=== PATIENT | male | born 1950 | race Caucasian/White ===

== ENCOUNTER → 2020-02-13 10:56 | Outpatient (BNVA) | payer MEDICARE, OTHER, SELFPAY | PROVIDERS: Referring Provider Nurse Practitioner Family; Visit Provider Internal Medicine Cardiovascular Disease | DX: I25.118 Atherosclerotic heart disease of native coronary artery with other forms of angina pectoris (principal); I25.5 Ischemic cardiomyopathy; I10 Essential (primary) hypertension; E78.5 Hyperlipidemia, unspecified; I97.89 Other postprocedural complications and disorders of the circulatory system, not elsewhere classified; I48.91 Unspecified atrial fibrillation; Z79.82 Long term (current) use of aspirin; Z95.1 Presence of aortocoronary bypass graft | CPT/HCPCS: 99214 ==

== ENCOUNTER → 2020-06-15 11:07 | Outpatient (BNVA) | payer MEDICARE, OTHER, SELFPAY | PROVIDERS: PCP Internal Medicine; Visit Provider Internal Medicine Cardiovascular Disease | DX: I20.8 Other forms of angina pectoris (principal); I25.5 Ischemic cardiomyopathy; Z95.1 Presence of aortocoronary bypass graft; R06.00 Dyspnea, unspecified | CPT/HCPCS: 93005; 99212 ==

== ENCOUNTER 2020-06-16 11:11 | Outpatient (REF) | payer MEDICARE, SELFPAY ==
[2020-06-16 13:58] LABS: Hematocrit 44.4 % (42-52); Hemoglobin 14.5 g/dl (14.0-18.0); Mean Corpuscular HGB Conc 32.7 g/dl (31.0-36.0); Mean Corpuscular Hemoglobin 32.7 pg (27.0-33.0); Mean Platelet Volume 10.3 fL (9.4-12.4); Platelet Count 285 X10*3/uL (160-400); Red Blood Count 4.44 X10*6/uL (4.60-5.80); Red Cell Distribution Width 12.1 % (11.0-16.0); White Blood Count 11.3 X10*3/uL (4.8-10.8)
[2020-06-16 14:08] LABS: Prothrombin Time 12.3 SEC (10.8-13.0)
[2020-06-16 14:33] LABS: Anion Gap 14 (12-20); Blood Urea Nitrogen 12 mg/dL (9-16); Calcium 9.4 mg/dL (8.4-10.2); Carbon Dioxide 27 mmol/L (22-29); Chloride 99 mmol/L (96-108); Estimated Glomerular Filt Rate > 60; Glucose Random 86 mg/dL (60-115); Potassium 4.4 mmol/L (3.3-5.1); Sodium 136 mmol/L (135-145)
== END 2020-06-16 11:12 | disposition home or self-care (01) ==
LOC: HO.HMGCLDS 11:11
PROVIDERS: PCP Nurse Practitioner Family; Visit Provider Internal Medicine Cardiovascular Disease
DX: I25.5 Ischemic cardiomyopathy (principal)
CPT/HCPCS: 36415; 80048; 85027; 85610

== ENCOUNTER → 2020-07-09 12:45 | Outpatient (BNVA) | payer MEDICARE, SELFPAY | PROVIDERS: PCP Nurse Practitioner Family; Visit Provider Internal Medicine Cardiovascular Disease | DX: I25.118 Atherosclerotic heart disease of native coronary artery with other forms of angina pectoris (principal); I10 Essential (primary) hypertension | CPT/HCPCS: 99212 ==

== ENCOUNTER → 2020-08-20 10:29 | Outpatient (BNVA) | payer MEDICARE, SELFPAY | PROVIDERS: PCP Nurse Practitioner Family; Visit Provider Internal Medicine Cardiovascular Disease | DX: R06.00 Dyspnea, unspecified (principal); I20.8 Other forms of angina pectoris; I25.5 Ischemic cardiomyopathy; I10 Essential (primary) hypertension; Z79.899 Other long term (current) drug therapy | CPT/HCPCS: 99212 ==

== ENCOUNTER → 2021-01-04 14:26 | Outpatient (BNVA) | payer MEDICARE, SELFPAY | PROVIDERS: PCP Nurse Practitioner Family; Referring Provider Nurse Practitioner Family; Visit Provider Internal Medicine Cardiovascular Disease | DX: R06.00 Dyspnea, unspecified (principal); I20.8 Other forms of angina pectoris; I25.5 Ischemic cardiomyopathy; I10 Essential (primary) hypertension | CPT/HCPCS: 93005; 99212 ==

== ENCOUNTER → 2021-07-05 14:49 | Outpatient (BNVA) | payer MEDICARE, SELFPAY | PROVIDERS: PCP Internal Medicine; Visit Provider Internal Medicine Cardiovascular Disease | DX: I20.8 Other forms of angina pectoris (principal); I10 Essential (primary) hypertension; I25.5 Ischemic cardiomyopathy; Z79.899 Other long term (current) drug therapy | CPT/HCPCS: 99212 ==

== ENCOUNTER → 2021-11-29 13:18 | Outpatient (BNVA) | payer MEDICARE, SELFPAY | PROVIDERS: PCP Nurse Practitioner Family; Referring Provider Nurse Practitioner Family; Visit Provider Internal Medicine Cardiovascular Disease | DX: I20.8 Other forms of angina pectoris (principal); I10 Essential (primary) hypertension | CPT/HCPCS: 93005; 99212 ==

== ENCOUNTER 2022-05-18 09:04 | Inpatient (IN) | payer MEDICARE, SELFPAY ==
[2022-05-18] VITALS (7 sets, daily range): BP systolic 120–154; BP diastolic 65–90; PULSE 91–123; RESP 16–28; TEMP 36.4–37.4; O2SAT 93–97; BMI 27.8
--- NOTE | ~2022-05-18 | XR_ITS ---
EXAMINATION: XR CHEST CLINICAL INFORMATION: Shortness of breath COMPARISON: 07/28/2019 TECHNIQUE: Frontal view of the chest was obtained. FINDINGS: Heart size normal. No evidence of CHF. Status post median sternotomy. Some mild coarse interstitial markings are again seen. At the time of the prior study, CHF with Jasmina B lines was thought to be present which has cleared in the interim. No consolidations, pleural effusions or lung masses are seen. Calcification is present in the right supraspinatus tendon. XR/XR chest 1V IMPRESSION: No acute intrathoracic disease.
--- NOTE | 2022-05-18 09:08 | ECG_ITS ---
Test Reason : DYSPNEA Blood Pressure : / mmHG Vent. Rate : 102 BPM Atrial Rate : 000 BPM P-R Int : 000 ms QRS Dur : 120 ms QT Int : 396 ms P-R-T Axes : 000 027 -25 degrees QTc Int : 516 ms Atrial fibrillation with rapid ventricular response Minimal voltage criteria for LVH, may be normal variant ( [place] product ) Possible Inferior infarct (cited on or before 29-JUL-2019) Abnormal ECG When compared with ECG of 29-JUL-2019 13:34, Atrial fibrillation has replaced Sinus rhythm Referred By: Ashlyn Buck Electronically Signed By:Orion Joshi
--- NOTE | 2022-05-18 09:18 | ED_ITS ---
HPI - SOB/Dyspnea General Chief Complaint: Dyspnea Stated Complaint: DIFF BREATHING PER EMS Time Seen by Provider: 05/18/22 09:08 Source: patient Mode of arrival: EMS History of Present Illness HPI Narrative: 72-year-old male with significant past medical history of atrial fibrillation, angina and noted to have ischemic cardiomyopathy and COPD is brought in by EMS for worsening shortness of breath since 06/06, patient also endorses that he his noticed his heart rate has ?been going up over the past couple of days into the 120s?. Patient denies any current smoking, fevers, chills, nausea, vomiting but does state he did have some associated chest discomfort with his symptoms of shortness of breath. Related Data Home Medications Medication Instructions Recorded Confirmed albuterol sulfate 90 mcg/actuation inhalation 02/13/20 11/29/21 aerosol inhaler atorvastatin 20 mg tablet 20 mg PO DAILY 02/13/20 11/29/21 escitalopram oxalate 10 mg tablet 10 mg PO DAILY 02/13/20 11/29/21 lorazepam 1 mg tablet mg PO DAILY PRN 01/04/21 11/29/21 gabapentin 300 mg capsule 300 mg PO BID 07/05/21 11/29/21 Previous Rx's Medication Instructions Recorded amlodipine 10 mg tablet 10 mg PO DAILY 90 days #90 tabs 05/17/22 aspirin 81 mg tablet,delayed 81 mg PO DAILY #90 tabs 05/17/22 release clopidogrel 75 mg tablet (Plavix) 75 mg PO DAILY #90 tabs 05/17/22 furosemide 40 mg tablet 40 mg PO DAILY #90 caps 05/17/22 isosorbide mononitrate 60 mg 60 mg PO DAILY #90 tabs 05/17/22 tablet,extended release 24 hr lisinopril 20 mg tablet 20 mg PO DAILY #90 tabs 05/17/22 metoprolol tartrate 50 mg tablet 50 mg PO BID 90 days #180 tabs 05/17/22 Allergies Allergy/AdvReac Type Severity Reaction Status Date / Time latex [LATEX] Allergy Mild RASH Verified 11/29/21 13:29 nickel Allergy Unknown Rash Verified 11/29/21 13:29 ticagrelor [From Brilinta] Allergy Shortness Verified 01/20/22 10:00 of Breath Review of Systems Review of Systems: Pertinent positives and negatives as stated in HPI. PMF Past Medical History Source: nursing notes reviewed Medical History CAD (coronary artery disease) COPD (chronic obstructive pulmonary disease) History of prior cigarette smoking HTN (hypertension) Hyperlipidemia Ischemic cardiomyopathy Postoperative atrial fibrillation Stable angina Surgical History H/O knee surgery Hx of CABG S/P CABG x 3 Status post glaucoma surgery Family History Family History Father CVD (cardiovascular disease) Mother CVD (cardiovascular disease) Social History Social History Alcohol intake: current Alcohol intake frequency: holidays/special occasions only Alcohol type: beer Patient Tobacco Use Status: Former Tobacco user Quit Date: 2018 Smoked: 20 +/- Advance Directives: No Physical Exam Vital Signs: Vital Signs: Last Vital Signs Temp 97.6 F 05/18/22 09:14 Pulse 112 H 05/18/22 11:15 Resp 21 H 05/18/22 11:15 BP 131/80 05/18/22 10:42 Pulse Ox 93 05/18/22 10:42 O2 Del Method 05/18/22 10:42 O2 Flow Rate 2 05/18/22 10:42 Oxygen Flow Rate 2 05/18/22 09:14 BMI result Body Mass Index 27.8 VITAL SIGNS: Reviewed. GENERAL: Well developed, well nourished, in no acute distress. HEAD: Normocephalic/atraumatic EYES: PERRLA, EOMI EARS: Ext canals without abnormality OROPHARYNX: no oral lesions noted, posterior pharynx clear NECK: Supple, no adenopathy LUNGS: Decreased breath sounds, coarse rales, expiratory wheeze, tachypnea with increased work of breathing SpO2<92> 2 L nasal cannula in place CARDIOVASCULAR: Regular rate and rhythm without noted murmurs, no JVD or lower extremity edema. ABDOMEN: Soft, non-tender, non-distended with bowel sounds. MUSCULOSKELETAL: No tenderness, deformities, or effusions noted on gross inspection. EXTREMITIES: No cyanosis, clubbing or edema. SKIN: Inspection of the skin reveals no rashes NEUROLOGIC: Alert and oriented x 4. Strength and sensation to light touch were grossly intact x 4. Medications Administered Discontinued Medications Generic Name Dose Route Start Last Admin Trade Name Freq PRN Reason Stop Dose Admin Albuterol Sulfate 5 mg/ 0 mg 05/18/22 10:45 05/18/22 11:10 Ipratropium [place] 0.5 mg INHALE 05/18/22 10:46 2.5 each ONCE ONE Administration Furosemide 80 mg 05/18/22 09:18 05/18/22 09:31 Furosemide 100 Mg/10 Ml Vial IVPUSH 05/18/22 09:19 80 mg ONCE ONE Administration Protocol Metoprolol Tartrate 2.5 mg 05/18/22 09:18 05/18/22 09:31 Metoprolol Tartrate 5 Mg/5 Ml Vial IVPUSH 05/18/22 09:19 2.5 mg ONCE ONE Administration Metoprolol Tartrate 50 mg 05/18/22 10:58 05/18/22 11:16 Metoprolol Tartrate 50 Mg Tablet PO 05/18/22 10:59 50 mg ONCE ONE Administration Protocol Medical Decision Making Medical Decision Making MDM Narrative: 72-year-old male with suspected CHF exacerbation secondary to atrial fibrillation with RVR. 1146: I reviewed all the workup and my interpretation is that patient has been in atrial fibrillation with RVR for several days and has developed acute CHF exacerbation despite the unimpressive BNP and chest x-ray findings. Patient received 80 mg of Lasix with good response and tachypnea has significantly improved but he is still relying 2 L via nasal cannula. Patient was noted to be in atrial fibrillation with RVR on arrival and received 2.5 mg of Lopressor as well as scheduled p.o. dose of 50 mg. On re-evaluation the heart rate has continue to improve. Patient otherwise appears well and no clinical suspicion for COPD exacerbation or underlying infectious etiology. Viral testing is negative. Be observed leukocytosis is not associated with concomitant elevated temperature or new cough. Patient did receive DuoNeb treatment. I did perform a quick bedside ultrasound to evaluate for evidence of pericardial effusion which is not evident. Differential Diagnosis Please see the discussion above Consult Healthcare Provider Management of the patient was discussed with: Hospitalist 1134: A contacted hospitalist for admission for continued optimization of patient's CHF exacerbation. Lab Data Please see the discussion above 05/18/22 09:29 05/18/22 09:29 Labs: Lab Results 05/18/22 05/18/22 05/18/22 Range/Units 09:29 09:29 09:29 WBC 12.0 H (4.8-10.8) X10*3/uL RBC 4.07 L (4.60-5.80) X10*6/uL Hgb 13.2 L (14.0-18.0) g/dl Hct 38.2 L (42.0-52.0) % MCV 93.9 (80.0-98.0) fL MCH 32.4 (27.0-33.0) pg MCHC 34.6 (31.0-36.0) g/dl RDW 12.4 (11.0-16.0) % Plt Count 207 (160-400) X10*3/uL MPV 9.6 (9.4-12.4) fL Immature Gran % (Auto) 0.5 H (0.0-0.4) % Neut % (Auto) 85.5 H (45-73) % Lymph % (Auto) 7.1 L (20-40) % Burt % (Auto) 6.6 (2-11) % Eos % (Auto) 0.1 (0-4) % Baso % (Auto) 0.2 (0-2) % Lymph # (Auto) 0.9 L (1.2-4.9) X10*3/uL Burt # (Auto) 0.8 (0.1-1.2) X10*3/uL Eos # (Auto) 0.0 (0.0-0.4) X10*3/uL Baso # (Auto) 0.0 (0.0-0.2) X10*3/uL Abs Immat Gran (auto) 0.06 H (0.00-0.03) X10*3/uL Absolute Neuts (auto) 10.3 H (2.0-8.3) x10*3/uL Absolute Nucleated RBC 0.000 (0.0-0.012) X10*3/uL Nucleated RBC % (auto) 0.0 (0.0-0.2) /100WBC PT (10.0-13.1) SEC INR (0.9-1.1) VBG pH (7.32-7.43) VBG pCO2 mmHg VBG pO2 mmHg VBG HCO3 (22-26) mmol/L VBG O2 Saturation % VBG Base Excess mmol/L Sodium 132 L (135-145) mmol/L Potassium 4.1 (3.3-5.1) mmol/L Chloride 98 (96-108) mmol/L Carbon Dioxide 23 (22-29) mmol/L Anion Gap 15 (12-20) BUN 11 (9-16) mg/dL Creatinine 0.69 (0.5-1.4) mg/dL Estim Creat Clear Calc 101.6 Estimated GFR > 60 Random Glucose 136 H (60-115) mg/dL Calcium 9.4 (8.4-10.2) mg/dL Total Bilirubin 0.8 (0.0-1.0) mg/dL AST 31 (5-37) U/L ALT 38 (0-40) U/L Alkaline Phosphatase 85 (39-117) U/L Troponin I High Sens (<3.5-35.0) ng/L B-Natriuretic Peptide 361 H (<100) pg/mL Total Protein 7.1 (6.5-8.0) g/dL Albumin 4.4 (3.5-5.0) g/dL COVID-19 (DUANE) (Negative) COVID-19 Clin Com Influenza Type A (SUSAN) (Negative) Influenza Type B (SUSAN) (Negative) Influenza A & B Note 05/18/22 05/18/22 05/18/22 Range/Units 09:29 09:29 09:29 WBC (4.8-10.8) X10*3/uL RBC (4.60-5.80) X10*6/uL Hgb (14.0-18.0) g/dl Hct (42.0-52.0) % MCV (80.0-98.0) fL MCH (27.0-33.0) pg MCHC (31.0-36.0) g/dl RDW (11.0-16.0) % Plt Count (160-400) X10*3/uL MPV (9.4-12.4) fL Immature Gran % (Auto) (0.0-0.4) % Neut % (Auto) (45-73) % Lymph % (Auto) (20-40) % Burt % (Auto) (2-11) % Eos % (Auto) (0-4) % Baso % (Auto) (0-2) % Lymph # (Auto) (1.2-4.9) X10*3/uL Burt # (Auto) (0.1-1.2) X10*3/uL Eos # (Auto) (0.0-0.4) X10*3/uL Baso # (Auto) (0.0-0.2) X10*3/uL Abs Immat Gran (auto) (0.00-0.03) X10*3/uL Absolute Neuts (auto) (2.0-8.3) x10*3/uL Absolute Nucleated RBC (0.0-0.012) X10*3/uL Nucleated RBC % (auto) (0.0-0.2) /100WBC PT 12.9 (10.0-13.1) SEC INR 1.1 (0.9-1.1) VBG pH (7.32-7.43) VBG pCO2 mmHg VBG pO2 mmHg VBG HCO3 (22-26) mmol/L VBG O2 Saturation % VBG Base Excess mmol/L Sodium (135-145) mmol/L Potassium (3.3-5.1) mmol/L Chloride (96-108) mmol/L Carbon Dioxide (22-29) mmol/L Anion Gap (12-20) BUN (9-16) mg/dL Creatinine (0.5-1.4) mg/dL Estim Creat Clear Calc Estimated GFR Random Glucose (60-115) mg/dL Calcium (8.4-10.2) mg/dL Total Bilirubin (0.0-1.0) mg/dL AST (5-37) U/L ALT (0-40) U/L Alkaline Phosphatase (39-117) U/L Troponin I High Sens (<3.5-35.0) ng/L B-Natriuretic Peptide (<100) pg/mL Total Protein (6.5-8.0) g/dL Albumin (3.5-5.0) g/dL COVID-19 (DUANE) Negative (Negative) COVID-19 Clin Com See Note Influenza Type A (SUSAN) Negative (Negative) Influenza Type B (SUSAN) Negative (Negative) Influenza A & B Note See Note 05/18/22 05/18/22 Range/Units 09:29 09:42 WBC (4.8-10.8) X10*3/uL RBC (4.60-5.80) X10*6/uL Hgb (14.0-18.0) g/dl Hct (42.0-52.0) % MCV (80.0-98.0) fL MCH (27.0-33.0) pg MCHC (31.0-36.0) g/dl RDW (11.0-16.0) % Plt Count (160-400) X10*3/uL MPV (9.4-12.4) fL Immature Gran % (Auto) (0.0-0.4) % Neut % (Auto) (45-73) % Lymph % (Auto) (20-40) % Burt % (Auto) (2-11) % Eos % (Auto) (0-4) % Baso % (Auto) (0-2) % Lymph # (Auto) (1.2-4.9) X10*3/uL Burt # (Auto) (0.1-1.2) X10*3/uL Eos # (Auto) (0.0-0.4) X10*3/uL Baso # (Auto) (0.0-0.2) X10*3/uL Abs Immat Gran (auto) (0.00-0.03) X10*3/uL Absolute Neuts (auto) (2.0-8.3) x10*3/uL Absolute Nucleated RBC (0.0-0.012) X10*3/uL Nucleated RBC % (auto) (0.0-0.2) /100WBC PT (10.0-13.1) SEC INR (0.9-1.1) VBG pH 7.34 (7.32-7.43) VBG pCO2 49 mmHg VBG pO2 56 mmHg VBG HCO3 26 (22-26) mmol/L VBG O2 Saturation 85.0 % VBG Base Excess 0.5 mmol/L Sodium (135-145) mmol/L Potassium (3.3-5.1) mmol/L Chloride (96-108) mmol/L Carbon Dioxide (22-29) mmol/L Anion Gap (12-20) BUN (9-16) mg/dL Creatinine (0.5-1.4) mg/dL Estim Creat Clear Calc Estimated GFR Random Glucose (60-115) mg/dL Calcium (8.4-10.2) mg/dL Total Bilirubin (0.0-1.0) mg/dL AST (5-37) U/L ALT (0-40) U/L Alkaline Phosphatase (39-117) U/L Troponin I High Sens 10.3 (<3.5-35.0) ng/L B-Natriuretic Peptide (<100) pg/mL Total Protein (6.5-8.0) g/dL Albumin (3.5-5.0) g/dL COVID-19 (DUANE) (Negative) COVID-19 Clin Com Influenza Type A (SUSAN) (Negative) Influenza Type B (SUSAN) (Negative) Influenza A & B Note Independent Interpretation I performed an independent interpretation of an: EKG Interpretation: Atrial fibrillation with RVR, HR-102, no STEMI, and both QRS and QTC are prolonged. Radiology Impression Radiologist Impression: My interpretation is in agreement with radiology's impression of the imaging study. External Record Review External record reviewed: Office record, Outpatient record and Prior outpatient labs Chronic Conditions Patient?s care impacted by: Hypertension and Other CAD, COPD Critical Care Time Critical Care Time Critical Care Time: Yes Total Critical Care Time: 45 Attestation: I personally attest to this time spent taking care of the patient. Discharge Plan Discharge Clinical Impression: Hypoxia, Atrial fibrillation with RVR, CHF exacerbation Patient Disposition: Admitted As Inpatient Prescriptions: No Action amlodipine 10 mg tablet 10 mg PO DAILY 90 Days Qty: 90 3RF aspirin 81 mg tablet,delayed release (DR/EC) 81 mg PO DAILY Qty: 90 3RF clopidogrel [Plavix] 75 mg tablet 75 mg PO DAILY Qty: 90 3RF furosemide 40 mg tablet 40 mg PO DAILY Qty: 90 3RF isosorbide mononitrate 60 mg tablet extended release 24 hr 60 mg PO DAILY Qty: 90 3RF lisinopril 20 mg tablet 20 mg PO DAILY Qty: 90 3RF metoprolol tartrate 50 mg tablet 50 mg PO BID 90 Days Qty: 180 3RF escitalopram oxalate 10 mg tablet 10 mg PO DAILY atorvastatin 20 mg tablet 20 mg PO DAILY albuterol sulfate 90 mcg/actuation HFA aerosol inhaler inhalation lorazepam 1 mg tablet PO DAILY PRN gabapentin 300 mg capsule 300 mg PO BID
[2022-05-18] MEDS: Metoprolol Tartrate 5 MG/5 ML VIAL 2.5 MG IVPUSH (09:31)
[2022-05-18] MEDS: Furosemide 100 MG/10 ML VIAL 80 MG IVPUSH (09:31)
[2022-05-18 09:40] LABS: MANUAL DIFF FLAG NO
--- NOTE | 2022-05-18 09:40 | PC.NURSE ---
at bedside patient tolerated IVP Metoprolol and Lasix. LS clear on auscultation no crackles or wheezing appreciated patient is tachypnic. Afib on clinical research monitor will CTM
[2022-05-18 09:47] LABS: INTERNATIONAL NORM RATIO 1.1 (0.9-1.1); Prothrombin Time 12.9 SEC (10.0-13.1)
[2022-05-18 09:49] LABS: Basophils Percent Auto 0.2 % (0-2); Eosinophils Percent Auto 0.1 % (0-4); Hematocrit 38.2 % (42.0-52.0); Hemoglobin 13.2 g/dl (14.0-18.0); Imm Gran Abs Auto 0.06 X10*3/uL (0.00-0.03); Imm Gran Pct Auto 0.5 % (0.0-0.4); Lymphocytes Absolute Auto 0.9 X10*3/uL (1.2-4.9); Lymphocytes Percent Auto 7.1 % (20-40); Mean Corpuscular HGB Conc 34.6 g/dl (31.0-36.0); Mean Corpuscular Hemoglobin 32.4 pg (27.0-33.0); Mean Corpuscular Volume 93.9 fL (80.0-98.0); Mean Platelet Volume 9.6 fL (9.4-12.4); Monocytes Absolute Auto 0.8 X10*3/uL (0.1-1.2); Monocytes Percent Auto 6.6 % (2-11); Neutrophils Absolute Auto 10.3 x10*3/uL (2.0-8.3); Neutrophils Percent Auto 85.5 % (45-73); Platelet Count 207 X10*3/uL (160-400); Red Blood Count 4.07 X10*6/uL (4.60-5.80); Red Cell Distribution Width 12.4 % (11.0-16.0)
[2022-05-18 09:49] LABS: VBG Base Excess 0.5 mmol/L; VBG HCO3 26 mmol/L (22-26); VBG pCO2 49 mmHg; VBG pH 7.34 (7.32-7.43); VBG pO2 56 mmHg
[2022-05-18 10:01] LABS: COVID-19 Test Negative (Negative); IDNOW Serial# 16C4AD1C; IDNOW Serial# BCCEAD1C; Influenza A Negative (Negative); Influenza B2 Negative (Negative)
--- NOTE | 2022-05-18 10:06 | PC.NURSE ---
ED radiology at bedside
[2022-05-18 10:10] LABS: Alanine Aminotransferase 38 U/L (0-40); Albumin Level 4.4 g/dL (3.5-5.0); Alkaline Phosphatase 85 U/L (39-117); Anion Gap 15 (12-20); Aspartate Amino Transferase 31 U/L (5-37); Bilirubin Total 0.8 mg/dL (0.0-1.0); Blood Urea Nitrogen 11 mg/dL (9-16); Calcium 9.4 mg/dL (8.4-10.2); Carbon Dioxide 23 mmol/L (22-29); Chloride 98 mmol/L (96-108); Creatinine Clr Calc Pharmacy 101.6; Estimated Glomerular Filt Rate > 60; Glucose Random 136 mg/dL (60-115); Potassium 4.1 mmol/L (3.3-5.1); Sodium 132 mmol/L (135-145); Total Protein 7.1 g/dL (6.5-8.0)
[2022-05-18 10:14] LABS: B Type Natriuretic Peptide 361 pg/mL (<100)
[2022-05-18 10:15] LABS: Venous Blood Gas Refer to POC result
[2022-05-18 10:18] LABS: Troponin-I High Sensitivity 10.3 ng/L (<3.5-35.0)
[2022-05-18] MEDS: Metoprolol Tartrate 50 MG TABLET PO (11:16)
--- NOTE | 2022-05-18 12:04 | PC.NURSE ---
Report to Chance BUTTERFIELD
--- NOTE | 2022-05-18 12:08 | PHA.MEDREC ---
Pharmacy Consult ? Medication Reconciliation Pharmacy has completed the medication reconciliation. Patient confirmed meds and brought in list.
--- NOTE | 2022-05-18 12:43 | PM.IMHP ---
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 Patient states his symptoms began approximately 2 weeks ago when he noticed SOB with exertion and at rest. The patient also noticed that his heart rate has been elevated at times, up to 120s. Has had a cough productive of clear sputum. Patient endorses orthopnea, sleeping with 5 pillows now. Has had moments of non-radiating chest pain centered over his heart, usually lasts a few minutes. He has not taken any meds for this. Denies swelling in legs. No F/C, N/V. Denies headache, vision changes. No abdominal pain. In the ED labs were significant for leukocytosis of 12.0, troponin negative, BNP of 361, VBG WNL. Patient tested negative for influenza A and B, COVID. CXR showed no acute intrathoracic disease. EKG showed AFib with RVR. Pt was treated with 2.5 mg IV and 50mg po of Lopressor, DuoNeb, and 80 mg of IV Lasix. Patient currently satting at 96 on 2 L nasal cannula, not on O2 at home. Pt will be admitted to the hospital for treatment of acute CHF exacerbation and AFib with RVR. Review of Systems Review of Systems: Shortness of breath with exertion and at rest Racing heart Nonradiating chest pain, lasting a few minutes Denies edema No abdominal pain [facility] Medical History CAD (coronary artery disease) COPD (chronic obstructive pulmonary disease) History of prior cigarette smoking HTN (hypertension) Hyperlipidemia Ischemic cardiomyopathy Postoperative atrial fibrillation Stable angina Family History Father CVD (cardiovascular disease) Mother CVD (cardiovascular disease) Surgical History H/O knee surgery Hx of CABG S/P CABG x 3 Status post glaucoma surgery Social History Alcohol intake: current Alcohol intake frequency: holidays/special occasions only Alcohol type: beer Patient Tobacco Use Status: Former Tobacco user Quit Date: 2018 Years Smoked: 20 +/- Advance Directives: No Meds Allergies Allergy/AdvReac Type Severity Reaction Status Date / Time latex [LATEX] Allergy Mild RASH Verified 11/29/21 13:29 nickel Allergy Unknown Rash Verified 11/29/21 13:29 ticagrelor [From Brilinta] Allergy Shortness Verified 01/20/22 10:00 of Breath Home Medications Medication Instructions Recorded Confirmed Last Taken Type atorvastatin 20 mg tablet 20 mg PO DAILY 02/13/20 05/18/22 05/17/22 History lorazepam 1 mg tablet 1 mg PO DAILY PRN Anxiety 01/04/21 05/18/22 05/17/22 History gabapentin 300 mg capsule 300 mg PO BID 07/05/21 05/18/22 05/17/22 History escitalopram oxalate 20 mg tablet 1 tab PO DAILY 05/18/22 05/18/22 05/17/22 History fluocinonide 0.05 % topical cream 1 appl topical BID PRN Rash 05/18/22 05/18/22 05/17/22 History hydroxyzine HCl 10 mg tablet 1 tab PO BEDTIME PRN Insomnia 05/18/22 05/18/22 05/17/22 History Physical Exam Vital Signs and Narrative: Vital Signs: Last Vital Signs Temp 97.6 F 05/18/22 09:14 Pulse 112 H 05/18/22 11:15 Resp 21 H 05/18/22 11:15 BP 131/80 05/18/22 10:42 Pulse Ox 93 05/18/22 10:42 O2 Del Method 05/18/22 10:42 O2 Flow Rate 2 05/18/22 10:42 Oxygen Flow Rate 2 05/18/22 09:14 BMI result Body Mass Index 27.8 Constitutional: Alert, in no acute distress. Mental Status: Oriented to person, place and time. Eyes: Pupils are equal, round, and reactive to light. Ear, Nose, and Throat: Oropharynx clear, mucous membranes moist. Ears and nose without deformities. Trachea midline. Respiratory: Expiratory wheezing throughout bilaterally. Cardiovascular: Irregularly regular rhythm. Gastrointestinal: Abdomen soft, non-tender, non-distended. Normal bowel sounds. Neurologic: Cranial nerves II-XI are grossly intact. No focal neurological deficits. Moves all extremities spontaneously. Skin: No rashes or lesions noted. Musculoskeletal: No cyanosis or clubbing. Extremities: No edema. Psychiatric: Normal mood and affect. Results Labs 05/18/22 09:29 05/18/22 09:29 Labs: Laboratory Results - last 24 hr 05/18/22 05/18/22 05/18/22 09:29 09:29 09:29 MCV 93.9 MCH 32.4 MCHC 34.6 RDW 12.4 Plt Count 207 MPV 9.6 Immature Gran % (Auto) 0.5 H Neut % (Auto) 85.5 H Lymph % (Auto) 7.1 L [place] % (Auto) 6.6 Eos % (Auto) 0.1 Baso % (Auto) 0.2 Lymph # (Auto) 0.9 L [place] # (Auto) 0.8 Eos # (Auto) 0.0 Baso # (Auto) 0.0 Abs Immat Gran (auto) 0.06 H Absolute Neuts (auto) 10.3 H Absolute Nucleated RBC 0.000 Nucleated RBC % (auto) 0.0 PT INR VBG pH VBG pCO2 VBG pO2 VBG HCO3 VBG O2 Saturation VBG Base Excess Anion Gap 15 Estim Creat Clear Calc 101.6 Estimated GFR > 60 Random Glucose 136 H Calcium 9.4 Total Bilirubin 0.8 AST 31 ALT 38 Alkaline Phosphatase 85 Troponin I High Sens B-Natriuretic Peptide 361 H Total Protein 7.1 Albumin 4.4 COVID-19 (DUANE) COVID-19 Clin Com Influenza Type A (SUSAN) Influenza Type B (SUSAN) Influenza A & B Note 05/18/22 05/18/22 05/18/22 09:29 09:29 09:29 MCV MCH MCHC RDW Plt Count MPV Immature Gran % (Auto) Neut % (Auto) Lymph % (Auto) [place]son % (Auto) Eos % (Auto) Baso % (Auto) Lymph # (Auto) [place]son # (Auto) Eos # (Auto) Baso # (Auto) Abs Immat Gran (auto) Absolute Neuts (auto) Absolute Nucleated RBC Nucleated RBC % (auto) PT 12.9 INR 1.1 VBG pH VBG pCO2 VBG pO2 VBG HCO3 VBG O2 Saturation VBG Base Excess Anion Gap Estim Creat Clear Calc Estimated GFR Random Glucose Calcium Total Bilirubin AST ALT Alkaline Phosphatase Troponin I High Sens B-Natriuretic Peptide Total Protein Albumin COVID-19 (DUANE) Negative COVID-19 Clin Com See Note Influenza Type A (SUSAN) Negative Influenza Type B (SUSAN) Negative Influenza A & B Note See Note 05/18/22 05/18/22 09:29 09:42 MCV MCH MCHC RDW Plt Count MPV Immature Gran % (Auto) Neut % (Auto) Lymph % (Auto) [place] % (Auto) Eos % (Auto) Baso % (Auto) Lymph # (Auto) [place] # (Auto) Eos # (Auto) Baso # (Auto) Abs Immat Gran (auto) Absolute Neuts (auto) Absolute Nucleated RBC Nucleated RBC % (auto) PT INR VBG pH 7.34 VBG pCO2 49 VBG pO2 56 VBG HCO3 26 VBG O2 Saturation 85.0 VBG Base Excess 0.5 Anion Gap Estim Creat Clear Calc Estimated GFR Random Glucose Calcium Total Bilirubin AST ALT Alkaline Phosphatase Troponin I High Sens 10.3 B-Natriuretic Peptide Total Protein Albumin COVID-19 (DUANE) COVID-19 Clin Com Influenza Type A (SUSAN) Influenza Type B (SUSAN) Influenza A & B Note Imaging Radiologist's Impressions: Impressions Chest X-Ray 05/18/22 10:05 IMPRESSION: No acute intrathoracic disease. 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 Acute CHF exacerbation Furosemide 40 IV bid Hold home furosemide Echocardiogram Follow lytes, mg, I/O Cardiology consult AFib with RVR HR up in 120s in ED Patient received 2.5mg of Lopressor in the ED, currently in 90s Metoprolol 25 mg q6 Start Eliquis 5 mg b.i.d., [id number] score 6 Hold home metoprolol Wheezing Pt denies a history of COPD, though notes Asthma when younger that he outgrew Possibly secondary to CHF exacerbation Josee yung CAD Continue home meds HTN Continue home meds HLD Continue home meds Full Code Attending:?Dr. Davalos DVT Prophylaxis: Aleksandra Pt will require a hospitalization of at least two nights for treatment of CHF exacerbation and new onset AFib . Time Spent With Patient Time: Total time managing care of this patient today ____ minutes. Quality Stroke Does the patient have a stroke diagnosis?: No VTE Prior VTE?: No VTE Risk Level:: Medical - moderate - high VTE Device Contraindication: Treatment Not Indicated VTE Drug Contraindication: N/A - Med Ordered
--- NOTE | 2022-05-18 14:00 | CA_ITS ---
Transthoracic Echocardiogram Patient (Last, First, Middle): Ferdinand Reed, Gender: Male Date of : 1950 Age: 72 Procedure Date: 05/18/2022 Procedure Type: Transthoracic Echocardiogram Location: ER Height: 172.72 cm Weight: 83.01 kg BSA: 1.97 m2 Heart Rate: bpm BP: 131 / 80 mmHg Acid Purifier: SB Referring MD: Zeynep MOSQUERA Symptoms: CHF Study Quality: Adequate w contrast ECG Rhythm: Atrial Fibrillation Conclusions: - Normal left ventricular cavity size. The left ventricular systolic function is borderline reduced. The visually estimated ejection fraction is between 45-50%. - The inferior wall is hypokinetic. - In limited views, RV appears to be normal in size with at least mild systolic dysfunction. - There is mild to moderate aortic valve stenosis. The peak aortic velocity is 2.71 m/s. The mean gradient is 10 mmHg. The aortic valve area is 1.39 cm2. - There is severe mitral annular calcification. - Mild pulmonary hypertension is present. Findings Procedure Information Contrast agent, definity, is being given per protocol without apparent complications. Left Ventricle Normal left ventricular cavity size. The left ventricular systolic function is borderline reduced. The visually estimated ejection fraction is between 45-50%. There is evidence of regional wall motion abnormalities. Diastolic function is indeterminate on the basis of available data. There is severe septal asymmetric hypertrophy. Wall Motion Rest Echo Findings The inferior wall is hypokinetic. Right Ventricle In limited views, RV appears to be normal in size with at least mild systolic dysfunction. Atria The left atrium is mildly dilated. RA appears dilated. Aortic Valve There is a normal trileaflet aortic valve. There is moderate calcification of the aortic valve. There is mild to moderate aortic valve stenosis. The peak aortic velocity is 2.71 m/s. The mean gradient is 10 mmHg. The aortic valve area is 1.39 cm2. There is no aortic valve regurgitation. Mitral Valve There is severe mitral annular calcification. There is trace mitral valve regurgitation. There is no mitral valve stenosis. Pulmonic Valve The pulmonic valve is likely normal. Tricuspid Valve Normal tricuspid valve structure. There is trace tricuspid valve regurgitation. The right ventricular systolic pressure is 36 mmHg. Moderately elevated right atrial pressure. Mild pulmonary hypertension is present. Great Vessels The pulmonary artery was not well visualized. There is mild dilatation of the sinuses of Valsalva measuring 3.80 cm. Venous The inferior vena cava is dilated and collapses less than 50% with inspiration. Pericardium/Pleural There is no evidence of pericardial effusion. Prior Study Comparison Changes noted compared to prior study dated: 07/29/2019. Borderline LVEF 45 50%, inferior wall is hypokinetic. mild to moderate . Measurements 2D Linear Measurements IVSd: 1.66 0.6-0.9/0.6-1.0 cm LVIDd: 5.19 3.9-5.3/4.2-5.9 cm LVIDd Index: 2.63 2.4-3.2/2.2-3.1 cm/m2 LVIDs: 4.85 2.0-3.6 cm LVPWd: 0.47 0.7-1.1 cm Ao Root: 1.00 2.1-3.5 cm LA Diam: 5.10 2.7-3.8/3.0-4.0 cm LAIDs Index: 2.59 1.5-2.3 cm/m2 LV Mass: 262.86 67-162/88-224 g LV Mass Index: 133.43 43-95/49-115 g/m2 LVOT Diam: 2.20 3.0+(-)1.3 cm 2D Systolic Function EF 4C: 51.50 >55% EF 2C: 45.50 >55% EF BiP: 47.30 >55% Mitral Valve MV VTI: 0.26 MV Pk Nathaniel: 1.41 MV Mn Nathaniel: 0.93 MV Pk Grad: 8.00 MV Mn Grad: 4.00 MV Pk E: 1.46 MVA Continuity: 2.29 Aortic Valve AoV Pk Nathaniel: 2.71 AoV Mn Nathaniel: 1.48 AoV VTI: 0.38 AoV Pk Grad: 29.00 Aov Mn Grad: 18.00 JEFF Cont.VTI: 1.39 LVOT LVOT Pk Nathaniel: 0.91 LVOT Mn Nathaniel: 0.62 LVOT VTI: 0.16 LVOT Pk Grad: 3.00 LVOT Mn Grad: 2.00 LVOT Diam: 2.20 LVOT Area: 3.80 Diastolic Function MV Pk E: 1.46 Right Ventricle TVS' Nathaniel: 6.22 Tricuspid Valve TR Pk Nathaniel: 2.31 TR Pk Grad: 21.00 RA Press: 15.00 RVSP: 36.00 Great Vessels Aorta Ao Root-2D: 1.00 2.0-3.7 cm Sinus of Valsalva: 3.80 2.0-3.5 cm Ao Asc: 3.40 2.1-3.4 cm Pulmonary Valve PV Pk Nathaniel: 0.91 Peak PV Grad: 3.00 Updated in Other Vendor System with Status of Final Orion Joshi MD electronically signed on 05/18/2022 4:54:11 PM with status of Final
[2022-05-18] MEDS: Apixaban 5 MG TABLET PO ×2 (14:57→20:32)
[2022-05-18 15:09] LABS: Troponin-I High Sensitivity 12.8 ng/L (<3.5-35.0)
[2022-05-18] MEDS: Furosemide 40 MG/4 ML VIAL IVPUSH (17:33)
[2022-05-18] MEDS: Metoprolol Tartrate 25 MG TABLET PO ×2 (17:34→20:32)
[2022-05-18] MEDS: 0.9 % Sodium Chloride Flush 3 ML SYRINGE IVFLUSH (20:32)
[2022-05-18] MEDS: Gabapentin 300 MG CAPSULE PO (20:32)
[2022-05-18] MEDS: LORazepam 1 MG TABLET PO (20:43)
[2022-05-19 03:24] VITALS: BP 132/73; PULSE 109; RESP 18; TEMP 36.9; O2SAT 98
[2022-05-19 05:58] LABS: Hematocrit 39.7 % (42.0-52.0); Hemoglobin 13.5 g/dl (14.0-18.0); Mean Corpuscular Hemoglobin 32.5 pg (27.0-33.0); Mean Corpuscular Volume 95.7 fL (80.0-98.0); Mean Platelet Volume 9.8 fL (9.4-12.4); Platelet Count 222 X10*3/uL (160-400); Red Blood Count 4.15 X10*6/uL (4.60-5.80); Red Cell Distribution Width 12.5 % (11.0-16.0); White Blood Count 12.5 X10*3/uL (4.8-10.8)
[2022-05-19 06:44] LABS: Anion Gap 13 (12-20); Blood Urea Nitrogen 12 mg/dL (9-16); Carbon Dioxide 29 mmol/L (22-29); Chloride 94 mmol/L (96-108); Creatinine Clr Calc Pharmacy 89.8; Estimated Glomerular Filt Rate > 60; Glucose Random 109 mg/dL (60-115); Potassium 3.4 mmol/L (3.3-5.1); Sodium 133 mmol/L (135-145)
[2022-05-19 07:10] VITALS: BP 140/84; PULSE 113; RESP 18; TEMP 37; O2SAT 96
--- NOTE | 2022-05-19 08:37 | MHC.CM.PN ---
CM met with Patient and his at bedside and addressed IMM with them, original was given to them and a copy has been placed on the chart. 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 Home/self care is the goal and CM has initiated and will follow for dc planning. Patient has received Moderna/Covid vax x5 and his PCP/PA is Reena Dickson.
[2022-05-19] MEDS: Isosorbide Mononitrate 60 MG TAB.ER.24H PO (09:09)
[2022-05-19] MEDS: 0.9 % Sodium Chloride Flush 3 ML SYRINGE IVFLUSH ×3 (09:09→21:18)
[2022-05-19] MEDS: Escitalopram Oxalate 20 MG TABLET PO (09:09)
[2022-05-19] MEDS: Gabapentin 300 MG CAPSULE PO ×2 (09:09→21:17)
[2022-05-19] MEDS: Apixaban 5 MG TABLET PO ×2 (09:09→21:17)
[2022-05-19] MEDS: amLODIPine Besylate 10 MG TABLET PO (09:09)
[2022-05-19] MEDS: Clopidogrel Bisulfate 75 MG TABLET PO (09:10)
[2022-05-19] MEDS: Atorvastatin Calcium 20 MG TABLET PO (09:10)
[2022-05-19] MEDS: lisinopriL 20 MG TABLET PO (09:10)
[2022-05-19] MEDS: Furosemide 40 MG/4 ML VIAL IVPUSH ×2 (09:10→17:22)
[2022-05-19] MEDS: Metoprolol Tartrate 25 MG TABLET PO ×4 (09:10→21:17)
[2022-05-19] MEDS: Aspirin Enteric Coated 81 MG TABLET.DR PO (09:10)
[2022-05-19 11:07] VITALS: BP 118/75; PULSE 101; RESP 18; TEMP 36; O2SAT 93
--- NOTE | 2022-05-19 13:44 | HO.PM.IMPN ---
Subjective Subjective Date of Service: 05/19/22 Interval History: seen and examined this morning Follow-up for CHF, atrial fibrillation Reports improvement in breathing, denies shortness breath at this time. No chest pain, no palpitations Review of Systems Review of Systems: Yes all other systems are reviewed and are negative Constitutional Constitutional: Denies chills and Denies fever(s) Cardiovascular Cardiovascular: Denies chest pain, Denies palpitations, Denies dyspnea and Denies dyspnea on exertion Respiratory Respiratory: Denies dyspnea and Denies dyspnea on exertion Gastrointestinal Gastrointestinal: Denies abdominal pain Endocrine Endocrine: Denies palpitations Physical Exam Vital Signs: Vital Signs: Last Vital Signs Temp 96.8 F 05/19/22 11:07 Pulse 101 H 05/19/22 11:07 Resp 18 05/19/22 11:07 BP 118/75 05/19/22 11:07 Pulse Ox 93 05/19/22 11:07 O2 Del Method 05/19/22 11:07 O2 Flow Rate 2 05/19/22 07:10 Oxygen Flow Rate 2 05/18/22 09:14 BMI result Body Mass Index 27.8 Const: General: comfortable, no acute distress, alert and awake Nutritional Appearance: average body habitus Orientation/consciousness: patient oriented x3 Resp: Other: end expiratory wheezing, diminished Effort & Inspection: normal respiratory effort and able to speak in complete sentences Cardio: Other: irregularly irregular GI: Inspection: No distended Palpation (GI): not soft and nontender Neuro: General: patient oriented x3 and CN's II-XI intact bilaterally Extrem: General: Yes no pedal edema Objective Data Active Medications Acetaminophen (Acetaminophen 325 Mg Tablet) 650 mg PO Q6H PRN PRN Reason: Pain, Mild (Pain Scale 1-3) Amlodipine Besylate (Amlodipine Besylate 10 Mg Tablet) 10 mg PO DAILY [facility]; Protocol Last Admin: 05/19/22 09:09 Dose: 10 mg Documented By: DEBI Apixaban (Apixaban 5 Mg Tablet) 5 mg PO BID [facility] Last Admin: 05/19/22 09:09 Dose: 5 mg Documented By: DEBI Aspirin (Aspirin Enteric Coated 81 Mg Tablet.) 81 mg PO DAILY [facility] Last Admin: 05/19/22 09:10 Dose: 81 mg Documented By: DEBI Atorvastatin Calcium (Atorvastatin Calcium 20 Mg Tablet) 20 mg PO DAILY [facility] Last Admin: 05/19/22 09:10 Dose: 20 mg Documented By: DEBI Clopidogrel Bisulfate (Clopidogrel Bisulfate 75 Mg Tablet) 75 mg PO DAILY [facility] Last Admin: 05/19/22 09:10 Dose: 75 mg Documented By: DEBI Albuterol Sulfate 2.5 mg/ (Ipratropium [place] 0.5 mg) 0 mg INHALE RQ6H WHILE AWAKE PRN PRN Reason: Shortness of Breath Docusate Sodium (Docusate Sodium 100 Mg Capsule) 100 mg PO DAILY PRN PRN Reason: Constipation Escitalopram Oxalate (Escitalopram Oxalate 20 Mg Tablet) 20 mg PO DAILY [facility] Last Admin: 05/19/22 09:09 Dose: 20 mg Documented By: DEBI Furosemide (Furosemide 40 Mg/4 Ml Vial) 40 mg IVPUSH BID@0900,1800 [facility]; Protocol Last Admin: 05/19/22 09:10 Dose: 40 mg Documented By: DEBI Gabapentin (Gabapentin 300 Mg Capsule) 300 mg PO BID [facility] Last Admin: 05/19/22 09:09 Dose: 300 mg Documented By: DEBI Hydroxyzine HCl (Hydroxyzine Hcl 10 Mg Tablet) 10 mg PO BEDTIME PRN PRN Reason: Insomnia Isosorbide Mononitrate (Isosorbide Mononitrate 60 Mg Tab.Er.24h) 60 mg PO DAILY [facility]; Protocol Last Admin: 05/19/22 09:09 Dose: 60 mg Documented By: DEBI Lisinopril (Lisinopril 20 Mg Tablet) 20 mg PO DAILY [facility]; Protocol Last Admin: 05/19/22 09:10 Dose: 20 mg Documented By: DEBI Lorazepam (Lorazepam 1 Mg Tablet) 1 mg PO DAILY PRN PRN Reason: Anxiety Last Admin: 05/18/22 20:43 Dose: 1 mg Documented By: HELGA Metoprolol Tartrate (Metoprolol Tartrate 25 Mg Tablet) 25 mg PO QID [facility]; Protocol Last Admin: 05/19/22 09:10 Dose: 25 mg Documented By: DEBI Sodium Chloride (0.9 % Sodium Chloride Flush 3 Ml Syringe) 3 ml IVFLUSH QSHIFT [facility] Last Admin: 05/19/22 09:09 Dose: 3 ml Documented By: DEBI Labs 05/19/22 05:36 05/19/22 05:36 Labs: Laboratory Results - last 24 hr 05/18/22 05/19/22 05/19/22 14:30 05:36 05:36 MCV 95.7 MCH 32.5 MCHC 34.0 RDW 12.5 Plt Count 222 MPV 9.8 Absolute Nucleated RBC 0.000 Nucleated RBC % (auto) 0.0 Anion Gap 13 Estim Creat Clear Calc 89.8 Estimated GFR > 60 Random Glucose 109 Calcium 10.0 D Magnesium 2.0 Troponin I High Sens 12.8 Assessment and Plan (1) Atrial fibrillation with RVR: Status: Acute (2) CHF exacerbation: Status: Acute Plan Pt is a 72-year-old male with a PMH significant for?CAD s/p triple bypass in 09/2018, 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 Acute on Chronic HFrEF Echo with EF 45-50% with inferior wall hypokinesis and mild to moderate continu IV lasix Follow lytes, I/O Cardiology consult pending AFib with RVR HR improving continue Metoprolol 25 mg q6 [id number] score 6, started on Eliquis this admission. Wheezing Pt denies a history of COPD, though notes Asthma when younger that he outgrew Possibly secondary to CHF exacerbation DuAshley p.r.n. CAD continue Plavix, statin, imdur, beta-alissa as he was started on Eliquis for afib, will d/c asa HTN Continue norvasc, metoprolol, lisinopril HLD Continue statin Full Code Attending:?Dr. Davalos DVT Prophylaxis: Eliquis requires ongoing inpatient hospitalization for management of CHF exacerbation and new onset AFib . Time Spent With Patient Time: Total time managing care of this patient today ____ minutes. Quality Stroke Does the patient have a stroke diagnosis?: No VTE Prior VTE?: No VTE Risk Level:: Medical - moderate - high VTE Device Contraindication: Treatment Not Indicated VTE Drug Contraindication: N/A - Med Ordered
[2022-05-19 14:48] VITALS: BP 106/64; PULSE 97; RESP 18; TEMP 36.8; O2SAT 94
--- NOTE | 2022-05-19 15:17 | PM.CNCAR ---
History of Present Illness History of Present Illness Date of Service: 05/19/22 Requesting physician: Hilary Theodore Chief complaint: CHF,Afib Narrative: 72-year-old gentleman with known history of coronary artery disease previous bypass surgery, ischemic cardiomyopathy, hypertension, COPD and stable angina presenting for dyspnea and AFib with RVR. He notices heart rate to be elevated over the last few days. He said he did not feel any palpitations particularly. He was getting more and more short of breath. He denied any chest discomfort. These symptoms he presented to the hospital and was diagnosed with atrial fibrillation with rapid ventricular response. His chads Vasc score is high and he is being started on Eliquis. He is saying he is feeling little better. Still looks volume overloaded. On IV diuretics 40 mg IV b.i.d.. [facility] Past Medical History Medical History CAD (coronary artery disease) COPD (chronic obstructive pulmonary disease) History of prior cigarette smoking HTN (hypertension) Hyperlipidemia Ischemic cardiomyopathy Postoperative atrial fibrillation Stable angina Family History Family History Father CVD (cardiovascular disease) Mother CVD (cardiovascular disease) Surgical History Surgical History H/O knee surgery Hx of CABG S/P CABG x 3 Status post glaucoma surgery Social History Social History Household Members: Spouse Housing: House Do you presently have visiting nurse or other home services: No Alcohol intake: current Alcohol intake frequency: holidays/special occasions only Alcohol type: beer Patient Tobacco Use Status: Former Tobacco user Quit Date: 2018 Years Smoked: 20 +/- service: No Current occupational status: retired Meds Allergies Allergy/AdvReac Type Severity Reaction Status Date / Time latex [LATEX] Allergy Mild RASH Verified 11/29/21 13:29 nickel Allergy Unknown Rash Verified 11/29/21 13:29 ticagrelor [From Brilinta] Allergy Shortness Verified 01/20/22 10:00 of Breath Active Medications: Current Medications Acetaminophen (Acetaminophen 325 Mg Tablet) 650 mg PO Q6H PRN PRN Reason: Pain, Mild (Pain Scale 1-3) Amlodipine Besylate (Amlodipine Besylate 10 Mg Tablet) 10 mg PO DAILY [facility]; Protocol Last Admin: 05/19/22 09:09 Dose: 10 mg Apixaban (Apixaban 5 Mg Tablet) 5 mg PO BID [facility] Last Admin: 05/19/22 09:09 Dose: 5 mg Atorvastatin Calcium (Atorvastatin Calcium 20 Mg Tablet) 20 mg PO DAILY [facility] Last Admin: 05/19/22 09:10 Dose: 20 mg Clopidogrel Bisulfate (Clopidogrel Bisulfate 75 Mg Tablet) 75 mg PO DAILY [facility] Last Admin: 05/19/22 09:10 Dose: 75 mg Albuterol Sulfate 2.5 mg/ (Ipratropium [place] 0.5 mg) 0 mg INHALE RQ6H WHILE AWAKE PRN PRN Reason: Shortness of Breath Docusate Sodium (Docusate Sodium 100 Mg Capsule) 100 mg PO DAILY PRN PRN Reason: Constipation Escitalopram Oxalate (Escitalopram Oxalate 20 Mg Tablet) 20 mg PO DAILY [facility] Last Admin: 05/19/22 09:09 Dose: 20 mg Furosemide (Furosemide 40 Mg/4 Ml Vial) 40 mg IVPUSH BID@0900,1800 [facility]; Protocol Last Admin: 05/19/22 09:10 Dose: 40 mg Gabapentin (Gabapentin 300 Mg Capsule) 300 mg PO BID [facility] Last Admin: 05/19/22 09:09 Dose: 300 mg Hydroxyzine HCl (Hydroxyzine Hcl 10 Mg Tablet) 10 mg PO BEDTIME PRN PRN Reason: Insomnia Isosorbide Mononitrate (Isosorbide Mononitrate 60 Mg Tab.Er.24h) 60 mg PO DAILY [facility]; Protocol Last Admin: 05/19/22 09:09 Dose: 60 mg Lisinopril (Lisinopril 20 Mg Tablet) 20 mg PO DAILY [facility]; Protocol Last Admin: 05/19/22 09:10 Dose: 20 mg Lorazepam (Lorazepam 1 Mg Tablet) 1 mg PO DAILY PRN PRN Reason: Anxiety Last Admin: 05/18/22 20:43 Dose: 1 mg Metoprolol Tartrate (Metoprolol Tartrate 25 Mg Tablet) 25 mg PO QID [facility]; Protocol Last Admin: 05/19/22 14:35 Dose: 25 mg Sodium Chloride (0.9 % Sodium Chloride Flush 3 Ml Syringe) [facility] Last Admin: 05/19/22 14:36 Dose: 3 ml Home Medications Medication Instructions Recorded Confirmed Last Taken Type atorvastatin 20 mg tablet 20 mg PO DAILY 02/13/20 05/18/22 05/17/22 History lorazepam 1 mg tablet 1 mg PO DAILY PRN Anxiety 01/04/21 05/18/22 05/17/22 History gabapentin 300 mg capsule 300 mg PO BID 07/05/21 05/18/22 05/17/22 History escitalopram oxalate 20 mg tablet 1 tab PO DAILY 05/18/22 05/18/22 05/17/22 History fluocinonide 0.05 % topical cream 1 appl topical BID PRN Rash 05/18/22 05/18/22 05/17/22 History hydroxyzine HCl 10 mg tablet 1 tab PO BEDTIME PRN Insomnia 05/18/22 05/18/22 05/17/22 History Physical Exam Vital Signs: Vital Signs: Last Vital Signs Temp 98.3 F 05/19/22 14:48 Pulse 97 05/19/22 14:48 Resp 18 05/19/22 14:48 BP 106/64 05/19/22 14:48 Pulse Ox 94 05/19/22 14:48 O2 Del Method 05/19/22 14:48 O2 Flow Rate 2 05/19/22 07:10 Oxygen Flow Rate 2 05/18/22 09:14 BMI result Body Mass Index 27.8 GENERAL APPEARANCE: in no acute distress, pleasant. NECK: no carotid bruit, no jugular venous distention. SKIN: no suspicious lesions, warm and dry. HEART: no murmurs, irregular rate and rhythm. LUNGS: Crackles both bases. ABDOMEN: soft, nontender. EXTREMITIES: no edema. PERIPHERAL PULSES: equal. NEUROLOGIC: No gross deficits, AAO X 3 Objective Labs and Meds 05/19/22 05:36 05/19/22 05:36 Lab results: Laboratory Results - last 24 hr 05/19/22 05/19/22 05:36 05:36 WBC 12.5 H RBC 4.15 L Hgb 13.5 L Hct 39.7 L MCV 95.7 MCH 32.5 MCHC 34.0 RDW 12.5 Plt Count 222 MPV 9.8 Absolute Nucleated RBC 0.000 Nucleated RBC % (auto) 0.0 Sodium 133 L Potassium 3.4 Chloride 94 L Carbon Dioxide 29 Anion Gap 13 BUN 12 Creatinine 0.78 Estim Creat Clear Calc 89.8 Estimated GFR > 60 Random Glucose 109 Calcium 10.0 D Magnesium 2.0 Assessment and Plan (1) Atrial fibrillation with RVR: Status: Acute (2) CHF exacerbation: Status: Acute Plan 72-year-old gentleman presenting for AFib with RVR and congestive heart failure. He is volume overloaded currently. Continue IV diuretics. Denying any anginal symptoms currently. He is on metoprolol 25 mg 4 times a day. I think he can be changed to Toprol-XL 100 mg daily. Continue isosorbide and lisinopril as before. If his dyspnea does not improve after diuresis and rate control then he will require JAYDE cardioversion. We will follow along with you. Thank you for allowing me to participate in the care of your patient. Please feel free to contact me if you have any questions. Time Spent With Patient Time: Total time managing care of this patient today ____ minutes. Procedures Date of Service Date of Service: 05/19/22
[2022-05-19 19:11] VITALS: BP 113/69; PULSE 97; RESP 18; TEMP 36.6; O2SAT 93
[2022-05-19] MEDS: LORazepam 1 MG TABLET PO (21:17)
[2022-05-19 23:37] VITALS: BP 123/66; PULSE 83; RESP 20; TEMP 37; O2SAT 94
[2022-05-20 04:00] VITALS: BP 117/64; PULSE 74; RESP 18; TEMP 36.9; O2SAT 97
[2022-05-20 07:01] LABS: Anion Gap 13 (12-20); Blood Urea Nitrogen 14 mg/dL (9-16); Calcium 9.3 mg/dL (8.4-10.2); Carbon Dioxide 27 mmol/L (22-29); Chloride 97 mmol/L (96-108); Creatinine Clr Calc Pharmacy 94.7; Estimated Glomerular Filt Rate > 60; Glucose Random 93 mg/dL (60-115); Potassium 3.3 mmol/L (3.3-5.1); Sodium 134 mmol/L (135-145)
[2022-05-20 08:00] VITALS: BP 130/75; PULSE 83; RESP 16; TEMP 36.5; O2SAT 93
[2022-05-20] MEDS: Furosemide 40 MG/4 ML VIAL IVPUSH ×2 (08:41→18:02)
[2022-05-20] MEDS: 0.9 % Sodium Chloride Flush 3 ML SYRINGE IVFLUSH ×3 (08:41→20:27)
[2022-05-20] MEDS: Isosorbide Mononitrate 60 MG TAB.ER.24H PO (08:42)
[2022-05-20] MEDS: Atorvastatin Calcium 20 MG TABLET PO (08:42)
[2022-05-20] MEDS: Gabapentin 300 MG CAPSULE PO ×2 (08:42→20:26)
[2022-05-20] MEDS: Metoprolol Succinate ER 100 MG TAB.ER.24H PO (08:42)
[2022-05-20] MEDS: Clopidogrel Bisulfate 75 MG TABLET PO (08:42)
[2022-05-20] MEDS: Apixaban 5 MG TABLET PO ×2 (08:42→20:26)
[2022-05-20] MEDS: Escitalopram Oxalate 20 MG TABLET PO (08:42)
[2022-05-20] MEDS: amLODIPine Besylate 10 MG TABLET PO (08:42)
[2022-05-20] MEDS: lisinopriL 20 MG TABLET PO (08:42)
[2022-05-20 11:32] VITALS: BP 108/59; PULSE 89; RESP 16; TEMP 36.6; O2SAT 93
--- NOTE | 2022-05-20 13:01 | HO.PM.IMPN ---
Subjective Subjective Date of Service: 05/20/22 Interval History: seen and examined this morning follow up for afib, chf no orthopnea, pnd overnight able to walk to bathroom without significant sob overall feeling better, no chest pain or palpitations Review of Systems Review of Systems: Yes all other systems are reviewed and are negative Constitutional Constitutional: Denies chills and Denies fever(s) Cardiovascular Cardiovascular: Denies chest pain, Denies palpitations and Denies dyspnea Respiratory Respiratory: Denies cough and Denies dyspnea Gastrointestinal Gastrointestinal: Denies abdominal pain Endocrine Endocrine: Denies palpitations Physical Exam Vital Signs: Vital Signs: Last Vital Signs Temp 978 F H 05/20/22 11:32 Pulse 89 05/20/22 11:32 Resp 16 05/20/22 11:32 BP 108/59 L 05/20/22 11:32 Pulse Ox 93 05/20/22 11:32 O2 Del Method 05/20/22 11:32 O2 Flow Rate 2 05/20/22 11:32 Oxygen Flow Rate 2 05/18/22 09:14 BMI result Body Mass Index 27.8 Const: General: comfortable, no acute distress, alert and awake Nutritional Appearance: average body habitus Orientation/consciousness: patient oriented x3 Resp: Other: diminished breath sounds Effort & Inspection: normal respiratory effort and able to speak in complete sentences Cardio: Other: irregularly irregular Heart sounds: S1 normal heart sound present and S2 normal heart sound present GI: Inspection: No distended Palpation (GI): not soft and nontender Neuro: General: patient oriented x3 and CN's II-XI intact bilaterally Extrem: General: Yes no pedal edema Objective Data Active Medications Acetaminophen (Acetaminophen 325 Mg Tablet) 650 mg PO Q6H PRN PRN Reason: Pain, Mild (Pain Scale 1-3) Amlodipine Besylate (Amlodipine Besylate 10 Mg Tablet) 10 mg PO DAILY [facility]; Protocol Last Admin: 05/20/22 08:42 Dose: 10 mg Documented By: DEBI Apixaban (Apixaban 5 Mg Tablet) 5 mg PO BID [facility] Last Admin: 05/20/22 08:42 Dose: 5 mg Documented By: DEBI Atorvastatin Calcium (Atorvastatin Calcium 20 Mg Tablet) 20 mg PO DAILY [facility] Last Admin: 05/20/22 08:42 Dose: 20 mg Documented By: DEBI Clopidogrel Bisulfate (Clopidogrel Bisulfate 75 Mg Tablet) 75 mg PO DAILY [facility] Last Admin: 05/20/22 08:42 Dose: 75 mg Documented By: DEBI Albuterol Sulfate 2.5 mg/ (Ipratropium [place] 0.5 mg) 0 mg INHALE RQ6H WHILE AWAKE PRN PRN Reason: Shortness of Breath Docusate Sodium (Docusate Sodium 100 Mg Capsule) 100 mg PO DAILY PRN PRN Reason: Constipation Escitalopram Oxalate (Escitalopram Oxalate 20 Mg Tablet) 20 mg PO DAILY [facility] Last Admin: 05/20/22 08:42 Dose: 20 mg Documented By: DEBI Furosemide (Furosemide 40 Mg/4 Ml Vial) 40 mg IVPUSH BID@0900,1800 [facility]; Protocol Last Admin: 05/20/22 08:41 Dose: 40 mg Documented By: DEBI Gabapentin (Gabapentin 300 Mg Capsule) 300 mg PO BID [facility] Last Admin: 05/20/22 08:42 Dose: 300 mg Documented By: DEBI Hydroxyzine HCl (Hydroxyzine Hcl 10 Mg Tablet) 10 mg PO BEDTIME PRN PRN Reason: Insomnia Isosorbide Mononitrate (Isosorbide Mononitrate 60 Mg Tab.Er.24h) 60 mg PO DAILY [facility]; Protocol Last Admin: 05/20/22 08:42 Dose: 60 mg Documented By: DEBI Lisinopril (Lisinopril 20 Mg Tablet) 20 mg PO DAILY [facility]; Protocol Last Admin: 05/20/22 08:42 Dose: 20 mg Documented By: DEBI Lorazepam (Lorazepam 1 Mg Tablet) 1 mg PO DAILY PRN PRN Reason: Anxiety Last Admin: 05/19/22 21:17 Dose: 1 mg Documented By: TAHIRA Metoprolol Succinate (Metoprolol Succinate Er 100 Mg Tab.Er.24h) 100 mg PO DAILY [facility]; Protocol Last Admin: 05/20/22 08:42 Dose: 100 mg Documented By: DEBI Sodium Chloride (0.9 % Sodium Chloride Flush 3 Ml Syringe) 3 ml IVFLUSH QSHIFT [facility] Last Admin: 05/20/22 08:41 Dose: 3 ml Documented By: DEBI Labs 05/19/22 05:36 05/20/22 06:09 Labs: Laboratory Results - last 24 hr 05/20/22 06:09 Anion Gap 13 Estim Creat Clear Calc 94.7 Estimated GFR > 60 Random Glucose 93 Calcium 9.3 D Assessment and Plan (1) Atrial fibrillation with RVR: Status: Acute (2) CHF exacerbation: Status: Acute Plan Pt is a 72-year-old male with a PMH significant for?CAD s/p triple bypass in 09/2018, 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 Acute on Chronic HFrEF Echo with EF 45-50% with inferior wall hypokinesis and mild to moderate continue IV lasix Follow lytes I/O not accurate Cardiology following AFib with RVR HR improving will transition BB to long acting Toprol XL 100 mg [id number] score 6, started on Eliquis this admission. CAD continue Plavix, statin, imdur, beta-alissa as he was started on Eliquis for afib, will d/c asa HTN Continue norvasc, metoprolol, lisinopril HLD Continue statin Mood contiue lexapro Full Code Attending:?Dr. Davalos DVT Prophylaxis: Eliquis requires ongoing inpatient hospitalization for management of CHF exacerbation and new onset AFib . Time Spent With Patient Time: Total time managing care of this patient today ____ minutes. Quality Stroke Does the patient have a stroke diagnosis?: No VTE Prior VTE?: No VTE Risk Level:: Medical - moderate - high VTE Device Contraindication: Treatment Not Indicated VTE Drug Contraindication: N/A - Med Ordered
[2022-05-20 16:00] VITALS: BP 110/62; PULSE 88; RESP 18; TEMP 36.7; O2SAT 93
--- NOTE | 2022-05-20 16:19 | PM.PNCARD ---
Subjective Subjective Date of Service: 05/20/22 Interval history: Seen and examined at bedside. Still volume overloaded. Physical Exam Vital Signs: Last Vital Signs Temp 97.8 F 05/20/22 11:32 Pulse 89 05/20/22 11:32 Resp 16 05/20/22 11:32 BP 108/59 L 05/20/22 11:32 Pulse Ox 93 05/20/22 11:32 O2 Del Method 05/20/22 11:32 O2 Flow Rate 2 05/20/22 11:32 Oxygen Flow Rate 2 05/18/22 09:14 BMI result Body Mass Index 27.8 GENERAL APPEARANCE: in no acute distress, pleasant. NECK: no carotid bruit, mild jugular venous distention. SKIN: no suspicious lesions, warm and dry. HEART: no murmurs, irregular rate and rhythm. LUNGS: Mild expiratory wheezes. ABDOMEN: soft, nontender. EXTREMITIES: no edema. PERIPHERAL PULSES: equal. NEUROLOGIC: No gross deficits, AAO X 3 Objective Labs and Meds 05/19/22 05:36 05/20/22 06:09 Lab results: Laboratory Results - last 24 hr 05/20/22 06:09 Sodium 134 L Potassium 3.3 Chloride 97 Carbon Dioxide 27 Anion Gap 13 BUN 14 Creatinine 0.74 Estim Creat Clear Calc 94.7 Estimated GFR > 60 Random Glucose 93 Calcium 9.3 D Progress Note: A&P Assessment and plan (1) Atrial fibrillation with RVR: Status: Acute (2) CHF exacerbation: Status: Acute Plan Pleasant 72-year-old gentleman background history of coronary disease status post bypass surgery presenting with atrial fibrillation and congestive heart failure. Clinically he is still volume overloaded. Continue Lasix 40 mg IV b.i.d. and give 2.5 mg metolazone time 1 today. Blood pressure control is reasonable. Heart rate is better on Toprol-XL 100 mg daily. Would not use diltiazem. If required would do digoxin load but not required right now. Thank you for allowing me to participate in the care of your patient. Please feel free to contact me if you have any questions. Time Spent With Patient Time: Total time managing care of this patient today ____ minutes. Progress Note: Quality Stroke Does the patient have a stroke diagnosis?: No Procedures Date of Service Date of Service: 05/20/22
[2022-05-20] MEDS: metOLazone 2.5 MG TABLET PO (18:01)
[2022-05-20 20:00] VITALS: BP 102/65; PULSE 84; RESP 18; TEMP 36.4; O2SAT 92
[2022-05-20] MEDS: LORazepam 1 MG TABLET PO (20:26)
[2022-05-21 04:00] VITALS: BP 105/66; PULSE 82; RESP 20; TEMP 36.7; O2SAT 92
[2022-05-21 07:21] LABS: Anion Gap 12 (12-20); Blood Urea Nitrogen 14 mg/dL (9-16); Calcium 9.8 mg/dL (8.4-10.2); Carbon Dioxide 35 mmol/L (22-29); Chloride 88 mmol/L (96-108); Creatinine Clr Calc Pharmacy 79.6; Estimated Glomerular Filt Rate > 60; Glucose Random 96 mg/dL (60-115); Potassium 3.3 mmol/L (3.3-5.1); Sodium 132 mmol/L (135-145)
[2022-05-21 07:34] VITALS: BP 127/71; PULSE 76; RESP 20; TEMP 37.1; O2SAT 92
[2022-05-21] MEDS: Furosemide 40 MG/4 ML VIAL IVPUSH ×2 (09:45→17:55)
[2022-05-21] MEDS: 0.9 % Sodium Chloride Flush 3 ML SYRINGE IVFLUSH ×3 (09:45→21:45)
[2022-05-21] MEDS: Isosorbide Mononitrate 60 MG TAB.ER.24H PO (09:46)
[2022-05-21] MEDS: lisinopriL 20 MG TABLET PO (09:46)
[2022-05-21] MEDS: Atorvastatin Calcium 20 MG TABLET PO (09:46)
[2022-05-21] MEDS: Gabapentin 300 MG CAPSULE PO ×2 (09:46→21:22)
[2022-05-21] MEDS: Metoprolol Succinate ER 100 MG TAB.ER.24H PO (09:46)
[2022-05-21] MEDS: amLODIPine Besylate 10 MG TABLET PO (09:46)
[2022-05-21] MEDS: Clopidogrel Bisulfate 75 MG TABLET PO (09:46)
[2022-05-21] MEDS: Escitalopram Oxalate 20 MG TABLET PO (09:46)
[2022-05-21] MEDS: Apixaban 5 MG TABLET PO ×2 (09:46→21:22)
[2022-05-21 11:14] VITALS: BP 117/62; PULSE 92; RESP 20; TEMP 36.3; O2SAT 94
--- NOTE | 2022-05-21 14:28 | PM.PNCARD ---
Subjective Subjective Date of Service: 05/21/22 Interval history: Seen examined at bedside. Volume status improving but still short of breath. Physical Exam Vital Signs: Last Vital Signs Temp 97.4 F 05/21/22 11:14 Pulse 92 05/21/22 11:14 Resp 20 05/21/22 11:14 BP 117/62 05/21/22 11:14 Pulse Ox 94 05/21/22 11:14 O2 Del Method 05/21/22 11:14 O2 Flow Rate 2 05/20/22 16:00 Oxygen Flow Rate 2 05/18/22 09:14 BMI result Body Mass Index 27.8 GENERAL APPEARANCE: in no acute distress, pleasant. NECK: no carotid bruit, mild jugular venous distention. SKIN: no suspicious lesions, warm and dry. HEART: no murmurs, irregular rate and rhythm. LUNGS: CTABL. ABDOMEN: soft, nontender. EXTREMITIES: no edema. PERIPHERAL PULSES: equal. NEUROLOGIC: No gross deficits, AAO X 3 Objective Labs and Meds 05/19/22 05:36 05/21/22 06:13 Lab results: Laboratory Results - last 24 hr 05/21/22 06:13 Sodium 132 L Potassium 3.3 Chloride 88 L Carbon Dioxide 35 H Anion Gap 12 BUN 14 Creatinine 0.88 Estim Creat Clear Calc 79.6 Estimated GFR > 60 Random Glucose 96 Calcium 9.8 Progress Note: A&P Assessment and plan (1) Atrial fibrillation with RVR: Status: Acute (2) CHF exacerbation: Status: Acute Plan 72 male with Afib and CHF. Diuresing. HR is better but still SOB. Leave on IV diuretics today. Will consider changing to PO tomorrow. I think he will need JAYDE cardioversion next week. If better tomorrow then will DC and do as outpatient. Otherwise will keep him and try to do JAYDE/cardioversion. Time Spent With Patient Time: Total time managing care of this patient today ____ minutes. Progress Note: Quality Stroke Does the patient have a stroke diagnosis?: No Procedures Date of Service Date of Service: 05/21/22
--- NOTE | 2022-05-21 15:15 | HO.PM.IMPN ---
Subjective Subjective Date of Service: 05/21/22 Interval History: seen and examined this morning follow up for afib, chf off supplemental oxygen breathing improving, no cough no chest pain Review of Systems Review of Systems: No all other systems are reviewed and are negative Constitutional Constitutional: Denies chills and Denies fever(s) Cardiovascular Cardiovascular: Denies chest pain, Denies palpitations and Denies dyspnea Respiratory Respiratory: Denies cough and Denies dyspnea Endocrine Endocrine: Denies palpitations Physical Exam Vital Signs: Vital Signs: Last Vital Signs Temp 97.4 F 05/21/22 11:14 Pulse 92 05/21/22 11:14 Resp 20 05/21/22 11:14 BP 117/62 05/21/22 11:14 Pulse Ox 94 05/21/22 11:14 O2 Del Method 05/21/22 11:14 O2 Flow Rate 2 05/20/22 16:00 Oxygen Flow Rate 2 05/18/22 09:14 BMI result Body Mass Index 27.8 Const: General: comfortable, no acute distress, alert and awake Nutritional Appearance: average body habitus Orientation/consciousness: patient oriented x3 Resp: Effort & Inspection: normal respiratory effort and able to speak in complete sentences Auscultation: clear to auscultation bilaterally Cardio: Other: irregularly irregular Heart sounds: S1 normal heart sound present and S2 normal heart sound present GI: Inspection: No distended Palpation (GI): not soft and nontender Neuro: General: patient oriented x3 and CN's II-XI intact bilaterally Extrem: General: Yes no pedal edema Objective Data Active Medications Acetaminophen (Acetaminophen 325 Mg Tablet) 650 mg PO Q6H PRN PRN Reason: Pain, Mild (Pain Scale 1-3) Amlodipine Besylate (Amlodipine Besylate 10 Mg Tablet) 10 mg PO DAILY [facility]; Protocol Last Admin: 05/21/22 09:46 Dose: 10 mg Documented By: IRA Apixaban (Apixaban 5 Mg Tablet) 5 mg PO BID [facility] Last Admin: 05/21/22 09:46 Dose: 5 mg Documented By: IRA Atorvastatin Calcium (Atorvastatin Calcium 20 Mg Tablet) 20 mg PO DAILY [facility] Last Admin: 05/21/22 09:46 Dose: 20 mg Documented By: IRA Clopidogrel Bisulfate (Clopidogrel Bisulfate 75 Mg Tablet) 75 mg PO DAILY [facility] Last Admin: 05/21/22 09:46 Dose: 75 mg Documented By: IRA Albuterol Sulfate 2.5 mg/ (Ipratropium Ferney 0.5 mg) 0 mg INHALE RQ6H WHILE AWAKE PRN PRN Reason: Shortness of Breath Docusate Sodium (Docusate Sodium 100 Mg Capsule) 100 mg PO DAILY PRN PRN Reason: Constipation Escitalopram Oxalate (Escitalopram Oxalate 20 Mg Tablet) 20 mg PO DAILY [facility] Last Admin: 05/21/22 09:46 Dose: 20 mg Documented By: IRA Furosemide (Furosemide 40 Mg/4 Ml Vial) 40 mg IVPUSH BID@0900,1800 [facility]; Protocol Last Admin: 05/21/22 09:45 Dose: 40 mg Documented By: IRA Gabapentin (Gabapentin 300 Mg Capsule) 300 mg PO BID [facility] Last Admin: 05/21/22 09:46 Dose: 300 mg Documented By: IRA Hydroxyzine HCl (Hydroxyzine Hcl 10 Mg Tablet) 10 mg PO BEDTIME PRN PRN Reason: Insomnia Isosorbide Mononitrate (Isosorbide Mononitrate 60 Mg Tab.Er.24h) 60 mg PO DAILY [facility]; Protocol Last Admin: 05/21/22 09:46 Dose: 60 mg Documented By: IRA Lisinopril (Lisinopril 20 Mg Tablet) 20 mg PO DAILY [facility]; Protocol Last Admin: 05/21/22 09:46 Dose: 20 mg Documented By: IRA Lorazepam (Lorazepam 1 Mg Tablet) 1 mg PO DAILY PRN PRN Reason: Anxiety Last Admin: 05/20/22 20:26 Dose: 1 mg Documented By: HELGA Metoprolol Succinate (Metoprolol Succinate Er 100 Mg Tab.Er.24h) 100 mg PO DAILY [facility]; Protocol Last Admin: 05/21/22 09:46 Dose: 100 mg Documented By: IRA Sodium Chloride (0.9 % Sodium Chloride Flush 3 Ml Syringe) 3 ml IVFLUSH QSHIFT [facility] Last Admin: 05/21/22 09:45 Dose: 3 ml Documented By: IRA Labs 05/19/22 05:36 05/21/22 06:13 Labs: Laboratory Results - last 24 hr 05/21/22 06:13 Anion Gap 12 Estim Creat Clear Calc 79.6 Estimated GFR > 60 Random Glucose 96 Calcium 9.8 Assessment and Plan (1) Atrial fibrillation with RVR: Status: Acute (2) CHF exacerbation: Status: Acute Plan Pt is a 72-year-old male with a PMH significant for?CAD s/p triple bypass in 09/2018, 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 Acute on Chronic HFrEF Echo with EF 45-50% with inferior wall hypokinesis and mild to moderate continue IV lasix Follow lytes I/O not accurate Cardiology following improving but still some SOB possible CV Monday depending on clinical course AFib with RVR HR controlled BB transitioned to long acting Toprol XL 100 mg [id number] score 6, started on Eliquis this admission. CAD continue Plavix, statin, imdur, beta-alissa as he was started on Eliquis for afib, will d/c asa HTN Continue norvasc, metoprolol, lisinopril HLD Continue statin Mood contiue lexapro Full Code Attending:?Dr. Lauren DVT Prophylaxis: Eliquis requires ongoing inpatient hospitalization for management of CHF exacerbation and new onset AFib . Time Spent With Patient Time: Total time managing care of this patient today ____ minutes. Quality Stroke Does the patient have a stroke diagnosis?: No VTE Prior VTE?: No VTE Risk Level:: Medical - moderate - high VTE Device Contraindication: Treatment Not Indicated VTE Drug Contraindication: N/A - Med Ordered
[2022-05-21 16:00] VITALS: BP 103/70; PULSE 83; RESP 18; TEMP 36.4; O2SAT 91
[2022-05-21 20:00] VITALS: BP 103/64; PULSE 81; RESP 20; TEMP 36.6; O2SAT 93
[2022-05-21] MEDS: LORazepam 1 MG TABLET PO (21:24)
[2022-05-21 23:45] VITALS: PULSE 76; RESP 20
[2022-05-22 07:26] LABS: Anion Gap 15 (12-20); Blood Urea Nitrogen 20 mg/dL (9-16); Calcium 9.4 mg/dL (8.4-10.2); Carbon Dioxide 31 mmol/L (22-29); Chloride 85 mmol/L (96-108); Creatinine Clr Calc Pharmacy 52.7; Estimated Glomerular Filt Rate 53; Glucose Random 97 mg/dL (60-115); Potassium 2.9 mmol/L (3.3-5.1); Sodium 128 mmol/L (135-145)
[2022-05-22 07:34] VITALS: BP 95/57; PULSE 93; RESP 20; TEMP 36.7; O2SAT 92
[2022-05-22] MEDS: Gabapentin 300 MG CAPSULE PO ×2 (09:40→21:15)
[2022-05-22] MEDS: Metoprolol Succinate ER 100 MG TAB.ER.24H PO (09:41)
[2022-05-22] MEDS: Potassium Chloride ER 20 MEQ TAB.ER.PRT 40 MEQ PO (09:41)
[2022-05-22] MEDS: Apixaban 5 MG TABLET PO ×2 (09:41→21:15)
[2022-05-22] MEDS: Atorvastatin Calcium 20 MG TABLET PO (09:41)
[2022-05-22] MEDS: Clopidogrel Bisulfate 75 MG TABLET PO (09:41)
[2022-05-22] MEDS: 0.9 % Sodium Chloride Flush 3 ML SYRINGE IVFLUSH ×3 (09:41→23:38)
[2022-05-22] MEDS: Escitalopram Oxalate 20 MG TABLET PO (09:41)
[2022-05-22] MEDS: Potassium Chloride/H20 10 MEQ/100 ML PIGGYBACK 100 MEQ IV (09:42)
--- NOTE | 2022-05-22 11:00 | P.PNIM_ITS ---
Subjective Subjective Date of Service: 05/22/22 Interval History: seen and examined this morning follow up for afib, chf no overnight events feeling well, no sob, no cough Review of Systems Review of Systems: Yes all other systems are reviewed and are negative Constitutional Constitutional: Denies chills and Denies fever(s) ENT Ears, Nose, Mouth, and Throat: Denies dizziness Cardiovascular Cardiovascular: Denies chest pain, Denies palpitations, Denies dyspnea and Denies dyspnea on exertion Respiratory Respiratory: Denies cough, Denies dyspnea and Denies dyspnea on exertion Neurologic Neurologic: Denies dizziness Endocrine Endocrine: Denies palpitations Physical Exam Vital Signs: Vital Signs: Last Vital Signs Temp 98.1 F 05/22/22 07:34 Pulse 93 05/22/22 07:34 Resp 20 05/22/22 07:34 BP 95/57 L 05/22/22 07:34 Pulse Ox 92 05/22/22 07:34 O2 Del Method 05/22/22 07:34 O2 Flow Rate 2 05/20/22 16:00 Oxygen Flow Rate 2 05/18/22 09:14 BMI result Body Mass Index 27.8 Const: General: cooperative, comfortable, alert and awake Nutritional Appearance: average body habitus Orientation/consciousness: patient oriented x3 Resp: Other: diminished breath sounds bilaterally; no crackles Effort & Inspection: normal respiratory effort and able to speak in complete sentences Cardio: Other: irregualr Heart sounds: S1 normal heart sound present and S2 normal heart sound present GI: Inspection: No distended Palpation (GI): Soft to palpation and n ontender Neuro: General: patient oriented x3 and CN's II-XI intact bilaterally Extrem: General: Yes no pedal edema Objective Data Active Medications Acetaminophen (Acetaminophen 325 Mg Tablet) 650 mg PO Q6H PRN PRN Reason: Pain, Mild (Pain Scale 1-3) Amlodipine Besylate (Amlodipine Besylate 10 Mg Tablet) 10 mg PO DAILY [facility]; Protocol Last Admin: 05/22/22 09:43 Dose: Not Given Documented By: IRA Non-Admin Reason: Physician Held Med Apixaban (Apixaban 5 Mg Tablet) 5 mg PO BID [facility] Last Admin: 05/22/22 09:41 Dose: 5 mg Documented By: IRA Atorvastatin Calcium (Atorvastatin Calcium 20 Mg Tablet) 20 mg PO DAILY [facility] Last Admin: 05/22/22 09:41 Dose: 20 mg Documented By: IRA Clopidogrel Bisulfate (Clopidogrel Bisulfate 75 Mg Tablet) 75 mg PO DAILY [facility] Last Admin: 05/22/22 09:41 Dose: 75 mg Documented By: IRA Albuterol Sulfate 2.5 mg/ (Ipratropium Floris 0.5 mg) 0 mg INHALE RQ6H WHILE AWAKE PRN PRN Reason: Shortness of Breath Docusate Sodium (Docusate Sodium 100 Mg Capsule) 100 mg PO DAILY PRN PRN Reason: Constipation Escitalopram Oxalate (Escitalopram Oxalate 20 Mg Tablet) 20 mg PO DAILY [facility] Last Admin: 05/22/22 09:41 Dose: 20 mg Documented By: IRA Gabapentin (Gabapentin 300 Mg Capsule) 300 mg PO BID [facility] Last Admin: 05/22/22 09:40 Dose: 300 mg Documented By: IRA Hydroxyzine HCl (Hydroxyzine Hcl 10 Mg Tablet) 10 mg PO BEDTIME PRN PRN Reason: Insomnia Isosorbide Mononitrate (Isosorbide Mononitrate 60 Mg Tab.Er.24h) 60 mg PO DAILY [facility]; Protocol Last Admin: 05/22/22 09:43 Dose: Not Given Documented By: IRA Non-Admin Reason: Physician Held Med Lisinopril (Lisinopril 20 Mg Tablet) 20 mg PO DAILY [facility]; Protocol Last Admin: 05/22/22 09:43 Dose: Not Given Documented By: IRA Non-Admin Reason: Physician Held Med Lorazepam (Lorazepam 1 Mg Tablet) 1 mg PO DAILY PRN PRN Reason: Anxiety Last Admin: 05/21/22 21:24 Dose: 1 mg Documented By: HELGA Metoprolol Succinate (Metoprolol Succinate Er 100 Mg Tab.Er.24h) 100 mg PO DAILY [facility]; Protocol Last Admin: 05/22/22 09:41 Dose: 100 mg Documented By: IRA Sodium Chloride (0.9 % Sodium Chloride Flush 3 Ml Syringe) 3 ml IVFLUSH QSHICHI [facility] Last Admin: 05/22/22 09:41 Dose: 3 ml Documented By: IRA Labs 05/19/22 05:36 05/22/22 06:16 Labs: Laboratory Results - last 24 hr 05/22/22 06:16 Anion Gap 15 Estim Creat Clear Calc 52.7 Estimated GFR 53 Random Glucose 97 Calcium 9.4 Assessment and Plan (1) Atrial fibrillation with RVR: Status: Acute (2) CHF exacerbation: Status: Acute Plan Pt is a 72-year-old male with a PMH significant for?CAD s/p triple bypass in 09/2018, 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 Acute on Chronic HFrEF Echo with EF 45-50% with inferior wall hypokinesis and mild to moderate creatinine trending up, will d/c diuretics Follow lytes I/O not accurate Cardiology following AFib with RVR HR controlled BB transitioned to long acting Toprol XL 100 mg [id number] score 6, started on Eliquis this admission plan for CV Tuesday 05/23 per cardiology, NPO at midnight Hyponatremia r/t diuretics hold lasix follow BMP Hypokalemia r/t diuretics replace and follow h/o COPD does not appear to be in acute exacerbation continue home inhalers CAD continue Plavix, statin, imdur, beta-alissa as he was started on Eliquis for afib, will d/c asa HTN On norvasc, metoprolol, lisinopril - bp soft norvasc and lisinopril held this am HLD Continue statin Mood contiue lexapro Full Code Attending:?Dr. Cummins DVT Prophylaxis: Eliquis requires ongoing inpatient hospitalization for management of CHF exacerbation and new onset AFib; plan for cardioversion in am Time Spent With Patient Time: Total time managing care of this patient today ____ minutes. Quality Stroke Does the patient have a stroke diagnosis?: No VTE Prior VTE?: No VTE Risk Level:: Medical - moderate - high VTE Device Contraindication: Treatment Not Indicated VTE Drug Contraindication: N/A - Med Ordered
[2022-05-22 11:18] VITALS: BP 118/77; PULSE 82; RESP 20; TEMP 36.7; O2SAT 94
--- NOTE | 2022-05-22 11:24 | PM.PNCARD ---
Subjective Subjective Date of Service: 05/22/22 Interval history: Seen examined at bedside. Feeling better. He has mild expiratory wheezes. He has hypokalemia and hyponatremia today. IV diuretics have been held. Physical Exam Vital Signs: Last Vital Signs Temp 98.1 F 05/22/22 11:18 Pulse 82 05/22/22 11:18 Resp 20 05/22/22 11:18 BP 118/77 05/22/22 11:18 Pulse Ox 94 05/22/22 11:18 O2 Del Method 05/22/22 11:18 O2 Flow Rate 2 05/20/22 16:00 Oxygen Flow Rate 2 05/18/22 09:14 BMI result Body Mass Index 27.8 GENERAL APPEARANCE: in no acute distress, pleasant. NECK: no carotid bruit, no jugular venous distention. SKIN: no suspicious lesions, warm and dry. HEART: no murmurs, irregular rate and rhythm. LUNGS: CTABL. ABDOMEN: soft, nontender. EXTREMITIES: no edema. PERIPHERAL PULSES: equal. NEUROLOGIC: No gross deficits, AAO X 3 Objective Labs and Meds 05/19/22 05:36 05/22/22 06:16 Lab results: Laboratory Results - last 24 hr 05/22/22 06:16 Sodium 128 L Potassium 2.9 L Chloride 85 L Carbon Dioxide 31 H Anion Gap 15 BUN 20 H Creatinine 1.33 Estim Creat Clear Calc 52.7 Estimated GFR 53 Random Glucose 97 Calcium 9.4 Progress Note: A&P Assessment and plan (1) Atrial fibrillation with RVR: Status: Acute (2) CHF exacerbation: Status: Acute Plan Pleasant 72 year gentleman presenting for congestive heart failure in setting of atrial fibrillation rapid ventricular response. With diuresis his breathing is improved his heart rates are reasonably controlled. He has mild expiratory wheezes which are due to underlying reactive airway disease/COPD. This should be treated accordingly. Potassium is low and should be repleted. Hold IV diuretics. Repeat potassium level in the afternoon. Tomorrow if lab the stable he can be started on p.o. diuretics 40 mg twice a day. I had a discussion with patient and his that he presented with congestive heart failure in setting of atrial fibrillation. He has been started on Eliquis and his aspirin has been stopped. He is on Plavix currently along with Eliquis. I think given his presentation with congestive heart failure which should cardiovert him before he leaves. We will arrange a JAYDE cardioversion for him. Tentatively keep NPO after midnight for tomorrow. Thank you for allowing me to participate in the care of your patient. Please feel free to contact me if you have any questions. Time Spent With Patient Time: Total time managing care of this patient today ____ minutes. Progress Note: Quality Stroke Does the patient have a stroke diagnosis?: No Procedures Date of Service Date of Service: 05/22/22
[2022-05-22 15:24] VITALS: BP 123/75; PULSE 94; RESP 16; TEMP 36.5; O2SAT 92
[2022-05-22 15:39] LABS: Potassium 3.6 mmol/L (3.3-5.1)
[2022-05-22 19:58] VITALS: BP 116/63; PULSE 85; RESP 18; TEMP 36.5; O2SAT 93
[2022-05-22] MEDS: LORazepam 1 MG TABLET PO (21:16)
[2022-05-22 23:41] VITALS: BP 126/64; PULSE 80; RESP 20; TEMP 36.4; O2SAT 93
[2022-05-23 03:08] VITALS: BP 117/74; PULSE 59; RESP 20; TEMP 37; O2SAT 93
[2022-05-23 07:09] LABS: Anion Gap 12 (12-20); Blood Urea Nitrogen 14 mg/dL (9-16); Calcium 9.4 mg/dL (8.4-10.2); Carbon Dioxide 29 mmol/L (22-29); Chloride 87 mmol/L (96-108); Creatinine Clr Calc Pharmacy 89.8; Estimated Glomerular Filt Rate > 60; Glucose Random 93 mg/dL (60-115); Potassium 3.2 mmol/L (3.3-5.1); Sodium 125 mmol/L (135-145)
[2022-05-23 08:00] VITALS: BP 120/62; PULSE 74; RESP 16; TEMP 36.7; O2SAT 94
[2022-05-23] MEDS: 0.9 % Sodium Chloride Flush 3 ML SYRINGE IVFLUSH ×3 (09:07→21:06)
[2022-05-23] MEDS: Potassium Chloride Packet 20 MEQ PACKET 40 MEQ PO (09:07)
[2022-05-23] MEDS: Atorvastatin Calcium 20 MG TABLET PO (09:08)
[2022-05-23] MEDS: Escitalopram Oxalate 20 MG TABLET PO (09:08)
[2022-05-23] MEDS: Metoprolol Succinate ER 100 MG TAB.ER.24H PO (09:08)
[2022-05-23] MEDS: Isosorbide Mononitrate 60 MG TAB.ER.24H PO (09:08)
[2022-05-23] MEDS: lisinopriL 20 MG TABLET PO (09:08)
[2022-05-23] MEDS: Clopidogrel Bisulfate 75 MG TABLET PO (09:08)
[2022-05-23] MEDS: Gabapentin 300 MG CAPSULE PO ×2 (09:08→21:02)
[2022-05-23] MEDS: Apixaban 5 MG TABLET PO ×2 (09:08→21:03)
[2022-05-23] MEDS: amLODIPine Besylate 10 MG TABLET PO (09:08)
--- NOTE | 2022-05-23 10:15 | PM.PNCARD ---
Subjective Subjective Date of Service: 05/23/22 Principal diagnosis: Atrial fibrillation heart failure Interval history: patient currently not having symptoms. Walking without significant shortness of breath. Remains in atrial fibrillation. Denies any chest pain Review of Systems Constitutional: Reports no additional constitutional complaints Cardiovascular: Denies chest pain, Denies palpitations and Denies orthopnea Respiratory: Reports no additional respiratory complaints Gastrointestinal: Reports no additional gastrointestinal complaints Genitourinary: Reports no additional male genitourinary complaints Musculoskeletal: Reports no additional musculoskeletal complaints Skin/Breast: Reports system reviewed and no additional complaints, except as docu Reports system reviewed and no additional complaints, except as documented Psychiatric: Reports no additional psychiatric complaints Endocrine: Reports no additional endocrine complaints and Denies palpitations Physical Exam Vital Signs: Last Vital Signs Temp 98.0 F 05/23/22 08:00 Pulse 74 05/23/22 08:00 Resp 16 05/23/22 08:00 BP 120/62 05/23/22 08:00 Pulse Ox 94 05/23/22 08:00 O2 Del Method 05/23/22 03:08 O2 Flow Rate 2 05/20/22 16:00 Oxygen Flow Rate 2 05/18/22 09:14 BMI result Body Mass Index 27.8 GENERAL APPEARANCE: in no acute distress, pleasant. NECK: no carotid bruit, no jugular venous distention. SKIN: no suspicious lesions, warm and dry. HEART: no murmurs, irregular rate and rhythm. LUNGS: CTABL. ABDOMEN: soft, nontender. EXTREMITIES: no edema. PERIPHERAL PULSES: equal. NEUROLOGIC: No gross deficits, AAO X 3 Objective Labs and Meds 05/19/22 05:36 05/23/22 06:15 Lab results: Laboratory Results - last 24 hr 05/22/22 05/22/22 05/23/22 06:16 15:06 06:15 Sodium 125 L Potassium 3.6 D 3.2 L Chloride 87 L Carbon Dioxide 29 Anion Gap 12 BUN 14 Creatinine 0.78 Estim Creat Clear Calc 89.8 Estimated GFR > 60 Random Glucose 93 Calcium 9.4 Magnesium 2.0 Progress Note: A&P Assessment and plan (1) Atrial fibrillation with RVR: Status: Acute Assessment and Plan: persistent atrial fibrillation with adequate rate control. Agree with assessment to probably pursue rhythm control approach given his underlying cardiovascular issues with coronary disease mild ischemic cardiomyopathy to improve cardiac efficiency. This was discussed with him. Will require JAYDE guided cardioversion. Most likely require antiarrhythmic drug post cardioversion given his left atrial anatomy. Continue Eliquis. We discussed the risks, benefits, alternatives 2nd open to JAYDE and cardioversion. He understands and agrees. (2) CHF exacerbation: Status: Acute Assessment and Plan: CHF exacerbation, much improved. Most likely related to atrial fibrillation rapid ventricular response in setting of underlying cardiovascular dysfunction with mild ischemic cardiomyopathy. Pursue rhythm control approach as above. Clinically today appears much more euvolemic. Agree with pedgardo Hood. Consider addition of Jardiance 10 mg to his regimen for heart failure management. Will continue to follow with him. Please keep him NPO after midnight Time Spent With Patient Time: Total time managing care of this patient today ____ minutes. Progress Note: Quality Stroke Does the patient have a stroke diagnosis?: No Procedures Date of Service Date of Service: 05/23/22
[2022-05-23 11:00] VITALS: BP 109/59; PULSE 94; RESP 18; TEMP 36.6; O2SAT 93
--- NOTE | 2022-05-23 11:33 | P.PNIM_ITS ---
Subjective Subjective Date of Service: 05/23/22 Interval History: seen and examined this morning follow up for afib, chf no overnight events feeling well, no sob, no cough Review of Systems Review of Systems: Yes all other systems are reviewed and are negative Constitutional Constitutional: Denies chills and Denies fever(s) ENT Ears, Nose, Mouth, and Throat: Denies dizziness Cardiovascular Cardiovascular: Denies chest pain, Denies palpitations, Denies dyspnea and Denies dyspnea on exertion Respiratory Respiratory: Denies cough, Denies dyspnea and Denies dyspnea on exertion Neurologic Neurologic: Denies dizziness Endocrine Endocrine: Denies palpitations Physical Exam Vital Signs: Vital Signs: Last Vital Signs Temp 97.8 F 05/23/22 11:00 Pulse 94 05/23/22 11:00 Resp 18 05/23/22 11:00 BP 109/59 L 05/23/22 11:00 Pulse Ox 93 05/23/22 11:00 O2 Del Method 05/23/22 11:00 O2 Flow Rate 2 05/20/22 16:00 Oxygen Flow Rate 2 05/18/22 09:14 BMI result Body Mass Index 27.8 Appearing in no acute distress lung sounds are clear to auscultation heart regular rate rhythm, clear S1, S2 positive bowel sounds, abdomen is soft, nontender neuro patient is alert x3, no focal deficits Objective Data Active Medications Acetaminophen (Acetaminophen 325 Mg Tablet) 650 mg PO Q6H PRN PRN Reason: Pain, Mild (Pain Scale 1-3) Amlodipine Besylate (Amlodipine Besylate 10 Mg Tablet) 10 mg PO DAILY [facility]; Protocol Last Admin: 05/23/22 09:08 Dose: 10 mg Documented By: IRA Apixaban (Apixaban 5 Mg Tablet) 5 mg PO BID [facility] Last Admin: 05/23/22 09:08 Dose: 5 mg Documented By: IRA Atorvastatin Calcium (Atorvastatin Calcium 20 Mg Tablet) 20 mg PO DAILY [facility] Last Admin: 05/23/22 09:08 Dose: 20 mg Documented By: IRA Clopidogrel Bisulfate (Clopidogrel Bisulfate 75 Mg Tablet) 75 mg PO DAILY [facility] Last Admin: 05/23/22 09:08 Dose: 75 mg Documented By: IRA Albuterol Sulfate 2.5 mg/ (Ipratropium [place] 0.5 mg) 0 mg INHALE RQ6H WHILE AWAKE PRN PRN Reason: Shortness of Breath Docusate Sodium (Docusate Sodium 100 Mg Capsule) 100 mg PO DAILY PRN PRN Reason: Constipation Escitalopram Oxalate (Escitalopram Oxalate 20 Mg Tablet) 20 mg PO DAILY [facility] Last Admin: 05/23/22 09:08 Dose: 20 mg Documented By: IRA Gabapentin (Gabapentin 300 Mg Capsule) 300 mg PO BID [facility] Last Admin: 05/23/22 09:08 Dose: 300 mg Documented By: CTMIRIAN Hydroxyzine HCl (Hydroxyzine Hcl 10 Mg Tablet) 10 mg PO BEDTIME PRN PRN Reason: Insomnia Isosorbide Mononitrate (Isosorbide Mononitrate 60 Mg Tab.Er.24h) 60 mg PO DAILY [facility]; Protocol Last Admin: 05/23/22 09:08 Dose: 60 mg Documented By: IRA Lisinopril (Lisinopril 20 Mg Tablet) 20 mg PO DAILY [facility]; Protocol Last Admin: 05/23/22 09:08 Dose: 20 mg Documented By: IRA Lorazepam (Lorazepam 1 Mg Tablet) 1 mg PO DAILY PRN PRN Reason: Anxiety Last Admin: 05/22/22 21:16 Dose: 1 mg Documented By: SHANTELL-DONITA Metoprolol Succinate (Metoprolol Succinate Er 100 Mg Tab.Er.24h) 100 mg PO DAILY [facility]; Protocol Last Admin: 05/23/22 09:08 Dose: 100 mg Documented By: IRA Sodium Chloride (0.9 % Sodium Chloride Flush 3 Ml Syringe) 3 ml IVFLUSH QSHIFT [facility] Last Admin: 05/23/22 09:07 Dose: 3 ml Documented By: IRA Labs 05/19/22 05:36 05/23/22 06:15 Labs: Laboratory Results - last 24 hr 05/22/22 05/23/22 06:16 06:15 Anion Gap 12 Estim Creat Clear Calc 89.8 Estimated GFR > 60 Random Glucose 93 Calcium 9.4 Magnesium 2.0 Assessment and Plan (1) Atrial fibrillation with RVR: Status: Acute (2) CHF exacerbation: Status: Acute Plan Pt is a 72-year-old male with a PMH significant for?CAD s/p triple bypass in 09/2018, 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 Acute on Chronic HFrEF Echo with EF 45-50% with inferior wall hypokinesis and mild to moderate creatinine trending up, will d/c diuretics Follow lytes I/O not accurate Cardiology following AFib with RVR HR controlled BB transitioned to long acting Toprol XL 100 mg [id number] score 6, started on Eliquis this admission plan for cardioversion tomorrow, NPO after midnight Hyponatremia. Still low at 125 r/t diuretics hold lasix follow BMP Hypokalemia Trending up, 3.2 Repleted r/t diuretics h/o COPD does not appear to be in acute exacerbation continue home inhalers CAD continue Plavix, statin, imdur, beta-alissa as he was started on Eliquis for afib, will d/c asa HTN On norvasc, metoprolol, lisinopril - bp soft norvasc and lisinopril held this am HLD Continue statin Mood contiue lexapro Full Code Attending:?Dr. Davalos DVT Prophylaxis: Eliquis requires ongoing inpatient hospitalization for management of CHF exacerbation and new onset AFib; plan for cardioversion in am Time Spent With Patient Time: Total time managing care of this patient today ____ minutes. Quality Stroke Does the patient have a stroke diagnosis?: No VTE Prior VTE?: No VTE Risk Level:: Medical - moderate - high VTE Device Contraindication: Treatment Not Indicated VTE Drug Contraindication: N/A - Med Ordered
--- NOTE | 2022-05-23 13:26 | MHC.CM.PN ---
per rounds pt likely to be dcd tues plan remains home no services
[2022-05-23 13:28] LABS: Anion Gap 14 (12-20); Blood Urea Nitrogen 14 mg/dL (9-16); Calcium 9.3 mg/dL (8.4-10.2); Carbon Dioxide 28 mmol/L (22-29); Chloride 88 mmol/L (96-108); Creatinine Clr Calc Pharmacy 80.5; Estimated Glomerular Filt Rate > 60; Glucose Random 157 mg/dL (60-115); Potassium 3.7 mmol/L (3.3-5.1); Sodium 126 mmol/L (135-145)
[2022-05-23 15:23] VITALS: BP 117/76; PULSE 88; RESP 18; TEMP 36.9; O2SAT 93
[2022-05-23 19:25] VITALS: BP 95/63; PULSE 88; RESP 16; TEMP 36.9; O2SAT 93
[2022-05-23] MEDS: hydrOXYzine HCL 10 MG TABLET PO (21:05)
[2022-05-24] VITALS (12 sets, daily range): BP systolic 94–138; BP diastolic 47–76; PULSE 62–82; RESP 12–23; TEMP 36.2–37.1; O2SAT 91–97
[2022-05-24] MEDS: Clopidogrel Bisulfate 75 MG TABLET PO (08:40)
[2022-05-24] MEDS: Apixaban 5 MG TABLET PO ×2 (08:40→21:00)
[2022-05-24] MEDS: Escitalopram Oxalate 20 MG TABLET PO (08:40)
[2022-05-24] MEDS: Gabapentin 300 MG CAPSULE PO ×2 (08:40→21:00)
[2022-05-24] MEDS: Atorvastatin Calcium 20 MG TABLET PO (08:40)
[2022-05-24] MEDS: Metoprolol Succinate ER 100 MG TAB.ER.24H PO (08:40)
[2022-05-24] MEDS: 0.9 % Sodium Chloride Flush 3 ML SYRINGE IVFLUSH ×3 (08:44→21:02)
[2022-05-24 09:34] LABS: Anion Gap 13 (12-20); Blood Urea Nitrogen 11 mg/dL (9-16); Calcium 9.7 mg/dL (8.4-10.2); Carbon Dioxide 31 mmol/L (22-29); Chloride 87 mmol/L (96-108); Creatinine Clr Calc Pharmacy 82.4; Estimated Glomerular Filt Rate > 60; Glucose Random 99 mg/dL (60-115); Potassium 3.8 mmol/L (3.3-5.1); Sodium 127 mmol/L (135-145)
[2022-05-24] MEDS: Lactated Ringers 1,000 ML 80 ML IVCONT (10:18)
[2022-05-24] MEDS: Albuterol Sulfate (0.083%) 2.5 MG/3 ML VIAL.NEB INHALE (10:21)
[2022-05-24 10:23] LABS: Potassium Urine Random 65.9 mmol/L
[2022-05-24 10:24] LABS: Chloride Urine Random < 20.0 mmol/L
--- NOTE | 2022-05-24 10:30 | CA_ITS ---
Transesophageal Echocardiogram Patient (Last, First, Middle): Ferdinand Reed, Gender: Male Date of : 1950 Age: 72 Procedure Date: 05/24/2022 Procedure Type: Transesophageal Echocardiogram Location: [facility] [place] Height: 172.72 cm Weight: kg Sales Account Leader: PARAM Referring MD: Preston Martin MD Rack Puncher: Preston Martin MD Symptoms: pre cardioversion Conclusion: ??? 1. LV systolic function is moderately to severely decreased on this study with LVEF of 30-35% 2. Biatrial enlargement 3. Presence of small PFO 4. No intracardiac thrombi or masses or vegetations 5. Severe mitral and calcification with [id number] mitral regurgitation 6. Calcified aortic valve, could not obtain adequate gradients with trivial aortic regurgitation but definitely presence of aortic stenosis 7. No gross pericardial effusion 8. Severe atherosclerotic changes noted in descending thoracic as well as arch of the aorta with protruding plaques Findings Procedure Information Consent was obtained prior to the procedure. Pre JAYDE oral cavity was checked and revealed no overcrowding. The adult 3D probe was passed with no difficulty. Left Ventricle Left ventricular systolic function appears significantly depressed at about 30-35%. There are regional wall motion abnormality although difficult to define due to extensive mitral and calcification. There is definitely akinesis of the basal inferior wall. There are no clots or masses seen with the left ventricle. Diastolic function was not assessed Right Ventricle Normal right ventricular cavity size. There is mildly decreased right ventricular systolic function. Atria The left atrium is mildly dilated. Patent foramen ovale detected using by color Doppler. There is evidence of a patent foramen ovale with left to right shunting. There is no evidence of thrombus or mass in the left atrium. mild smoke formation seen within the left atrial cavity. The left atrial appendage was identified in multiple views and there is no evidence of any thrombus or smoke formation. The left atrial appendage ejection velocity is reduced. The left upper, right upper and right lower pulmonary vein draining normally into the left atrium. The right atrium is mildly dilated. There is no evidence of thrombus or mass in the right atrium. Right atrium is free of any significant smoke formation. The IVC and SVC drain normally into the right atrium. A prominent is station valve is seen at the junction of IVC and right atrium. Aortic Valve There is moderate calcification of the aortic valve. There is trace (trivial) aortic valve regurgitation. Mitral Valve There is moderate anterior and severe posterior mitral leaflet thickening. There is severe mitral annular calcification. There is mild to moderate mitral valve regurgitation. There is no mitral valve stenosis. Pulmonic Valve The pulmonic valve is likely normal. There is trace to mild pulmonic valve regurgitation. Tricuspid Valve Normal tricuspid valve structure. There is mild tricuspid valve regurgitation. The right ventricular systolic pressure may be underestimated. Great Vessels There is no dilatation of the ascending aorta and no dilatation of the descending aorta. Large plaque is seen in the arch and descending thoracic aorta. The visualized portions of the pulmonary artery and branches are normal. Venous The inferior vena cava is normal in size and collapses greater than 50% with inspiration. Pericardium/Pleural There is no evidence of pericardial effusion. Prior Study Comparison LV systolic function appears further depressed Updated by Preston Martin on 04:10 PM with Status of Final Preston Martin MD electronically signed on 05/24/2022 4:10:21 PM with status of Final
--- NOTE | 2022-05-24 10:31 | P.CONAN_ITS ---
HPI - Anesthesia Eval Consult details Narrative: chf/AFib for JAYDE and Cardioversion [facility] Active Problems Active Problems: All Active Problems (Updated 05/18/22 @ 11:51 by Ashlyn Buck MD) Hypoxia (Acute) Atrial fibrillation with RVR (Acute) CHF exacerbation (Acute) AHN (dyspnea on exertion) (Acute) Stable angina (Acute) Postoperative atrial fibrillation (Acute) Hyperlipidemia (Acute) HTN (hypertension) (Acute) COPD (chronic obstructive pulmonary disease) (Acute) Ischemic cardiomyopathy (Acute) Hx of CABG (Acute) CAD (coronary artery disease) (Acute) Past Medical History Medical History CAD (coronary artery disease) COPD (chronic obstructive pulmonary disease) History of prior cigarette smoking HTN (hypertension) Hyperlipidemia Ischemic cardiomyopathy Postoperative atrial fibrillation Stable angina Family History Family History Father CVD (cardiovascular disease) Mother CVD (cardiovascular disease) Family history of problems with anesthesia: No Surgical History Surgical History H/O knee surgery Hx of CABG S/P CABG x 3 Status post glaucoma surgery History of Problems with Anesthesia: No Social History Social History Household Members: Spouse Housing: House Do you presently have visiting nurse or other home services: No Alcohol intake: current Alcohol intake frequency: holidays/special occasions only Alcohol type: beer Patient Tobacco Use Status: Former Tobacco user Quit Date: 2019 Years Smoked: 20 +/- service: No Current occupational status: retired Meds Allergies Allergy/AdvReac Type Severity Reaction Status Date / Time latex [LATEX] Allergy Mild RASH Verified 11/29/21 13:29 nickel Allergy Unknown Rash Verified 11/29/21 13:29 ticagrelor [From Brilinta] Allergy Shortness Verified 01/20/22 10:00 of Breath Active Medications: Current Medications Acetaminophen (Acetaminophen 325 Mg Tablet) 650 mg PO Q6H PRN PRN Reason: Pain, Mild (Pain Scale 1-3) Amlodipine Besylate (Amlodipine Besylate 10 Mg Tablet) 10 mg PO DAILY [facility]; Protocol Last Admin: 05/24/22 08:43 Dose: Not Given Apixaban (Apixaban 5 Mg Tablet) 5 mg PO BID [facility] Last Admin: 05/24/22 08:40 Dose: 5 mg Atorvastatin Calcium (Atorvastatin Calcium 20 Mg Tablet) 20 mg PO DAILY [facility] Last Admin: 05/24/22 08:40 Dose: 20 mg Clopidogrel Bisulfate (Clopidogrel Bisulfate 75 Mg Tablet) 75 mg PO DAILY [facility] Last Admin: 05/24/22 08:40 Dose: 75 mg Albuterol Sulfate 2.5 mg/ (Ipratropium [place] 0.5 mg) 0 mg INHALE RQ6H WHILE AWAKE PRN PRN Reason: Shortness of Breath Docusate Sodium (Docusate Sodium 100 Mg Capsule) 100 mg PO DAILY PRN PRN Reason: Constipation Escitalopram Oxalate (Escitalopram Oxalate 20 Mg Tablet) 20 mg PO DAILY [facility] Last Admin: 05/24/22 08:40 Dose: 20 mg Gabapentin (Gabapentin 300 Mg Capsule) 300 mg PO BID [facility] Last Admin: 05/24/22 08:40 Dose: 300 mg Hydroxyzine HCl (Hydroxyzine Hcl 10 Mg Tablet) 10 mg PO BEDTIME PRN PRN Reason: Insomnia Last Admin: 05/23/22 21:05 Dose: 10 mg Lactated Ringer's (Lr) 1,000 mls @ 80 mls/hr IVCONT .[id number] [facility] Isosorbide Mononitrate (Isosorbide Mononitrate 60 Mg Tab.Er.24h) 60 mg PO DAILY [facility]; Protocol Last Admin: 05/24/22 08:44 Dose: Not Given Lisinopril (Lisinopril 20 Mg Tablet) 20 mg PO DAILY [facility]; Protocol Last Admin: 05/24/22 08:44 Dose: Not Given Metoprolol Succinate (Metoprolol Succinate Er 100 Mg Tab.Er.24h) 100 mg PO TONY LY [facility]; Protocol Last Admin: 05/24/22 08:40 Dose: 100 mg Sodium Chloride (0.9 % Sodium Chloride Flush 3 Ml Syringe) [facility] Last Admin: 05/24/22 08:44 Dose: 3 ml Home Medications Medication Instructions Recorded Confirmed Last Taken Type atorvastatin 20 mg tablet 20 mg PO DAILY 02/13/20 05/18/22 05/17/22 History lorazepam 1 mg tablet 1 mg PO DAILY PRN Anxiety 01/04/21 05/18/22 05/17/22 History gabapentin 300 mg capsule 300 mg PO BID 07/05/21 05/18/22 05/17/22 History escitalopram oxalate 20 mg tablet 1 tab PO DAILY 05/18/22 05/18/22 05/17/22 History fluocinonide 0.05 % topical cream 1 appl topical BID PRN Rash 05/18/22 05/18/22 05/17/22 History hydroxyzine HCl 10 mg tablet 1 tab PO BEDTIME PRN Insomnia 05/18/22 05/18/22 05/17/22 History Exam Exam Date and Time: May 24, 2022 1031 Height,Weight and Vital Signs: Height 5 ft 8 in Weight 83.007 kg Last Vital Signs Temp 97.4 F 05/24/22 09:55 Pulse 78 05/24/22 10:28 Resp 18 05/24/22 10:28 BP 103/69 05/24/22 09:55 Pulse Ox 96 05/24/22 09:55 O2 Del Method 05/24/22 09:55 O2 Flow Rate 2 05/20/22 16:00 Oxygen Flow Rate 2 05/18/22 09:14 Pertinent Lab Results Pertinent Lab Results: Laboratory Tests 05/18/22 05/18/22 05/18/22 09:29 09:29 09:29 WBC 12.0 H RBC 4.07 L Hgb 13.2 L Hct 38.2 L MCV 93.9 MCH 32.4 MCHC 34.6 RDW 12.4 Plt Count 207 MPV 9.6 Immature Gran % (Auto) 0.5 H Neut % (Auto) 85.5 H Lymph % (Auto) 7.1 L [place] % (Auto) 6.6 Eos % (Auto) 0.1 Baso % (Auto) 0.2 Lymph # (Auto) 0.9 L [place] # (Auto) 0.8 Eos # (Auto) 0.0 Baso # (Auto) 0.0 Abs Immat Gran (auto) 0.06 H Absolute Neuts (auto) 10.3 H Absolute Nucleated RBC 0.000 Nucleated RBC % (auto) 0.0 PT INR VBG pH VBG pCO2 VBG pO2 VBG HCO3 VBG O2 Saturation VBG Base Excess Sodium 132 L Potassium 4.1 Chloride 98 Carbon Dioxide 23 Anion Gap 15 BUN 11 Creatinine 0.69 Estim Creat Clear Calc 101.6 Estimated GFR > 60 Random Glucose 136 H Calcium 9.4 Magnesium Total Bilirubin 0.8 AST 31 ALT 38 Alkaline Phosphatase 85 Troponin I High Sens B-Natriuretic Peptide 361 H Total Protein 7.1 Albumin 4.4 Ur Random Sodium Ur Random Potassium Ur Random Chloride COVID-19 ([facility]) COVID-19 Clin Com Influenza Type A (SUSAN) Influenza Type B (SUSAN) Influenza A & B Note 05/18/22 05/18/22 05/18/22 09:29 09:29 09:29 WBC RBC Hgb Hct MCV MCH MCHC RDW Plt Count MPV Immature Gran % (Auto) Neut % (Auto) Lymph % (Auto) [place] % (Auto) Eos % (Auto) Baso % (Auto) Lymph # (Auto) [place] # (Auto) Eos # (Auto) Baso # (Auto) Abs Immat Gran (auto) Absolute Neuts (auto) Absolute Nucleated RBC Nucleated RBC % (auto) PT 12.9 INR 1.1 VBG pH VBG pCO2 VBG pO2 VBG HCO3 VBG O2 Saturation VBG Base Excess Sodium Potassium Chloride Carbon Dioxide Anion Gap BUN Creatinine Estim Creat Clear Calc Estimated GFR Random Glucose Calcium Magnesium Total Bilirubin AST ALT Alkaline Phosphatase Troponin I High Sens B-Natriuretic Peptide Total Protein Albumin Ur Random Sodium Ur Random Potassium Ur Random Chloride COVID-19 ([facility]) Negative COVID-19 Clin Com See Note Influenza Type A (SUSAN) Negative Influenza Type B (SUSAN) Negative Influenza A & B Note See Note 05/18/22 05/18/22 05/18/22 09:29 09:42 14:30 WBC RBC Hgb Hct MCV MCH MCHC RDW Plt Count MPV Immature Gran % (Auto) Neut % (Auto) Lymph % (Auto) [place] % (Auto) Eos % (Auto) Baso % (Auto) Lymph # (Auto) [place] # (Auto) Eos # (Auto) Baso # (Auto) Abs Immat Gran (auto) Absolute Neuts (auto) Absolute Nucleated RBC Nucleated RBC % (auto) PT INR VBG pH 7.34 VBG pCO2 49 VBG pO2 56 VBG HCO3 26 VBG O2 Saturation 85.0 VBG Base Excess 0.5 Sodium Potassium Chloride Carbon Dioxide Anion Gap BUN Creatinine Estim Creat Clear Calc Estimated GFR Random Glucose Calcium Magnesium Total Bilirubin AST ALT Alkaline Phosphatase Troponin I High Sens 10.3 12.8 B-Natriuretic Peptide Total Protein Albumin Ur Random Sodium Ur Random Potassium Ur Random Chloride COVID-19 ([facility]) COVID-19 Clin Com Influenza Type A (SUSAN) Influenza Type B (SUSAN) Influenza A & B Note 05/19/22 05/19/22 05/20/22 05:36 05:36 06:09 WBC 12.5 H RBC 4.15 L Hgb 13.5 L Hct 39.7 L MCV 95.7 MCH 32.5 MCHC 34.0 RDW 12.5 Plt Count 222 MPV 9.8 Immature Gran % (Auto) Neut % (Auto) Lymph % (Auto) [place] % (Auto) Eos % (Auto) Baso % (Auto) Lymph # (Auto) [place] # (Auto) Eos # (Auto) Baso # (Auto) Abs Immat Gran (auto) Absolute Neuts (auto) Absolute Nucleated RBC 0.000 Nucleated RBC % (auto) 0.0 PT INR VBG pH VBG pCO2 VBG pO2 VBG HCO3 VBG O2 Saturation VBG Base Excess Sodium 133 L 134 L Potassium 3.4 3.3 Chloride 94 L 97 Carbon Dioxide 29 27 Anion Gap 13 13 BUN 12 14 Creatinine 0.78 0.74 Estim Creat Clear Calc 89.8 94.7 Estimated GFR > 60 > 60 Random Glucose 109 93 Calcium 10.0 D 9.3 D Magnesium 2.0 Total Bilirubin AST ALT Alkaline Phosphatase Troponin I High Sens B-Natriuretic Peptide Total Protein Albumin Ur Random Sodium Ur Random Potassium Ur Random Chloride COVID-19 ([facility]) COVID-19 Clin Com Influenza Type A (SUSAN) Influenza Type B (SUSAN) Influenza A & B Note 05/21/22 05/22/22 05/22/22 06:13 06:16 15:06 WBC RBC Hgb Hct MCV MCH MCHC RDW Plt Count MPV Immature Gran % (Auto) Neut % (Auto) Lymph % (Auto) [place] % (Auto) Eos % (Auto) Baso % (Auto) Lymph # (Auto) [place] # (Auto) Eos # (Auto) Baso # (Auto) Abs Immat Gran (auto) Absolute Neuts (auto) Absolute Nucleated RBC Nucleated RBC % (auto) PT INR VBG pH VBG pCO2 VBG pO2 VBG HCO3 VBG O2 Saturation VBG Base Excess Sodium 132 L 128 L Potassium 3.3 2.9 L 3.6 D Chloride 88 L 85 L Carbon Dioxide 35 H 31 H Anion Gap 12 15 BUN 14 20 H Creatinine 0.88 1.33 Estim Creat Clear Calc 79.6 52.7 Estimated GFR > 60 53 Random Glucose 96 97 Calcium 9.8 9.4 Magnesium 2.0 Total Bilirubin AST ALT Alkaline Phosphatase Troponin I High Sens B-Natriuretic Peptide Total Protein Albumin Ur Random Sodium Ur Random Potassium Ur Random Chloride COVID-19 ([facility]) COVID-19 Clin Com Influenza Type A (SUSAN) Influenza Type B (SUSAN) Influenza A & B Note 05/23/22 05/23/22 05/24/22 06:15 13:04 09:10 WBC RBC Hgb Hct MCV MCH MCHC RDW Plt Count MPV Immature Gran % (Auto) Neut % (Auto) Lymph % (Auto) [place] % (Auto) Eos % (Auto) Baso % (Auto) Lymph # (Auto) [place] # (Auto) Eos # (Auto) Baso # (Auto) Abs Immat Gran (auto) Absolute Neuts (auto) Absolute Nucleated RBC Nucleated RBC % (auto) PT INR VBG pH VBG pCO2 VBG pO2 VBG HCO3 VBG O2 Saturation VBG Base Excess Sodium 125 L 126 L 127 L Potassium 3.2 L 3.7 3.8 Chloride 87 L 88 L 87 L Carbon Dioxide 29 28 31 H Anion Gap 12 14 13 BUN 14 14 11 Creatinine 0.78 0.87 0.85 Estim Creat Clear Calc 89.8 80.5 82.4 Estimated GFR > 60 > 60 > 60 Random Glucose 93 157 H 99 Calcium 9.4 9.3 9.7 Magnesium Total Bilirubin AST ALT Alkaline Phosphatase Troponin I High Sens B-Natriuretic Peptide Total Protein Albumin Ur Random Sodium Ur Random Potassium Ur Random Chloride COVID-19 ([facility]) COVID-19 Clin Com Influenza Type A (SUSAN) Influenza Type B (SUSAN) Influenza A & B Note 05/24/22 09:20 WBC RBC Hgb Hct MCV MCH MCHC RDW Plt Count MPV Immature Gran % (Auto) Neut % (Auto) Lymph % (Auto) [place] % (Auto) Eos % (Auto) Baso % (Auto) Lymph # (Auto) [place] # (Auto) Eos # (Auto) Baso # (Auto) Abs Immat Gran (auto) Absolute Neuts (auto) Absolute Nucleated RBC Nucleated RBC % (auto) PT INR VBG pH VBG pCO2 VBG pO2 VBG HCO3 VBG O2 Saturation VBG Base Excess Sodium Potassium Chloride Carbon Dioxide Anion Gap BUN Creatinine Estim Creat Clear Calc Estimated GFR Random Glucose Calcium Magnesium Total Bilirubin AST ALT Alkaline Phosphatase Troponin I High Sens B-Natriuretic Peptide Total Protein Albumin Ur Random Sodium 31.0 Ur Random Potassium 65.9 Ur Random Chloride < 20.0 COVID-19 ([facility]) COVID-19 Clin Com Influenza Type A (SUSAN) Influenza Type B (SUSAN) Influenza A & B Note Airway Mallampati Class: II TM Dist: >3cm Neck ROM: Full Adult Head Mouth w/Numbe Teeth: 1. No 7 2. 3. 4. Loose/Missing/Broken Teeth: Yes Heart: rrr Lungs: cta Assessment and Plan Assessment Anesthesia Assessment: Anesthesia Plan Discussed and Chart Reviewed Final Anesthetic Review Family History of Problems with Anesthesia: No History of Problems with Anesthesia: No NPO: No ASA Class: III Final Preanesthetic Review: No Changes in Pt Med Stat, Meds/Allgs Chart Reviewed, Consent Obtained/Reviewed and Anes Risks/Benef Reviewed Patient Risk: Intermediate Procedure Risk: Intermediate Anesthetic Plan Anesthetic Plan: MAC: Disposition: Standard PACU
[2022-05-24 11:09] LABS: Osmolality Urine 418 mosm/kg (373-1093)
--- NOTE | 2022-05-24 11:16 | MHC.SHP ---
Pre-Procedural Eval Section A Date of Service: 05/24/22 The patient is an INPATIENT: Yes Changes since office visit: Yes New Medical Problems and Yes Patient answered all questions; No Cold of Flu in the past 2 weeks and No Changes in Medication The History & Physical has been completed within 30 days and I have reviewed it.: Yes Section B Chief Complaint: CHF,Afib Allergies: Allergies Allergy/AdvReac Type Severity Reaction Status Date / Time latex [LATEX] Allergy Mild RASH Verified 11/29/21 13:29 nickel Allergy Unknown Rash Verified 11/29/21 13:29 ticagrelor [From Brilinta] Allergy Shortness Verified 01/20/22 10:00 of Breath Plan I have reviewed the history and physical and performed a pertinent physical examination on my patient. No changes have occurred unless specified. Time Spent With Patient Time: Total time managing care of this patient today ____ minutes.
--- NOTE | 2022-05-24 11:18 | ECG_ITS ---
Test Reason : s/p cardioversion lynda Blood Pressure : / mmHG Vent. Rate : 070 BPM Atrial Rate : 070 BPM P-R Int : 188 ms QRS Dur : 128 ms QT Int : 488 ms P-R-T Axes : 090 014 -20 degrees QTc Int : 527 ms Sinus rhythm with Premature atrial complexes with Aberrant conduction Non-specific intra-ventricular conduction block Minimal voltage criteria for LVH, may be normal variant ( Lilly product ) Possible Inferior infarct (cited on or before 29-JUL-2019) Abnormal ECG When compared with ECG of 18-MAY-2022 09:31, Sinus rhythm has replaced Atrial fibrillation Referred By: Misha Martin Electronically Signed By:MISHA MARTIN MD
--- NOTE | 2022-05-24 12:18 | HO.CARDIVERS ---
Cardioversion Procedure Note Cardioversion Date of Procedure: Today Ordering Provider: Myself Performing Provider: Myself Indication for Procedure: Persistent atrial fibrillation with CHF and cardiomyopathy Pre-Op Diagnosis: Same Post-Op Diagnosis: Normal sinus rhythm Performed with Transesophageal Echo: Yes JAYDE findings (if JAYDE Performed): Full report dictated separately. No intracardiac thrombi or masses seen History: Review the chart Consent: Verbal and Written consent was obtained from the patient before starting and after confirming oral anticoagulation use. The patient was made aware of the risk of synchronized cardioversion including benefits and risks Procedure: After consent obtained, cardioversion pads were attached in anteroposterior configuration and the patient was sedated by the anesthesia team. Once adequate sedation achieved, patient was delivered 200 joules of biphasic synchronized energy x2. Initially briefly converted to sinus rhythm but then converted back to atrial fibrillation and 2nd cardioversion attempt was made. Complications: See anesthesia note Impression: Patient converted successfully to sinus rhythm with PACs Recommendations: 1. 12 lead EKG 2. Start amiodarone loading 400 mg b.i.d. for 2 weeks followed by 200 mg daily 3. Continue full oral anticoagulation
--- NOTE | 2022-05-24 12:20 | PM.PNCARD ---
Subjective Subjective Date of Service: 05/24/22 Principal diagnosis: Atrial fibrillation heart failure Interval history: Patient with no heart failure symptoms. Remaining atrial fibrillation underwent JAYDE guided cardioversion. Tolerated the procedure well. Review of Systems Constitutional: Reports no additional constitutional complaints Cardiovascular: Reports no additional cardiovascular complaints Respiratory: Reports no additional respiratory complaints Musculoskeletal: Reports no additional musculoskeletal complaints Reports system reviewed and no additional complaints, except as documented Psychiatric: Reports no additional psychiatric complaints Physical Exam Vital Signs: Last Vital Signs Temp 98 F 05/24/22 11:56 Pulse 62 05/24/22 11:56 Resp 20 05/24/22 11:56 BP 101/47 L 05/24/22 11:56 Pulse Ox 93 05/24/22 11:56 O2 Del Method 05/24/22 11:56 O2 Flow Rate 2 05/24/22 11:56 Oxygen Flow Rate 2 05/18/22 09:14 BMI result Body Mass Index 27.8 Const General: cooperative, comfortable, no acute distress, alert and awake Nutritional Appearance: average body habitus Orientation/consciousness: patient oriented x3 Neck Neck: Yes trachea midline, Yes supple and Yes no JVD Resp Effort & Inspection: normal respiratory effort Auscultation: clear to auscultation bilaterally Cardio Jugular venous distension: no JVD Rate: regular rate Rhythm: abnormal rhythm with ectopic beats Heart sounds: S1 normal heart sound present, S2 normal heart sound present, no click, no gallops and no murmurs GI Auscultation: normal bowel sounds Neuro General: patient oriented x3 and no focal motor deficits Extrem General: Yes no clubbing, cyanosis or edema Objective Labs and Meds 05/19/22 05:36 05/24/22 09:10 Lab results: Laboratory Results - last 24 hr 05/23/22 05/24/22 05/24/22 13:04 09:10 09:20 Sodium 126 L 127 L Potassium 3.7 3.8 Chloride 88 L 87 L Carbon Dioxide 28 31 H Anion Gap 14 13 BUN 14 11 Creatinine 0.87 0.85 Estim Creat Clear Calc 80.5 82.4 Estimated GFR > 60 > 60 Random Glucose 157 H 99 Calcium 9.3 9.7 Urine Osmolality Ur Random Sodium 31.0 Ur Random Potassium 65.9 Ur Random Chloride < 20.0 05/24/22 09:20 Sodium Potassium Chloride Carbon Dioxide Anion Gap BUN Creatinine Estim Creat Clear Calc Estimated GFR Random Glucose Calcium Urine Osmolality 418 Ur Random Sodium Ur Random Potassium Ur Random Chloride Progress Note: A&P Assessment and plan (1) Atrial fibrillation with RVR: Status: Acute Assessment and Plan: Persistent atrial fibrillation development of heart failure status post synchronized cardioversion maintaining rhythm. However given that he required to cardioversion times and underlying atrial pathology will require amiodarone for rhythm management. Start amiodarone loading 400 mg b.i.d. for 2 weeks followed by 200 mg daily. Will follow up in the clinic after Holter monitor. Continue full oral anticoagulation Eliquis. Twelve lead EKG after the 1st dose. If patient remains stable can be discharged home later today. (2) CHF exacerbation: Status: Acute Assessment and Plan: CHF exacerbation most likely related to atrial fibrillation with cardiomyopathy. LV ejection fraction of. Further depressed most likely further worsening due to tachycardia mediated cardiomyopathy. Follow-up limited echocardiogram 2 weeks. Currently appears to be euvolemic and may be on the dehydrated side. Hold off on Lasix till tomorrow and start on 20 mg daily. Outpatient workup for sodium and potassium in 1 week. Continue metoprolol and lisinopril for neurohormonal modulation. Will follow up in the clinic in 2-3 weeks time. Thank you for allowing me to partake in his care Time Spent With Patient Time: Total time managing care of this patient today ____ minutes. Progress Note: Quality Stroke Does the patient have a stroke diagnosis?: No Procedures Date of Service Date of Service: 05/24/22
[2022-05-24 15:16] LABS: Sodium 125 mmol/L (135-145)
--- NOTE | 2022-05-24 15:41 | P.PNIM_ITS ---
Subjective Subjective Date of Service: 05/24/22 Interval History: seen and examined this morning follow up for afib, chf no overnight events feeling well, no sob, no cough Review of Systems Review of Systems: Yes all other systems are reviewed and are negative Constitutional Constitutional: Denies chills and Denies fever(s) ENT Ears, Nose, Mouth, and Throat: Denies dizziness Cardiovascular Cardiovascular: Denies chest pain, Denies palpitations, Denies dyspnea and Denies dyspnea on exertion Respiratory Respiratory: Denies cough, Denies dyspnea and Denies dyspnea on exertion Neurologic Neurologic: Denies dizziness Endocrine Endocrine: Denies palpitations Physical Exam Vital Signs: Vital Signs: Last Vital Signs Temp 97.4 F 05/24/22 12:39 Pulse 66 05/24/22 12:39 Resp 14 05/24/22 12:39 BP 118/66 05/24/22 12:39 Pulse Ox 94 05/24/22 12:39 O2 Del Method 05/24/22 12:39 O2 Flow Rate 2 05/24/22 12:39 Oxygen Flow Rate 2 05/18/22 09:14 BMI result Body Mass Index 27.8 Appearing in no acute distress lung sounds are clear to auscultation heart regular rate rhythm, clear S1, S2 positive bowel sounds, abdomen is soft, nontender neuro patient is alert x3, no focal deficits Objective Data Active Medications Acetaminophen (Acetaminophen 325 Mg Tablet) 650 mg PO Q6H PRN PRN Reason: Pain, Mild (Pain Scale 1-3) Amiodarone HCl (Amiodarone Hcl 200 Mg Tablet) 400 mg PO BID [facility] Stop: 06/07/22 20:59 Amlodipine Besylate (Amlodipine Besylate 10 Mg Tablet) 10 mg PO DAILY [facility]; Protocol Last Admin: 05/24/22 08:43 Dose: Not Given Documented By: IRA Non-Admin Reason: Bp soft Apixaban (Apixaban 5 Mg Tablet) 5 mg PO BID [facility] Last Admin: 05/24/22 08:40 Dose: 5 mg Documented By: IRA Atorvastatin Calcium (Atorvastatin Calcium 20 Mg Tablet) 20 mg PO DAILY [facility] Last Admin: 05/24/22 08:40 Dose: 20 mg Documented By: IRA Clopidogrel Bisulfate (Clopidogrel Bisulfate 75 Mg Tablet) 75 mg PO DAILY [facility] Last Admin: 05/24/22 08:40 Dose: 75 mg Documented By: IRA Albuterol Sulfate 2.5 mg/ (Ipratropium [place]iley 0.5 mg) 0 mg INHALE RQ6H WHILE AWAKE PRN PRN Reason: Shortness of Breath Docusate Sodium (Docusate Sodium 100 Mg Capsule) 100 mg PO DAILY PRN PRN Reason: Constipation Escitalopram Oxalate (Escitalopram Oxalate 20 Mg Tablet) 20 mg PO DAILY [facility] Last Admin: 05/24/22 08:40 Dose: 20 mg Documented By: IRA Gabapentin (Gabapentin 300 Mg Capsule) 300 mg PO BID [facility] Last Admin: 05/24/22 08:40 Dose: 300 mg Documented By: IRA Hydroxyzine HCl (Hydroxyzine Hcl 10 Mg Tablet) 10 mg PO BEDTIME PRN PRN Reason: Insomnia Last Admin: 05/23/22 21:05 Dose: 10 mg Documented By: FOGARTDoyle Lactated Ringer's (Lr) 1,000 mls @ 80 mls/hr IVCONT .[id number] [facility] Last Admin: 05/24/22 10:18 Dose: 80 mls/hr Documented By: LUCIUS Isosorbide Mononitrate (Isosorbide Mononitrate 60 Mg Tab.Er.24h) 60 mg PO DAILY [facility]; Protocol Last Admin: 05/24/22 08:44 Dose: Not Given Documented By: IRA Non-Admin Reason: BP soft Lisinopril (Lisinopril 20 Mg Tablet) 20 mg PO DAILY [facility]; Protocol Last Admin: 05/24/22 08:44 Dose: Not Given Documented By: IRA Non-Admin Reason: BP soft Metoprolol Succinate (Metoprolol Succinate Er 100 Mg Tab.Er.24h) 100 mg PO DAILY [facility]; Protocol Last Admin: 05/24/22 08:40 Dose: 100 mg Documented By: IRA Sodium Chloride (0.9 % Sodium Chloride Flush 3 Ml Syringe) 3 ml IVFLUSH QSHIFT [facility] Last Admin: 05/24/22 08:44 Dose: 3 ml Documented By: IRA Labs 05/19/22 05:36 05/24/22 14:40 Labs: Laboratory Results - last 24 hr 05/24/22 05/24/22 05/24/22 09:10 09:20 09:20 Anion Gap 13 Estim Creat Clear Calc 82.4 Estimated GFR > 60 Random Glucose 99 Calcium 9.7 Urine Osmolality 418 Ur Random Sodium 31.0 Ur Random Potassium 65.9 Ur Random Chloride < 20.0 Assessment and Plan (1) Atrial fibrillation with RVR: Status: Acute (2) CHF exacerbation: Status: Acute Plan Pt is a 72-year-old male with a PMH significant for?CAD s/p triple bypass in 09/2018, 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 Hyponatremia. Still low at 125 r/t diuretics hold lasix started 1.5L fl rest nephro consult follow BMP if resolved may go home Acute on Chronic HFrEF Echo with EF 45-50% with inferior wall hypokinesis and mild to moderate creatinine trending up, will d/c diuretics Follow lytes I/O not accurate Cardiology following AFib with RVR HR controlled BB transitioned to long acting Toprol XL 100 mg [id number] score 6, started on Eliquis this admission s/p successful cardioversion 05/24/22 start amiodarone 400 mg b.i.d. times 14 days then 200 mg daily Hypokalemia. resolved Repleted r/t diuretics h/o COPD does not appear to be in acute exacerbation continue home inhalers CAD continue Plavix, statin, imdur, beta-alissa as he was started on Eliquis for afib, will d/c asa HTN On norvasc, metoprolol, lisinopril - bp soft norvasc and lisinopril held this am HLD Continue statin Mood contiue lexapro Full Code Attending:?Dr. Davalos DVT Prophylaxis: Eliquis requires ongoing inpatient hospitalization for management of CHF exacerbation and new onset AFib; plan for cardioversion in am Time Spent With Patient Time: Total time managing care of this patient today ____ minutes. Quality Stroke Does the patient have a stroke diagnosis?: No VTE Prior VTE?: No VTE Risk Level:: Medical - moderate - high VTE Device Contraindication: Treatment Not Indicated VTE Drug Contraindication: N/A - Med Ordered
[2022-05-24] MEDS: Amiodarone HCL 200 MG TABLET 400 MG PO (21:00)
[2022-05-24] MEDS: hydrOXYzine HCL 10 MG TABLET PO (21:01)
[2022-05-25 04:00] VITALS: BP 120/62; PULSE 71; RESP 12; TEMP 36.2; O2SAT 90
[2022-05-25 07:38] VITALS: BP 106/64; PULSE 64; RESP 20; TEMP 36.6; O2SAT 92
[2022-05-25 09:03] LABS: Anion Gap 12 (12-20); Blood Urea Nitrogen 9 mg/dL (9-16); Calcium 9.6 mg/dL (8.4-10.2); Carbon Dioxide 31 mmol/L (22-29); Chloride 90 mmol/L (96-108); Creatinine Clr Calc Pharmacy 81.5; Estimated Glomerular Filt Rate > 60; Glucose Random 134 mg/dL (60-115); Potassium 3.8 mmol/L (3.3-5.1); Sodium 129 mmol/L (135-145)
[2022-05-25] MEDS: Escitalopram Oxalate 20 MG TABLET PO (09:15)
[2022-05-25] MEDS: Gabapentin 300 MG CAPSULE PO (09:15)
[2022-05-25] MEDS: Apixaban 5 MG TABLET PO (09:15)
[2022-05-25] MEDS: Isosorbide Mononitrate 60 MG TAB.ER.24H PO (09:15)
[2022-05-25] MEDS: Amiodarone HCL 200 MG TABLET 400 MG PO (09:15)
[2022-05-25] MEDS: Clopidogrel Bisulfate 75 MG TABLET PO (09:16)
[2022-05-25] MEDS: Atorvastatin Calcium 20 MG TABLET PO (09:16)
[2022-05-25] MEDS: 0.9 % Sodium Chloride Flush 3 ML SYRINGE IVFLUSH (09:17)
[2022-05-25 09:47] VITALS: BP 132/72
[2022-05-25] MEDS: Metoprolol Succinate ER 100 MG TAB.ER.24H PO (09:49)
[2022-05-25] MEDS: lisinopriL 20 MG TABLET PO (09:49)
--- NOTE | 2022-05-25 10:34 | HO.POSTANES ---
Post Anesthesia Evaluation Post Anesthesia Evaluation Vital Signs: Vital Signs Temp Pulse Resp BP Pulse Ox O2 Del Method 05/25/22 09:47 132/72 05/25/22 07:38 97.9 F 64 20 106/64 92 Room Air 05/25/22 04:00 97.2 F 71 12 120/62 90 L Room Air 05/24/22 23:49 98.2 F 63 16 117/61 91 L Room Air Anesthesia: Monitored Mental Status: Awake Pain Control: Satisfactory Nausea/Vomiting: None Hydration: Adequate Anesthesia-Related Issues: No Anes. Related Issues
--- NOTE | 2022-05-25 10:54 | P.CONNP_ITS ---
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 Patient states his symptoms began approximately 2 weeks ago when he noticed SOB with exertion and at rest. The patient also noticed that his heart rate has been elevated at times, up to 120s.? Has had a cough productive of clear sputum.? Patient endorses orthopnea, sleeping with 5 pillows now.? Has had moments of non-radiating chest pain centered over his heart, usually lasts a few minutes.? He has not taken any meds for this. Denies swelling in legs. No F/C, N/V. Denies headache, vision changes.? No abdominal pain. Consulted for hyponatremia He is not on any thiazides But he is on Gabapentin 300mg BID/ Escitolopram 20 amd Lisinopril 20 mg QD Review of Systems Constitutional: Denies anorexia, Denies fatigue and Denies fever(s) Eyes: Denies loss of vision Denies dysphagia and Denies dry mouth Cardiovascular: Denies chest pain at rest, Denies Epigastric Pain, Reports rapid heart rate and Denies leg edema Respiratory: Denies chest congestion, Denies cough, Denies hemoptysis and Denies wheezing Gastrointestinal: Denies change in stool character, Denies constipation, Denies dysphagia and Denies diarrhea Musculoskeletal: Denies abnormal gait, Denies back pain, Denies joint swelling and Denies tingling Denies abnormal gait, Denies focal weakness, Denies loss of vision, Denies Sensory deficit (Neuro) and Denies tingling Endocrine: Denies fatigue, Denies flushing and Denies heat intolerance Allergic/Immunologic: Denies wheezing PMFSH Past Medical History Medical History CAD (coronary artery disease) COPD (chronic obstructive pulmonary disease) History of prior cigarette smoking HTN (hypertension) Hyperlipidemia Ischemic cardiomyopathy Postoperative atrial fibrillation Stable angina Family History Family History Father CVD (cardiovascular disease) Mother CVD (cardiovascular disease) Surgical History Surgical History H/O knee surgery Hx of CABG S/P CABG x 3 Status post glaucoma surgery Social History Social History Household Members: Spouse Housing: House Do you presently have visiting nurse or other home services: No Alcohol intake: current Alcohol intake frequency: holidays/special occasions only Alcohol type: beer Patient Tobacco Use Status: Former Tobacco user Quit Date: 2018 Years Smoked: 20 +/- service: No Current occupational status: retired Meds Allergies Allergy/AdvReac Type Severity Reaction Status Date / Time latex [LATEX] Allergy Mild RASH Verified 11/29/21 13:29 nickel Allergy Unknown Rash Verified 11/29/21 13:29 ticagrelor [From Brilinta] Allergy Shortness Verified 01/20/22 10:00 of Breath Active Medications: Current Medications Acetaminophen (Acetaminophen 325 Mg Tablet) 650 mg PO Q6H PRN PRN Reason: Pain, Mild (Pain Scale 1-3) Amiodarone HCl (Amiodarone Hcl 200 Mg Tablet) 400 mg PO BID [facility] Stop: 06/07/22 20:59 Last Admin: 05/25/22 09:15 Dose: 400 mg Amlodipine Besylate (Amlodipine Besylate 5 Mg Tablet) 5 mg PO DAILY [facility]; Protocol Last Admin: 05/25/22 09:24 Dose: Not Given Apixaban (Apixaban 5 Mg Tablet) 5 mg PO BID [facility] Last Admin: 05/25/22 09:15 Dose: 5 mg Atorvastatin Calcium (Atorvastatin Calcium 20 Mg Tablet) 20 mg PO DAILY [facility] Last Admin: 05/25/22 09:16 Dose: 20 mg Clopidogrel Bisulfate (Clopidogrel Bisulfate 75 Mg Tablet) 75 mg PO DAILY [facility] Last Admin: 05/25/22 09:16 Dose: 75 mg Albuterol Sulfate 2.5 mg/ (Ipratropium [place] 0.5 mg) 0 mg INHALE RQ6H WHILE AWAKE PRN PRN Reason: Shortness of Breath Docusate Sodium (Docusate Sodium 100 Mg Capsule) 100 mg PO DAILY PRN PRN Reason: Constipation Escitalopram Oxalate (Escitalopram Oxalate 20 Mg Tablet) 20 mg PO DAILY [facility] Last Admin: 05/25/22 09:15 Dose: 20 mg Gabapentin (Gabapentin 300 Mg Capsule) 300 mg PO BID [facility] Last Admin: 05/25/22 09:15 Dose: 300 mg Hydroxyzine HCl (Hydroxyzine Hcl 10 Mg Tablet) 10 mg PO BEDTIME PRN PRN Reason: Insomnia Last Admin: 05/24/22 21:01 Dose: 10 mg Isosorbide Mononitrate (Isosorbide Mononitrate 60 Mg Tab.Er.24h) 60 mg PO DAILY [facility]; Protocol Last Admin: 05/25/22 09:15 Dose: 60 mg Lisinopril (Lisinopril 20 Mg Tablet) 20 mg PO DAILY [facility]; Protocol Last Admin: 05/25/22 09:49 Dose: 20 mg Metoprolol Succinate (Metoprolol Succinate Er 100 Mg Tab.Er.24h) 100 mg PO DAILY [facility]; Protocol Last Admin: 05/25/22 09:49 Dose: 100 mg Sodium Chloride (0.9 % Sodium Chloride Flush 3 Ml Syringe) 3 ml IVFSH [facility] Last Admin: 05/25/22 09:17 Dose: 3 ml Home Medications Medication Instructions Recorded Confirmed Last Taken Type atorvastatin 20 mg tablet 20 mg PO DAILY 02/13/20 05/18/22 05/17/22 History lorazepam 1 mg tablet 1 mg PO DAILY PRN Anxiety 01/04/21 05/18/22 05/17/22 History gabapentin 300 mg capsule 300 mg PO BID 07/05/21 05/18/22 05/17/22 History escitalopram oxalate 20 mg tablet 1 tab PO DAILY 05/18/22 05/18/22 05/17/22 History fluocinonide 0.05 % topical cream 1 appl topical BID PRN Rash 05/18/22 05/18/22 05/17/22 History hydroxyzine HCl 10 mg tablet 1 tab PO BEDTIME PRN Insomnia 05/18/22 05/18/22 05/17/22 History Physical Exam Vital Signs: Last Vital Signs Temp 97.9 F 05/25/22 07:38 Pulse 64 05/25/22 07:38 Resp 20 05/25/22 07:38 BP 132/72 05/25/22 09:47 Pulse Ox 92 05/25/22 07:38 O2 Del Method 05/25/22 07:38 O2 Flow Rate 2 05/24/22 12:39 Oxygen Flow Rate 2 05/18/22 09:14 BMI result Body Mass Index 27.8 Const General: well developed and Physically active Nutritional Appearance: well nourished Resp Effort & Inspection: normal respiratory effort Auscultation: clear to auscultation bilaterally Percussion: percussion normal and no dullness to percussion Cardio Jugular venous distension: no JVD Palpation: no palpable S3 Heart sounds: no murmurs and no rubs GI Inspection: Yes normal to inspection Palpation (GI): Soft to palpation Auscultation: normal bowel sounds Skin General skin exam: no rashes or lesions noted Neuro Sensory Exam: No Sensory deficit (Neuro) Extrem General: Yes no pedal edema Results Lab Results 05/19/22 05:36 05/25/22 08:43 Lab results: Chemistry 05/22/22 05/23/22 05/23/22 15:06 06:15 13:04 Sodium 125 L 126 L Potassium 3.6 D 3.2 L 3.7 Carbon Dioxide 29 28 BUN 14 14 Creatinine 0.78 0.87 Calcium 9.4 9.3 05/24/22 05/24/22 05/25/22 09:10 14:40 08:43 Sodium 127 L 125 L 129 L Potassium 3.8 3.8 Carbon Dioxide 31 H 31 H BUN 11 9 Creatinine 0.85 0.86 Calcium 9.7 9.6 Urine Studies 05/24/22 09:20 Urine Osmolality 418 Assessment and Plan (1) Hyponatremia: Status: Acute Plan Most likely due to medication induced decreased free water clearance SSRI/Gabapentin and Lisinopril are playin a role Suggest Change Lisinopril to To Diovan 80 mg QD I Defer changeing Trevor or SSRI Check TSH/Cortisol - ordered Restrict PO water intake to 1.2L per 24 hrs Goal pNA > 130 DC planning Will arrange out pt follow up Time Spent With Patient Time: Total time managing care of this patient today ____ minutes. Procedures Date of Service Date of Service: 05/25/22
--- NOTE | 2022-05-25 11:02 | P.DS_ITS ---
DS: Providers Provider Date of Service: 05/25/22 Date of admission: 05/18/22 13:54 Primary care physician: Reena Dickson PA-C Consults: 05/18/22 13:54 Consult to Cardiology Routine Consulting Provider: Orion Joshi Reason for consultation: CHF, New-onset Afib Has provider been notified: No 05/24/22 18:09 Consult to Nephrology Routine Consulting Provider: Roland Stahl Reason for consultation: hyponatremia Has provider been notified: No DS: Diagnosis Discharge Diagnosis (1) Hyponatremia: Status: Acute DS: Summary Hospital Course Hospital Course: History of presenting illness. 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 Patient states his symptoms began approximately 2 weeks ago when he noticed SOB with exertion and at rest. The patient also noticed that his heart rate has been elevated at times, up to 120s.? Has had a cough productive of clear sputum.? Patient endorses orthopnea, sleeping with 5 pillows now.? Has had moments of non-radiating chest pain centered over his heart, usually lasts a few minutes.? He has not taken any meds for this. Denies swelling in legs. No F/C, N/V. Denies headache, vision changes.? No abdominal pain. In the ED labs were significant for leukocytosis of 12.0, troponin negative, BNP of 361, VBG WNL. Patient tested negative for influenza A and B, COVID. CXR showed no acute intrathoracic disease.? EKG showed AFib with RVR. Pt was treated with 2.5 mg IV and 50mg po of Lopressor, DuoNeb, and 80 mg of IV Lasix.? Patient currently satting at 96 on 2 L nasal cannula, not on O2 at home. Pt will be admitted to the hospital for treatment of acute CHF exacerbation and AFib with RVR. Hospital course. 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 Acute on Chronic HFrEF patient admitted to medical floor treated with diuretics, an echo showed EF 30- 35 , biatrial enlargement, akinesis of basal inferior wall, worsening EF and chf likely secondary to AFib with RVR, patient clinically appears euvolemic, dose of Lasix reduced to 20 mg, recommend to continue Diovan and beta-blockers, outpatient follow-up with Cardiology for repeat echo in 2 weeks, follow BMP as outpatient AFib with RVR Underwent successful cardioversion on 05/24/2022, placed on Toprol-XL 100 mg daily,[id number] score 6, on Eliquis , started on amiodarone 400 mg b.i.d. through June 07 for total 14 days and then 200 mg daily Hyponatremia. Sodium dropped to 125, patient placed on fluid restriction, sodium improved to 129, patient seen by Nephrology they feel hyponatremia likely due to medication induced SSRI and gabapentin and also lisinopril playing a role, therefore lisinopril discontinued patient placed on Diovan 80 mg daily, TSH and cortisol of pending, patient admits to drinking 2 gal a day recommended fluid restriction 1.5 L in 24 hours, goal of sodium 130 recommend outpatient follow-up with Nephrology , and also recommend to discuss continued use of SSRI and gabapentin Hypokalemia. resolved was likely due to diuretics h/o COPD no acute exacerbation noted continue home inhalers CAD continue Plavix, statin, imdur, beta-alissa, aspirin discontinued HTN Noted to have soft blood pressures therefore Norvasc discontinued recommend to continue metoprolol and Diovan HLD Continue Lipitor. Time Spent with Patient Time attestation: Total time managing care of this patient today ____ minutes. Discharge coordination time: Greater than 30 minutes Quality: Safe Use of Opioids Does Pt have an Active Cancer Diagnosis on the Problem List?: No Quality: Stroke Does the patient have a stroke diagnosis?: No Physical Exam Vital Signs: Vital Signs: Last Vital Signs Temp 97.9 F 05/25/22 07:38 Pulse 64 05/25/22 07:38 Resp 20 05/25/22 07:38 BP 132/72 05/25/22 09:47 Pulse Ox 92 05/25/22 07:38 O2 Del Method 05/25/22 07:38 O2 Flow Rate 2 05/24/22 12:39 Oxygen Flow Rate 2 05/18/22 09:14 BMI result Body Mass Index 27.8 Const: Other: General resting comfortably in no acute distress. Neck no JVD. CVS regular rate rhythm, Respiratory lungs clear to auscultation, no respiratory distress, no wheeze, no rhonchi. Gastrointestinal abdomen soft, nontender, bowel sounds audible, no guarding , no rigidity. Extremities no edema. Neuro nonfocal Skin no rash Psych appropriate affect DS: Data Data Completed and Pending Labs on day of discharge: Laboratory Results - last 24 hr 05/24/22 05/24/22 05/25/22 09:20 14:40 08:43 Sodium 125 L 129 L Potassium 3.8 Chloride 90 L Carbon Dioxide 31 H Anion Gap 12 BUN 9 Creatinine 0.86 Estim Creat Clear Calc 81.5 Estimated GFR > 60 Random Glucose 134 H Calcium 9.6 Urine Osmolality 418 Discharge Plan Discharge Anticipated Discharge Date/Time: 05/25/22 10:48 Patient Disposition: Home, Self-Care Discharge Diagnosis: Acute on chronic heart failure with reduced EF Atrial fibrillation with RVR Hypokalemia Hyponatremia Referrals: Reena Dickson PA-C [Primary Care Provider] - 1 Week Discharge Medications: New amiodarone 200 mg Tablet 400 mg PO BID Qty: 60 0RF Rx Instructions: Take amiodarone 200 mg 2 tablets (400mg) twice daily thru June 07, then take amiodarone 200 mg 1 tablet daily from june 08. furosemide [Lasix] 20 mg tablet 20 mg PO DAILY Qty: 30 0RF valsartan [Diovan] 80 mg tablet 80 mg PO DAILY Qty: 30 0RF metoprolol succinate 100 mg Tablet Extended Release 24 Hr 100 mg PO DAILY Qty: 30 0RF Protocol: Hold for SBP/HR < HOLD for SBP < : 90 HOLD for HR < : 60 Continued clopidogrel [Plavix] 75 mg tablet 75 mg PO DAILY Qty: 90 3RF isosorbide mononitrate 60 mg tablet extended release 24 hr 60 mg PO DAILY Qty: 90 3RF fluocinonide 0.05 % cream 1 appl topical BID PRN (Reason: Rash) Rx Instructions: apply to either back of legs, ankles, or scalp depending on affected area hydroxyzine HCl 10 mg tablet 1 tab PO BEDTIME PRN (Reason: Insomnia) escitalopram oxalate 20 mg tablet 1 tab PO DAILY atorvastatin 20 mg tablet 20 mg PO DAILY lorazepam 1 mg tablet 1 mg PO DAILY PRN (Reason: Anxiety) gabapentin 300 mg capsule 300 mg PO BID Discontinued amlodipine 10 mg tablet 10 mg PO DAILY 90 Days Qty: 90 3RF aspirin 81 mg tablet,delayed release (DR/EC) 81 mg PO DAILY Qty: 90 3RF furosemide 40 mg tablet 40 mg PO DAILY Qty: 90 3RF lisinopril 20 mg tablet 20 mg PO DAILY Qty: 90 3RF metoprolol tartrate 50 mg tablet 50 mg PO BID 90 Days Qty: 180 3RF Discharge Orders: Discharge Order (Routine); Ordered 05/25/22 Ordered By: Ford France Diet: 1500 fluid restriction Activity on Discharge: As tolerated Stand Alone Forms: Patient Portal Discharge page Other Ambulatory Orders: Basic Metabolic Panel (Routine) Timeframe: 1 Week Facility: [facility] - Location: Laboratory Ordered By: Ford France Care Plan Goals: Heart failure resolved take Lasix 20 mg daily Atrial fibrillation with rapid ventricular response improved, status post cardioversion take amiodarone 400 mg twice daily through June 07 then take amiodarone 200 mg 1 tablet daily follow-up with Cardiology for limited echocardiogram in 2 weeks Low-sodium follow 1500 mL fluid restriction and follow up with ship cleaner Dr. Stahl stop lisinopril you have been started on Diovan 80 mg daily stop Aspirin and Norvasc Health Concerns: Continue all other medications as before Plan of Treatment: Follow-up with primary care physician and contact finger assembler Assessment: as above
[2022-05-25 11:20] VITALS: BP 121/64; PULSE 80; RESP 20; TEMP 36.6; O2SAT 95
--- NOTE | 2022-05-25 11:20 | MHC.CM.PN ---
Patient has been medically cleared for dc to home today, self care. CM met with Patient and his at bedside and addressed IMM with him (original has been given to him and a copy has been placed on the chart). Patient is pleased to be going home today.
[2022-05-25 11:35] LABS: Osmolality, Serum 265 mosm/kg (281-305)
[2022-05-25 11:51] LABS: Thyroid Stimulating Hormone 1.63 uIU/mL (0.32-4.0)
[2022-05-25 12:20] LABS: Cortisol Random 13.1 ug/dL
--- NOTE | 2022-05-25 12:45 | PM.PNCARD ---
Subjective Subjective Date of Service: 05/25/22 Principal diagnosis: Atrial fibrillation heart failure Interval history: patient status post JAYDE guided cardioversion yesterday. Maintaining sinus rhythm. Currently on amiodarone therapy. No trouble breathing. Denies any palpitations, lightheadedness. Blood pressure on the lower side and his Norvasc as been withheld. Review of Systems Review of Systems Yes all other systems are reviewed and are negative Physical Exam Vital Signs: Last Vital Signs Temp 97.9 F 05/25/22 11:20 Pulse 80 05/25/22 11:20 Resp 20 05/25/22 11:20 BP 121/64 05/25/22 11:20 Pulse Ox 95 05/25/22 11:20 O2 Del Method 05/25/22 11:20 O2 Flow Rate 2 05/24/22 12:39 Oxygen Flow Rate 2 05/18/22 09:14 BMI result Body Mass Index 27.8 Const General: cooperative, comfortable, no acute distress, alert and awake Nutritional Appearance: average body habitus Orientation/consciousness: patient oriented x3 Neck Neck: Yes trachea midline, Yes supple and Yes no JVD Resp Effort & Inspection: normal respiratory effort Auscultation: clear to auscultation bilaterally Cardio Jugular venous distension: no JVD Rate: regular rate Rhythm: regular rhythm Heart sounds: S1 normal heart sound present, S2 normal heart sound present, no click, no gallops and no murmurs GI Auscultation: normal bowel sounds Neuro General: patient oriented x3 and no focal motor deficits Extrem General: Yes no clubbing, cyanosis or edema Objective Labs and Meds 05/19/22 05:36 05/25/22 08:43 Lab results: Laboratory Results - last 24 hr 05/24/22 05/25/22 05/25/22 14:40 08:43 11:00 Sodium 125 L 129 L Potassium 3.8 Chloride 90 L Carbon Dioxide 31 H Anion Gap 12 BUN 9 Creatinine 0.86 Estim Creat Clear Calc 81.5 Estimated GFR > 60 Random Glucose 134 H Osmolality Calcium 9.6 TSH Random Cortisol 13.1 05/25/22 05/25/22 11:01 11:01 Sodium Potassium Chloride Carbon Dioxide Anion Gap BUN Creatinine Estim Creat Clear Calc Estimated GFR Random Glucose Osmolality 265 L Calcium TSH 1.63 Random Cortisol Progress Note: A&P Assessment and plan (1) Paroxysmal atrial fibrillation: Status: Acute Assessment and Plan: paroxysmal atrial fibrillation which is now status post cardioversion after JAYDE. No neurologic issues. Continue amiodarone loading 400 mg b.i.d. for 2 weeks we will follow with Holter monitor next week. Follow up in the clinic in 2 weeks time. After loading start him on 200 mg daily. Continue full oral anticoagulation, currently on Eliquis 5 mg b.i.d.. Has done better with rhythm control approach and expect his LV ejection fraction to improve. Follow-up limited echocardiogram in 2 weeks time. (2) CHF exacerbation: Status: Acute Assessment and Plan: Admitted with CHF exacerbation setting of atrial fibrillation. Status post cardioversion above. Continue pursue rhythm control approach. LV ejection fraction. Further depressed on JAYDE yesterday. Follow with limited echocardiogram 2 weeks time. Continue I relation with lisinopril and metoprolol. Will follow as outpatient in 2 weeks time. Patient discharged from our perspective Time Spent With Patient Time: Total time managing care of this patient today ____ minutes. Progress Note: Quality Stroke Does the patient have a stroke diagnosis?: No Procedures Date of Service Date of Service: 05/25/22
== END 2022-05-25 13:00 | disposition home or self-care (01) | DRG 308 ==
LOC: HO.ED 12:10 → HO.EDOVER 14:09 → HO.IMC 15:56
PROVIDERS: Internal Medicine Cardiovascular Disease; Internal Medicine Hypertension Specialist; Nurse Practitioner Acute Care; Physician Assistant Medical; Admitting Provider Student in an Organized Health Care Education/Training Program; Emergency Provider Student in an Organized Health Care Education/Training Program; PCP Internal Medicine Cardiovascular Disease; Visit Provider Hospitalist
PROC: 5A2204Z Restoration of Cardiac Rhythm, Single (ICD-10-PCS; CPT 93312; principal; 2022-05-24 10:30)
DX: I48.0 Paroxysmal atrial fibrillation (principal); I50.23 Acute on chronic systolic (congestive) heart failure; E87.1 Hypo-osmolality and hyponatremia; I11.0 Hypertensive heart disease with heart failure; I25.5 Ischemic cardiomyopathy; E87.6 Hypokalemia; T43.225A Adverse effect of selective serotonin reuptake inhibitors, initial encounter; E78.5 Hyperlipidemia, unspecified; I25.118 Atherosclerotic heart disease of native coronary artery with other forms of angina pectoris; F39 Unspecified mood [affective] disorder; Z20.822 Contact with and (suspected) exposure to COVID-19; Z95.1 Presence of aortocoronary bypass graft; T50.2X5A Adverse effect of carbonic-anhydrase inhibitors, benzothiadiazides and other diuretics, initial encounter; Z87.891 Personal history of nicotine dependence; Z91.040 Latex allergy status; Z88.8 Allergy status to other drugs, medicaments and biological substances; Z79.01 Long term (current) use of anticoagulants; Z79.02 Long term (current) use of antithrombotics/antiplatelets; Z79.899 Other long term (current) drug therapy
CPT/HCPCS: 36415; 71045; 80048; 80053; 82436; 82533; 82803; 83735; 83880; 83930; 83935; 84132; 84133; 84295; 84300; 84443; 84484; 85025; 85027; 85610; 87502; 87635; 93005; 93306; 94640; 99285; J1940; J2250; J2370; Q9957

== ENCOUNTER → 2022-06-06 10:59 | Outpatient (REF) | payer MEDICARE, SELFPAY ==
--- NOTE | 2022-06-06 11:02 | HM_ITS ---
* Total monitoring time about 3 days. * Underlying rhythm is sinus. Average ventricular rate 59/Min. Range 48 to 85/Min. * Rare PACs. * Rare PVCs. * No significant pauses or AV blocks. * No patient markers or diary events. A MTDD
--- NOTE | 2022-06-06 11:02 | CA_ITS ---
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 The visually estimated ejection fraction is between 50-55%. - The basal inferior segment is akinetic. - Normal right ventricular cavity size. There is borderline right ventricular systolic function. Findings Left Ventricle Normal left ventricular cavity size. There is severely increased left ventricular wall thickness. The left ventricular systolic function is low normal. The visually estimated ejection fraction is between 50-55%. There is evidence of regional wall motion abnormalities. Diastolic function is indeterminate on the basis of available data. Wall Motion Rest Echo Findings The basal inferior segment is akinetic. Right Ventricle Normal right ventricular cavity size. There is borderline right ventricular systolic function. Mitral Valve There is severe mitral annular calcification. Tricuspid Valve Normal right atrial pressure. Venous The inferior vena cava is normal in size and collapses greater than 50% with inspiration. Pericardium/Pleural There is no evidence of pericardial effusion. Prior Study Comparison Changes noted compared to prior study. Borderline improvement in the LV function. RV function is borderline. Measurements 2D Linear Measurements IVSd: 1.62 0.6-0.9/0.6-1.0 cm LVIDd: 3.78 3.9-5.3/4.2-5.9 cm LVIDd Index: 1.94 2.4-3.2/2.2-3.1 cm/m2 LVIDs: 2.88 2.0-3.6 cm LVPWd: 1.57 0.7-1.1 cm LV Mass: 295.98 67-162/88-224 g LV Mass Index: 151.79 43-95/49-115 g/m2 LVOT Diam: 2.50 3.0+(-)1.3 cm 2D Systolic Function EF 4C: 50.30 >55% EF 2C: 48.50 >55% EF BiP: 49.90 >55% LVOT LVOT Pk Nathaniel: 1.00 LVOT Mn Nathaniel: 0.63 LVOT VTI: 0.22 LVOT Pk Grad: 4.00 LVOT Mn Grad: 2.00 LVOT Diam: 2.50 LVOT Area: 4.91 Right Ventricle TAPSE (mm): 22.00 TVS' Nathaniel: 9.00 Updated in Other Vendor System with Status of Final Orion Joshi MD electronically signed on 06/06/2022 12:40:09 PM with status of Final
== END ==
LOC: HO.CARD 10:59
PROVIDERS: PCP Internal Medicine Cardiovascular Disease; Visit Provider Internal Medicine Cardiovascular Disease
DX: I48.0 Paroxysmal atrial fibrillation (principal); I42.9 Cardiomyopathy, unspecified; I50.9 Heart failure, unspecified
CPT/HCPCS: 93242; 93308

== ENCOUNTER → 2022-07-13 13:13 | Outpatient (BNVA) | payer MEDICARE, SELFPAY | PROVIDERS: PCP Internal Medicine Cardiovascular Disease; Referring Provider Internal Medicine Cardiovascular Disease; Visit Provider Internal Medicine Cardiovascular Disease | DX: I48.0 Paroxysmal atrial fibrillation (principal); Z79.01 Long term (current) use of anticoagulants; Z79.899 Other long term (current) drug therapy | CPT/HCPCS: 93005; 99212 ==

== ENCOUNTER 2022-07-19 13:04 | Inpatient (IN) | payer MEDICARE, SELFPAY ==
--- NOTE | ~2022-07-19 | XR_ITS ---
EXAMINATION: XR CHEST CLINICAL INFORMATION: Chest pain. COMPARISON: 05/18/2022 chest radiograph. TECHNIQUE: Frontal view of the chest was obtained. FINDINGS: Kyphotic positioning and low lung volumes and evaluation. Mild linear markings are seen at the right lung base. The heart and mediastinal structures are unremarkable. XR/XR chest 1V IMPRESSION: Mild linear atelectasis versus scarring at the right lung base. No acute cardiopulmonary process.
[2022-07-19 13:11] VITALS: BP 162/100; PULSE 75; O2SAT 90
[2022-07-19 13:22] VITALS: BP 160/107; PULSE 80; RESP 24; TEMP 37.1; O2SAT 89; BMI 26.7
--- NOTE | 2022-07-19 13:45 | ED.GENADULT ---
HPI - General Adult General Chief complaint: General Medical Stated complaint: SOB X 2 DAYS Time Seen by Provider: 07/19/22 13:12 History of Present Illness HPI narrative: Patient is a 72-year-old male with a history of coronary artery disease history of congestive heart failure history of atrial fibrillation currently on Eliquis positive previous history of smoking on and off. History of COPD. Presented today with having shortness of breath that is worse with lying down improved with sitting up patient from home. No chest pain or diaphoresis. Patient is from home. No leg swelling. Patient had cardioversion approximately 1 month ago history of coronary artery disease status post bypass. History of angina no new chest pain. Related Data Home Medications Medication Instructions Recorded Confirmed atorvastatin 20 mg tablet 20 mg PO DAILY 02/13/20 07/13/22 lorazepam 1 mg tablet 1 mg PO DAILY PRN Anxiety 01/04/21 07/13/22 gabapentin 300 mg capsule 300 mg PO BID 07/05/21 07/13/22 fluocinonide 0.05 % topical cream 1 appl topical BID PRN Rash 05/18/22 07/13/22 escitalopram oxalate 20 mg tablet 20 mg PO DAILY 07/13/22 07/13/22 hydroxyzine HCl 10 mg tablet 10 mg PO BEDTIME PRN Insomnia 07/13/22 07/13/22 Previous Rx's Medication Instructions Recorded clopidogrel 75 mg tablet (Plavix) 75 mg PO DAILY #90 tabs 05/17/22 isosorbide mononitrate 60 mg 60 mg PO DAILY #90 tabs 05/17/22 tablet,extended release 24 hr amiodarone 200 mg tablet 200 mg PO DAILY #90 tabs 06/20/22 apixaban 5 mg tablet (Eliquis) 5 mg PO BID 90 days #180 tabs 06/20/22 furosemide 20 mg tablet (Lasix) 20 mg PO DAILY #90 tabs 06/20/22 metoprolol succinate 100 mg 100 mg PO DAILY 90 days #90 tabs 06/20/22 tablet,extended release 24 hr valsartan 80 mg tablet (Diovan) 80 mg PO DAILY 90 days #90 tabs 06/20/22 Allergies Allergy/AdvReac Type Severity Reaction Status Date / Time latex [LATEX] Allergy Mild RASH Verified 07/13/22 13:15 nickel Allergy Unknown Rash Verified 07/13/22 13:15 ticagrelor [From Brilinta] Allergy Shortness Verified 07/13/22 13:15 of Breath Review of Systems Review of Systems: Positive shortness of breath positive generalized malaise. No fever Yes all other systems are reviewed and are negative [facility] Past Medical History Attestation statement: The following information was validated with the patient. Medical History CAD (coronary artery disease) COPD (chronic obstructive pulmonary disease) History of cardioversion History of prior cigarette smoking HTN (hypertension) Hyperlipidemia Ischemic cardiomyopathy Postoperative atrial fibrillation Stable angina Surgical History H/O knee surgery Hx of CABG S/P CABG x 3 Status post glaucoma surgery Family History Family History Father CVD (cardiovascular disease) Mother CVD (cardiovascular disease) Social History Social History Household Members: Spouse Housing: House Do you presently have visiting nurse or other home services: No Alcohol intake: current Alcohol intake frequency: holidays/special occasions only Alcohol type: beer Patient Tobacco Use Status: Former Tobacco user Quit Date: 2018 Years Smoked: 20 +/- Advance Directives: No service: No Current occupational status: retired Physical Exam ED Vital Signs: Vital Signs - 24 hr 07/19/22 13:22 07/19/22 14:23 07/19/22 15:02 Temperature 98.7 F Pulse Rate 80 84 82 Respiratory Rate 24 H 25 H 24 H Blood Pressure 160/107 H 166/103 H Pulse Oximetry 89 L 97 Oxygen Delivery Method Room Air Nasal Cannula Nasal Cannula Oxygen Flow Rate 3 BMI result Body Mass Index 26.7 Appearance: Alert. Oriented X3. No acute distress. Eyes: Pupils equal, round and reactive to light. ENT: Pharynx normal. Neck: Normal inspection. Neck supple. No lymph nodes noted. No crepitus CVS: Normal heart rate and rhythm. Pulses normal. Normal S1 and S2 Respiratory: Diminished breath sounds bilaterally slightly increased work of breathing Abdomen: Soft and nontender. No rigidity. No distention. good BS x4 Skin: Skin warm and dry. Normal skin color. Normal skin turgor. Extremities: No lower extremity edema. Neurovascular intact to all extremities. No Lacerations. No Rash Neuro: Oriented X 3. No motor deficit. No sensory deficit. Moving all extermities. No slurred speech Medications Administered Discontinued Medications Generic Name Dose Route Start Last Admin Trade Name Thania PRN Reason Stop Dose Admin Albuterol Sulfate 2.5 mg 07/19/22 14:44 07/19/22 15:00 Albuterol Sulfate (0.083%) 2.5 Mg/3 Ml Vial.Neb INHALE 07/19/22 14:45 2.5 mg ONCE ONE Administration Furosemide 40 mg 07/19/22 14:00 07/19/22 14:50 Furosemide 40 Mg/4 Ml Vial IVPUSH 07/19/22 14:01 40 mg ONCE ONE Administration Protocol Methylprednisolone Sodium Succinate 125 mg 07/19/22 14:44 07/19/22 14:51 Methylprednisolone Sod Succ 125 Mg/2 Ml Vial IVPUSH 07/19/22 14:45 125 mg ONCE ONE Administration Nitroglycerin 0.5 inch 07/19/22 14:00 07/19/22 14:50 Nitroglycerin 2 % Oint 1 Gm Packet TRANSDERMA 07/19/22 14:01 0.5 inch ONCE ONE Administration Medical Decision Making Medical Decision Making [facility] Narrative: Patient is 72 years old presents today with a history of increasing leg swelling increasing shortness of breath coughing congestion history of COPD history of congestive heart failure history of paroxysmal AFib on Eliquis. Less likely to have a blood clot because patient is on blood thinners. Patient's chest x-ray showed some questionable cephalization consistent with CHF with a BNP elevated over 700. Steroid was also given neb treatment was given. Moderate relief of symptoms. Patient's EKG by my interpretation showed an atrial fibrillation pattern heart rate was 80 QRS is normal QT is prolonged at 544. Patient given Lasix and nitroglycerin for the CHF. Moderate relief of symptoms. Will admit patient for further evaluation. Patient's flu RSV COVID were all negative. His urine showed no signs of infection Differential Diagnosis COPD, CHF, pneumonia, atrial fibrillation Consult Healthcare Provider Management of the patient was discussed with: Hospitalist Lab Data [facility] Lab Attestation statement: I reviewed the patient's lab results. 07/19/22 14:36 07/19/22 14:36 Labs: Lab Results 07/19/22 07/19/22 07/19/22 Range/Units 14:35 14:36 14:36 WBC 8.7 (4.8-10.8) X10*3/uL RBC 4.21 L (4.60-5.80) X10*6/uL Hgb 13.2 L (14.0-18.0) g/dl Hct 38.7 L (42.0-52.0) % MCV 91.9 (80.0-98.0) fL MCH 31.4 (27.0-33.0) pg MCHC 34.1 (31.0-36.0) g/dl RDW 12.6 (11.0-16.0) % Plt Count 279 D (160-400) X10*3/uL MPV 9.7 (9.4-12.4) fL Immature Gran % (Auto) 0.5 H (0.0-0.4) % Neut % (Auto) 77.3 H (45-73) % Lymph % (Auto) 11.1 L (20-40) % [place] % (Auto) 9.1 (2-11) % Eos % (Auto) 1.7 (0-4) % Baso % (Auto) 0.3 (0-2) % Lymph # (Auto) 1.0 L (1.2-4.9) X10*3/uL [place] # (Auto) 0.8 (0.1-1.2) X10*3/uL Eos # (Auto) 0.2 (0.0-0.4) X10*3/uL Baso # (Auto) 0.0 (0.0-0.2) X10*3/uL Abs Immat Gran (auto) 0.04 H (0.00-0.03) X10*3/uL Absolute Neuts (auto) 6.7 (2.0-8.3) x10*3/uL Absolute Nucleated RBC 0.000 (0.0-0.012) X10*3/uL Nucleated RBC % (auto) 0.0 (0.0-0.2) /100WBC Sodium 135 (135-145) mmol/L Potassium 3.6 (3.3-5.1) mmol/L Chloride 99 (96-108) mmol/L Carbon Dioxide 30 H (22-29) mmol/L Anion Gap 10 L (12-20) BUN 13 (9-16) mg/dL Creatinine 0.71 (0.5-1.4) mg/dL Estim Creat Clear Calc 100.1 Estimated GFR > 60 Random Glucose 102 (60-115) mg/dL Lactic Acid (0.5-2.0) mmol/L Calcium 8.6 D (8.4-10.2) mg/dL Total Bilirubin 1.1 H (0.0-1.0) mg/dL Direct Bilirubin 0.3 (0.0-0.5) mg/dL AST 11 (5-37) U/L ALT 18 (0-40) U/L Alkaline Phosphatase 67 (39-117) U/L Troponin I High Sens (<3.5-35.0) ng/L B-Natriuretic Peptide (<100) pg/mL Total Protein 6.2 L (6.5-8.0) g/dL Albumin 3.9 (3.5-5.0) g/dL Urine Color Urine Appearance Urine pH (5.0-9.0) Ur Specific [place] (1.005-1.025) Urine Protein (Neg-Trace) mg/dL Urine Glucose (UA) (Negative) mg/dL Urine Ketones (Negative) mg/dL Urine Blood (Negative) Urine Nitrite (Negative) Ur Leukocyte Esterase (Negative) Urine RBC (0-2) /HPF Urine WBC (0-5) /HPF Ur Squamous Epith Cells (0-2) /HPF Urine Bacteria (None Seen) Hyaline Casts (0-2) /LPF Influenza Type A (PCR) NEGATIVE (Negative) Influenza Type B (PCR) NEGATIVE (Negative) RSV RNA Qual (PCR) NEGATIVE (Negative) SARS-CoV-2 RNA (RT-PCR) NEGATIVE (Negative) 07/19/22 07/19/22 07/19/22 Range/Units 14:36 14:36 14:36 WBC (4.8-10.8) X10*3/uL RBC (4.60-5.80) X10*6/uL Hgb (14.0-18.0) g/dl Hct (42.0-52.0) % MCV (80.0-98.0) fL MCH (27.0-33.0) pg MCHC (31.0-36.0) g/dl RDW (11.0-16.0) % Plt Count (160-400) X10*3/uL MPV (9.4-12.4) fL Immature Gran % (Auto) (0.0-0.4) % Neut % (Auto) (45-73) % Lymph % (Auto) (20-40) % [place] % (Auto) (2-11) % Eos % (Auto) (0-4) % Baso % (Auto) (0-2) % Lymph # (Auto) (1.2-4.9) X10*3/uL [place] # (Auto) (0.1-1.2) X10*3/uL Eos # (Auto) (0.0-0.4) X10*3/uL Baso # (Auto) (0.0-0.2) X10*3/uL Abs Immat Gran (auto) (0.00-0.03) X10*3/uL Absolute Neuts (auto) (2.0-8.3) x10*3/uL Absolute Nucleated RBC (0.0-0.012) X10*3/uL Nucleated RBC % (auto) (0.0-0.2) /100WBC Sodium (135-145) mmol/L Potassium (3.3-5.1) mmol/L Chloride (96-108) mmol/L Carbon Dioxide (22-29) mmol/L Anion Gap (12-20) BUN (9-16) mg/dL Creatinine (0.5-1.4) mg/dL Estim Creat Clear Calc Estimated GFR Random Glucose (60-115) mg/dL Lactic Acid 0.9 (0.5-2.0) mmol/L Calcium (8.4-10.2) mg/dL Total Bilirubin (0.0-1.0) mg/dL Direct Bilirubin (0.0-0.5) mg/dL AST (5-37) U/L ALT (0-40) U/L Alkaline Phosphatase (39-117) U/L Troponin I High Sens 14.5 (<3.5-35.0) ng/L B-Natriuretic Peptide 794 H (<100) pg/mL Total Protein (6.5-8.0) g/dL Albumin (3.5-5.0) g/dL Urine Color Urine Appearance Urine pH (5.0-9.0) Ur Specific [place] (1.005-1.025) Urine Protein (Neg-Trace) mg/dL Urine Glucose (UA) (Negative) mg/dL Urine Ketones (Negative) mg/dL Urine Blood (Negative) Urine Nitrite (Negative) Ur Leukocyte Esterase (Negative) Urine RBC (0-2) /HPF Urine WBC (0-5) /HPF Ur Squamous Epith Cells (0-2) /HPF Urine Bacteria (None Seen) Hyaline Casts (0-2) /LPF Influenza Type A (PCR) (Negative) Influenza Type B (PCR) (Negative) RSV RNA Qual (PCR) (Negative) SARS-CoV-2 RNA (RT-PCR) (Negative) 07/19/22 Range/Units 15:40 WBC (4.8-10.8) X10*3/uL RBC (4.60-5.80) X10*6/uL Hgb (14.0-18.0) g/dl Hct (42.0-52.0) % MCV (80.0-98.0) fL MCH (27.0-33.0) pg MCHC (31.0-36.0) g/dl RDW (11.0-16.0) % Plt Count (160-400) X10*3/uL MPV (9.4-12.4) fL Immature Gran % (Auto) (0.0-0.4) % Neut % (Auto) (45-73) % Lymph % (Auto) (20-40) % [place] % (Auto) (2-11) % Eos % (Auto) (0-4) % Baso % (Auto) (0-2) % Lymph # (Auto) (1.2-4.9) X10*3/uL [place] # (Auto) (0.1-1.2) X10*3/uL Eos # (Auto) (0.0-0.4) X10*3/uL Baso # (Auto) (0.0-0.2) X10*3/uL Abs Immat Gran (auto) (0.00-0.03) X10*3/uL Absolute Neuts (auto) (2.0-8.3) x10*3/uL Absolute Nucleated RBC (0.0-0.012) X10*3/uL Nucleated RBC % (auto) (0.0-0.2) /100WBC Sodium (135-145) mmol/L Potassium (3.3-5.1) mmol/L Chloride (96-108) mmol/L Carbon Dioxide (22-29) mmol/L Anion Gap (12-20) BUN (9-16) mg/dL Creatinine (0.5-1.4) mg/dL Estim Creat Clear Calc Estimated GFR Random Glucose (60-115) mg/dL Lactic Acid (0.5-2.0) mmol/L Calcium (8.4-10.2) mg/dL Total Bilirubin (0.0-1.0) mg/dL Direct Bilirubin (0.0-0.5) mg/dL AST (5-37) U/L ALT (0-40) U/L Alkaline Phosphatase (39-117) U/L Troponin I High Sens (<3.5-35.0) ng/L B-Natriuretic Peptide (<100) pg/mL Total Protein (6.5-8.0) g/dL Albumin (3.5-5.0) g/dL Urine Color Yellow Urine Appearance Clear Urine pH 8.0 (5.0-9.0) Ur Specific [place] <= 1.005 (1.005-1.025) Urine Protein Negative (Neg-Trace) mg/dL Urine Glucose (UA) Negative (Negative) mg/dL Urine Ketones Negative (Negative) mg/dL Urine Blood Negative (Negative) Urine Nitrite Negative (Negative) Ur Leukocyte Esterase Negative (Negative) Urine RBC 0-2 (0-2) /HPF Urine WBC 0-5 (0-5) /HPF Ur Squamous Epith Cells 0-2 (0-2) /HPF Urine Bacteria None Seen (None Seen) Hyaline Casts 0-2 (0-2) /LPF Influenza Type A (PCR) (Negative) Influenza Type B (PCR) (Negative) RSV RNA Qual (PCR) (Negative) SARS-CoV-2 RNA (RT-PCR) (Negative) Independent Interpretation I performed an independent interpretation of an: EKG Interpretation: Atrial fibrillation heart rate is 80 Radiology Impression Discussion of test interpretation with radiology: I have reviewed the radiologist's reading. External Record Review External record reviewed: Inpatient record Chronic Conditions Patient?s care impacted by: Hypertension Critical Care Time Critical Care Time Critical Care Time: Yes Total Critical Care Time: 40 Attestation: I have personally provided 40 minutes of critical care time exclusive of time spent on separately billable procedures. Time includes review of lab data, radiology results, discussion with consultants, and monitoring for potential decompensation. Interventions were performed as documented above Discharge Plan Discharge Clinical Impression: COPD (chronic obstructive pulmonary disease), CHF (congestive heart failure) Patient Disposition: Admitted As Inpatient Prescriptions: No Action clopidogrel [Plavix] 75 mg tablet 75 mg PO DAILY Qty: 90 3RF isosorbide mononitrate 60 mg tablet extended release 24 hr 60 mg PO DAILY Qty: 90 3RF amiodarone 200 mg tablet 200 mg PO DAILY Qty: 90 2RF Eliquis 5 mg tablet 5 mg PO BID 90 Days Qty: 180 2RF furosemide [Lasix] 20 mg tablet 20 mg PO DAILY Qty: 90 2RF metoprolol succinate 100 mg tablet extended release 24 hr 100 mg PO DAILY 90 Days Qty: 90 2RF Protocol: Hold for SBP/HR < HOLD for SBP < : 90 HOLD for HR < : 60 valsartan [Diovan] 80 mg tablet 80 mg PO DAILY 90 Days Qty: 90 2RF fluocinonide 0.05 % cream 1 appl topical BID PRN (Reason: Rash) Rx Instructions: apply to either back of legs, ankles, or scalp depending on affected area escitalopram oxalate 20 mg tablet 20 mg PO DAILY hydroxyzine HCl 10 mg tablet 10 mg PO BEDTIME PRN (Reason: Insomnia) atorvastatin 20 mg tablet 20 mg PO DAILY lorazepam 1 mg tablet 1 mg PO DAILY PRN (Reason: Anxiety) gabapentin 300 mg capsule 300 mg PO BID
--- NOTE | 2022-07-19 13:49 | ECG_ITS ---
Test Reason : DIZZINESS Blood Pressure : / mmHG Vent. Rate : 082 BPM Atrial Rate : 000 BPM P-R Int : 000 ms QRS Dur : 124 ms QT Int : 416 ms P-R-T Axes : 000 051 002 degrees QTc Int : 486 ms Atrial fibrillation with premature ventricular or aberrantly conducted complexes Minimal voltage criteria for LVH, may be normal variant ( [place] product ) Cannot rule out Inferior infarct (cited on or before 29-JUL-2019) Abnormal ECG When compared with ECG of 24-MAY-2022 11:32, Atrial fibrillation has replaced Sinus rhythm Referred By: Heaven Rivers Electronically Signed By:
[2022-07-19 14:23] VITALS: BP 166/103; PULSE 84; RESP 25; O2SAT 97
[2022-07-19 14:43] LABS: MANUAL DIFF FLAG NO
[2022-07-19 14:46] LABS: Basophils Percent Auto 0.3 % (0-2); Eosinophils Absolute Auto 0.2 X10*3/uL (0.0-0.4); Eosinophils Percent Auto 1.7 % (0-4); Hematocrit 38.7 % (42.0-52.0); Hemoglobin 13.2 g/dl (14.0-18.0); Imm Gran Abs Auto 0.04 X10*3/uL (0.00-0.03); Imm Gran Pct Auto 0.5 % (0.0-0.4); Lymphocytes Percent Auto 11.1 % (20-40); Mean Corpuscular HGB Conc 34.1 g/dl (31.0-36.0); Mean Corpuscular Hemoglobin 31.4 pg (27.0-33.0); Mean Corpuscular Volume 91.9 fL (80.0-98.0); Mean Platelet Volume 9.7 fL (9.4-12.4); Monocytes Absolute Auto 0.8 X10*3/uL (0.1-1.2); Monocytes Percent Auto 9.1 % (2-11); Neutrophils Absolute Auto 6.7 x10*3/uL (2.0-8.3); Neutrophils Percent Auto 77.3 % (45-73); Platelet Count 279 X10*3/uL (160-400); Red Blood Count 4.21 X10*6/uL (4.60-5.80); Red Cell Distribution Width 12.6 % (11.0-16.0); White Blood Count 8.7 X10*3/uL (4.8-10.8)
[2022-07-19] MEDS: Furosemide 40 MG/4 ML VIAL IVPUSH (14:50)
[2022-07-19] MEDS: Nitroglycerin 2 % Oint 1 GM Packet 0.5 INCH TRANSDERMA (14:50)
[2022-07-19] MEDS: methylPREDNISolone Sod Succ 125 MG/2 ML VIAL IVPUSH (14:51)
[2022-07-19] MEDS: Albuterol Sulfate (0.083%) 2.5 MG/3 ML VIAL.NEB INHALE (15:00)
[2022-07-19 15:02] VITALS: PULSE 82; RESP 24; O2SAT 97
[2022-07-19 15:02] LABS: Lactic Acid 0.9 mmol/L (0.5-2.0)
[2022-07-19 15:05] LABS: Troponin-I High Sensitivity 14.5 ng/L (<3.5-35.0)
[2022-07-19 15:07] LABS: Alanine Aminotransferase 18 U/L (0-40); Albumin Level 3.9 g/dL (3.5-5.0); Alkaline Phosphatase 67 U/L (39-117); Anion Gap 10 (12-20); Aspartate Amino Transferase 11 U/L (5-37); Bilirubin Direct 0.3 mg/dL (0.0-0.5); Bilirubin Total 1.1 mg/dL (0.0-1.0); Blood Urea Nitrogen 13 mg/dL (9-16); Calcium 8.6 mg/dL (8.4-10.2); Carbon Dioxide 30 mmol/L (22-29); Chloride 99 mmol/L (96-108); Creatinine Clr Calc Pharmacy 100.1; Estimated Glomerular Filt Rate > 60; Glucose Random 102 mg/dL (60-115); Potassium 3.6 mmol/L (3.3-5.1); Sodium 135 mmol/L (135-145); Total Protein 6.2 g/dL (6.5-8.0)
[2022-07-19 15:23] LABS: B Type Natriuretic Peptide 794 pg/mL (<100)
[2022-07-19 15:30] LABS: Influenza A PCR NEGATIVE (Negative); Influenza B PCR NEGATIVE (Negative); Resp Syncy Virus RNA Qual PCR NEGATIVE (Negative); SARS COV2 PCR INHOUSE NEGATIVE (Negative)
[2022-07-19 15:49] LABS: Appearance Urine Clear; Color Urine Yellow; Glucose Urine UA Negative (Negative); Leukocyte Esterase Urine Negative (Negative); Nitrite Urine Negative (Negative); Specific Gravity - Urine <= 1.005 (1.005-1.025); Urine Blood Negative (Negative); Urine Ketones Negative (Negative); Urine Protein Negative (Neg-Trace)
[2022-07-19 15:51] LABS: Bacteria Urine None Seen (None Seen); Hyaline Casts Urine 0-2 /LPF (0-2); RBC Urine 0-2 /HPF (0-2); Squamous Epithelial Cell Urine 0-2 /HPF (0-2); WBC Urine 0-5 /HPF (0-5)
--- NOTE | 2022-07-19 16:46 | PM.IMHP ---
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 He is noted to be back in AFIB but no RVR. Shortness of breah is more prominent with lying down and better sitting up. Has no swelling in the leg, no chest pain. No palpitations. BNP is 794 which is significantly higher than last one. CXR show no overt CHF. Treated with IV solumedrol and Albuterol. P Review of Systems Review of Systems: Gen: no fever Resp: + sob, no cough CV: no chest, + AHN, no leg edema GI: No n/v, no abd pain Neuro: No confusion Yes all other systems are reviewed and are negative [facility] Medical History CAD (coronary artery disease) COPD (chronic obstructive pulmonary disease) History of cardioversion History of prior cigarette smoking HTN (hypertension) Hyperlipidemia Ischemic cardiomyopathy Postoperative atrial fibrillation Stable angina Family History Father CVD (cardiovascular disease) Mother CVD (cardiovascular disease) Surgical History H/O knee surgery Hx of CABG S/P CABG x 3 Status post glaucoma surgery Social History Household Members: Spouse Housing: House Do you presently have visiting nurse or other home services: No Alcohol intake: never Patient Tobacco Use Status: Former Tobacco user Quit Date: 2018 Years Smoked: 20 +/- Smoked in Last 30 Days: No Use of substances other than those prescribed or required for medical reasons: No Advance Directives: No Nutrition Risks: No Nutritional Risk service: No Current occupational status: retired Meds Allergies Allergy/AdvReac Type Severity Reaction Status Date / Time latex [LATEX] Allergy Mild RASH Verified 07/13/22 13:15 nickel Allergy Unknown Rash Verified 07/13/22 13:15 ticagrelor [From Brilinta] Allergy Shortness Verified 07/13/22 13:15 of Breath Active Medications: Current Medications Pharmacy Consult (Consult Rx Perform Med Rec) 1 each MISCELLANE ONCE PRN PRN Reason: Consult order Home Medications Medication Instructions Recorded Confirmed Last Taken Type atorvastatin 20 mg tablet 20 mg PO DAILY 02/13/20 07/19/22 07/19/22 History lorazepam 1 mg tablet 1 mg PO DAILY PRN Anxiety 01/04/21 07/19/22 05/17/22 History gabapentin 300 mg capsule 300 mg PO BID 07/05/21 07/19/22 07/19/22 History fluocinonide 0.05 % topical cream 1 appl topical BID PRN Rash 05/18/22 07/19/22 05/17/22 History escitalopram oxalate 20 mg tablet 20 mg PO DAILY 07/13/22 07/19/22 07/19/22 History hydroxyzine HCl 10 mg tablet 10 mg PO BEDTIME PRN Insomnia 07/13/22 07/19/22 07/18/22 History Physical Exam Vital Signs and Narrative: Vital Signs: Last Vital Signs Temp 98.7 F 07/19/22 13:22 Pulse 82 07/19/22 15:02 Resp 24 H 07/19/22 15:02 BP 166/103 H 07/19/22 14:23 Pulse Ox 97 07/19/22 14:23 O2 Del Method 07/19/22 14:23 O2 Flow Rate 3 07/19/22 14:23 Oxygen Flow Rate 3 07/19/22 13:22 BMI result Body Mass Index 26.7 Const: Other: Constitutional: Alert, in no distress, Mental Status: Oriented to person, place and time. Eyes: Pupils are equal, round and reactive to light. Ear, Nose and Throat: Oropharynx clear, mucous membranes moist. Ears and nose without deformities. Respiratory: Clear to auscultation. No wheezing, rales or rhonchi. Cardiovascular: S1 S2 regular. No murmurs, rubs or gallops. Gastrointestinal: Abdomen soft, non-tender, non-distended. Normal bowel sounds.? Neurologic: Cranial nerves II-XII grossly intact. No focal neurological deficits. Moves all extremities spontaneously.? Skin: No rashes or lesions.? Musculoskeletal: No cyanosis or clubbing. Psychiatric: Normal mood and affect? Results Labs 07/19/22 14:36 07/19/22 14:36 Labs: Laboratory Results - last 24 hr 07/19/22 07/19/22 07/19/22 14:35 14:36 14:36 MCV 91.9 MCH 31.4 MCHC 34.1 RDW 12.6 Plt Count 279 D MPV 9.7 Immature Gran % (Auto) 0.5 H Neut % (Auto) 77.3 H Lymph % (Auto) 11.1 L [place] % (Auto) 9.1 Eos % (Auto) 1.7 Baso % (Auto) 0.3 Lymph # (Auto) 1.0 L [place] # (Auto) 0.8 Eos # (Auto) 0.2 Baso # (Auto) 0.0 Abs Immat Gran (auto) 0.04 H Absolute Neuts (auto) 6.7 Absolute Nucleated RBC 0.000 Nucleated RBC % (auto) 0.0 Anion Gap 10 L Estim Creat Clear Calc 100.1 Estimated GFR > 60 Random Glucose 102 Lactic Acid Calcium 8.6 D Total Bilirubin 1.1 H Direct Bilirubin 0.3 AST 11 ALT 18 Alkaline Phosphatase 67 Troponin I High Sens B-Natriuretic Peptide Total Protein 6.2 L Albumin 3.9 Urine Color Urine Appearance Urine pH Ur Specific [place] Urine Protein Urine Glucose (UA) Urine Ketones Urine Blood Urine Nitrite Ur Leukocyte Esterase Urine RBC Urine WBC Ur Squamous Epith Cells Urine Bacteria Hyaline Casts Influenza Type A (PCR) NEGATIVE Influenza Type B (PCR) NEGATIVE RSV RNA Qual (PCR) NEGATIVE SARS-CoV-2 RNA (RT-PCR) NEGATIVE 07/19/22 07/19/22 07/19/22 14:36 14:36 14:36 MCV MCH MCHC RDW Plt Count MPV Immature Gran % (Auto) Neut % (Auto) Lymph % (Auto) [place] % (Auto) Eos % (Auto) Baso % (Auto) Lymph # (Auto) [place] # (Auto) Eos # (Auto) Baso # (Auto) Abs Immat Gran (auto) Absolute Neuts (auto) Absolute Nucleated RBC Nucleated RBC % (auto) Anion Gap Estim Creat Clear Calc Estimated GFR Random Glucose Lactic Acid 0.9 Calcium Total Bilirubin Direct Bilirubin AST ALT Alkaline Phosphatase Troponin I High Sens 14.5 B-Natriuretic Peptide 794 H Total Protein Albumin Urine Color Urine Appearance Urine pH Ur Specific [place] Urine Protein Urine Glucose (UA) Urine Ketones Urine Blood Urine Nitrite Ur Leukocyte Esterase Urine RBC Urine WBC Ur Squamous Epith Cells Urine Bacteria Hyaline Casts Influenza Type A (PCR) Influenza Type B (PCR) RSV RNA Qual (PCR) SARS-CoV-2 RNA (RT-PCR) 07/19/22 15:40 MCV MCH MCHC RDW Plt Count MPV Immature Gran % (Auto) Neut % (Auto) Lymph % (Auto) [place] % (Auto) Eos % (Auto) Baso % (Auto) Lymph # (Auto) [place] # (Auto) Eos # (Auto) Baso # (Auto) Abs Immat Gran (auto) Absolute Neuts (auto) Absolute Nucleated RBC Nucleated RBC % (auto) Anion Gap Estim Creat Clear Calc Estimated GFR Random Glucose Lactic Acid Calcium Total Bilirubin Direct Bilirubin AST ALT Alkaline Phosphatase Troponin I High Sens B-Natriuretic Peptide Total Protein Albumin Urine Color Yellow Urine Appearance Clear Urine pH 8.0 Ur Specific [place] <= 1.005 Urine Protein Negative Urine Glucose (UA) Negative Urine Ketones Negative Urine Blood Negative Urine Nitrite Negative Ur Leukocyte Esterase Negative Urine RBC 0-2 Urine WBC 0-5 Ur Squamous Epith Cells 0-2 Urine Bacteria None Seen Hyaline Casts 0-2 Influenza Type A (PCR) Influenza Type B (PCR) RSV RNA Qual (PCR) SARS-CoV-2 RNA (RT-PCR) Imaging Radiologist's Impressions: Impressions Chest X-Ray 07/19/22 14:02 IMPRESSION: Mild linear atelectasis versus scarring at the right lung base. No acute cardiopulmonary process. 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 SOB, unclear what the etiology is ? CHF vs AFIB, he has been treated with for COPD and seems to feel better, continue Albuterol and Steroid and have cardiology weigh in to see if possible CHF Paroxysmal afib--continue karlaograce NPO for possible cardioversion tomorrow CAD Continue home meds HTN Continue home meds HLD Continue home meds Full Code Attending:?Dr. Davalos DVT Prophylaxis: Grace Time Spent With Patient Time: Total time managing care of this patient today ____ minutes. Quality Stroke Does the patient have a stroke diagnosis?: No VTE Prior VTE?: No VTE Risk Level:: Medical - low VTE Device Contraindication: Treatment Not Indicated VTE Drug Contraindication: N/A - Med Ordered
--- NOTE | 2022-07-19 17:22 | PHA.MEDREC ---
Pharmacy Consult ? Medication Reconciliation Pharmacy has completed the medication reconciliation.
[2022-07-19] MEDS: Apixaban 5 MG TABLET PO (20:39)
[2022-07-19] MEDS: Gabapentin 300 MG CAPSULE PO (20:39)
[2022-07-19] MEDS: LORazepam 1 MG TABLET PO (20:51)
[2022-07-19 20:57] VITALS: BP 151/82; PULSE 80; RESP 22; O2SAT 95
--- NOTE | 2022-07-19 21:39 | PC.NURSE ---
Pt A&Ox4, denies any pain, denies any SOB. o2 sat 95% on 3L via NC. Respirations equal, non labored. Lung sounds slightly diminished. New IV line placed. Meds given as documented. RN to RN report given to Doris BUTTERFIELD. Pt will be transported to room 485. Pt aware of plan.
[2022-07-19 22:27] VITALS: BP 153/89; PULSE 81; RESP 18; TEMP 36.4; O2SAT 97
[2022-07-20] VITALS (9 sets, daily range): BP systolic 146–165; BP diastolic 77–96; PULSE 71–117; RESP 15–20; TEMP 36.1–37.1; O2SAT 89–97; BMI 26.7
[2022-07-20] MEDS: methylPREDNISolone Sod Succ 40 MG/ML VIAL IVPUSH ×2 (08:56→20:42)
[2022-07-20] MEDS: Furosemide 20 MG TABLET PO (08:57)
[2022-07-20] MEDS: 0.9 % Sodium Chloride Flush 3 ML SYRINGE IVFLUSH ×3 (08:57→23:47)
[2022-07-20] MEDS: Metoprolol Succinate ER 100 MG TAB.ER.24H PO (08:57)
[2022-07-20] MEDS: Apixaban 5 MG TABLET PO ×2 (08:57→20:42)
[2022-07-20] MEDS: Clopidogrel Bisulfate 75 MG TABLET PO (08:57)
[2022-07-20] MEDS: Isosorbide Mononitrate 60 MG TAB.ER.24H PO (08:57)
[2022-07-20] MEDS: Gabapentin 300 MG CAPSULE PO ×2 (08:57→20:42)
[2022-07-20] MEDS: Atorvastatin Calcium 20 MG TABLET PO (08:57)
[2022-07-20] MEDS: Valsartan 80 MG TABLET PO (09:01)
[2022-07-20] MEDS: Amiodarone HCL 200 MG TABLET PO (09:01)
--- NOTE | 2022-07-20 09:52 | MHC.CM.PN ---
JAMILAH 07/20/22, DELIVERED TO PT AT BEDSIDE AND PLACED IN CHART, CM MET W/PT WHO REPORTS HE LIVES W/, IS INDEP W/AMBULATION AND ALL CARE, PT DENIES USE OF DME/HOME SERVICES, PT DECLINES NEED FOR HOME SERVICES AT THIS TIME. PT VERIFIES PCP IS KYLAH WETZEL, ALFREDA X3 AND PT REPORTS HIS GREGORIA DAWN [phone] IS HIS HCP AND HAS COPY AT HOME WHICH HAS BEEN REQUESTED. MANISH D/C PLAN: HOME NO SERVICES W/FAMILY FOR TRANSPORT
--- NOTE | 2022-07-20 10:14 | MHC.CM.PN ---
PER HOSPITALIST PLAN FOR CARDIOVERSION TOMORROW 07/21, CM WILL CONT TO FOLLOW D/C NEEDS.
--- NOTE | 2022-07-20 11:02 | P.CONCA_ITS ---
History of Present Illness History of Present Illness Date of Service: 07/20/22 Requesting physician: Fabricio López Chief complaint: Shortness of breath, PAF Narrative: Pleasant 72-year-old gentleman who is presenting with shortness of breath. He recently was discharged from hospital after presenting with congestive heart failure AFib with RVR for which she underwent cardioversion. In the office he was noticed to be back in atrial fibrillation and we planned a cardioversion which was supposed to happen tomorrow. In the meantime he became more short of breath and came to the emergency department. He has clinical symptoms consistent with dyspnea on exertion and has underlying lung disease also. He had blood workup including elevated BNP levels of 794. He was started on IV diuretics. Today he is feeling better. Denying any issues. He has been taking Eliquis regularly. [facility] Past Medical History Medical History CAD (coronary artery disease) COPD (chronic obstructive pulmonary disease) History of cardioversion History of prior cigarette smoking HTN (hypertension) Hyperlipidemia Ischemic cardiomyopathy Postoperative atrial fibrillation Stable angina Family History Family History Father CVD (cardiovascular disease) Mother CVD (cardiovascular disease) Surgical History Surgical History H/O knee surgery Hx of CABG S/P CABG x 3 Status post glaucoma surgery Social History Social History Household Members: Spouse Housing: House Do you presently have visiting nurse or other home services: No Alcohol intake: never Patient Tobacco Use Status: Former Tobacco user Quit Date: 2018 Smoked: 20 +/- Smoked in Last 30 Days: No Use of substances other than those prescribed or required for medical reasons: No Advance Directives: No Nutrition Risks: No Nutritional Risk service: No Current occupational status: retired Meds Allergies Allergy/AdvReac Type Severity Reaction Status Date / Time latex [LATEX] Allergy Mild RASH Verified 07/13/22 13:15 nickel Allergy Unknown Rash Verified 07/13/22 13:15 ticagrelor [From Brilinta] Allergy Shortness Verified 07/13/22 13:15 of Breath Active Medications: Current Medications Acetaminophen (Acetaminophen 325 Mg Tablet) 650 mg PO Q6H PRN PRN Reason: Pain, Mild (Pain Scale 1-3) Amiodarone HCl (Amiodarone Hcl 200 Mg Tablet) 200 mg PO DAILY [facility] Last Admin: 07/20/22 09:01 Dose: 200 mg Apixaban (Apixaban 5 Mg Tablet) 5 mg PO BID [facility] Last Admin: 07/20/22 08:57 Dose: 5 mg Atorvastatin Calcium (Atorvastatin Calcium 20 Mg Tablet) 20 mg PO DAILY [facility] Last Admin: 07/20/22 08:57 Dose: 20 mg Clopidogrel Bisulfate (Clopidogrel Bisulfate 75 Mg Tablet) 75 mg PO DAILY [facility] Last Admin: 07/20/22 08:57 Dose: 75 mg Furosemide (Furosemide 20 Mg Tablet) 20 mg PO DAILY [facility]; Protocol Last Admin: 07/20/22 08:57 Dose: 20 mg Gabapentin (Gabapentin 300 Mg Capsule) 300 mg PO BID [facility] Last Admin: 07/20/22 08:57 Dose: 300 mg Isosorbide Mononitrate (Isosorbide Mononitrate 60 Mg Tab.Er.24h) 60 mg PO DAILY [facility]; Protocol Last Admin: 07/20/22 08:57 Dose: 60 mg Levalbuterol HCl (Levalbuterol Hcl 1.25 Mg/0.5 Ml Vial.Neb) 1.25 mg INHALE RQ4H WHILE AWAKE [facility] Last Admin: 07/20/22 08:23 Dose: 1.25 mg Lorazepam (Lorazepam 1 Mg Tablet) 1 mg PO DAILY PRN PRN Reason: Anxiety Last Admin: 07/19/22 20:51 Dose: 1 mg Melatonin (Melatonin 3 Mg Tablet) 6 mg PO BEDTIME PRN PRN Reason: Insomnia Methylprednisolone Sodium Succinate (Methylprednisolone Sod Succ 40 Mg/Ml Vial) 40 mg IVPUSH Q12H [facility] Last Admin: 07/20/22 08:56 Dose: 40 mg Metoprolol Succinate (Metoprolol Succinate Er 100 Mg Tab.Er.24h) 100 mg PO DAILY [facility]; Protocol Last Admin: 07/20/22 08:57 Dose: 100 mg Pharmacy Consult (Consult Rx Perform Med Rec) 1 each MISCELLANE ONCE PRN PRN Reason: Consult order Sodium Chloride (0.9 % Sodium Chloride Flush 3 Ml Syringe) 3 ml IVFLUSH QSHIFT [facility] Last Admin: 07/20/22 08:57 Dose: 3 ml Triamcinolone Acetonide (Triamcinolone Acet 0.5 % Cream 15 Gm Tube) 1 appl TOPICAL BID [facility] Last Admin: 07/20/22 08:58 Dose: Not Given Valsartan (Valsartan 80 Mg Tablet) 80 mg PO DAILY [facility]; Protocol Last Admin: 07/20/22 09:01 Dose: 80 mg Home Medications Medication Instructions Recorded Confirmed Last Taken Type atorvastatin 20 mg tablet 20 mg PO DAILY 02/13/20 07/19/22 07/19/22 History lorazepam 1 mg tablet 1 mg PO DAILY PRN Anxiety 01/04/21 07/19/22 05/17/22 History gabapentin 300 mg capsule 300 mg PO BID 07/05/21 07/19/22 07/19/22 History fluocinonide 0.05 % topical cream 1 appl topical BID PRN Rash 05/18/22 07/19/22 05/17/22 History escitalopram oxalate 20 mg tablet 20 mg PO DAILY 07/13/22 07/19/22 07/19/22 History hydroxyzine HCl 10 mg tablet 10 mg PO BEDTIME PRN Insomnia 07/13/22 07/19/22 07/18/22 History Physical Exam Vital Signs: Vital Signs: Last Vital Signs Temp 97.2 F 07/20/22 08:00 Pulse 85 07/20/22 08:26 Resp 20 07/20/22 08:26 BP 151/93 H 07/20/22 08:00 Pulse Ox 93 07/20/22 08:00 O2 Del Method 07/20/22 08:00 O2 Flow Rate 2 07/20/22 08:00 Oxygen Flow Rate 3 07/19/22 13:22 BMI result Body Mass Index 26.7 GENERAL APPEARANCE: in no acute distress, pleasant. NECK: no carotid bruit, + jugular venous distention. SKIN: no suspicious lesions, warm and dry. HEART: no murmurs, irregular rate and rhythm. LUNGS: clear to auscultation bilaterally. ABDOMEN: soft, nontender. EXTREMITIES: no edema. PERIPHERAL PULSES: equal. NEUROLOGIC: No gross deficits, AAO X 3 Objective Labs and Meds 07/19/22 14:36 07/19/22 14:36 Lab results: Laboratory Results - last 24 hr 07/19/22 07/19/22 07/19/22 14:35 14:36 14:36 WBC 8.7 RBC 4.21 L Hgb 13.2 L Hct 38.7 L MCV 91.9 MCH 31.4 MCHC 34.1 RDW 12.6 Plt Count 279 D MPV 9.7 Immature Gran % (Auto) 0.5 H Neut % (Auto) 77.3 H Lymph % (Auto) 11.1 L [place] % (Auto) 9.1 Eos % (Auto) 1.7 Baso % (Auto) 0.3 Lymph # (Auto) 1.0 L [place] # (Auto) 0.8 Eos # (Auto) 0.2 Baso # (Auto) 0.0 Abs Immat Gran (auto) 0.04 H Absolute Neuts (auto) 6.7 Absolute Nucleated RBC 0.000 Nucleated RBC % (auto) 0.0 Sodium 135 Potassium 3.6 Chloride 99 Carbon Dioxide 30 H Anion Gap 10 L BUN 13 Creatinine 0.71 Estim Creat Clear Calc 100.1 Estimated GFR > 60 Random Glucose 102 Lactic Acid Calcium 8.6 D Total Bilirubin 1.1 H Direct Bilirubin 0.3 AST 11 ALT 18 Alkaline Phosphatase 67 Troponin I High Sens B-Natriuretic Peptide Total Protein 6.2 L Albumin 3.9 Urine Color Urine Appearance Urine pH Ur Specific [place] Urine Protein Urine Glucose (UA) Urine Ketones Urine Blood Urine Nitrite Ur Leukocyte Esterase Urine RBC Urine WBC Ur Squamous Epith Cells Urine Bacteria Hyaline Casts Influenza Type A (PCR) NEGATIVE Influenza Type B (PCR) NEGATIVE RSV RNA Qual (PCR) NEGATIVE SARS-CoV-2 RNA (RT-PCR) NEGATIVE 07/19/22 07/19/22 07/19/22 14:36 14:36 14:36 WBC RBC Hgb Hct MCV MCH MCHC RDW Plt Count MPV Immature Gran % (Auto) Neut % (Auto) Lymph % (Auto) [place] % (Auto) Eos % (Auto) Baso % (Auto) Lymph # (Auto) [place] # (Auto) Eos # (Auto) Baso # (Auto) Abs Immat Gran (auto) Absolute Neuts (auto) Absolute Nucleated RBC Nucleated RBC % (auto) Sodium Potassium Chloride Carbon Dioxide Anion Gap BUN Creatinine Estim Creat Clear Calc Estimated GFR Random Glucose Lactic Acid 0.9 Calcium Total Bilirubin Direct Bilirubin AST ALT Alkaline Phosphatase Troponin I High Sens 14.5 B-Natriuretic Peptide 794 H Total Protein Albumin Urine Color Urine Appearance Urine pH Ur Specific [place] Urine Protein Urine Glucose (UA) Urine Ketones Urine Blood Urine Nitrite Ur Leukocyte Esterase Urine RBC Urine WBC Ur Squamous Epith Cells Urine Bacteria Hyaline Casts Influenza Type A (PCR) Influenza Type B (PCR) RSV RNA Qual (PCR) SARS-CoV-2 RNA (RT-PCR) 07/19/22 15:40 WBC RBC Hgb Hct MCV MCH MCHC RDW Plt Count MPV Immature Gran % (Auto) Neut % (Auto) Lymph % (Auto) [place] % (Auto) Eos % (Auto) Baso % (Auto) Lymph # (Auto) [place] # (Auto) Eos # (Auto) Baso # (Auto) Abs Immat Gran (auto) Absolute Neuts (auto) Absolute Nucleated RBC Nucleated RBC % (auto) Sodium Potassium Chloride Carbon Dioxide Anion Gap BUN Creatinine Estim Creat Clear Calc Estimated GFR Random Glucose Lactic Acid Calcium Total Bilirubin Direct Bilirubin AST ALT Alkaline Phosphatase Troponin I High Sens B-Natriuretic Peptide Total Protein Albumin Urine Color Yellow Urine Appearance Clear Urine pH 8.0 Ur Specific [place] <= 1.005 Urine Protein Negative Urine Glucose (UA) Negative Urine Ketones Negative Urine Blood Negative Urine Nitrite Negative Ur Leukocyte Esterase Negative Urine RBC 0-2 Urine WBC 0-5 Ur Squamous Epith Cells 0-2 Urine Bacteria None Seen Hyaline Casts 0-2 Influenza Type A (PCR) Influenza Type B (PCR) RSV RNA Qual (PCR) SARS-CoV-2 RNA (RT-PCR) Imaging Radiologist's impression: Impressions Chest X-Ray 07/19/22 14:02 IMPRESSION: Mild linear atelectasis versus scarring at the right lung base. No acute cardiopulmonary process. Assessment and Plan (1) CHF (congestive heart failure): Status: Acute (2) Paroxysmal atrial fibrillation: Status: Acute Plan Pleasant 72-year-old gentleman with background history of coronary artery bypass surgery who presented recently with AFib with RVR and congestive heart failure. He was diuresed and underwent cardioversion. In the office unfortunately was back in atrial fibrillation. We plan to bring him back for cardioversion which was supposed to happen tomorrow but unfortunately developed more shortness of breath and came to the emergency department. Clinically appear to be in heart failure. He was given 40 mg IV Lasix x1. I think he should get another dose of IV Lasix this afternoon. Tomorrow he can be changed to oral 40 mg Lasix. Continue amiodarone and apixaban as before. He has not missed any doses of apixaban in the last 6 weeks. Keep NPO after midnight for cardioversion tomorrow. Thank you for allowing me to participate in the care of your patient. Please feel free to contact me if you have any questions. Time Spent With Patient Time: Total time managing care of this patient today ____ minutes. Procedures Date of Service Date of Service: 07/20/22
--- NOTE | 2022-07-20 12:57 | ECG_ITS ---
Test Reason : cp Blood Pressure : / mmHG Vent. Rate : 093 BPM Atrial Rate : 000 BPM P-R Int : 000 ms QRS Dur : 122 ms QT Int : 448 ms P-R-T Axes : 000 013 002 degrees QTc Int : 557 ms Atrial fibrillation Minimal voltage criteria for LVH, may be normal variant ( [place] product ) Cannot rule out Inferior infarct , age undetermined Abnormal ECG When compared with ECG of 19-JUL-2022 14:17, Nonspecific T wave abnormality now evident in Anterolateral leads Referred By: Fabricio López Electronically Signed By:Orion Joshi
--- NOTE | 2022-07-20 14:46 | HO.PM.IMPN ---
Subjective Subjective Date of Service: 07/20/22 Interval History: f/u on sob, symptomatic afib Physical Exam Vital Signs: Vital Signs: Last Vital Signs Temp 97.8 F 07/20/22 11:29 Pulse 92 07/20/22 11:29 Resp 20 07/20/22 11:29 BP 146/77 H 07/20/22 11:29 Pulse Ox 94 07/20/22 11:29 O2 Del Method 07/20/22 11:29 O2 Flow Rate 2 07/20/22 11:29 Oxygen Flow Rate 3 07/19/22 13:22 BMI result Body Mass Index 26.7 Objective Data Active Medications Acetaminophen (Acetaminophen 325 Mg Tablet) 650 mg PO Q6H PRN PRN Reason: Pain, Mild (Pain Scale 1-3) Amiodarone HCl (Amiodarone Hcl 200 Mg Tablet) 200 mg PO DAILY [facility] Last Admin: 07/20/22 09:01 Dose: 200 mg Documented By: ANAND Apixaban (Apixaban 5 Mg Tablet) 5 mg PO BID [facility] Last Admin: 07/20/22 08:57 Dose: 5 mg Documented By: ANAND Atorvastatin Calcium (Atorvastatin Calcium 20 Mg Tablet) 20 mg PO DAILY [facility] Last Admin: 07/20/22 08:57 Dose: 20 mg Documented By: ANAND Clopidogrel Bisulfate (Clopidogrel Bisulfate 75 Mg Tablet) 75 mg PO DAILY [facility] Last Admin: 07/20/22 08:57 Dose: 75 mg Documented By: ANAND Furosemide (Furosemide 40 Mg Tablet) 40 mg PO DAILY [facility]; Protocol Gabapentin (Gabapentin 300 Mg Capsule) 300 mg PO BID [facility] Last Admin: 07/20/22 08:57 Dose: 300 mg Documented By: ANAND Isosorbide Mononitrate (Isosorbide Mononitrate 60 Mg Tab.Er.24h) 60 mg PO DAILY [facility]; Protocol Last Admin: 07/20/22 08:57 Dose: 60 mg Documented By: ANAND Levalbuterol HCl (Levalbuterol Hcl 1.25 Mg/0.5 Ml Vial.Neb) 1.25 mg INHALE RQ4H WHILE AWAKE [facility] Last Admin: 07/20/22 11:41 Dose: Not Given Documented By: DIMITRIS Non-Admin Reason: Patient Asleep Lorazepam (Lorazepam 1 Mg Tablet) 1 mg PO DAILY PRN PRN Reason: Anxiety Last Admin: 07/19/22 20:51 Dose: 1 mg Documented By: VIKTORIA Melatonin (Melatonin 3 Mg Tablet) 6 mg PO BEDTIME PRN PRN Reason: Insomnia Methylprednisolone Sodium Succinate (Methylprednisolone Sod Succ 40 Mg/Ml Vial) 40 mg IVPUSH Q12H [facility] Last Admin: 07/20/22 08:56 Dose: 40 mg Documented By: ANAND Metoprolol Succinate (Metoprolol Succinate Er 100 Mg Tab.Er.24h) 100 mg PO DAILY [facility]; Protocol Last Admin: 07/20/22 08:57 Dose: 100 mg Documented By: ANAND Pharmacy Consult (Consult Rx Perform Med Rec) 1 each MISCELLANE ONCE PRN PRN Reason: Consult order Sodium Chloride (0.9 % Sodium Chloride Flush 3 Ml Syringe) 3 ml IVFLUSH QSHIFT [facility] Last Admin: 07/20/22 08:57 Dose: 3 ml Documented By: ANAND Triamcinolone Acetonide (Triamcinolone Acet 0.5 % Cream 15 Gm Tube) 1 appl TOPICAL BID [facility] Last Admin: 07/20/22 08:58 Dose: Not Given Documented By: ANAND Non-Admin Reason: Med Not Available Valsartan (Valsartan 80 Mg Tablet) 80 mg PO DAILY [facility]; Protocol Last Admin: 07/20/22 09:01 Dose: 80 mg Documented By: ANAND Labs 07/19/22 14:36 07/19/22 14:36 Labs: Laboratory Results - last 24 hr 07/19/22 07/19/22 07/19/22 14:35 14:36 14:36 MCV 91.9 MCH 31.4 MCHC 34.1 RDW 12.6 Plt Count 279 D MPV 9.7 Immature Gran % (Auto) 0.5 H Neut % (Auto) 77.3 H Lymph % (Auto) 11.1 L [place] % (Auto) 9.1 Eos % (Auto) 1.7 Baso % (Auto) 0.3 Lymph # (Auto) 1.0 L [place] # (Auto) 0.8 Eos # (Auto) 0.2 Baso # (Auto) 0.0 Abs Immat Gran (auto) 0.04 H Absolute Neuts (auto) 6.7 Absolute Nucleated RBC 0.000 Nucleated RBC % (auto) 0.0 Anion Gap 10 L Estim Creat Clear Calc 100.1 Estimated GFR > 60 Random Glucose 102 Lactic Acid Calcium 8.6 D Total Bilirubin 1.1 H Direct Bilirubin 0.3 AST 11 ALT 18 Alkaline Phosphatase 67 Troponin I High Sens B-Natriuretic Peptide Total Protein 6.2 L Albumin 3.9 Urine Color Urine Appearance Urine pH Ur Specific [place] Urine Protein Urine Glucose (UA) Urine Ketones Urine Blood Urine Nitrite Ur Leukocyte Esterase Urine RBC Urine WBC Ur Squamous Epith Cells Urine Bacteria Hyaline Casts Influenza Type A (PCR) NEGATIVE Influenza Type B (PCR) NEGATIVE RSV RNA Qual (PCR) NEGATIVE SARS-CoV-2 RNA (RT-PCR) NEGATIVE 07/19/22 07/19/22 07/19/22 14:36 14:36 14:36 MCV MCH MCHC RDW Plt Count MPV Immature Gran % (Auto) Neut % (Auto) Lymph % (Auto) [place] % (Auto) Eos % (Auto) Baso % (Auto) Lymph # (Auto) [place] # (Auto) Eos # (Auto) Baso # (Auto) Abs Immat Gran (auto) Absolute Neuts (auto) Absolute Nucleated RBC Nucleated RBC % (auto) Anion Gap Estim Creat Clear Calc Estimated GFR Random Glucose Lactic Acid 0.9 Calcium Total Bilirubin Direct Bilirubin AST ALT Alkaline Phosphatase Troponin I High Sens 14.5 B-Natriuretic Peptide 794 H Total Protein Albumin Urine Color Urine Appearance Urine pH Ur Specific [place] Urine Protein Urine Glucose (UA) Urine Ketones Urine Blood Urine Nitrite Ur Leukocyte Esterase Urine RBC Urine WBC Ur Squamous Epith Cells Urine Bacteria Hyaline Casts Influenza Type A (PCR) Influenza Type B (PCR) RSV RNA Qual (PCR) SARS-CoV-2 RNA (RT-PCR) 07/19/22 15:40 MCV MCH MCHC RDW Plt Count MPV Immature Gran % (Auto) Neut % (Auto) Lymph % (Auto) [place] % (Auto) Eos % (Auto) Baso % (Auto) Lymph # (Auto) [place] # (Auto) Eos # (Auto) Baso # (Auto) Abs Immat Gran (auto) Absolute Neuts (auto) Absolute Nucleated RBC Nucleated RBC % (auto) Anion Gap Estim Creat Clear Calc Estimated GFR Random Glucose Lactic Acid Calcium Total Bilirubin Direct Bilirubin AST ALT Alkaline Phosphatase Troponin I High Sens B-Natriuretic Peptide Total Protein Albumin Urine Color Yellow Urine Appearance Clear Urine pH 8.0 Ur Specific [place] <= 1.005 Urine Protein Negative Urine Glucose (UA) Negative Urine Ketones Negative Urine Blood Negative Urine Nitrite Negative Ur Leukocyte Esterase Negative Urine RBC 0-2 Urine WBC 0-5 Ur Squamous Epith Cells 0-2 Urine Bacteria None Seen Hyaline Casts 0-2 Influenza Type A (PCR) Influenza Type B (PCR) RSV RNA Qual (PCR) SARS-CoV-2 RNA (RT-PCR) Assessment and Plan (1) CHF (congestive heart failure): Status: Acute (2) Paroxysmal atrial fibrillation: Status: Acute Plan 72-year-old male with a PMH significant for?CAD s/p triple bypass in 09/2018, 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 SOB, unclear what the etiology is ? CHF vs AFIB, he has been treated with for COPD and seems to feel better, continue Albuterol and Steroid, cardiology input noted Paroxysmal afib--continue amiograce, NPO for cardioversion tomorrow CAD Continue home meds HTN Continue home meds HLD Continue home meds Full Code Attending:?Dr. Davalos DVT Prophylaxis: Grace Need for inpatient: symptomatic afib, needs cardioversion Time Spent With Patient Time: Total time managing care of this patient today ____ minutes. Quality Stroke Does the patient have a stroke diagnosis?: No VTE Prior VTE?: No VTE Risk Level:: Medical - low VTE Device Contraindication: Treatment Not Indicated VTE Drug Contraindication: N/A - Med Ordered
[2022-07-20] MEDS: Furosemide 40 MG/4 ML VIAL IVPUSH (14:51)
[2022-07-20] MEDS: LORazepam 0.5 MG TABLET PO (21:25)
[2022-07-21] VITALS (21 sets, daily range): BP systolic 79–117; BP diastolic 47–80; PULSE 61–96; RESP 13–20; TEMP 36.2–37.1; O2SAT 90–98
--- NOTE | 2022-07-21 | ECG_ITS ---
Test Reason : s/p cardioversion Blood Pressure : / mmHG Vent. Rate : 061 BPM Atrial Rate : 061 BPM P-R Int : 172 ms QRS Dur : 120 ms QT Int : 518 ms P-R-T Axes : -05 020 012 degrees QTc Int : 521 ms Sinus rhythm with Premature atrial complexes Left ventricular hypertrophy with QRS widening and repolarization abnormality ( [place] product ) Inferior infarct (cited on or before 20-JUL-2022) Abnormal ECG When compared with ECG of 20-JUL-2022 13:12, Sinus rhythm has replaced Atrial fibrillation Vent. rate has decreased BY 32 BPM Inverted T waves have replaced nonspecific T wave abnormality in Anterior leads Referred By: Orion Joshi Electronically Signed By:Orion Joshi
[2022-07-21] MEDS: 0.9 % Sodium Chloride Flush 3 ML SYRINGE IVFLUSH (09:44)
[2022-07-21] MEDS: Furosemide 40 MG TABLET PO (09:45)
[2022-07-21] MEDS: Isosorbide Mononitrate 60 MG TAB.ER.24H PO (09:45)
[2022-07-21] MEDS: Valsartan 80 MG TABLET PO (09:45)
[2022-07-21] MEDS: methylPREDNISolone Sod Succ 40 MG/ML VIAL IVPUSH ×2 (09:45→21:17)
[2022-07-21] MEDS: Atorvastatin Calcium 20 MG TABLET PO (09:45)
[2022-07-21] MEDS: Clopidogrel Bisulfate 75 MG TABLET PO (09:45)
[2022-07-21] MEDS: Amiodarone HCL 200 MG TABLET PO (09:45)
[2022-07-21] MEDS: Metoprolol Succinate ER 100 MG TAB.ER.24H PO (09:45)
[2022-07-21] MEDS: Gabapentin 300 MG CAPSULE PO ×2 (09:45→21:17)
[2022-07-21] MEDS: Apixaban 5 MG TABLET PO ×2 (09:45→21:17)
[2022-07-21] MEDS: Triamcinolone Acet 0.5 % Cream 15 GM TUBE 1 APPL TOPICAL (09:51)
--- NOTE | 2022-07-21 11:13 | P.PNIM_ITS ---
Subjective Subjective Date of Service: 07/21/22 Interval History: f/u on sob, symptomatic afib still in afib, sob better Physical Exam Vital Signs: Vital Signs: Last Vital Signs Temp 98.1 F 07/21/22 07:53 Pulse 87 07/21/22 07:53 Resp 20 07/21/22 07:53 BP 105/60 07/21/22 07:53 Pulse Ox 97 07/21/22 07:53 O2 Del Method 07/21/22 07:53 O2 Flow Rate 3 07/21/22 07:53 Oxygen Flow Rate 3 07/19/22 13:22 BMI result Body Mass Index 26.7 Const: Other: General: AO X 3, no acute distress Resp: CTA bilateral CVS: S1,S2, iregular, no leg edema GI: +BS, NT, no distention Skin: No rash Neuro: motor grossly intact Psych: appropriate affect Objective Data Active Medications Acetaminophen (Acetaminophen 325 Mg Tablet) 650 mg PO Q6H PRN PRN Reason: Pain, Mild (Pain Scale 1-3) Amiodarone HCl (Amiodarone Hcl 200 Mg Tablet) 200 mg PO DAILY [facility] Last Admin: 07/21/22 09:45 Dose: 200 mg Documented By: DEBI Apixaban (Apixaban 5 Mg Tablet) 5 mg PO BID [facility] Last Admin: 07/21/22 09:45 Dose: 5 mg Documented By: DEBI Atorvastatin Calcium (Atorvastatin Calcium 20 Mg Tablet) 20 mg PO DAILY [facility] Last Admin: 07/21/22 09:45 Dose: 20 mg Documented By: DEBI Clopidogrel Bisulfate (Clopidogrel Bisulfate 75 Mg Tablet) 75 mg PO DAILY [facility] Last Admin: 07/21/22 09:45 Dose: 75 mg Documented By: DEBI Furosemide (Furosemide 40 Mg Tablet) 40 mg PO DAILY [facility]; Protocol Last Admin: 07/21/22 09:45 Dose: 40 mg Documented By: DEBI Gabapentin (Gabapentin 300 Mg Capsule) 300 mg PO BID [facility] Last Admin: 07/21/22 09:45 Dose: 300 mg Documented By: DEBI Isosorbide Mononitrate (Isosorbide Mononitrate 60 Mg Tab.Er.24h) 60 mg PO DAILY [facility]; Protocol Last Admin: 07/21/22 09:45 Dose: 60 mg Documented By: DEBI Levalbuterol HCl (Levalbuterol Hcl 1.25 Mg/0.5 Ml Vial.Neb) 1.25 mg INHALE RQ4H WHILE AWAKE [facility] Last Admin: 07/21/22 07:51 Dose: Not Given Documented By: BHARGAV Non-Admin Reason: Patient Refused Lorazepam (Lorazepam 1 Mg Tablet) 1 mg PO DAILY PRN PRN Reason: Anxiety Last Admin: 07/19/22 20:51 Dose: 1 mg Documented By: VIKTORIA Melatonin (Melatonin 3 Mg Tablet) 6 mg PO BEDTIME PRN PRN Reason: Insomnia Methylprednisolone Sodium Succinate (Methylprednisolone Sod Succ 40 Mg/Ml Vial) 40 mg IVPUSH Q12H [facility] Last Admin: 07/21/22 09:45 Dose: 40 mg Documented By: DEBI Metoprolol Succinate (Metoprolol Succinate Er 100 Mg Tab.Er.24h) 100 mg PO DAILY [facility]; Protocol Last Admin: 07/21/22 09:45 Dose: 100 mg Documented By: DEBI Pharmacy Consult (Consult Rx Perform Med Rec) 1 each MISCELLANE ONCE PRN PRN Reason: Consult order Sodium Chloride (0.9 % Sodium Chloride Flush 3 Ml Syringe) 3 ml IVFLUSH QSHIFT [facility] Last Admin: 07/21/22 09:44 Dose: 3 ml Documented By: DEBI Triamcinolone Acetonide (Triamcinolone Acet 0.5 % Cream 15 Gm Tube) 1 appl TOPICAL BID [facility] Last Admin: 07/21/22 09:51 Dose: 1 appl Documented By: DEBI Valsartan (Valsartan 80 Mg Tablet) 80 mg PO DAILY [facility]; Protocol Last Admin: 07/21/22 09:45 Dose: 80 mg Documented By: DEBI Labs 07/19/22 14:36 07/19/22 14:36 Microbiology Microbiology Results: Microbiology 07/19/22 14:35 Blood Culture - Preliminary Blood - Venous No growth after 24 hours. 07/19/22 14:35 Blood Culture - Preliminary Blood - Venous No growth after 24 hours. 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 SOB, unclear what the etiology is ? CHF vs AFIB, he has been treated with for COPD better continue Albuterol and Steroid, cardiology input noted Paroxysmal afib remains in afib--continue amio, eliquis, NPO for cardioversion today CAD Continue home meds HTN Continue home meds HLD Continue home meds Full Code Attending:?Dr. Davalos DVT Prophylaxis: Aleksandra Need for inpatient: symptomatic afib, needs cardioversion Time Spent With Patient Time: Total time managing care of this patient today ____ minutes. Quality Stroke Does the patient have a stroke diagnosis?: No VTE Prior VTE?: No VTE Risk Level:: Medical - low VTE Device Contraindication: Treatment Not Indicated VTE Drug Contraindication: N/A - Med Ordered
--- NOTE | 2022-07-21 13:41 | P.CONAN_ITS ---
HPI - Anesthesia Eval Consult details Narrative: for cardioversion for AFib [facility] Active Problems Active Problems: All Active Problems (Updated 07/19/22 @ 16:23 by Heaven Rivers MD) CHF (congestive heart failure) (Acute) Paroxysmal atrial fibrillation (Acute) Hyponatremia (Acute) AHN (dyspnea on exertion) (Acute) Stable angina (Acute) Postoperative atrial fibrillation (Acute) Hyperlipidemia (Acute) HTN (hypertension) (Acute) COPD (chronic obstructive pulmonary disease) (Acute) Ischemic cardiomyopathy (Acute) Hx of CABG (Acute) CAD (coronary artery disease) (Acute) Past Medical History Medical History CAD (coronary artery disease) COPD (chronic obstructive pulmonary disease) History of cardioversion History of prior cigarette smoking HTN (hypertension) Hyperlipidemia Ischemic cardiomyopathy Postoperative atrial fibrillation Stable angina Family History Family History Father CVD (cardiovascular disease) Mother CVD (cardiovascular disease) Family history of problems with anesthesia: No Surgical History Surgical History H/O knee surgery Hx of CABG S/P CABG x 3 Status post glaucoma surgery History of Problems with Anesthesia: No Social History Social History Household Members: Spouse Housing: House Do you presently have visiting nurse or other home services: No Alcohol intake: never Patient Tobacco Use Status: Former Tobacco user Quit Date: 2019 Years Smoked: 20 +/- Smoked in Last 30 Days: No Use of substances other than those prescribed or required for medical reasons: No Are you DNR?: No Advance Directives: No Nutrition Risks: No Nutritional Risk service: No Current occupational status: retired Meds Allergies Allergy/AdvReac Type Severity Reaction Status Date / Time latex [LATEX] Allergy Mild RASH Verified 07/21/22 13:08 nickel Allergy Unknown Rash Verified 07/21/22 13:08 ticagrelor [From Brilinta] Allergy Shortness Verified 07/21/22 13:08 of Breath Active Medications: Current Medications Acetaminophen (Acetaminophen 325 Mg Tablet) 650 mg PO Q6H PRN PRN Reason: Pain, Mild (Pain Scale 1-3) Amiodarone HCl (Amiodarone Hcl 200 Mg Tablet) 200 mg PO DAILY [facility] Last Admin: 07/21/22 09:45 Dose: 200 mg Apixaban (Apixaban 5 Mg Tablet) 5 mg PO BID [facility] Last Admin: 07/21/22 09:45 Dose: 5 mg Atorvastatin Calcium (Atorvastatin Calcium 20 Mg Tablet) 20 mg PO DAILY [facility] Last Admin: 07/21/22 09:45 Dose: 20 mg Clopidogrel Bisulfate (Clopidogrel Bisulfate 75 Mg Tablet) 75 mg PO DAILY [facility] Last Admin: 07/21/22 09:45 Dose: 75 mg Furosemide (Furosemide 40 Mg Tablet) 40 mg PO DAILY [facility]; Protocol Last Admin: 07/21/22 09:45 Dose: 40 mg Gabapentin (Gabapentin 300 Mg Capsule) 300 mg PO BID [facility] Last Admin: 07/21/22 09:45 Dose: 300 mg Isosorbide Mononitrate (Isosorbide Mononitrate 60 Mg Tab.Er.24h) 60 mg PO DAILY [facility]; Protocol Last Admin: 07/21/22 09:45 Dose: 60 mg Levalbuterol HCl (Levalbuterol Hcl 1.25 Mg/0.5 Ml Vial.Neb) 1.25 mg INHALE RQ4H WHILE AWAKE [facility] Last Admin: 07/21/22 11:22 Dose: 1.25 mg Lorazepam (Lorazepam 1 Mg Tablet) 1 mg PO DAILY PRN PRN Reason: Anxiety Last Admin: 07/19/22 20:51 Dose: 1 mg Melatonin (Melatonin 3 Mg Tablet) 6 mg PO BEDTIME PRN PRN Reason: Insomnia Methylprednisolone Sodium Succinate (Methylprednisolone Sod Succ 40 Mg/Ml Vial) 40 mg IVPUSH Q12H [facility] Last Admin: 07/21/22 09:45 Dose: 40 mg Metoprolol Succinate (Metoprolol Succinate Er 100 Mg Tab.Er.24h) 100 mg PO DAILY [facility]; Protocol Last Admin: 07/21/22 09:45 Dose: 100 mg Pharmacy Consult (Consult Rx Perform Med Rec) 1 each MISCELLANE ONCE PRN PRN Reason: Consult order Sodium Chloride (0.9 % Sodium Chloride Flush 3 Ml Syringe) 3 ml IVFLUSH QSHIFT [facility] Last Admin: 07/21/22 09:44 Dose: 3 ml Triamcinolone Acetonide (Triamcinolone Acet 0.5 % Cream 15 Gm Tube) 1 appl TOPICAL BID [facility] Last Admin: 07/21/22 09:51 Dose: 1 appl Valsartan (Valsartan 80 Mg Tablet) 80 mg PO DAILY [facility]; Protocol Last Admin: 07/21/22 09:45 Dose: 80 mg Home Medications Medication Instructions Recorded Confirmed Last Taken Type atorvastatin 20 mg tablet 20 mg PO DAILY 02/13/20 07/19/22 07/19/22 History lorazepam 1 mg tablet 1 mg PO DAILY PRN Anxiety 01/04/21 07/19/22 05/17/22 History gabapentin 300 mg capsule 300 mg PO BID 07/05/21 07/19/22 07/19/22 History fluocinonide 0.05 % topical cream 1 appl topical BID PRN Rash 05/18/22 07/19/22 05/17/22 History escitalopram oxalate 20 mg tablet 20 mg PO DAILY 07/13/22 07/19/22 07/19/22 History hydroxyzine HCl 10 mg tablet 10 mg PO BEDTIME PRN Insomnia 07/13/22 07/19/22 07/18/22 History Exam Exam Date and Time: July 21, 2022 134 Height,Weight and Vital Signs: Height 5 ft 11 in Weight 86.9 kg Last Vital Signs Temp 97.9 F 07/21/22 13:25 Pulse 95 07/21/22 13:25 Resp 18 07/21/22 13:25 BP 116/54 L 07/21/22 13:25 Pulse Ox 95 07/21/22 13:25 O2 Del Method 07/21/22 13:25 O2 Flow Rate 3 07/21/22 13:25 Oxygen Flow Rate 3 07/19/22 13:22 Pertinent Lab Results Pertinent Lab Results: Laboratory Tests 07/19/22 07/19/22 07/19/22 14:35 14:36 14:36 WBC 8.7 RBC 4.21 L Hgb 13.2 L Hct 38.7 L MCV 91.9 MCH 31.4 MCHC 34.1 RDW 12.6 Plt Count 279 D MPV 9.7 Immature Gran % (Auto) 0.5 H Neut % (Auto) 77.3 H Lymph % (Auto) 11.1 L [place] % (Auto) 9.1 Eos % (Auto) 1.7 Baso % (Auto) 0.3 Lymph # (Auto) 1.0 L [place] # (Auto) 0.8 Eos # (Auto) 0.2 Baso # (Auto) 0.0 Abs Immat Gran (auto) 0.04 H Absolute Neuts (auto) 6.7 Absolute Nucleated RBC 0.000 Nucleated RBC % (auto) 0.0 Sodium 135 Potassium 3.6 Chloride 99 Carbon Dioxide 30 H Anion Gap 10 L BUN 13 Creatinine 0.71 Estim Creat Clear Calc 100.1 Estimated GFR > 60 Random Glucose 102 Lactic Acid Calcium 8.6 D Total Bilirubin 1.1 H Direct Bilirubin 0.3 AST 11 ALT 18 Alkaline Phosphatase 67 Troponin I High Sens B-Natriuretic Peptide Total Protein 6.2 L Albumin 3.9 Urine Color Urine Appearance Urine pH Ur Specific [place] Urine Protein Urine Glucose (UA) Urine Ketones Urine Blood Urine Nitrite Ur Leukocyte Esterase Urine RBC Urine WBC Ur Squamous Epith Cells Urine Bacteria Hyaline Casts Influenza Type A (PCR) NEGATIVE Influenza Type B (PCR) NEGATIVE RSV RNA Qual (PCR) NEGATIVE SARS-CoV-2 RNA (RT-PCR) NEGATIVE 07/19/22 07/19/22 07/19/22 14:36 14:36 14:36 WBC RBC Hgb Hct MCV MCH MCHC RDW Plt Count MPV Immature Gran % (Auto) Neut % (Auto) Lymph % (Auto) [place] % (Auto) Eos % (Auto) Baso % (Auto) Lymph # (Auto) [place] # (Auto) Eos # (Auto) Baso # (Auto) Abs Immat Gran (auto) Absolute Neuts (auto) Absolute Nucleated RBC Nucleated RBC % (auto) Sodium Potassium Chloride Carbon Dioxide Anion Gap BUN Creatinine Estim Creat Clear Calc Estimated GFR Random Glucose Lactic Acid 0.9 Calcium Total Bilirubin Direct Bilirubin AST ALT Alkaline Phosphatase Troponin I High Sens 14.5 B-Natriuretic Peptide 794 H Total Protein Albumin Urine Color Urine Appearance Urine pH Ur Specific [place] Urine Protein Urine Glucose (UA) Urine Ketones Urine Blood Urine Nitrite Ur Leukocyte Esterase Urine RBC Urine WBC Ur Squamous Epith Cells Urine Bacteria Hyaline Casts Influenza Type A (PCR) Influenza Type B (PCR) RSV RNA Qual (PCR) SARS-CoV-2 RNA (RT-PCR) 07/19/22 15:40 WBC RBC Hgb Hct MCV MCH MCHC RDW Plt Count MPV Immature Gran % (Auto) Neut % (Auto) Lymph % (Auto) [place] % (Auto) Eos % (Auto) Baso % (Auto) Lymph # (Auto) [place] # (Auto) Eos # (Auto) Baso # (Auto) Abs Immat Gran (auto) Absolute Neuts (auto) Absolute Nucleated RBC Nucleated RBC % (auto) Sodium Potassium Chloride Carbon Dioxide Anion Gap BUN Creatinine Estim Creat Clear Calc Estimated GFR Random Glucose Lactic Acid Calcium Total Bilirubin Direct Bilirubin AST ALT Alkaline Phosphatase Troponin I High Sens B-Natriuretic Peptide Total Protein Albumin Urine Color Yellow Urine Appearance Clear Urine pH 8.0 Ur Specific [place] <= 1.005 Urine Protein Negative Urine Glucose (UA) Negative Urine Ketones Negative Urine Blood Negative Urine Nitrite Negative Ur Leukocyte Esterase Negative Urine RBC 0-2 Urine WBC 0-5 Ur Squamous Epith Cells 0-2 Urine Bacteria None Seen Hyaline Casts 0-2 Influenza Type A (PCR) Influenza Type B (PCR) RSV RNA Qual (PCR) SARS-CoV-2 RNA (RT-PCR) Airway Mallampati Class: II TM Dist: >3cm Neck ROM: Full Heart: rr Lungs: cta Assessment and Plan Final Anesthetic Review Family History of Problems with Anesthesia: No History of Problems with Anesthesia: No NPO: Yes ASA Class: III Final Preanesthetic Review: No Changes in Pt Med Stat, Meds/Allgs Chart Reviewed, Consent Obtained/Reviewed and Anes Risks/Benef Reviewed Patient Risk: Intermediate Procedure Risk: Intermediate Anesthetic Plan Anesthetic Plan: MAC: Disposition: Standard PACU
--- NOTE | 2022-07-21 14:08 | PC.NURSE ---
report given to silvestre burn table operator. aware that dr. henriquez has not consented patient yet.
--- NOTE | 2022-07-21 14:43 | MHC.SHP ---
Pre-Procedural Eval Section A Date of Service: 07/21/22 The patient is an INPATIENT: Yes The History & Physical has been completed within 30 days and I have reviewed it.: No Section B Chief Complaint: Shortness of breath, PAF Details of Present Illness: Cardioversion Allergies: Allergies Allergy/AdvReac Type Severity Reaction Status Date / Time latex [LATEX] Allergy Mild RASH Verified 07/21/22 13:08 nickel Allergy Unknown Rash Verified 07/21/22 13:08 ticagrelor [From Brilinta] Allergy Shortness Verified 07/21/22 13:08 of Breath Plan Diagnosis/Plan: Unchanged I have reviewed the history and physical and performed a pertinent physical examination on my patient. No changes have occurred unless specified. Time Spent With Patient Time: Total time managing care of this patient today ____ minutes.
--- NOTE | 2022-07-21 14:43 | PM.PNCARD ---
Subjective Subjective Date of Service: 07/21/22 Interval history: Seen and examined at bedside before cardioversion. Feeling better. Physical Exam Vital Signs: Last Vital Signs Temp 97.9 F 07/21/22 13:25 Pulse 95 07/21/22 13:25 Resp 18 07/21/22 13:25 BP 116/54 L 07/21/22 13:25 Pulse Ox 95 07/21/22 13:25 O2 Del Method 07/21/22 13:25 O2 Flow Rate 3 07/21/22 13:25 Oxygen Flow Rate 3 07/19/22 13:22 BMI result Body Mass Index 26.7 GENERAL APPEARANCE: in no acute distress, pleasant. NECK: no carotid bruit, no jugular venous distention. SKIN: no suspicious lesions, warm and dry. HEART: no murmurs, irregular rate and rhythm. LUNGS: clear to auscultation bilaterally. ABDOMEN: soft, nontender. EXTREMITIES: no edema. PERIPHERAL PULSES: equal. NEUROLOGIC: No gross deficits, AAO X 3 Objective Labs and Meds 07/19/22 14:36 07/19/22 14:36 Progress Note: A&P Assessment and plan (1) CHF (congestive heart failure): Status: Acute (2) Paroxysmal atrial fibrillation: Status: Acute Plan 72 male with PAF and diastolic CHF. Amiodarone 200 mg daily. On apixaban. PO Lasix 40 mg daily. For Cardioversion today. Time Spent With Patient Time: Total time managing care of this patient today ____ minutes. Progress Note: Quality Stroke Does the patient have a stroke diagnosis?: No Procedures Date of Service Date of Service: 07/21/22
--- NOTE | 2022-07-21 14:55 | HO.CARDIVERS ---
Cardioversion Procedure Note Cardioversion Date of Procedure: 07/21/22 Ordering Provider: Orion Joshi Performing Provider: Orion Joshi Indication for Procedure: Afib, CHF Consent: Verbal and Written consent was obtained from the patient before starting. The patient was made aware of the risk of stroke, failure and aspiration. Procedure: After consent obtained, defib pads were attached and the patient was sedated by the anesthesia team. Once adequate sedation achieved, single synchronized shock of 200 J was given to the patient. He reverted to sinus rhythm. Complications: None Recommendations: c/w Amiodarone and Eliquis.
[2022-07-21] MEDS: LORazepam 1 MG TABLET PO (21:21)
[2022-07-21] MEDS: Melatonin 3 MG TABLET 6 MG PO (21:21)
[2022-07-22] VITALS: BP 96/57; PULSE 61; RESP 18; TEMP 36.3; O2SAT 95
[2022-07-22 04:00] VITALS: BP 92/51; PULSE 54; RESP 20; TEMP 36.9; O2SAT 95
[2022-07-22 08:23] VITALS: BP 119/66; PULSE 57; RESP 20; TEMP 36.2; O2SAT 98
[2022-07-22] MEDS: Amiodarone HCL 200 MG TABLET PO (08:27)
[2022-07-22] MEDS: Metoprolol Succinate ER 100 MG TAB.ER.24H PO (08:27)
[2022-07-22] MEDS: Gabapentin 300 MG CAPSULE PO (08:27)
[2022-07-22] MEDS: Furosemide 40 MG TABLET PO (08:27)
[2022-07-22] MEDS: Clopidogrel Bisulfate 75 MG TABLET PO (08:27)
[2022-07-22] MEDS: Apixaban 5 MG TABLET PO (08:27)
[2022-07-22] MEDS: Isosorbide Mononitrate 60 MG TAB.ER.24H PO (08:27)
[2022-07-22] MEDS: Valsartan 80 MG TABLET PO (08:27)
[2022-07-22] MEDS: Atorvastatin Calcium 20 MG TABLET PO (08:27)
[2022-07-22 08:28] VITALS: PULSE 57; RESP 20; O2SAT 98
[2022-07-22] MEDS: 0.9 % Sodium Chloride Flush 3 ML SYRINGE IVFLUSH (08:28)
[2022-07-22] MEDS: Triamcinolone Acet 0.5 % Cream 15 GM TUBE 1 APPL TOPICAL (08:31)
--- NOTE | 2022-07-22 10:31 | MHC.CM.PN ---
PER HOSPITALIST PT MEDICALLY CLEARED FOR D/C HOME NO SERVICES W/FAMILY FOR TRANSPORT.
--- NOTE | 2022-07-22 11:08 | P.DS_ITS ---
DS: Providers Provider Date of Service: 07/22/22 Date of admission: 07/21/22 10:25 Primary care physician: Reena Dickson PA-C Consults: 07/19/22 18:56 Consult to Cardiology Routine Consulting Provider: [facility] Reason for consultation: Symptomatic afib Has provider been notified: Yes DS: Diagnosis Discharge Diagnosis (1) CHF (congestive heart failure): Status: Inactive (2) Paroxysmal atrial fibrillation: Status: Acute DS: Summary Hospital Course Hospital Course: Chief Complaint: Shortness of breath 72-year-old male with a PMH significant for?CAD s/p triple bypass in 09/2018, 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 childhood? asthma as a kid coming in with 2 days of increasing shortness of breath; the circumstance is similar to what happened before last cardioversion. He is noted to be back in AFIB but no RVR.? Shortness of breah is more prominent with lying down and better sitting up. Has no swelling in the leg, no chest pain. No palpitations. BNP is 794 which is significantly higher than last one. CXR show no overt CHF. Treated with IV solumedrol and Albuterol. Hospital course: SOB, unclear what the etiology is ? CHF vs AFIB, he has been treated with for COPD? better but overall we think his symptoms are due to afib and once cardioversion restore sinus rythm he is feeling much beter Paroxysmal afib remains in afib--continue amio, eliquis,He underwent succesful cardioversion on 07/21/22 and will continue amiodarone an eliquid CAD--continue plavix, metoprolol, statin and imdur HTN, continue Valsartan and metoprolol HLD Continue home meds Time Spent with Patient Time attestation: Total time managing care of this patient today ____ minutes. Discharge coordination time: Greater than 30 minutes Quality: Safe Use of Opioids Does Pt have an Active Cancer Diagnosis on the Problem List?: No Quality: Stroke Does the patient have a stroke diagnosis?: No Physical Exam Vital Signs: Vital Signs: Last Vital Signs Temp 97.2 F 07/22/22 08:23 Pulse 57 07/22/22 08:28 Resp 20 07/22/22 08:28 BP 119/66 07/22/22 08:23 Pulse Ox 98 07/22/22 08:23 O2 Del Method 07/22/22 08:23 O2 Flow Rate 3 07/22/22 08:23 Oxygen Flow Rate 3 07/19/22 13:22 BMI result Body Mass Index 26.7 DS: Data Data Completed and Pending Completed studies during hospitalization [Text1]: Procedures [employer] of Cardiac Rhythm, Single (05/18/22) Labs on day of discharge: Preliminary micro results at discharge 07/19/22 14:35 Blood Culture - Preliminary Blood - Venous No growth after 48 hours. 07/19/22 14:35 Blood Culture - Preliminary Blood - Venous No growth after 48 hours. Discharge Plan Discharge Anticipated Discharge Date/Time: 07/22/22 11:03 Patient Disposition: Home, Self-Care Discharge Diagnosis: Symptomatic afib Referrals: Reena Dickson PA-C [Primary Care Provider] - 1 Week Discharge Medications: Continued clopidogrel [Plavix] 75 mg tablet 75 mg PO DAILY Qty: 90 3RF isosorbide mononitrate 60 mg tablet extended release 24 hr 60 mg PO DAILY Qty: 90 3RF amiodarone 200 mg tablet 200 mg PO DAILY Qty: 90 2RF Eliquis 5 mg tablet 5 mg PO BID 90 Days Qty: 180 2RF furosemide [Lasix] 20 mg tablet 20 mg PO DAILY Qty: 90 2RF metoprolol succinate 100 mg tablet extended release 24 hr 100 mg PO DAILY 90 Days Qty: 90 2RF Protocol: Hold for SBP/HR < HOLD for SBP < : 90 HOLD for HR < : 60 valsartan [Diovan] 80 mg tablet 80 mg PO DAILY 90 Days Qty: 90 2RF fluocinonide 0.05 % cream 1 appl topical BID PRN (Reason: Rash) Rx Instructions: apply to either back of legs, ankles, or scalp depending on affected area escitalopram oxalate 20 mg tablet 20 mg PO DAILY hydroxyzine HCl 10 mg tablet 10 mg PO BEDTIME PRN (Reason: Insomnia) atorvastatin 20 mg tablet 20 mg PO DAILY lorazepam 1 mg tablet 1 mg PO DAILY PRN (Reason: Anxiety) gabapentin 300 mg capsule 300 mg PO BID Discharge Orders: Discharge Order (Routine); Ordered 07/22/22 Ordered By: Fabricio López Diet: Advance to usual diet Activity on Discharge: As tolerated Stand Alone Forms: Patient Portal Discharge page Care Plan Goals: recovery Health Concerns: paroxysmal afib Plan of Treatment: continue all medication as before Assessment: as above Discharge Date/Time: 07/22/22 12:43
--- NOTE | 2022-07-22 13:28 | HO.POSTANES ---
Post Anesthesia Evaluation Post Anesthesia Evaluation Vital Signs: Vital Signs Temp Pulse Resp BP Pulse Ox O2 Del Method O2 Flow Rate 07/22/22 08:28 57 20 07/22/22 08:23 97.2 F 57 20 119/66 98 Nasal Cannula 3 07/22/22 04:00 98.4 F 54 20 92/51 L 95 Nasal Cannula 3 Anesthesia: General Mental Status: Awake Pain Control: Satisfactory Nausea/Vomiting: None Hydration: Adequate Anesthesia-Related Issues: No Anes. Related Issues
--- NOTE | 2022-07-22 20:09 | PM.PNCARD ---
Subjective Subjective Date of Service: 07/22/22 Interval history: Seen and examined at bedside in the morning. Stable. In sinus rhythm. Physical Exam Vital Signs: Last Vital Signs Temp 97.2 F 07/22/22 08:23 Pulse 57 07/22/22 08:28 Resp 20 07/22/22 08:28 BP 119/66 07/22/22 08:23 Pulse Ox 98 07/22/22 08:23 O2 Del Method 07/22/22 08:23 O2 Flow Rate 3 07/22/22 08:23 Oxygen Flow Rate 3 07/19/22 13:22 BMI result Body Mass Index 26.7 GENERAL APPEARANCE: in no acute distress, pleasant. NECK: no carotid bruit, no jugular venous distention. SKIN: no suspicious lesions, warm and dry. HEART: no murmurs, regular rate and rhythm. LUNGS: clear to auscultation bilaterally. ABDOMEN: soft, nontender. EXTREMITIES: no edema. PERIPHERAL PULSES: equal. NEUROLOGIC: No gross deficits, AAO X 3 Objective Labs and Meds 07/19/22 14:36 07/19/22 14:36 Progress Note: A&P Assessment and plan (1) CHF (congestive heart failure): Status: Acute (2) Paroxysmal atrial fibrillation: Status: Acute Plan 72 male with PAF and CHF. s/p cardioversion. stable. Can DC with amiodarone and 40 mg PO Lasix. Time Spent With Patient Time: Total time managing care of this patient today ____ minutes. Progress Note: Quality Stroke Does the patient have a stroke diagnosis?: No Procedures Date of Service Date of Service: 07/22/22
== END 2022-07-22 12:43 | disposition home or self-care (01) | DRG 309 ==
LOC: HO.ED 16:23 → HO.EDOVER 18:42 → HO.IMC 19:51
PROVIDERS: Internal Medicine Cardiovascular Disease; Admitting Provider Internal Medicine; Emergency Provider Emergency Medicine Emergency Medical Services; PCP Internal Medicine Cardiovascular Disease; Visit Provider Internal Medicine
PROC: 5A2204Z Restoration of Cardiac Rhythm, Single (ICD-10-PCS; principal; 2022-07-21 14:30)
DX: I48.0 Paroxysmal atrial fibrillation (principal); I50.32 Chronic diastolic (congestive) heart failure; J44.9 Chronic obstructive pulmonary disease, unspecified; I25.10 Atherosclerotic heart disease of native coronary artery without angina pectoris; E78.5 Hyperlipidemia, unspecified; Z20.822 Contact with and (suspected) exposure to COVID-19; Z95.1 Presence of aortocoronary bypass graft; Z87.891 Personal history of nicotine dependence; Z91.040 Latex allergy status; Z79.01 Long term (current) use of anticoagulants; Z79.02 Long term (current) use of antithrombotics/antiplatelets; Z79.899 Other long term (current) drug therapy
CPT/HCPCS: 0241U; 36415; 71045; 80048; 80076; 81001; 83605; 83880; 84484; 85025; 87040; 92960; 93005; 94640; 99222; 99285; J1940; J2250; J2920; J2930

== ENCOUNTER → 2022-10-24 14:14 | Outpatient (BNVA) | payer MEDICARE, SELFPAY | PROVIDERS: PCP Internal Medicine Cardiovascular Disease; Referring Provider Internal Medicine Cardiovascular Disease; Visit Provider Internal Medicine Cardiovascular Disease | DX: I48.0 Paroxysmal atrial fibrillation (principal); I50.9 Heart failure, unspecified; I20.8 Other forms of angina pectoris; Z51.81 Encounter for therapeutic drug level monitoring | CPT/HCPCS: 93005; 99212 ==

== ENCOUNTER 2022-11-09 10:11 | Outpatient (REF) | payer MEDICARE, SELFPAY ==
[2022-11-09 11:28] LABS: Alanine Aminotransferase 42 U/L (0-40); Albumin Level 4.3 g/dL (3.5-5.0); Alkaline Phosphatase 78 U/L (39-117); Aspartate Amino Transferase 31 U/L (5-37); Bilirubin Direct 0.3 mg/dL (0.0-0.5); Bilirubin Total 0.8 mg/dL (0.0-1.0); Total Protein 6.8 g/dL (6.5-8.0)
[2022-11-09 11:46] LABS: TSH reflex Free T4 5.72 uIU/mL (0.32-4.0)
[2022-11-09 12:49] LABS: Free T4 (Free Thyroxine) 0.87 ng/dL (0.71-1.85)
== END 2022-11-09 10:12 | disposition home or self-care (01) ==
LOC: HO.LAB 10:11
PROVIDERS: PCP Internal Medicine Cardiovascular Disease; Visit Provider Internal Medicine Cardiovascular Disease
DX: K64.4 Residual hemorrhoidal skin tags (principal); T45.515A Adverse effect of anticoagulants, initial encounter; Z51.81 Encounter for therapeutic drug level monitoring; Z79.899 Other long term (current) drug therapy
CPT/HCPCS: 36415; 80076; 84439; 84443; 85025

== ENCOUNTER 2022-12-02 02:03 | Inpatient (IN) | payer MEDICARE, SELFPAY ==
[2022-12-02] VITALS (9 sets, daily range): BP systolic 130–180; BP diastolic 62–89; PULSE 54–65; RESP 16–32; TEMP 36.1–36.6; O2SAT 88–97; BMI 27.5
--- NOTE | ~2022-12-02 | XR_ITS ---
EXAMINATION: XR CHEST CLINICAL INFORMATION: Dyspnea COMPARISON: 07/19/2022 TECHNIQUE: Frontal view of the chest was obtained. FINDINGS: Cardiac leads overlie the chest. The lungs are well expanded. Hazy opacity at both lung bases. No pleural effusion or pneumothorax. Interstitial prominence with Jasmina B-lines. The cardiomediastinal silhouette is unchanged, with a calcified aorta. Sternal fixation hardware. XR/XR chest 1V IMPRESSION: Mild interstitial edema.
--- NOTE | 2022-12-02 02:16 | ECG_ITS ---
Test Reason : SOB Blood Pressure : / mmHG Vent. Rate : 061 BPM Atrial Rate : 061 BPM P-R Int : 200 ms QRS Dur : 134 ms QT Int : 422 ms P-R-T Axes : 046 014 018 degrees QTc Int : 424 ms Normal sinus rhythm Non-specific intra-ventricular conduction block Minimal voltage criteria for LVH, may be normal variant ( Miguel product ) Nonspecific T wave abnormality Abnormal ECG When compared with ECG of 21-JUL-2022 14:55, Premature atrial complexes are no longer Present T wave inversion no longer evident in Anterior leads Nonspecific T wave abnormality, worse in Lateral leads QT has shortened Referred By: Generic ED Physician Electronically Signed By:MISHA HAJI MD
[2022-12-02 02:32] LABS: MANUAL DIFF FLAG NO
[2022-12-02 02:33] LABS: Basophils Percent Auto 0.3 % (0-2); Eosinophils Absolute Auto 0.3 X10*3/uL (0.0-0.4); Eosinophils Percent Auto 2.1 % (0-4); Hemoglobin 12.9 g/dl (14.0-18.0); Imm Gran Abs Auto 0.06 X10*3/uL (0.00-0.03); Imm Gran Pct Auto 0.5 % (0.0-0.4); Lymphocytes Absolute Auto 0.9 X10*3/uL (1.2-4.9); Lymphocytes Percent Auto 7.2 % (20-40); Mean Corpuscular HGB Conc 33.9 g/dl (31.0-36.0); Mean Corpuscular Hemoglobin 30.9 pg (27.0-33.0); Mean Corpuscular Volume 90.9 fL (80.0-98.0); Monocytes Absolute Auto 0.9 X10*3/uL (0.1-1.2); Monocytes Percent Auto 7.8 % (2-11); Neutrophils Absolute Auto 9.7 x10*3/uL (2.0-8.3); Neutrophils Percent Auto 82.1 % (45-73); Platelet Count 218 X10*3/uL (160-400); Red Blood Count 4.18 X10*6/uL (4.60-5.80); Red Cell Distribution Width 13.4 % (11.0-16.0); White Blood Count 11.8 X10*3/uL (4.8-10.8)
--- NOTE | 2022-12-02 02:40 | PC.NURSE ---
pt BIBA from home reporting sob, wheezing x a few days, worsening 30 mins prior to arrival. per ems pt sounding very tight, administered solumedrol and duoneb tx en route, audible wheezing now heard. pt was 88% RA, placed on 2L NC on arrival to ED now up to 92%, shallow respirations w/ increased wob. ekg done, iv line in place, labs sent, pt placed on manager database administration and cxray ordered. at bedside. call saenz within reach, waiting to be seen by ED provider. will ctm.
[2022-12-02 02:55] LABS: Alanine Aminotransferase 11 U/L (0-40); Albumin Level 3.9 g/dL (3.5-5.0); Alkaline Phosphatase 78 U/L (39-117); Anion Gap 16 (12-20); Aspartate Amino Transferase 19 U/L (5-37); Bilirubin Direct 0.3 mg/dL (0.0-0.5); Bilirubin Total 0.8 mg/dL (0.0-1.0); Blood Urea Nitrogen 11 mg/dL (9-16); Calcium 8.6 mg/dL (8.4-10.2); Carbon Dioxide 18 mmol/L (22-29); Chloride 100 mmol/L (96-108); Creatinine Clr Calc Pharmacy 96.4; Estimated Glomerular Filt Rate > 60; Glucose Random 135 mg/dL (60-115); Lipase 61 U/L (8-78); Potassium 3.6 mmol/L (3.3-5.1); Sodium 130 mmol/L (135-145); Total Protein 6.7 g/dL (6.5-8.0)
[2022-12-02 03:01] LABS: Troponin-I High Sensitivity 7.3 ng/L (<3.5-35.0)
[2022-12-02 04:00] LABS: B Type Natriuretic Peptide 311 pg/mL (<100)
--- NOTE | 2022-12-02 04:40 | ED.GENADULT ---
HPI - General Adult General Chief complaint: Dyspnea Stated complaint: Shortness of breath Time Seen by Provider: 12/02/22 03:36 Source: patient Mode of arrival: ambulatory Limitations: no limitations History of Present Illness HPI narrative: 72-year-old male came in for evaluation of exertional dyspnea, PND, notice bilateral lower extremity swelling, patient normally take Lasix 20 mg daily with no change in his normal daily urination, no CP, no abdominal pain. No fever, no chills. Related Data Home Medications Medication Instructions Recorded Confirmed atorvastatin 20 mg tablet 20 mg PO DAILY 02/13/20 12/02/22 lorazepam 1 mg tablet 1 mg PO DAILY PRN Anxiety 01/04/21 12/02/22 gabapentin 300 mg capsule 300 mg PO BID 07/05/21 12/02/22 fluocinonide 0.05 % topical cream 1 appl topical BID PRN Rash 05/18/22 12/02/22 escitalopram oxalate 20 mg tablet 20 mg PO DAILY 07/13/22 12/02/22 hydroxyzine HCl 10 mg tablet 10 mg PO BEDTIME PRN Insomnia 07/13/22 12/02/22 sulfamethoxazole 800 1 tab PO BID 12/02/22 12/02/22 mg-trimethoprim 160 mg tablet Previous Rx's Medication Instructions Recorded clopidogrel 75 mg tablet (Plavix) 75 mg PO DAILY #90 tabs 05/17/22 isosorbide mononitrate 60 mg 60 mg PO DAILY #90 tabs 05/17/22 tablet,extended release 24 hr apixaban 5 mg tablet (Eliquis) 5 mg PO BID 90 days #180 tabs 06/20/22 furosemide 20 mg tablet (Lasix) 20 mg PO DAILY #90 tabs 06/20/22 metoprolol succinate 100 mg 100 mg PO DAILY 90 days #90 tabs 06/20/22 tablet,extended release 24 hr amiodarone 200 mg tablet 200 mg PO DAILY #90 tabs 09/28/22 valsartan 160 mg tablet 160 mg PO DAILY #90 tabs 10/24/22 Allergies Allergy/AdvReac Type Severity Reaction Status Date / Time latex [LATEX] Allergy Mild RASH Verified 12/02/22 02:15 nickel Allergy Unknown Rash Verified 12/02/22 02:15 ticagrelor [From Brilinta] Allergy Shortness Verified 12/02/22 02:15 of Breath Review of Systems Review of Systems: All other systems are reviewed and are negative Constitutional: Reports as per HPI and Reports no additional constitutional complaints Eyes: Reports as per HPI and Reports no additional eye complaints Reports system reviewed and no additional complaints, except as documented Cardiovascular: Reports as per HPI and Reports no additional cardiovascular complaints Respiratory: Reports as per HPI and Reports no additional respiratory complaints Gastrointestinal: Reports as per HPI and Reports no additional gastrointestinal complaints Genitourinary: Reports no additional female genitourinary complaints Musculoskeletal: Reports no additional musculoskeletal complaints Skin/Breast: Reports system reviewed and no additional complaints, except as docu Psychiatric: Reports no additional psychiatric complaints Endocrine: Reports no additional endocrine complaints Hematologic/Lymphatic: Reports no additional hematologic/lymphatic complaints Allergic/Immunologic: Reports no additional allergic/immunologic complaints Reports system reviewed and no additional complaints, except as documented and Reports Abnormal speech present [facility] Past Medical History Medical History CAD (coronary artery disease) CHF (congestive heart failure) COPD (chronic obstructive pulmonary disease) History of cardioversion History of prior cigarette smoking HTN (hypertension) Hyperlipidemia Ischemic cardiomyopathy Postoperative atrial fibrillation Stable angina Surgical History H/O knee surgery Hx of CABG S/P CABG x 3 Status post glaucoma surgery Family History Family History Father CVD (cardiovascular disease) Mother CVD (cardiovascular disease) Social History Social History Household Members: Spouse Housing: House Do you presently have visiting nurse or other home services: No Alcohol intake: never Patient Tobacco Use Status: Former Tobacco user Quit Date: 2018 Smoked: 20 +/- Smoked in Last 30 Days: No Advance Directives: No Advance Directives Information Provided: Yes Nutrition Risks: No Nutritional Risk service: No Current occupational status: retired Physical Exam ED Vital Signs: Vital Signs - 24 hr 12/02/22 02:09 12/02/22 03:35 12/02/22 06:00 Temperature 97.8 F Pulse Rate 65 54 57 Respiratory Rate 32 H 24 H 18 Blood Pressure 163/77 H 151/67 H 144/67 H Pulse Oximetry 88 L 92 93 Oxygen Delivery Method Room Air Nasal Cannula Nasal Cannula Oxygen Flow Rate 2 2 BMI result Body Mass Index 27.5 Vital signs have been reviewed as appeared to be correct. Blood pressure normal. Heart rate normal. Respiration rate normal. Temperature normal. Oxygen saturation normal. Appearance: Alert. Oriented X3. No acute distress. Head: Normal external exam. Normocephalic. Atraumatic. No Castaneda signs noted. No raccoon eyes noted Eyes: PERRLA. EOMI. Conjunctiva and sclera normal. Eyelids normal. ENT: TM's Normal. Pharynx normal. Uvula midline. Moist mucous membranes. No trismus noted. No drooling noted. No muffled voice noted. Neck: Normal inspection. Neck supple. FROM. No adenopathy. Thyroid Normal. No meningeal signs. No neck mass noted. CVS: Normal heart rate and rhythm. Heart sound normal. No murmurs noted. Pulses normal throughout. Respiratory: No respiratory distress. Painless inspiration. Breath sounds normal. No wheezes/rales/rhonchi noted. Chest nontender. No accessory muscle usage noted or decreased air movement noted. Abdomen: Soft and nontender. Bowel sounds normal in all 4 quadrants. No distention noted. No organomegaly noted. No visible injury noted. Back: No CVA tenderness. Full range of motion noted. Skin: Skin warm and dry. Normal skin color. Normal skin turgor. No rashes/lesions/lacerations noted. Extremities: +2 bilateral lower extremity edema. Extremities exhibit normal range of motion. Extremities nontender. Neuro: Oriented X 3. Cranial nerve exam: II-XII are grossly intact No motor deficit. No sensory deficit. Reflexes normal. Course Course Course Narrative: CHF will diurese and start on nitro. Medications Administered Discontinued Medications Generic Name Dose Route Start Last Admin Trade Name Freq PRN Reason Stop Dose Admin Furosemide 40 mg 12/02/22 04:38 12/02/22 05:20 Furosemide 40 Mg/4 Ml Vial IVPUSH 12/02/22 04:39 40 mg ONCE ONE Administration Protocol Nitroglycerin 0.5 inch 12/02/22 04:38 12/02/22 05:20 Nitroglycerin 2 % Oint 1 Gm Packet TRANSDERMA 12/02/22 04:39 0.5 inch ONCE ONE Administration Medical Decision Making Differential Diagnosis Differential Diagnoses: The differential diagnosis associated with the presentation includes (CHF, pneumonia,, pneumothorax, pleural effusion, electrolyte abnormality, severe anemia.) Admission/Observation Consideration of admission/observation: Escalation of care including admission/observation considered Consult Healthcare Provider Management of the patient was discussed with: Hospitalist (Dr. Balderrama) Lab Data MDM Lab Attestation statement: I reviewed the patient's lab results. 12/02/22 02:28 12/02/22 02:28 Labs: Lab Results 12/02/22 12/02/22 12/02/22 Range/Units 02:28 02: 02:28 WBC 11.8 H (4.8-10.8) X10*3/uL RBC 4.18 L (4.60-5.80) X10*6/uL Hgb 12.9 L (14.0-18.0) g/dl Hct 38.0 L (42.0-52.0) % MCV 90.9 (80.0-98.0) fL MCH 30.9 (27.0-33.0) pg MCHC 33.9 (31.0-36.0) g/dl RDW 13.4 (11.0-16.0) % Plt Count 218 (160-400) X10*3/uL MPV 10.0 (9.4-12.4) fL Immature Gran % (Auto) 0.5 H (0.0-0.4) % Neut % (Auto) 82.1 H (45-73) % Lymph % (Auto) 7.2 L (20-40) % [place] % (Auto) 7.8 (2-11) % Eos % (Auto) 2.1 (0-4) % Baso % (Auto) 0.3 (0-2) % Lymph # (Auto) 0.9 L (1.2-4.9) X10*3/uL [place] # (Auto) 0.9 (0.1-1.2) X10*3/uL Eos # (Auto) 0.3 (0.0-0.4) X10*3/uL Baso # (Auto) 0.0 (0.0-0.2) X10*3/uL Abs Immat Gran (auto) 0.06 H (0.00-0.03) X10*3/uL Absolute Neuts (auto) 9.7 H (2.0-8.3) x10*3/uL Absolute Nucleated RBC 0.000 (0.0-0.012) X10*3/uL Nucleated RBC % (auto) 0.0 (0.0-0.2) /100WBC Sodium 130 L (135-145) mmol/L Potassium 3.6 (3.3-5.1) mmol/L Chloride 100 (96-108) mmol/L Carbon Dioxide 18 L (22-29) mmol/L Anion Gap 16 (12-20) BUN 11 (9-16) mg/dL Creatinine 0.70 (0.5-1.4) mg/dL Estim Creat Clear Calc 96.4 Estimated GFR > 60 Random Glucose 135 H (60-115) mg/dL Calcium 8.6 (8.4-10.2) mg/dL Total Bilirubin 0.8 (0.0-1.0) mg/dL Direct Bilirubin 0.3 (0.0-0.5) mg/dL AST 19 (5-37) U/L ALT 11 (0-40) U/L Alkaline Phosphatase 78 (39-117) U/L Troponin I High Sens 7.3 (<3.5-35.0) ng/L B-Natriuretic Peptide (<100) pg/mL Total Protein 6.7 (6.5-8.0) g/dL Albumin 3.9 (3.5-5.0) g/dL Lipase 61 (8-78) U/L Urine Color Urine Appearance Urine pH (5.0-9.0) Ur Specific [place] (1.005-1.025) Urine Protein (Neg-Trace) mg/dL Urine Glucose (UA) (Negative) mg/dL Urine Ketones (Negative) mg/dL Urine Blood (Negative) Urine Nitrite (Negative) Ur Leukocyte Esterase (Negative) 12/02/22 12/02/22 Range/Units 02:28 06:03 WBC (4.8-10.8) X10*3/uL RBC (4.60-5.80) X10*6/uL Hgb (14.0-18.0) g/dl Hct (42.0-52.0) % MCV (80.0-98.0) fL MCH (27.0-33.0) pg MCHC (31.0-36.0) g/dl RDW (11.0-16.0) % Plt Count (160-400) X10*3/uL MPV (9.4-12.4) fL Immature Gran % (Auto) (0.0-0.4) % Neut % (Auto) (45-73) % Lymph % (Auto) (20-40) % [place] % (Auto) (2-11) % Eos % (Auto) (0-4) % Baso % (Auto) (0-2) % Lymph # (Auto) (1.2-4.9) X10*3/uL [place] # (Auto) (0.1-1.2) X10*3/uL Eos # (Auto) (0.0-0.4) X10*3/uL Baso # (Auto) (0.0-0.2) X10*3/uL Abs Immat Gran (auto) (0.00-0.03) X10*3/uL Absolute Neuts (auto) (2.0-8.3) x10*3/uL Absolute Nucleated RBC (0.0-0.012) X10*3/uL Nucleated RBC % (auto) (0.0-0.2) /100WBC Sodium (135-145) mmol/L Potassium (3.3-5.1) mmol/L Chloride (96-108) mmol/L Carbon Dioxide (22-29) mmol/L Anion Gap (12-20) BUN (9-16) mg/dL Creatinine (0.5-1.4) mg/dL Estim Creat Clear Calc Estimated GFR Random Glucose (60-115) mg/dL Calcium (8.4-10.2) mg/dL Total Bilirubin (0.0-1.0) mg/dL Direct Bilirubin (0.0-0.5) mg/dL AST (5-37) U/L ALT (0-40) U/L Alkaline Phosphatase (39-117) U/L Troponin I High Sens (<3.5-35.0) ng/L B-Natriuretic Peptide 311 H (<100) pg/mL Total Protein (6.5-8.0) g/dL Albumin (3.5-5.0) g/dL Lipase (8-78) U/L Urine Color Yellow Urine Appearance Clear Urine pH 7.0 (5.0-9.0) Ur Specific [place] <= 1.005 (1.005-1.025) Urine Protein Negative (Neg-Trace) mg/dL Urine Glucose (UA) Negative (Negative) mg/dL Urine Ketones Negative (Negative) mg/dL Urine Blood Negative (Negative) Urine Nitrite Negative (Negative) Ur Leukocyte Esterase Negative (Negative) Independent Interpretation I performed an independent interpretation of an: Plain X-Ray (Mild pulmonary congestion) Radiology Impression Discussion of test interpretation with radiology: I have reviewed the radiologist's reading. Discharge Plan Discharge Clinical Impression: Congestive heart failure Patient Disposition: Admitted As Inpatient
[2022-12-02] MEDS: Furosemide 40 MG/4 ML VIAL IVPUSH ×2 (05:20→09:44)
[2022-12-02] MEDS: Nitroglycerin 2 % Oint 1 GM Packet 0.5 INCH TRANSDERMA (05:20)
--- NOTE | 2022-12-02 05:51 | PM.IMHP ---
History of Present Illness Date of Service: 12/02/22 Chief Complaint: Shortness of breath 72-year-old male with past medical history of CHF with preserved ejection fraction, COPD, history of CAD status post CABG, HTN, HLD, history of stable angina, paroxysmal AFib comes in the hospital with complaints of shortness of breath, orthopnea and PND. Denies any lower extremity edema. Patient reports her symptoms started 2 days ago worsened were tonight he could not lay flat and had to come into the hospital for oxygen. He denies any cough, no sputum production. No fever or chills.States that about a week ago he almost broke his toe on the right foot, had to be seen at the [facility] and was given antibiotics for cellulitis. On arrival to the ED patient hemodynamically stable with heart rate of 65 and respiratory rate of 32 , satting 88% on room air Labs are significant for WBC count of 11.8, hemoglobin of 12.9, hematocrit 38, BNP of 311, sodium of 130, labs otherwise unremarkable Chest x-ray shows interstitial edema patient given Lasix and will be admitted for further management Review of Systems Review of Systems: Yes all other systems are reviewed and are negative [facility] Medical History CAD (coronary artery disease) CHF (congestive heart failure) COPD (chronic obstructive pulmonary disease) History of cardioversion History of prior cigarette smoking HTN (hypertension) Hyperlipidemia Ischemic cardiomyopathy Postoperative atrial fibrillation Stable angina Family History Father CVD (cardiovascular disease) Mother CVD (cardiovascular disease) Surgical History H/O knee surgery Hx of CABG S/P CABG x 3 Status post glaucoma surgery Social History Household Members: Spouse Housing: House Do you presently have visiting nurse or other home services: No Alcohol intake: never Patient Tobacco Use Status: Former Tobacco user Quit Date: 2018 Years Smoked: 20 +/- Smoked in Last 30 Days: No Advance Directives: No Advance Directives Information Provided: Yes service: No Current occupational status: retired Meds Allergies Allergy/AdvReac Type Severity Reaction Status Date / Time latex [LATEX] Allergy Mild RASH Verified 12/02/22 02:15 nickel Allergy Unknown Rash Verified 12/02/22 02:15 ticagrelor [From Brilinta] Allergy Shortness Verified 12/02/22 02:15 of Breath Home Medications Medication Instructions Recorded Confirmed Last Taken Type atorvastatin 20 mg tablet 20 mg PO DAILY 02/13/20 12/02/22 07/19/22 History lorazepam 1 mg tablet 1 mg PO DAILY PRN Anxiety 01/04/21 12/02/22 05/17/22 History gabapentin 300 mg capsule 300 mg PO BID 07/05/21 12/02/22 07/19/22 History fluocinonide 0.05 % topical cream 1 appl topical BID PRN Rash 05/18/22 12/02/22 05/17/22 History escitalopram oxalate 20 mg tablet 20 mg PO DAILY 07/13/22 12/02/22 07/19/22 History hydroxyzine HCl 10 mg tablet 10 mg PO BEDTIME PRN Insomnia 07/13/22 12/02/22 07/18/22 History sulfamethoxazole 800 1 tab PO BID 12/02/22 12/02/22 Unknown History mg-trimethoprim 160 mg tablet Physical Exam Vital Signs and Narrative: Vital Signs: Last Vital Signs Temp 97.8 F 12/02/22 02:09 Pulse 54 12/02/22 03:35 Resp 24 H 12/02/22 03:35 BP 151/67 H 12/02/22 03:35 Pulse Ox 92 12/02/22 03:35 O2 Del Method Nasal Cannula 12/02/22 03:35 O2 Flow Rate 2 12/02/22 03:35 BMI result Body Mass Index 27.5 Const: General: cooperative and no acute distress Orientation/consciousness: patient oriented x3 Eyes: General: appearance normal, both eyes and all related structures Pupils: Equal, round and reactive pupils present Resp: Other: Crackles bilaterally Effort & Inspection: normal respiratory effort Cardio: Rate: regular rate Rhythm: regular rhythm GI: Palpation (GI): Soft to palpation Auscultation: normal bowel sounds Skin: General skin exam: no rashes or lesions noted Neuro: General: patient oriented x3 Cranial nerves: Yes Equal, round and reactive pupils present Cognition (Neuro): normal cognition Extrem: General: Yes normal to inspection and Yes no pedal edema Results Labs 12/02/22 02:28 12/02/22 02:28 Labs: Laboratory Results - last 24 hr 12/02/22 12/02/22 12/02/22 02:28 02:28 02:28 MCV 90.9 MCH 30.9 MCHC 33.9 RDW 13.4 Plt Count 218 MPV 10.0 Immature Gran % (Auto) 0.5 H Neut % (Auto) 82.1 H Lymph % (Auto) 7.2 L [place] % (Auto) 7.8 Eos % (Auto) 2.1 Baso % (Auto) 0.3 Lymph # (Auto) 0.9 L [place] # (Auto) 0.9 Eos # (Auto) 0.3 Baso # (Auto) 0.0 Abs Immat Gran (auto) 0.06 H Absolute Neuts (auto) 9.7 H Absolute Nucleated RBC 0.000 Nucleated RBC % (auto) 0.0 Anion Gap 16 Estim Creat Clear Calc 96.4 Estimated GFR > 60 Random Glucose 135 H Calcium 8.6 Total Bilirubin 0.8 Direct Bilirubin 0.3 AST 19 ALT 11 Alkaline Phosphatase 78 B-Natriuretic Peptide 311 H Total Protein 6.7 Albumin 3.9 Lipase 61 Imaging Radiologist's Impressions: Impressions Chest X-Ray 12/02/22 02:58 IMPRESSION: Mild interstitial edema. Assessment and Plan (1) Acute exacerbation of CHF (congestive heart failure): Status: Acute (2) Chronic hyponatremia: Status: Acute (3) Leukocytosis: Status: Acute Plan This is a 72-year-old male paroxysmal AFib, CHF with preserved ejection fraction, hypertension, hyperlipidemia comes into the hospital with complaints of shortness of breath PND, found to have acute CHF # acute CHF exacerbation - has dyspnea, orthopnea, PND, elevated BNP as well as imaging suggestive of interstitial edema - will treat with Lasix IV, strict I&O, low-sodium diet, daily weight - last echo was from May this year - cardiology consulted # acute on chronic hyponatremia - asymptomatic - likely secondary to hypovolemic hyponatremia in the setting of heart failure - treated with Lasix - follow BMP # leukocytosis - likely reactive due to recent cellulitis - patient on Bactrim for cellulitis of left foot- which appears to be improving - will continue his Bactrim to complete his course # hypertension - stable - any antihypertensives # history of COPD - not in exacerbation - will prescribe him DuoNeb p.r.n. - continue other home inhalers # CAD/CABG - continue Plavix and metoprolol # stable angina - chest pain-free - continue Imdur # paroxysmal AFib - continue metoprolol amiodarone as well as apixaban DVT prophylaxis: Apixaban Given patient's need for further management of acute CHF exacerbation patient require minimum 2 night inpatient hospital stay for further management and monitoring Time Spent With Patient Time: Total time managing care of this patient today ____ minutes. Quality Stroke Does the patient have a stroke diagnosis?: No VTE Prior VTE?: No VTE Risk Level:: Medical - moderate - high VTE Device Contraindication: Treatment Not Indicated VTE Drug Contraindication: N/A - Med Ordered
[2022-12-02 06:22] LABS: Appearance Urine Clear; Color Urine Yellow; Glucose Urine UA Negative (Negative); Leukocyte Esterase Urine Negative (Negative); Nitrite Urine Negative (Negative); Specific Gravity - Urine <= 1.005 (1.005-1.025); Urine Blood Negative (Negative); Urine Ketones Negative (Negative); Urine Protein Negative (Neg-Trace)
--- NOTE | 2022-12-02 07:00 | CA_ITS ---
Transthoracic Echocardiogram Patient (Last, First, Middle): Ferdinand Reed, Gender: Male Date of : 1950 Age: 72 Procedure Date: 12/02/2022 Procedure Type: Transthoracic Echocardiogram Location: [facility] [place] Height: 170.18 cm Weight: 79.38 kg BSA: 1.91 m2 Heart Rate: bpm BP: 145 / 66 mmHg Angular Developer: Referring MD: Preston Martin MD Railcar Foreman: Preston Martin MD Symptoms: Decompensated congestive heart failure Study Quality: Fair w Contrast ECG Rhythm: Sinus with extra beats Conclusions: - 1. Low normal LV ejection fraction of 50-55% with moderate LVH with impaired relaxation filling pattern with underlying regional wall motion abnormality consistent with underlying coronary artery disease 2. Moderate aortic stenosis 3. Severe mitral calcification with mild mitral regurgitation 4. At least moderate left atrial enlargement 5. Upper limits of normal ascending aortic size 6. Normal calculated RV systolic pressure 7. No gross pericardial effusion Findings Procedure Information Contrast agent, definity, is being given per protocol without apparent complications. Left Ventricle Normal left ventricular cavity size. There is moderately increased left ventricular wall thickness. The left ventricular systolic function is low normal. The visually estimated ejection fraction is between 50-55%. Spectral Doppler is indicative of an impaired relaxation filling pattern. Wall Motion Rest Echo Findings The inferoseptal wall and apical inferior segment are hypokinetic. The basal inferior and mid inferior segments are akinetic. All other scored wall segments showed normal motion. Right Ventricle Normal right ventricular cavity size and systolic function. Atria The left atrium is moderately dilated. Interatrial shunt cannot be excluded. The right atrium is likely dilated. Aortic Valve There is moderate calcification of the aortic valve. There is moderate thickening of the aortic valve. There is moderate aortic valve stenosis. The peak aortic gradient is 31 mmHg.The mean gradient is 17 mmHg. There is no aortic valve regurgitation. Mitral Valve There is moderate anterior and posterior mitral leaflet thickening. There is moderate anterior and severe posterior mitral annular calcification. There is mild mitral valve regurgitation. There is no mitral valve stenosis. Pulmonic Valve The pulmonic valve is likely normal. There is trace pulmonic valve regurgitation. Tricuspid Valve Normal tricuspid valve structure. There is mild tricuspid valve regurgitation. The right ventricular systolic pressure is normal. The right ventricular systolic pressure is 31 mmHg. Normal right atrial pressure. There is no evidence of pulmonary hypertension. Great Vessels The pulmonary artery was not well visualized. Venous The inferior vena cava is normal in size and collapses greater than 50% with inspiration. Pericardium/Pleural There is no evidence of pericardial effusion. Prior Study Comparison Changes noted compared to prior study dated: 06/06/2022. Moderate aortic stenosis is present Measurements 2D Linear Measurements IVSd: 1.59 0.6-0.9/0.6-1.0 cm LVIDd: 4.30 3.9-5.3/4.2-5.9 cm LVIDd Index: 2.25 2.4-3.2/2.2-3.1 cm/m2 LVIDs: 2.86 2.0-3.6 cm LVPWd: 1.55 0.7-1.1 cm Ao Root: 3.90 2.1-3.5 cm LA Diam: 4.90 2.7-3.8/3.0-4.0 cm LAIDs Index: 2.57 1.5-2.3 cm/m2 LV Mass: 345.62 67-162/88-224 g LV Mass Index: 180.95 43-95/49-115 g/m2 LVOT Diam: 2.00 3.0+(-)1.3 cm 2D Systolic Function EF 4C: 59.70 >55% EF 2C: 39.40 >55% EF BiP: 50.50 >55% Mitral Valve MV VTI: 0.37 MV Pk Nathaniel: 1.02 MV Mn Nathaniel: 0.60 MV Pk Grad: 4.00 MV Mn Grad: 2.00 MV Pk E: 0.77 MV PK A: 1.00 MV Decel Time: 329.00 E/A: 0.80 E'Lateral: 6.42 E'Medial: 3.48 E/E' Med: 22.20 E/E' Lat: 12.00 PHT: 96.00 MVA PHT: 2.29 MVA Continuity: 1.78 Decel [place]: 2.34 Aortic Valve AoV Pk Nathaniel: 2.78 AoV Mn Nathaniel: 1.95 AoV VTI: 0.66 AoV Pk Grad: 31.00 Aov Mn Grad: 17.00 JEFF Cont.VTI: 1.01 LVOT LVOT Pk Nathaniel: 0.89 LVOT Mn Nathaniel: 0.60 LVOT VTI: 0.21 LVOT Pk Grad: 3.00 LVOT Mn Grad: 2.00 LVOT Diam: 2.00 LVOT Area: 3.14 Diastolic Function MV Pk E: 0.77 MV Pk A: 1.00 E/A: 0.80 E'Medial: 3.48 E/E' Med: 22.20 E' Laterial: 6.42 E/E' Lat: 12.00 Right Ventricle TAPSE (mm): 17.00 TVS' Nathaniel: 9.00 Tricuspid Valve TR Pk Nathaniel: 2.65 TR Pk Grad: 28.00 RA Press: 3.00 RVSP: 31.00 Great Vessels Aorta Ao Root-2D: 3.90 2.0-3.7 cm Ao Asc: 3.60 2.1-3.4 cm Pulmonary Valve PV Pk Nathaniel: 0.94 Peak PV Grad: 4.00 Updated in Other Vendor System with Status of Final Preston Martin MD electronically signed on 12/03/2022 1:10:08 PM with status of Final
--- NOTE | 2022-12-02 07:29 | PHA.MEDREC ---
Pharmacy Consult ? Medication Reconciliation Pharmacy has completed the medication reconciliation. reviewed med rec done by nursing
[2022-12-02 07:59] LABS: Basophils Percent Auto 0.1 % (0-2); Eosinophils Percent Auto 0.1 % (0-4); Hemoglobin 13.7 g/dl (14.0-18.0); Imm Gran Abs Auto 0.07 X10*3/uL (0.00-0.03); Imm Gran Pct Auto 0.7 % (0.0-0.4); Lymphocytes Absolute Auto 0.4 X10*3/uL (1.2-4.9); Lymphocytes Percent Auto 3.8 % (20-40); MANUAL DIFF FLAG SCAN; Mean Corpuscular HGB Conc 34.3 g/dl (31.0-36.0); Mean Corpuscular Hemoglobin 31.1 pg (27.0-33.0); Mean Corpuscular Volume 90.7 fL (80.0-98.0); Mean Platelet Volume 9.8 fL (9.4-12.4); Monocytes Absolute Auto 0.1 X10*3/uL (0.1-1.2); Monocytes Percent Auto 1.2 % (2-11); Neutrophils Absolute Auto 9.3 x10*3/uL (2.0-8.3); Neutrophils Percent Auto 94.1 % (45-73); Platelet Count 221 X10*3/uL (160-400); Red Blood Count 4.41 X10*6/uL (4.60-5.80); Red Cell Distribution Width 13.2 % (11.0-16.0); SCAN SMEAR FLAG 1; White Blood Count 9.9 X10*3/uL (4.8-10.8)
[2022-12-02 08:13] LABS: Alanine Aminotransferase 11 U/L (0-40); Albumin Level 4.4 g/dL (3.5-5.0); Alkaline Phosphatase 87 U/L (39-117); Anion Gap 16 (12-20); Aspartate Amino Transferase 13 U/L (5-37); Bilirubin Total 0.9 mg/dL (0.0-1.0); Blood Urea Nitrogen 12 mg/dL (9-16); Calcium 9.1 mg/dL (8.4-10.2); Carbon Dioxide 23 mmol/L (22-29); Chloride 98 mmol/L (96-108); Estimated Glomerular Filt Rate > 60; Glucose Random 160 mg/dL (60-115); Potassium 3.2 mmol/L (3.3-5.1); Sodium 134 mmol/L (135-145); Total Protein 7.1 g/dL (6.5-8.0)
[2022-12-02 08:27] LABS: SLIDE REVIEW VERIFIED
[2022-12-02] MEDS: Metoprolol Succinate ER 100 MG TAB.ER.24H PO (09:26)
[2022-12-02] MEDS: Apixaban 5 MG TABLET PO ×2 (09:26→19:52)
[2022-12-02] MEDS: Amiodarone HCL 200 MG TABLET PO (09:27)
[2022-12-02] MEDS: Isosorbide Mononitrate 60 MG TAB.ER.24H PO (09:27)
[2022-12-02] MEDS: 0.9 % Sodium Chloride Flush 3 ML SYRINGE IVFLUSH ×3 (09:27→20:04)
[2022-12-02] MEDS: Atorvastatin Calcium 20 MG TABLET PO (09:27)
[2022-12-02] MEDS: Sulfamethox/Trimeth 800/160 TABLET 1 TAB PO ×2 (09:27→19:52)
[2022-12-02] MEDS: Clopidogrel Bisulfate 75 MG TABLET PO (09:27)
[2022-12-02] MEDS: Gabapentin 300 MG CAPSULE PO ×2 (09:27→19:52)
--- NOTE | 2022-12-02 09:36 | PC.NURSE ---
informed MD Snow of pts low potassium at 3.2. - wok to give lasix and plan to order K replacement at this time
[2022-12-02] MEDS: Valsartan 160 MG TABLET PO (09:44)
--- NOTE | 2022-12-02 09:58 | PM.CNCAR ---
History of Present Illness History of Present Illness Date of Service: 12/02/22 Requesting physician: Jason Lauren Consult reason: congestive heart failure Chief complaint: Shortness of breath Narrative: I was consulted to see Ferdinand in cardiology consultation today for decompensated congestive heart failure. He Ferdinand is a 72-year-old male with complicated cardiovascular history with prior history of CAD status post coronary artery bypass grafting including MAR to LAD, saphenous since graft to OM and saphenous is graft to the PDA. In 2020 he had symptoms angina and underwent a cardiac catheterization which time there was ostial PDA lesion that was attempted to be revascularize but was unsuccessful through the left radial approach. Since then he has been managed with medications with metoprolol and isosorbide and seems like he has been doing well as per the notes with angina but he said that he does get chest pressure when he walks a short distance. He was doing okay this year in May in July he was admitted twice with decompensated congestive heart failure both in the setting of atrial fibrillation. May underwent a JAYDE guided cardioversion subsequently in July he had recurrent atrial fibrillation and on office visit no symptoms however was admitted again with heart failure and underwent cardioversion again. He has been on amiodarone since then. He has also been on oral anticoagulation therapy. Also his maintain on Plavix therapy although there is no recent intervention. He has not had any major bleeding issues. No anemia. He has been doing well with presentation hospital sudden-onset shortness of breath. About a week ago he had injured his left toe after he had stopped it and has been told that he has a fracture in his left toe. He is currently not on any new medicines as I can tell. He said he has been very compliant with his other medications. Last LVEF of 50-55%. He said his Lasix dose was reduced but sometime back out from 40 mg to 20 mg and his valsartan was increased due to elevated blood pressure. He denies any prolonged palpitation irregular heartbeat. Denies any lightheadedness, syncope. Since yesterday he has been diuresed about 2500 cc. On admission chest x-ray was suggestive interstitial edema and BNP was in the mid 300 range Review of Systems Constitutional: Constitutional: Reports no additional constitutional complaints Eyes: Eyes: Reports no additional eye complaints Cardiovascular: Cardiovascular: Reports chest pain with activity, Denies leg edema, Denies lightheadedness, Denies palpitations, Reports dyspnea on exertion, Reports orthopnea and Reports paroxysmal nocturnal dyspnea Respiratory: Respiratory: Reports no additional respiratory complaints and Reports dyspnea on exertion Genitourinary: Genitourinary: Reports no additional male genitourinary complaints Musculoskeletal: Musculoskeletal: Reports other (Left foot pain) Neurologic: Reports system reviewed and no additional complaints, except as documented Psychiatric: Psychiatric: Reports no additional psychiatric complaints Endocrine: Endocrine: Denies palpitations [facility] Past Medical History Medical History CAD (coronary artery disease) CHF (congestive heart failure) COPD (chronic obstructive pulmonary disease) History of cardioversion History of prior cigarette smoking HTN (hypertension) Hyperlipidemia Ischemic cardiomyopathy Postoperative atrial fibrillation Stable angina Family History Family History Father CVD (cardiovascular disease) Mother CVD (cardiovascular disease) Surgical History Surgical History H/O knee surgery Hx of CABG S/P CABG x 3 Status post glaucoma surgery Social History Social History Household Members: Spouse Housing: House Do you presently have visiting nurse or other home services: No Alcohol intake: never Patient Tobacco Use Status: Former Tobacco user Quit Date: 2018 Years Smoked: 20 +/- Smoked in Last 30 Days: No Advance Directives: No Advance Directives Information Provided: Yes Nutrition Risks: No Nutritional Risk service: No Current occupational status: retired Meds Allergies Allergy/AdvReac Type Severity Reaction Status Date / Time latex [LATEX] Allergy Mild RASH Verified 12/02/22 02:15 nickel Allergy Unknown Rash Verified 12/02/22 02:15 ticagrelor [From Brilinta] Allergy Shortness Verified 12/02/22 02:15 of Breath Active Medications: Current Medications Acetaminophen (Acetaminophen 325 Mg Tablet) 650 mg PO Q6H PRN PRN Reason: Pain, Mild (Pain Scale 1-3) Albuterol/Ipratropium (Albuterol/Iprat 2.5/0.5mg 3 Ml Ampul.Neb) 3 ml INHALE RQ4H PRN PRN Reason: Shortness of Breath/Wheezing Amiodarone HCl (Amiodarone Hcl 200 Mg Tablet) 200 mg PO DAILY [facility] Last Admin: 12/02/22 09:27 Dose: 200 mg Apixaban (Apixaban 5 Mg Tablet) 5 mg PO BID [facility] Last Admin: 12/02/22 09:26 Dose: 5 mg Atorvastatin Calcium (Atorvastatin Calcium 20 Mg Tablet) 20 mg PO DAILY [facility] Last Admin: 12/02/22 09:27 Dose: 20 mg Clopidogrel Bisulfate (Clopidogrel Bisulfate 75 Mg Tablet) 75 mg PO DAILY [facility] Last Admin: 12/02/22 09:27 Dose: 75 mg Furosemide (Furosemide 40 Mg/4 Ml Vial) 40 mg IVPUSH DAILY [facility]; Protocol Last Admin: 12/02/22 09:44 Dose: 40 mg Gabapentin (Gabapentin 300 Mg Capsule) 300 mg PO BID [facility] Last Admin: 12/02/22 09:27 Dose: 300 mg Isosorbide Mononitrate (Isosorbide Mononitrate 60 Mg Tab.Er.24h) 60 mg PO DAILY [facility]; Protocol Last Admin: 12/02/22 09:27 Dose: 60 mg Lorazepam (Lorazepam 1 Mg Tablet) 1 mg PO DAILY PRN PRN Reason: Anxiety Metoprolol Succinate (Metoprolol Succinate Er 100 Mg Tab.Er.24h) 100 mg PO DAILY [facility]; Protocol Last Admin: 12/02/22 09:26 Dose: 100 mg Ondansetron HCl (Ondansetron Hcl 4 Mg/2 Ml Vial) 4 mg IVPUSH Q8H PRN PRN Reason: Nausea and Vomiting Potassium Chloride (Potassium Chloride Packet 20 Meq Packet) 40 meq PO BID [facility] Sodium Chloride (0.9 % Sodium Chloride Flush 3 Ml Syringe) 3 ml IVFLUSH QSHIFT [facility] Last Admin: 12/02/22 09:27 Dose: 3 ml Triamcinolone Acetonide (Triamcinolone Acet 0.5 % Cream 15 Gm Tube) 1 appl TOPICAL BID PRN PRN Reason: Rash Trimethoprim/Sulfamethoxazole (Sulfamethox/Trimeth 800/160 Tablet) 1 tab PO BID [facility] Last Admin: 12/02/22 09:27 Dose: 1 tab Valsartan (Valsartan 160 Mg Tablet) 160 mg PO DAILY [facility]; Protocol Last Admin: 12/02/22 09:44 Dose: 160 mg Home Medications Medication Instructions Recorded Confirmed Last Taken Type atorvastatin 20 mg tablet 20 mg PO DAILY 10/0812/02/22 07/19/22 History lorazepam 1 mg tablet 1 mg PO DAILY PRN Anxiety 01/04/21 12/02/22 05/17/22 History gabapentin 300 mg capsule 300 mg PO BID 07/05/21 12/02/22 07/19/22 History fluocinonide 0.05 % topical cream 1 appl topical BID PRN Rash 05/18/22 12/02/22 05/17/22 History escitalopram oxalate 20 mg tablet 20 mg PO DAILY 07/13/22 12/02/22 07/19/22 History hydroxyzine HCl 10 mg tablet 10 mg PO BEDTIME PRN Insomnia 07/13/22 12/02/22 07/18/22 History sulfamethoxazole 800 1 tab PO BID 12/02/22 12/02/22 Unknown History mg-trimethoprim 160 mg tablet Physical Exam Vital Signs: Vital Signs: Last Vital Signs Temp 97.8 F 12/02/22 02:09 Pulse 57 12/02/22 09:25 Resp 18 12/02/22 09:25 BP 145/66 H 12/02/22 09:25 Pulse Ox 96 12/02/22 09:25 O2 Del Method Nasal Cannula 12/02/22 09:25 O2 Flow Rate 2 12/02/22 09:25 BMI result Body Mass Index 27.5 Const: General: cooperative, comfortable, alert and awake Nutritional Appearance: average body habitus Orientation/consciousness: patient oriented x3 Limitations: no limitations HEENT: Head: Yes normocephalic and Yes atraumatic Neck: Neck: Yes trachea midline, Yes supple and Yes no JVD Resp: Effort & Inspection: normal respiratory effort Auscultation: crackles bilateral at the base Cardio: Palpation: normal PMI Rate: regular rate Rhythm: regular rhythm Heart sounds: S1 normal heart sound present, S2 normal heart sound present, no click, no gallops and no murmurs GI: Auscultation: normal bowel sounds Skin: General skin exam: no rashes or lesions noted Neuro: General: patient oriented x3 and no focal motor deficits Extrem: General: No clubbing, No cyanosis and No edema Objective Labs and Meds 12/02/22 07:51 12/02/22 07:51 Lab results: Laboratory Results - last 24 hr 12/02/22 12/02/22 12/02/22 02:28 02:28 02:28 WBC 11.8 H RBC 4.18 L Hgb 12.9 L Hct 38.0 L MCV 90.9 MCH 30.9 MCHC 33.9 RDW 13.4 Plt Count 218 MPV 10.0 Immature Gran % (Auto) 0.5 H Neut % (Auto) 82.1 H Lymph % (Auto) 7.2 L Davie % (Auto) 7.8 Eos % (Auto) 2.1 Baso % (Auto) 0.3 Lymph # (Auto) 0.9 L Davie # (Auto) 0.9 Eos # (Auto) 0.3 Baso # (Auto) 0.0 Abs Immat Gran (auto) 0.06 H Absolute Neuts (auto) 9.7 H Absolute Nucleated RBC 0.000 Nucleated RBC % (auto) 0.0 Smear Tech's Comments Sodium 130 L Potassium 3.6 Chloride 100 Carbon Dioxide 18 L Anion Gap 16 BUN 11 Creatinine 0.70 Estim Creat Clear Calc 96.4 Estimated GFR > 60 Random Glucose 135 H Calcium 8.6 Total Bilirubin 0.8 Direct Bilirubin 0.3 AST 19 ALT 11 Alkaline Phosphatase 78 Troponin I High Sens 7.3 B-Natriuretic Peptide Total Protein 6.7 Albumin 3.9 Lipase 61 Urine Color Urine Appearance Urine pH Ur Specific [place] Urine Protein Urine Glucose (UA) Urine Ketones Urine Blood Urine Nitrite Ur Leukocyte Esterase 12/02/22 12/02/22 12/02/22 02:28 06:03 07:51 WBC 9.9 RBC 4.41 L Hgb 13.7 L Hct 40.0 L MCV 90.7 MCH 31.1 MCHC 34.3 RDW 13.2 Plt Count 221 MPV 9.8 Immature Gran % (Auto) 0.7 H Neut % (Auto) 94.1 H Lymph % (Auto) 3.8 L Davie % (Auto) 1.2 L Eos % (Auto) 0.1 Baso % (Auto) 0.1 Lymph # (Auto) 0.4 L Davie # (Auto) 0.1 Eos # (Auto) 0.0 Baso # (Auto) 0.0 Abs Immat Gran (auto) 0.07 H Absolute Neuts (auto) 9.3 H Absolute Nucleated RBC 0.000 Nucleated RBC % (auto) 0.0 Smear Tech's Comments VERIFIED Sodium Potassium Chloride Carbon Dioxide Anion Gap BUN Creatinine Estim Creat Clear Calc Estimated GFR Random Glucose Calcium Total Bilirubin Direct Bilirubin AST ALT Alkaline Phosphatase Troponin I High Sens B-Natriuretic Peptide 311 H Total Protein Albumin Lipase Urine Color Yellow Urine Appearance Clear Urine pH 7.0 Ur Specific [place] <= 1.005 Urine Protein Negative Urine Glucose (UA) Negative Urine Ketones Negative Urine Blood Negative Urine Nitrite Negative Ur Leukocyte Esterase Negative 12/02/22 07:51 WBC RBC Hgb Hct MCV MCH MCHC RDW Plt Count MPV Immature Gran % (Auto) Neut % (Auto) Lymph % (Auto) Davie % (Auto) Eos % (Auto) Baso % (Auto) Lymph # (Auto) Davie # (Auto) Eos # (Auto) Baso # (Auto) Abs Immat Gran (auto) Absolute Neuts (auto) Absolute Nucleated RBC Nucleated RBC % (auto) Smear Tech's Comments Sodium 134 L Potassium 3.2 L Chloride 98 Carbon Dioxide 23 Anion Gap 16 BUN 12 Creatinine 0.75 Estim Creat Clear Calc 90.0 Estimated GFR > 60 Random Glucose 160 H Calcium 9.1 Total Bilirubin 0.9 Direct Bilirubin AST 13 ALT 11 Alkaline Phosphatase 87 Troponin I High Sens B-Natriuretic Peptide Total Protein 7.1 Albumin 4.4 Lipase Urine Color Urine Appearance Urine pH Ur Specific [place] Urine Protein Urine Glucose (UA) Urine Ketones Urine Blood Urine Nitrite Ur Leukocyte Esterase EKG shows normal sinus rhythm with nonspecific intraventricular conduction delay Imaging Radiologist's impression: Impressions Chest X-Ray 12/02/22 02:58 IMPRESSION: Mild interstitial edema. Assessment and Plan (1) Acute exacerbation of CHF (congestive heart failure): Status: Acute Patient admitted with acute congestive heart failure of of unclear etiology. He did not have any significant anginal symptoms prior going to heart failure. However ischemia still likely. I will continue his current medical therapy. Continue diuresis for 1 more day. Add Aldactone 12.5 mg to his regimen. Continue rhythm control approach. Strict intake and output chart needs to be pursued. Out of bed to chair today and if doing well plan for discharge tomorrow. Repeat BNP tomorrow. Repeat renal function tomorrow and replace electrolytes as needed. Echocardiogram later today. (2) Paroxysmal atrial fibrillation: Status: Acute Paroxysmal atrial fibrillation without any obvious recurrence at this point in time. Continue amiodarone therapy. Continue full oral anticoagulation with Eliquis 5 mg b.i.d.. He has done well with rhythm control approach will continue pursue rhythm control approach. (3) CAD (coronary artery disease): Status: Acute CAD with prior disease in the PDA that is not revascularize with inferior ischemia. Follow-up echocardiogram today. He complains of exertional chest pressure when he walks at home. He is on dual antianginal therapy with metoprolol and isosorbide. Please add Ranexa 500 mg b.i.d. to his regimen. May need to consider repeat revascularization from femoral approach Will continue to follow with you Time Spent With Patient Time: Total time managing care of this patient today ____ minutes. Procedures Date of Service Date of Service: 12/02/22
[2022-12-02] MEDS: Potassium Chloride Packet 20 MEQ PACKET 40 MEQ PO ×2 (10:50→20:02)
--- NOTE | 2022-12-02 16:12 | PM.EVENT ---
Event Note Date of Service: 12/02/22 Event Note: Chart reviewed patient examined. Agree with history and physical and plan as outlined. Cardiology notes reviewed. Med changes implemented. Time Spent With Patient Time: Total time managing care of this patient today ____ minutes.
[2022-12-02] MEDS: Spironolactone 25 MG TABLET 12.5 MG PO (17:25)
[2022-12-02] MEDS: Ranolazine 500 MG TAB.ER.12H PO ×2 (17:25→19:52)
[2022-12-03 02:59] VITALS: BP 125/62; PULSE 60; RESP 18; TEMP 36.7; O2SAT 97
[2022-12-03 06:00] VITALS: BMI 25.6
[2022-12-03 07:27] VITALS: BP 145/80; PULSE 59; RESP 16; TEMP 37.1; O2SAT 96
[2022-12-03] MEDS: Potassium Chloride Packet 20 MEQ PACKET 40 MEQ PO (08:42)
[2022-12-03] MEDS: Clopidogrel Bisulfate 75 MG TABLET PO (08:43)
[2022-12-03] MEDS: Metoprolol Succinate ER 100 MG TAB.ER.24H PO (08:43)
[2022-12-03] MEDS: Ranolazine 500 MG TAB.ER.12H PO (08:43)
[2022-12-03] MEDS: Spironolactone 25 MG TABLET 12.5 MG PO (08:43)
[2022-12-03] MEDS: Atorvastatin Calcium 20 MG TABLET PO (08:43)
[2022-12-03] MEDS: Sulfamethox/Trimeth 800/160 TABLET 1 TAB PO (08:43)
[2022-12-03] MEDS: Valsartan 160 MG TABLET PO (08:43)
[2022-12-03] MEDS: Apixaban 5 MG TABLET PO (08:43)
[2022-12-03] MEDS: Isosorbide Mononitrate 60 MG TAB.ER.24H PO (08:44)
[2022-12-03] MEDS: Amiodarone HCL 200 MG TABLET PO (08:44)
[2022-12-03] MEDS: Gabapentin 300 MG CAPSULE PO (08:44)
[2022-12-03] MEDS: Furosemide 40 MG/4 ML VIAL IVPUSH (08:48)
[2022-12-03] MEDS: 0.9 % Sodium Chloride Flush 3 ML SYRINGE IVFLUSH (08:49)
--- NOTE | 2022-12-03 11:25 | MHC.CM.PN ---
IMM 12/03/22. Interview conducted w/Pt's . Pt lives w/. Owns cane, walker, BP machine and pulse ox device. He has never been in a SNF. D/C plan is to return to home w/ via . CM to follow.
[2022-12-03 11:31] VITALS: BP 141/81; PULSE 60; RESP 16; TEMP 36.6; O2SAT 95
--- NOTE | 2022-12-03 14:41 | P.DS_ITS ---
DS: Providers Provider Date of Service: 12/03/22 Date of admission: 12/02/22 05:49 Date of discharge: 12/03/22 Primary care physician: Reena Dickson PA-C Consults: 12/02/22 05:48 Consult to Cardiology Routine Consulting Provider: [facility] [place] Cardiovascular Services Reason for consultation: aCUTE CHF Has provider been notified: No DS: Diagnosis Discharge Diagnosis (1) Acute exacerbation of CHF (congestive heart failure): Status: Acute (2) Paroxysmal atrial fibrillation: Status: Acute (3) CAD (coronary artery disease): Status: Acute DS: Summary Hospital Course Hospital Course: 72-year-old male with past medical history of CHF with preserved ejection fraction, COPD, history of CAD status post CABG, HTN, HLD, history of stable angina, paroxysmal AFib comes in the hospital with complaints of shortness of breath, orthopnea and PND.? Denies any lower extremity edema.? Patient reports her symptoms started 2 days ago worsened were tonight he could not lay flat and had to come into the hospital for oxygen.? He denies any cough, no sputum production.? No fever or chills.States that about a week ago he almost broke his toe on the right foot, had to be seen at the [facility] and was given antibiotics for cellulitis. On arrival to the ED patient hemodynamically stable with heart rate of 65 and respiratory rate of 32 ,? satting 88% on room air Labs are significant for WBC count of 11.8, hemoglobin of 12.9, hematocrit 38, BNP of 311, sodium of 130, labs other. ER workup consistant with Acute CHF Hospital Course Patient admitted to general medical floor on telemetry. Throughout his hospitalization monitor demonstrated sinus rhythm without issue. He was seen in consultation by Cardiology who recommended IV diuresis with the addition of Aldactone 12.5 mg daily to his regimen. Repeat 2D echo to demonstrated moderate increase in left ventricular wall thickness. Estimated ejection fraction between 50 and 55%. Dopplers indicative of impaired relaxation filling pattern. He will responded very well to Lasix over the course of the next 24 hours. Per Cardiology, patient underwent catheterization recently however DEMETRI Chavez could not be accessed. Patient continues to have exertional angina symptoms. Given such, Cardiology added Ranexa 500 b.i.d.. At the time of this dictation he is markedly improved and is medically acceptable for discharge home. Cardiology will arrange follow-up to occur straight further workup. Time Spent with Patient Time attestation: Total time managing care of this patient today ____ minutes. Discharge coordination time: Greater than 30 minutes Quality: Safe Use of Opioids Does Pt have an Active Cancer Diagnosis on the Problem List?: No Quality: Stroke Does the patient have a stroke diagnosis?: No Physical Exam Vital Signs: Vital Signs: Last Vital Signs Temp 97.9 F 12/03/22 11:31 Pulse 60 12/03/22 11:31 Resp 16 12/03/22 11:31 BP 141/81 H 12/03/22 11:31 Pulse Ox 95 12/03/22 11:31 O2 Del Method Room Air 12/03/22 11:31 O2 Flow Rate 0.1 12/02/22 11:19 BMI result Body Mass Index 25.6 Const: Other: Awake alert no acute distress Resp: Other: Clear to auscultation bilaterally no rales rhonchi or wheezes Cardio: Other: No S4; positive S1-S2; no S3 murmurs rubs or gallops GI: Other: Soft nontender nondistended normoactive bowel sounds Extrem: Other: No edema bilaterally DS: Data Data Completed and Pending Completed studies during hospitalization [Text1]: Procedures [employer] of Cardiac Rhythm, Single (07/21/22) Discharge Plan Discharge Anticipated Discharge Date/Time: 12/03/22 14:32 Patient Disposition: Home, Self-Care Discharge Diagnosis: Acute exacerbation CHF Referrals: Reena Dickson PA-C [Primary Care Provider] - 1 Week Discharge Medications: New spironolactone 25 mg Tablet 12.5 mg PO DAILY Qty: 30 0RF Protocol: Hold for SBP< HOLD for SBP < : 90 ranolazine 500 mg Tablet Extended Release 12 Hr 500 mg PO BID Qty: 60 0RF Continued clopidogrel [Plavix] 75 mg tablet 75 mg PO DAILY Qty: 90 3RF isosorbide mononitrate 60 mg tablet extended release 24 hr 60 mg PO DAILY Qty: 90 3RF Eliquis 5 mg tablet 5 mg PO BID 90 Days Qty: 180 2RF furosemide [Lasix] 20 mg tablet 20 mg PO DAILY Qty: 90 2RF metoprolol succinate 100 mg tablet extended release 24 hr 100 mg PO DAILY 90 Days Qty: 90 2RF Protocol: Hold for SBP/HR < HOLD for SBP < : 90 HOLD for HR < : 60 amiodarone 200 mg tablet 200 mg PO DAILY Qty: 90 2RF fluocinonide 0.05 % cream 1 appl topical BID PRN (Reason: Rash) Rx Instructions: apply to either back of legs, ankles, or scalp depending on affected area escitalopram oxalate 20 mg tablet 20 mg PO DAILY hydroxyzine HCl 10 mg tablet 10 mg PO BEDTIME PRN (Reason: Insomnia) atorvastatin 20 mg tablet 20 mg PO DAILY lorazepam 1 mg tablet 1 mg PO DAILY PRN (Reason: Anxiety) gabapentin 300 mg capsule 300 mg PO BID valsartan 160 mg tablet 160 mg PO DAILY Qty: 90 3RF Discontinued sulfamethoxazole-trimethoprim 800-160 mg tablet 1 tab PO BID Discharge Orders: Discharge Order (Routine); Ordered 12/03/22 Ordered By: Jason Lauren Diet: Advance to usual diet Activity on Discharge: As tolerated Stand Alone Forms: Patient Portal Discharge page Care Plan Goals: Continue all medicine as taken outpatient Health Concerns: Add Ranolazin 500 mg twice daily and spironolactone 12.5 mg daily as ordered Plan of Treatment: Dr. Joshi office will call you to arrange follow-up Assessment: See discharge summary
--- NOTE | 2022-12-03 14:48 | PM.PNCARD ---
Subjective Subjective Date of Service: 12/03/22 Principal diagnosis: CHF Interval history: Patient feels a lot better than yesterday. Pressure is slightly elevated but better controlled. Echocardiogram shows low normal LVEF with moderate aortic stenosis and RCA territory wall motion abnormality. No arrhythmias noted no atrial fibrillation noted. Review of Systems Review of Systems Yes all other systems are reviewed and are negative Physical Exam Vital Signs: Last Vital Signs Temp 97.9 F 12/03/22 11:31 Pulse 60 12/03/22 11:31 Resp 16 12/03/22 11:31 BP 141/81 H 12/03/22 11:31 Pulse Ox 95 12/03/22 11:31 O2 Del Method Room Air 12/03/22 11:31 O2 Flow Rate 0.1 12/02/22 11:19 BMI result Body Mass Index 25.6 Const General: cooperative, comfortable, alert and awake Nutritional Appearance: average body habitus Orientation/consciousness: patient oriented x3 Limitations: no limitations Neck Neck: Yes trachea midline, Yes supple and Yes no JVD Resp Effort & Inspection: normal respiratory effort Auscultation: crackles bilateral at the base Cardio Palpation: normal PMI Rate: regular rate Rhythm: regular rhythm Heart sounds: S1 normal heart sound present, S2 normal heart sound present, no click, no gallops and Murmur heart sound present systolic mid GI Auscultation: normal bowel sounds Skin General skin exam: no rashes or lesions noted Neuro General: patient oriented x3 and no focal motor deficits Extrem General: No clubbing, No cyanosis and No edema Objective Labs and Meds 12/02/22 07:51 12/02/22 07:51 Progress Note: A&P Assessment and plan (1) Acute exacerbation of CHF (congestive heart failure): Status: Acute Assessment and Plan: Acute congestive heart failure with preserved LV systolic function moderate LVH. Cause is not exactly clear. However I thing it can be discharged home. Workup outpatient with renal duplex to rule out significant renal artery stenosis given his diffuse vascular disease and aortic atherosclerosis. Clinically appears much euvolemic and well compensated. Heart failure management discussed in details. Continue current therapy with Lasix 40 mg daily and has required additional doses. Continue spironolactone therapy. Follow-up in 2 weeks time after renal duplex. Continue rhythm control approach. (2) Paroxysmal atrial fibrillation: Status: Acute Assessment and Plan: Continue rhythm control approach which has served him well. Continue amiodarone therapy. However this admission was despite patient being in sinus rhythm. Continue full oral anticoagulation Eliquis. Will follow-up with outpatient Holter monitor. (3) CAD (coronary artery disease): Status: Acute Assessment and Plan: CAD with prior coronary bypass grafting with significant stenosis in. The could not be intervened upon. Continues to have exertional angina. Started on Ranexa therapy. Outpatient cardiac rehab can be considered for stable angina. Continue metoprolol and isosorbide therapy. Continue aggressive vascular risk factor modification. Currently on Plavix therapy. Continue high-intensity statin therapy. (4) Aortic stenosis: Status: Acute Assessment and Plan: Aortic stenosis which appears to be moderate. No interventions required I do not think this is because of his heart failure. Will follow up in the clinic in 2 weeks time, sooner p.r.n.. Thank you for allowing me to partake in his care Time Spent With Patient Time: Total time managing care of this patient today ____ minutes. Progress Note: Quality Stroke Does the patient have a stroke diagnosis?: No Procedures Date of Service Date of Service: 12/03/22
--- NOTE | 2022-12-03 15:00 | MHC.CM.PN ---
order for home, self care. CM acknowledged.
[2022-12-03 15:27] VITALS: BP 148/76; PULSE 75; RESP 18; TEMP 36.3; O2SAT 95
== END 2022-12-03 15:50 | disposition home or self-care (01) | DRG 291 ==
LOC: HO.ED 04:47 → HO.EDOVER 06:28 → HO.IMC 09:13
PROVIDERS: Admitting Provider Internal Medicine; Emergency Provider Emergency Medicine; PCP Internal Medicine Cardiovascular Disease; Visit Provider Hospitalist
DX: I11.0 Hypertensive heart disease with heart failure (principal); I50.33 Acute on chronic diastolic (congestive) heart failure; E87.1 Hypo-osmolality and hyponatremia; I48.0 Paroxysmal atrial fibrillation; I25.118 Atherosclerotic heart disease of native coronary artery with other forms of angina pectoris; J44.9 Chronic obstructive pulmonary disease, unspecified; D72.829 Elevated white blood cell count, unspecified; I35.0 Nonrheumatic aortic (valve) stenosis; E86.1 Hypovolemia; Z91.040 Latex allergy status; Z95.1 Presence of aortocoronary bypass graft; Z87.891 Personal history of nicotine dependence; Z79.01 Long term (current) use of anticoagulants; Z79.02 Long term (current) use of antithrombotics/antiplatelets; Z79.899 Other long term (current) drug therapy
CPT/HCPCS: 36415; 71045; 80048; 80053; 80076; 81003; 83690; 83880; 84484; 85025; 93005; 93306; 99285; J1940; Q9957

== ENCOUNTER → 2022-12-02 02:16 | Outpatient (BNV) | payer MEDICARE, SELFPAY | PROVIDERS: Admitting Provider Internal Medicine; Emergency Provider Emergency Medicine; PCP Internal Medicine Cardiovascular Disease; Visit Provider Internal Medicine Cardiovascular Disease | DX: I35.0 Nonrheumatic aortic (valve) stenosis (principal); I34.81 Nonrheumatic mitral (valve) annulus calcification | CPT/HCPCS: 93010; 93306 ==

== ENCOUNTER → 2022-12-02 02:27 | Outpatient (BNV) | payer MEDICARE, SELFPAY | PROVIDERS: Emergency Provider Emergency Medicine; PCP Internal Medicine Cardiovascular Disease; Visit Provider Internal Medicine | DX: I50.9 Heart failure, unspecified (principal); I48.0 Paroxysmal atrial fibrillation; I25.10 Atherosclerotic heart disease of native coronary artery without angina pectoris | CPT/HCPCS: 99223; 99239; 99499 ==

== ENCOUNTER → 2022-12-02 05:49 | Outpatient (BNV) | payer MEDICARE, SELFPAY | PROVIDERS: Admitting Provider Internal Medicine; Emergency Provider Emergency Medicine; PCP Internal Medicine Cardiovascular Disease; Visit Provider Internal Medicine Cardiovascular Disease | DX: I50.9 Heart failure, unspecified (principal); I48.0 Paroxysmal atrial fibrillation; I25.10 Atherosclerotic heart disease of native coronary artery without angina pectoris; I35.0 Nonrheumatic aortic (valve) stenosis | CPT/HCPCS: 99222; 99232 ==

== ENCOUNTER 2022-12-08 13:26 | Outpatient (REF) | payer MEDICARE, SELFPAY ==
--- NOTE | 2022-12-08 14:18 | PFT_ITS ---
INDICATION: Therapeutic drug monitoring. SPIROMETRY: FEV1 to FVC of 49% with an FEV1 of 1.74 L, which is 60% predicted with an FVC of 3.57 L, which is 89% of predicted. There was a significant response to bronchodilators noted. Maximum voluntary ventilation 42% predicted. LUNG VOLUMES: Total lung capacity of 94% predicted with residual volume 122% predicted. DIFFUSION CAPACITY: DLCO of 62% predicted. COMPARISONS: None. INTERPRETATION: There is an obstructive ventilatory defect consistent with moderate COPD. There is a significant response to bronchodilators noted. There is also a moderate to severe decrease in the maximum voluntary ventilation, which could be secondary to deconditioning in addition to worsening dynamic inspiratory capacity. Lung volumes are within normal limits, and there is evidence of air trapping due to COPD. There is also a mild to moderate diffusion impairment likely secondary to empyematous, although parenchymal lung conditions cannot be ruled out. Close monitoring warranted, especially if medications that can result in worsening lung capacity. MD RAMIREZ Lira/MODL / [id number]
== END 2022-12-08 13:27 | disposition home or self-care (01) ==
LOC: HO.RESP 13:26
PROVIDERS: Visit Provider Internal Medicine Cardiovascular Disease
DX: Z51.81 Encounter for therapeutic drug level monitoring (principal)
CPT/HCPCS: 94010; 94727; 94729

== ENCOUNTER → 2022-12-08 14:18 | Outpatient (BNV) | payer MEDICARE, SELFPAY | PROVIDERS: Visit Provider Hospitalist | DX: Z79.899 Other long term (current) drug therapy (principal) | CPT/HCPCS: 94060; 94727; 94729 ==

== ENCOUNTER 2022-12-22 11:01 | Outpatient (REF) | payer MEDICARE, SELFPAY ==
--- NOTE | ~2022-12-22 | US_ITS ---
EXAMINATION: US RETROPERITONEAL LIMITED (RENAL ONLY) and renal Doppler exam CLINICAL INFORMATION: Essential primary hypertension. COMPARISON: None available. TECHNIQUE: Grayscale and color imaging of the kidneys. Grayscale color and Doppler imaging of the renal arteries and renal veins including waveform spectral analysis FINDINGS: RIGHT KIDNEY: 11 x 6.3 x 7.3 cm (SAG x AP x TRV). The kidney is normal in size, contour, and echogenicity. Renal cortical thickness is normal. No calculi or focal parenchymal lesions. No hydronephrosis. LEFT KIDNEY: 10 x 5.3 x 4.8 cm (SAG x AP x TRV). The kidney is normal in size, contour, and echogenicity. Renal cortical thickness is normal. 2 simple cysts measuring 1.7 x 1.3 x 1.5 cm in the upper pole and 0.9 x 0.6 x 1 cm in the midpole. No imaging follow-up recommended. No calculi or other focal parenchymal lesions. No hydronephrosis. Aortic peak systolic velocity measures 79 cm/s. There is atherosclerotic disease of the aorta. The right renal artery is patent. Right renal artery peak systolic velocities measure 165, 103 and 94 cm/s proximally, in the midportion and distally. Right renal artery to aorta ratio measures 2.1. Resistive indices of the segmental renal arteries in the right kidney are minimally elevated measuring 0.8. The right renal vein is patent. There is borderline elevation of peak systolic velocity in the left proximal renal artery measuring 189 cm/s. Peak systolic velocity in the mid and distal left renal artery are normal measuring 153 and 52 cm/s. Left renal artery to aorta ratio measures 2.4 cm. There is minimal elevation of the resistive indices of the segmental renal arteries in the left kidney measuring 0.8. The left renal vein is patent. US/US renal doppler IMPRESSION: 1. Normal size kidneys. 2. Normal right renal artery. Minimally elevated left renal artery proximal peak systolic velocity suggestive of less than 60% left renal artery stenosis.
--- NOTE | 2022-12-22 11:54 | HM_ITS ---
Conclusion: 1. Patient was monitored for total period of 2 days 2. Baseline was normal sinus rhythm with average heart of 59 beats per minute 3. Frequent sinus bradycardia noted with 42% of time heart rate below 60 beats per minute 4. No significant pauses noted 5. Occasional PACs noted 6. Patient activated marker 1 time without reporting symptoms correlating with sinus bradycardia. MTDD
== END 2022-12-22 11:02 | disposition home or self-care (01) ==
LOC: HO.US 11:01
PROVIDERS: Visit Provider Internal Medicine Cardiovascular Disease
DX: E87.1 Hypo-osmolality and hyponatremia (principal); I11.0 Hypertensive heart disease with heart failure; I50.9 Heart failure, unspecified; I25.5 Ischemic cardiomyopathy; I48.0 Paroxysmal atrial fibrillation
CPT/HCPCS: 76775; 93225; 93975

== ENCOUNTER → 2022-12-22 11:54 | Outpatient (BNV) | payer MEDICARE, SELFPAY | PROVIDERS: Visit Provider Internal Medicine Cardiovascular Disease | DX: R00.1 Bradycardia, unspecified (principal) | CPT/HCPCS: 93227 ==

== ENCOUNTER 2023-01-02 09:43 | Outpatient (AMB) | payer MEDICARE, SELFPAY ==
[2023-01-02 10:02] VITALS: BP 140/90; PULSE 58; BMI 26.2
--- NOTE | 2023-01-02 10:02 | MHC.OFFVIS ---
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: No Allergies latex [LATEX] Allergy (Mild, Verified 01/02/23 10:08) RASH nickel Allergy (Unknown, Verified 01/02/23 10:08) Rash ticagrelor [From Brilinta] Allergy (Verified 01/02/23 10:08) Shortness of Breath Medication List - Last Reconciled 01/02/23 by SCHUYLER LermaC amiodarone 200 mg PO DAILY apixaban (Eliquis) 5 mg PO BID 90 days atorvastatin 20 mg PO DAILY clopidogrel (Plavix) 75 mg PO DAILY escitalopram oxalate 20 mg PO DAILY fluocinonide 0.05% 1 appl topical BID PRN furosemide (Lasix) 20 mg PO DAILY gabapentin 300 mg PO BID hydroxyzine HCl 10 mg PO BEDTIME PRN isosorbide mononitrate ER 60 mg PO DAILY lorazepam 1 mg PO DAILY PRN metoprolol succinate ER 100 mg See Protocol PO DAILY 90 days ranolazine ER 500 mg PO BID spironolactone 25 mg See Protocol PO DAILY valsartan 160 mg PO DAILY HPI [facility] FUP AFTER HOLTER + LABS + RENAL U S HPI Details Ferdinand is a 72-year-old male with past medical history of hypertension, hyperlipidemia, paroxysmal AFib, CAD status post Coronary artery bypass grafting, stable angina who was recently admitted to [facility] for shortness of breath and treated for decompensated heart failure. He was discharged with Aldactone. Outpatient Holter monitor and renal duplex were done and he now presents for follow-up. Today he reports that he has been feeling generally well since his hospital discharge. He has some shortness of breath at times. He sleeps with 3 pillows which is his norm. His prior chest discomfort has improved some with the addition of Ranexa. He does get a pressure sensation in the left upper chest as well as intermittent stabbing pains in the mid chest. He has noticed less of these symptoms recently. No PND. Edema. No presyncope, syncope, falls. Takes all meds as directed. Did not take his meds yet today [facility] Medical History (Updated 01/02/23 @ 11:32 by Aziza Roe NP-C) Aortic stenosis CAD (coronary artery disease) CHF (congestive heart failure) Chronic hyponatremia Congestive heart failure COPD (chronic obstructive pulmonary disease) History of cardioversion History of prior cigarette smoking HTN (hypertension) Hyperlipidemia Ischemic cardiomyopathy Leukocytosis Paroxysmal atrial fibrillation Postoperative atrial fibrillation Stable angina Surgical History H/O knee surgery Hx of CABG S/P CABG x 3 Status post glaucoma surgery Family History Father CVD (cardiovascular disease) Mother CVD (cardiovascular disease) Social History Household Members: Spouse Housing: House Do you presently have visiting nurse or other home services: No Alcohol intake: never Patient Tobacco Use Status: Former Tobacco user Quit Date: 2018 Years Smoked: 20 +/- service: No Current occupational status: retired Review of Systems Const All systems reviewed & are unremarkable except as noted in HPI and below ENT Denies dizziness Card Reports chest pain, Reports chest pain at rest, Reports chest pain with activity, Denies rapid heart rate, Denies pedal edema, Denies edema, Denies leg edema, Denies lightheadedness, Denies palpitations, Reports dyspnea, Reports dyspnea on exertion and Denies orthopnea Resp Denies cough, Reports dyspnea and Reports dyspnea on exertion GI Denies hematochezia and Denies change in stool character Musc Denies abnormal gait, Denies limited range of motion, Denies muscle cramps, Denies muscle weakness, Denies numbness, Denies radiating pain into limb, Denies stiffness and Denies tingling Neuro Denies abnormal gait, Denies dizziness, Denies numbness and Denies tingling Endo Denies palpitations Physical Exam Vital Signs: Last Vital Signs Pulse 58 01/02/23 10:02 BP 140/90 H 01/02/23 10:02 BMI result Body Mass Index 26.2 Const General: cooperative, healthy appearing, comfortable and no acute distress Orientation/consciousness: patient oriented x3 Neck Neck: Yes normal visual inspection Resp Effort & Inspection: normal respiratory effort Auscultation: clear to auscultation bilaterally, no crackles, no rales, no rhonchi and no wheezes Cardio Jugular venous distension: no JVD Rate: regular rate Rhythm: regular rhythm Heart sounds: S1 normal heart sound present, S2 normal heart sound present, no gallops, no murmurs and no rubs Neuro General: patient oriented x3 Extrem General: Yes normal to inspection Psych Appearance: grossly normal Mental Status: mental status grossly normal Speech and movement: Normal speech and movement present Office Procedures EKG Details: Today, read by me, sinus bradycardia, nonspecific AV block, LVH, nonspecific ST abnormalities, rate 53, unchanged from prior EKG, rate 53, QTC 499 milliseconds [id number], Complete Assessment & Plan Assessment & Plan (1) Stable angina: Comment: Cardiac catheterization has shown stable disease with severe blockage in the PDA. We tried to stent but we were unsuccessful because of significant procedure complexities. Code(s): I20.8 - Other forms of angina pectoris Plan: History of stable angina with known severe disease right PDA. During recent hospitalization Ranexa was added. He does report some improvement in his symptoms in recent weeks. He continues to get and periodically pressure in the left upper chest and sharp pains in the mid chest which can occur randomly and with activities. He continues on metoprolol and isosorbide. Will continue Ranexa at current dose. Overall he is pleased with how he is feeling. (2) Hx of CABG: Code(s): Z95.1 - Presence of aortocoronary bypass graft (3) Ischemic cardiomyopathy: Code(s): I25.5 - Ischemic cardiomyopathy Plan: Echocardiogram done 12/02/2022 shows EF 50-55%, moderate , moderate left atrial enlargement. No report of regional wall motion abnormality. On examination today he does not appear to have signs of decompensated heart failure. He is on Lasix 20 mg daily but tells me he takes extra doses periodically. According to the discharge information he should be on 40 mg daily. His blood pressure is elevated today. Will increase his Lasix up to 40 mg daily with additional dose as needed. Continue metoprolol, valsartan for neurohormonal modulation. Continue Aldactone, Lasix. Signs and symptoms of heart failure reviewed with him. (4) Congestive heart failure: Code(s): I50.9 - Heart failure, unspecified Plan: As above (5) Aortic stenosis: Code(s): I35.0 - Nonrheumatic aortic (valve) stenosis Plan: Moderate . Will continue to follow with periodic echo (6) HTN (hypertension): Comment: Blood pressure is mildly elevated Code(s): I10 - Essential (primary) hypertension Plan: Blood pressure elevated today. Renal duplex done on 12/22/2022 showed minimally elevated renal artery velocity on the left, less than 60% stenosis. Prior blood pressure is elevated as well. Will be increasing his Lasix to his previously ordered dose. He tells me he has been taking Aldactone at 25 mg daily. Will continue that dose. (7) Hospital discharge follow-up: Code(s): Z09 - Encounter for follow-up examination after completed treatment for conditions other than malignant neoplasm (8) COPD (chronic obstructive pulmonary disease): Code(s): J44.9 - Chronic obstructive pulmonary disease, unspecified Medications: New spironolactone 25 mg See Protocol PO DAILY 90 tabs 3RF furosemide (Lasix) additional dose as needed for shortness of breath or swelling. 40 mg PO DAILY 90 days 120 tabs 1RF Changed From ranolazine ER 500 mg PO BID 60 tabs 0RF To ranolazine ER 500 mg PO BID 90 days 180 tabs 3RF Discontinued furosemide (Lasix) Discontinued Reason: Doctor's Order 20 mg PO DAILY 90 tabs 2RF Coding Level of Care Code Est Pt Level 4 (69803) Diagnoses Stable angina I20.8 Hx of CABG Z95.1 Ischemic cardiomyopathy I25.5 Congestive heart failure I50.9 Aortic stenosis I35.0 HTN (hypertension) I10 Hospital discharge follow-up Z09 COPD (chronic obstructive pulmonary disease) J44.9 CPT Codes EKG - CPT: [id number], Complete ([id number]) Time Spent (min) 28 Comment Chart review, documentation, interview, assessment
== END 2023-01-02 11:14 | disposition home or self-care (01) ==
PROVIDERS: PCP Internal Medicine Cardiovascular Disease; Visit Provider Nurse Practitioner Family
DX: I20.8 Other forms of angina pectoris (principal); Z95.1 Presence of aortocoronary bypass graft; I25.5 Ischemic cardiomyopathy; I50.9 Heart failure, unspecified; I35.0 Nonrheumatic aortic (valve) stenosis; I10 Essential (primary) hypertension; Z09 Encounter for follow-up examination after completed treatment for conditions other than malignant neoplasm; J44.9 Chronic obstructive pulmonary disease, unspecified
CPT/HCPCS: 93010; 99214

== ENCOUNTER → 2023-01-02 09:43 | Outpatient (BNVA) | payer MEDICARE, SELFPAY | PROVIDERS: PCP Internal Medicine Cardiovascular Disease; Visit Provider Nurse Practitioner Family | DX: I20.8 Other forms of angina pectoris (principal); I25.5 Ischemic cardiomyopathy; I48.0 Paroxysmal atrial fibrillation; I35.0 Nonrheumatic aortic (valve) stenosis; I10 Essential (primary) hypertension; J44.9 Chronic obstructive pulmonary disease, unspecified; Z95.1 Presence of aortocoronary bypass graft; Z09 Encounter for follow-up examination after completed treatment for conditions other than malignant neoplasm | CPT/HCPCS: 93005; 99212 ==

== ENCOUNTER 2023-02-09 10:02 | Outpatient (AMB) | payer MEDICARE, SELFPAY ==
[2023-02-09 10:06] VITALS: BP 120/60; PULSE 71; O2SAT 95; BMI 25.8
--- NOTE | 2023-02-09 10:06 | MHC.OFFVIS ---
Intake Vital Signs 02/09/23 10:06 Height 5 ft 7 in Weight 165 lb BMI 25.8 BP 120/60 Blood Pressure Location Lt brachial Position Sitting Pulse 71 Pulse Source Pulse Oximeter Pulse Oximetry (%) 95 Oxygen Delivery Method Room Air Intake Visit Reasons: COPD Intake Note: pt is here for COPD, he is unsure of this dx, he states he does cough, wheeze and some shortness of breath, and he sleeps well. 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 Allergies latex [LATEX] Allergy (Mild, Verified 02/09/23 11:51) RASH nickel Allergy (Unknown, Verified 02/09/23 11:51) Rash ticagrelor [From Brilinta] Allergy (Verified 02/09/23 11:51) Shortness of Breath Medication List - Last Reconciled 02/09/23 by Yovani Conti MD amiodarone 200 mg PO DAILY apixaban (Eliquis) 5 mg PO BID 90 days atorvastatin 20 mg PO DAILY clopidogrel (Plavix) 75 mg PO DAILY escitalopram oxalate 20 mg PO DAILY fluocinonide 0.05% 1 appl topical BID PRN furosemide (Lasix) 40 mg PO DAILY 90 days hydroxyzine HCl 10 mg PO BEDTIME PRN isosorbide mononitrate ER 60 mg PO DAILY metoprolol succinate ER 100 mg See Protocol PO DAILY 90 days ranolazine ER 500 mg PO BID 90 days spironolactone 25 mg See Protocol PO DAILY valsartan 160 mg PO DAILY Do you need a note to return to daycare/school/sports/work: No HPI COPD HPI Details THIS 72 YEARS OLD GENTLEMAN IS BEING SEEN FOR THE 1ST TIME, FOR PULMONARY EVALUATION AND MANAGEMENT. HE HAS PAST HISTORY OF SMOKING, THROUGHOUT HIS ADULT LIFE, OFF AND ON, FOR A TOTAL OF 20-25 YEARS, AND FINALLY QUIT IN 2019 WHEN HE HAD HIS HEART ATTACK. IN 2019 HE UNDERWENT LOT OF STRESS BECAUSE OF HIS SON'S , AND IT LED TO HEART ATTACK, TREATED AT [facility], HE UNDERWENT CABG ( 3 VESSEL BYPASS ) THE CABG SURGERY WAS FOLLOWED BUYS SOME COMPLICATIONS, DUE TO WOUND DEHISCENCE AND HE NEEDED TO HAVE A SECONDARY REPAIR. AFTER THIS INITIAL TREATMENT HE HAS HAD INTERMITTENT CHEST PAIN AND ALSO SHORTNESS OF BREATH ON EXERTION. DURING 2022 HE WAS ADMITTED IN MAY, AND IN JULY, AND IN NOVEMBER, WITH CONGESTIVE HEART FAILURE ( PRESERVED EF )EFC HE ALSO HAD ATRIAL FIBRILLATION WHICH IS CONTROLLED WITH MEDS. IN HIS MEDICAL RECORDS IT IS NOTED DURING HIS LAST ADMISSION IN NOVEMBER, HE HAD ADDITION OF RANEXA AN ADDITIONAL ANTI ANGINAL AGENT, AFTER WHICH HE HAS STARTED FEELING MUCH BETTER. FOR CONTROL OF ARRHYTHMIAS HE IS ON AMIODARONE 200 MG DAILY WELL METOPROLOL ER 100 MG DAILY. PATIENT DOES HAVE MILD CHRONIC DEPRESSION CONTROLLED WITH ESCITALOPRAM 20 MG DAILY HE COMPLAINS OF SHORTNESS OF BREATH ON EXERTION, HAS OCCASIONAL COUGH EVEN AT REST, BUT NO WHEEZING ATTACKS. HE HAD PULMONARY FUNCTION TEST IN DECEMBER 2022 WHICH WILL BE DESCRIBED BELOW. [facility] Medical History (Updated 02/09/23 @ 12:14 by Yovani Conti MD) ILD (interstitial lung disease) Aortic stenosis Leukocytosis Chronic hyponatremia Congestive heart failure CHF (congestive heart failure) History of cardioversion Paroxysmal atrial fibrillation Stable angina History of prior cigarette smoking Postoperative atrial fibrillation Hyperlipidemia HTN (hypertension) COPD (chronic obstructive pulmonary disease) Ischemic cardiomyopathy CAD (coronary artery disease) Surgical History Status post glaucoma surgery H/O knee surgery Hx of CABG S/P CABG x 3 Family History Father CVD (cardiovascular disease) Mother CVD (cardiovascular disease) Social History Household Members: Spouse Housing: House Do you presently have visiting nurse or other home services: No Alcohol intake: never Patient Tobacco Use Status: Former Tobacco user Quit Date: 2018 Years Smoked: 20 +/- service: No Current occupational status: retired Review of Systems Const All systems reviewed & are unremarkable except as noted in HPI and below Eyes Reports no additional complaints ENT Reports no additional complaints Card Reports chest pain with activity (IMPROVED SINCE HE IS ON NEW ANTI ANGINAL MED. RANEXA ), Reports irregular heart rhythm (HAS HAD ATRIAL FIBRILLATION WHICH IS NOW WELL CONTROLLED) and Denies leg edema Resp Reports as per HPI GI Reports no additional complaints Reports no additional complaints Musc Reports no additional complaints Skin/Breast Reports rash and Reports other (HAS CHRONIC PSORIASIS ) Neuro Reports no additional complaints Psych Reports depression (CONTROLLED WITH MED) Endo Reports no additional complaints Sukhi/Lymph Reports no additional complaints Aller/Immun Reports no additional complaints Physical Exam Vital Signs: Last Vital Signs Pulse 71 02/09/23 10:06 BP 120/60 02/09/23 10:06 Pulse Ox 95 02/09/23 10:06 Oxygen Delivery Method Room Air 02/09/23 10:06 BMI result Body Mass Index 25.8 Const General: comfortable, no acute distress, alert and awake Orientation/consciousness: patient oriented x3 HEENT Head: Yes normal to inspection General nose exam: No nasal polyps present and No nasal discharge present Face and sinus: Yes sinuses nontender Mouth: oropharynx normal Throat: Yes posterior oropharynx normal Eyes General: appearance normal, both eyes and all related structures Neck Neck: Yes normal visual inspection, Yes no lymphadenopathy, Yes trachea midline and Yes no JVD Thyroid: Thyroid normal Chest Chest palpation & inspection: normal inspection of the chest (HAS MID STERNAL SCAR WHICH IS WELL-HEALED), abnormal palpation of chest wall and no tenderness Resp Other: PERCUSSION NOTE IS RESONANT, BREATH SOUNDS ARE DISTANT ON BOTH SIDES WITH PROLONGED EXPIRATORY PHASE. NO WHEEZES RHONCHI OR CREPITATIONS ARE HEARD Cardio Palpation: normal PMI Rate: regular rate Rhythm: regular rhythm Heart sounds: no gallops and no murmurs GI Palpation (GI): Soft to palpation, nontender, No hepatosplenomegaly present and no masses Auscultation: normal bowel sounds Back/Spine/Pelvis Thoracic/Lumbar Spine: thoracic and lumbar spine normal to inspection Skin General skin exam: no rashes or lesions noted ( SCATTERED PATCHES OF PSORIATIC RASH ) Neuro General: patient oriented x3 and no focal motor deficits Cranial nerves: Yes CN's II-XII intact bilaterally Extrem General: Yes normal to inspection, Yes no clubbing, cyanosis or edema and Yes no calf tenderness Psych Appearance: well kempt Speech and movement: Normal speech and movement present Results Reviewed Results Reviewed: PULMONARY FUNCTION TEST OF 12/08/2022. FINDINGS ARE REVIEWED WITH THE PATIENT. IT DOES SHOW MODERATELY SEVERE OBSTRUCTIVE AIRWAY DISORDER WITHOUT ANY SIGNIFICANT RESPONSE TO BRONCHODILATOR THERAPY THERE IS MODERATE DECREASE IN DLCO,62 % WHICH WILL GO ALONG WITH THE COPD * I MADE HIM WALK IN THE HALLWAY WITH ME FOR ABOUT 4 MINUTE. O2 SAT AT REST 96%, AFTER WALKING FOR ABOUT 4 MINUTES IT WAS DOWN TO 92% . CHEST X-RAY 12/02/2022,, IMAGING REVIEWED. HAS SMALL LUNG VOLUMES, CARDIOMEGALY, PROMINENT INTERSTITIAL MARKINGS IS IN THE LOWER LOBES. SOME DEGREE OF ILD CANNOT BE RULED OUT. Assessment & Plan Assessment & Plan (1) Stable angina: Comment: Cardiac catheterization has shown stable disease with severe blockage in the PDA. Tried to stent but were unsuccessful because of significant procedure complexities. PATIENT HAS BEEN STARTED ON NEW ANTI ANGINAL AGENT RANEXA 500 MG B.I.D., AND HE FEELS BETTER. Code(s): I20.8 - Other forms of angina pectoris (2) COPD (chronic obstructive pulmonary disease): Comment: PATIENT WITH PAST HISTORY OF SMOKING FOR AT LEAST 20-25 YEARS. HE DOES HAVE CHRONIC OBSTRUCTIVE PULMONARY DISEASE, MODERATELY SEVERE. THERE WAS GOOD RESPONSE TO BRONCHODILATOR THERAPY, PLAN : EXPLAINED THE RESULTS TO THE PATIENT. I THINK HE WILL BENEFIT FROM LONG-ACTING BRONCHODILATOR THERAPY. ANORO ELLIPTA 1 INHALATION DAILY IS ORDERED. FOR RESCUE INHALER, WILL ORDER LEVALBUTEROL( CARDIO SELECTIVE ) TO BE USED 1-2 PUFFS Q 4-6 HOURS P.R.N. Code(s): J44.9 - Chronic obstructive pulmonary disease, unspecified (3) AHN (dyspnea on exertion): Comment: DYSPNEA ON EXERTION IS DUE TO COMBINATION OF COPD AND CHRONIC CONGESTIVE HEART FAILURE. HE DOES NOT NEED O2 THERAPY. I THINK TREATMENT OF HIS CHRONIC OBSTRUCTIVE PULMONARY DISEASE WILL BE HELPFUL Code(s): R06.00 - Dyspnea, unspecified (4) ILD (interstitial lung disease): Comment: WITH HISTORY, OF SMOKING IN THE PAST , ABNORMAL CHEST X-RAY SHOWING INCREASED INTERSTITIAL MARKINGS, THERE IS POSSIBILITY OF SOME DEGREE OF PULMONARY FIBROSIS. WILL ORDER A CT SCAN OF THE CHEST WITH HIGH-RESOLUTION, TO CHECK FOR INTERSTITIAL LUNG DISEASE/PULMONARY FIBROSIS. Code(s): J84.9 - Interstitial pulmonary disease, unspecified Orders: Orders CT chest wo con - High Res Today J44.9 - Chronic obstructive pulmonary disease, unspecified, J84.9 - Interstitial pulmonary disease, unspecified, R06.00 - Dyspnea, unspecified Medications: New levalbuterol tartrate 45 mcg/actuation 2 puffs inhalation Q4-6H 30 days PRN 15 grams 2RF SHORTNESS OF BREATH/ CARDIAC DISEASE umeclidinium-vilanterol 62.5-25 mcg/actuation (Anoro Ellipta) 1 inh inhalation DAILY 30 days 60 ea 5RF COPD Coding Level of Care Code New Pt Level 4 (49836) Diagnoses Stable angina I20.8 COPD (chronic obstructive pulmonary disease) J44.9 AHN (dyspnea on exertion) R06.00 ILD (interstitial lung disease) J84.9
== END 2023-02-09 10:41 | disposition home or self-care (01) ==
PROVIDERS: PCP Internal Medicine; Referring Provider Internal Medicine Cardiovascular Disease; Visit Provider Internal Medicine
DX: I20.8 Other forms of angina pectoris (principal); J44.9 Chronic obstructive pulmonary disease, unspecified; R06.00 Dyspnea, unspecified; J84.9 Interstitial pulmonary disease, unspecified
CPT/HCPCS: 99204

== ENCOUNTER → 2023-02-09 10:02 | Outpatient (BNVA) | payer MEDICARE, SELFPAY | PROVIDERS: PCP Internal Medicine; Visit Provider Internal Medicine ==

== ENCOUNTER 2023-03-23 10:13 | Outpatient (REF) | payer MEDICARE, SELFPAY ==
--- NOTE | ~2023-03-23 | CT_ITS ---
STUDY: Unenhanced CT of the chest with high-resolution imaging, 03/23/2023. INDICATION: Interstitial pulmonary disease COMPARISON: None TECHNIQUE: Continuous helical imaging obtained through the chest without IV contrast. Reconstructed images performed in coronal and sagittal planes. Axial MIP imaging and high-resolution imaging of the chest also performed. This CT examination was performed using dose optimization techniques as appropriate, variously including the following: *Automated exposure control *Adjustment of mA and/or kV according to patient size (this includes techniques or standardized protocols for targeted exams where dose is matched to indication/reason for exam; i.e. extremities or head) *Use of iterative reconstruction technique TOTAL EXAM DLP: 161 mGy-cm FINDINGS: X Ray Equipment Servicer: Median sternotomy hardware is flattening of the hemidiaphragms. Nonspecific bibasilar increased reticular markings. Degenerative changes. Airways and lungs: Trachea and bronchi are patent. 5 mm nodular density is identified left lateral aspect of the distal trachea just prior to the bifurcation, 6:64, coronal 90:35. Mild centrilobular emphysema with hyperinflation and flattening of the hemidiaphragms. No increased interstitial markings/fibrotic changes, consolidations or groundglass opacities. No evidence of air trapping or mosaic attenuation. Scattered atelectasis, most prominent in the lingula. 2 mm right upper lobe nodule, 6:13. 4 mm subpleural left lower lobe nodule, 6:164. 5 mm left lower lobe nodule, sagittal 50/120, axial 6/147. Mediastinum: No thyroid nodules. No pathologic lymphadenopathy. Heart and great vessels: Heart size within normal limits. No pericardial effusion. Degree of coronary calcifications: Severe. Signs of previous CABG. Valvular calcifications. Nonaneurysmal aorta with atherosclerotic calcifications. Nonenlarged pulmonary arteries. Chest wall and axilla: No pathologic lymphadenopathy. Upper abdomen: Multiple calcified gallstones in otherwise unremarkable gallbladder. 1.5 cm hepatic cyst at the level of the diaphragm. 1.9 cm dense exophytic left renal lesion. Left adrenal hypertrophy without focal lesion. 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 CT/CT chest wo con - High Res IMPRESSION: No significant interstitial lung disease. Atelectasis, mild centrilobular emphysema and hyperinflation. Concern for distal left tracheal 5 mm polyp. As inspissated mucus can have a similar appearance, consider 3 month follow-up CT. If persistent finding, direct visualization would be advised. Multiple small lung nodules, none larger than 5 mm. Per Fleischner criteria, no follow-up in low-risk patient. In high risk patient, optional CT follow-up in 12 months and if stable at 12 months, no further follow-up. Cholelithiasis. Hepatic cyst. 1.9 cm exophytic left renal lesion, likely hemorrhagic or proteinaceous cyst. On 12/22/2022 ultrasound, simple appearing left upper pole renal cyst was seen.
== END 2023-03-23 10:14 | disposition home or self-care (01) ==
LOC: HO.CT 10:13
PROVIDERS: PCP Internal Medicine; Visit Provider Internal Medicine
DX: J84.9 Interstitial pulmonary disease, unspecified (principal); R06.00 Dyspnea, unspecified; J44.9 Chronic obstructive pulmonary disease, unspecified
CPT/HCPCS: 71250

== ENCOUNTER 2023-04-04 10:53 | Outpatient (AMB) | payer MEDICARE, SELFPAY ==
--- NOTE | 2023-04-04 11:01 | MHC.OFFVIS ---
Intake Vital Signs 04/04/23 11:02 Height 5 ft 7 in Weight 165 lb 5.547 oz BMI 25.9 BP 120/58 L Blood Pressure Location Lt brachial Position Sitting Intake Visit Reasons: COPD Intake Note: pt is here for follow up and states he is doing great, some coughing, babysits his grandson everyday. 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: No Allergies latex [LATEX] Allergy (Mild, Verified 04/04/23 11:17) RASH nickel Allergy (Unknown, Verified 04/04/23 11:17) Rash ticagrelor [From Brilinta] Allergy (Verified 04/04/23 11:17) Shortness of Breath Medication List - Last Reconciled 04/04/23 by Yovani Conti MD amiodarone 200 mg PO DAILY apixaban (Eliquis) 5 mg PO BID 90 days atorvastatin 20 mg PO DAILY clopidogrel (Plavix) 75 mg PO DAILY escitalopram oxalate 20 mg PO DAILY fluocinonide 0.05% 1 appl topical BID PRN furosemide (Lasix) 40 mg PO DAILY 90 days hydroxyzine HCl 10 mg PO BEDTIME PRN isosorbide mononitrate ER 60 mg PO DAILY levalbuterol tartrate 45 mcg/actuation 2 puffs inhalation Q4-6H PRN 30 days metoprolol succinate ER 100 mg See Protocol PO DAILY 90 days ranolazine ER 500 mg PO BID 90 days spironolactone 25 mg See Protocol PO DAILY umeclidinium-vilanterol 62.5-25 mcg/actuation (Anoro Ellipta) 1 inh inhalation DAILY 30 days valsartan 160 mg PO DAILY Do you need a note to return to daycare/school/sports/work: No HPI COPD HPI Details 72 years old gentleman with moderate degree of COPD in addition to his coronary artery disease, Comes for follow-up after 1 month. He claims that use of ANORO once a day has been life saving. His shortness of breath on walking around is much less. He has not needed to use levalbuterol. He remains quite active. [facility] Medical History ILD (interstitial lung disease) Aortic stenosis Leukocytosis Chronic hyponatremia Congestive heart failure CHF (congestive heart failure) History of cardioversion Paroxysmal atrial fibrillation Stable angina History of prior cigarette smoking Postoperative atrial fibrillation Hyperlipidemia HTN (hypertension) COPD (chronic obstructive pulmonary disease) Ischemic cardiomyopathy CAD (coronary artery disease) Surgical History Status post glaucoma surgery H/O knee surgery Hx of CABG S/P CABG x 3 Family History Father CVD (cardiovascular disease) Mother CVD (cardiovascular disease) Household Members: Spouse Housing: House Do you presently have visiting nurse or other home services: No Alcohol intake: never Patient Tobacco Use Status: Former Tobacco user Quit Date: 2018 Years Smoked: 20 +/- service: No Current occupational status: retired Review of Systems Const All systems reviewed & are unremarkable except as noted in HPI and below Eyes Reports no additional complaints ENT Reports no additional complaints Card Reports chest pain with activity (IMPROVED SINCE HE IS ON NEW ANTI ANGINAL MED. RANEXA ), Reports irregular heart rhythm (HAS HAD ATRIAL FIBRILLATION WHICH IS NOW WELL CONTROLLED) and Denies leg edema Resp Reports as per HPI GI Reports no additional complaints Reports no additional complaints Musc Reports no additional complaints Skin/Breast Reports rash and Reports other (HAS CHRONIC PSORIASIS ) Neuro Reports no additional complaints Psych Reports depression (CONTROLLED WITH MED) Endo Reports no additional complaints Sukhi/Lymph Reports no additional complaints Aller/Immun Reports no additional complaints Physical Exam Vital Signs: Last Vital Signs BP 120/58 L 04/04/23 11:02 BMI result Body Mass Index 25.9 Const General: comfortable, no acute distress, alert and awake Orientation/consciousness: patient oriented x3 HEENT Head: Yes normal to inspection General nose exam: No nasal polyps present and No nasal discharge present Face and sinus: Yes sinuses nontender Mouth: oropharynx normal Throat: Yes posterior oropharynx normal Eyes General: appearance normal, both eyes and all related structures Neck Neck: Yes normal visual inspection, Yes no lymphadenopathy, Yes trachea midline and Yes no JVD Thyroid: Thyroid normal Chest Chest palpation & inspection: normal inspection of the chest (HAS MID STERNAL SCAR WHICH IS WELL-HEALED), abnormal palpation of chest wall and no tenderness Resp Other: PERCUSSION NOTE IS RESONANT, BREATH SOUNDS ARE DISTANT ON BOTH SIDES WITH PROLONGED EXPIRATORY PHASE. NO WHEEZES RHONCHI OR CREPITATIONS ARE HEARD Cardio Palpation: normal PMI Rate: regular rate Rhythm: regular rhythm Heart sounds: no gallops and no murmurs GI Palpation (GI): Soft to palpation, nontender, No hepatosplenomegaly present and no masses Auscultation: normal bowel sounds Back/Spine/Pelvis Thoracic/Lumbar Spine: thoracic and lumbar spine normal to inspection Skin General skin exam: no rashes or lesions noted ( SCATTERED PATCHES OF PSORIATIC RASH ) Neuro General: patient oriented x3 and no focal motor deficits Cranial nerves: Yes CN's II-XII intact bilaterally Extrem General: Yes normal to inspection, Yes no clubbing, cyanosis or edema and Yes no calf tenderness Psych Appearance: well kempt Speech and movement: Normal speech and movement present Results Reviewed Results Reviewed: CT scan of the chest, on 03/25, has not been read officially yet. However I have reviewed the image, and there is no evidence of interstitial lung disease or any nodule. Assessment & Plan Assessment & Plan (1) COPD (chronic obstructive pulmonary disease): Comment: PATIENT WITH PAST HISTORY OF SMOKING FOR AT LEAST 20-25 YEARS. HE DOES HAVE CHRONIC OBSTRUCTIVE PULMONARY DISEASE, MODERATELY SEVERE. THERE WAS GOOD RESPONSE TO BRONCHODILATOR THERAPY, SYMPTOM MEDICALLY MUCH IMPROVED WITH THE USE OF ANORO ELLIPTA ONCE A DAY. HE HAS HARDLY NEEDED TO USE ANY LEVALBUTEROL. Code(s): J44.9 - Chronic obstructive pulmonary disease, unspecified (2) AHN (dyspnea on exertion): Comment: DYSPNEA ON EXERTION S DUE TO COMBINATION OF COPD AND CHRONIC CONGESTIVE HEART FAILURE. MUCH IMPROVED WITH THE USE OF ANORO ELLIPTA. Code(s): R06.00 - Dyspnea, unspecified Coding Level of Care Code Est Pt Level 3 (49354) Diagnoses COPD (chronic obstructive pulmonary disease) J44.9 AHN (dyspnea on exertion) R06.00
[2023-04-04 11:02] VITALS: BP 120/58; BMI 25.9
== END 2023-04-04 11:17 | disposition home or self-care (01) ==
PROVIDERS: PCP Internal Medicine; Visit Provider Internal Medicine
DX: J44.9 Chronic obstructive pulmonary disease, unspecified (principal); R06.00 Dyspnea, unspecified
CPT/HCPCS: 99213

== ENCOUNTER → 2023-04-04 10:53 | Outpatient (BNVA) | payer MEDICARE, SELFPAY | PROVIDERS: PCP Internal Medicine; Visit Provider Internal Medicine | DX: J44.9 Chronic obstructive pulmonary disease, unspecified (principal); J84.9 Interstitial pulmonary disease, unspecified; I25.10 Atherosclerotic heart disease of native coronary artery without angina pectoris; I10 Essential (primary) hypertension; R06.00 Dyspnea, unspecified; Z87.891 Personal history of nicotine dependence; Z95.1 Presence of aortocoronary bypass graft | CPT/HCPCS: 99212 ==

== ENCOUNTER 2023-09-14 10:14 | Outpatient (AMB) | payer MEDICARE, SELFPAY ==
--- NOTE | 2023-09-14 10:20 | A.OFFVIS_ITS ---
Vital Signs 09/14/23 10:21 Height 5 ft 7 in Weight 168 lb 10.458 oz BMI 26.4 BP 112/60 Blood Pressure Location Lt brachial Position Sitting Pulse 57 Pulse Source Pulse Oximeter Pulse Oximetry (%) 99 Oxygen Delivery Method Room Air Intake Visit Reasons: COPD Intake Note: pt is here for follow up and states he is feeling good School Psychometrist Required: No Allergies latex [LATEX] Allergy (Mild, Verified 09/14/23 10:41) RASH nickel Allergy (Unknown, Verified 09/14/23 10:41) Rash ticagrelor [From Brilinta] Allergy (Verified 09/14/23 10:41) Shortness of Breath Medication List - Last Reconciled 09/14/23 by Yovani Conti MD amiodarone 200 mg PO DAILY apixaban (Eliquis) 5 mg PO BID 90 days atorvastatin 20 mg PO DAILY escitalopram oxalate 20 mg PO DAILY fluocinonide 0.05% 1 appl topical BID PRN furosemide 40 mg PO DAILY PRN 90 days MDD 2 tabs isosorbide mononitrate ER 60 mg PO DAILY levalbuterol tartrate 45 mcg/actuation 2 puffs inhalation Q4-6H PRN 30 days metoprolol succinate ER 100 mg See Protocol PO DAILY 90 days ranolazine ER 500 mg PO BID 90 days spironolactone 25 mg See Protocol PO DAILY umeclidinium-vilanterol 62.5-25 mcg/actuation (Anoro Ellipta) 1 inh inhalation DAILY 30 days valsartan 160 mg PO DAILY Do you need a note to return to daycare/school/sports/work: No HPI HPI COPD: Details: KYRA IS 73 YEARS OLD VERY PLEASANT GENTLEMAN WHO IS HERE FOR FOLLOW-UP FOR HIS COPD AND A POLYP LIKE DENSITY IN THE DISTAL PART OF TRACHEA. HE CLAIMS THAT HIS BREATHING IS MUCH BETTER AND HE HAS USED ALBUTEROL ONLY ONCE OR TWICE IN THE LAST 4 MONTHS. HE HAS VERY LITTLE. COUGH AND EXPECTORATION HE HAS SOME SHORTNESS OF BREATH ON WALKING FAST OR UP HILL BUT IT HAS NOT OF ANY SIGNIFICANT DEGREE. HE CONTINUE TO USE ANORO ELLIPTA 1 INHALATION DAILY. HE QUIT SMOKING MANY YEARS AGO. [facility] Medical History (Updated 09/14/23 @ 10:47 by Yovani Conti MD) Abnormal radiologic density ILD (interstitial lung disease) Aortic stenosis Leukocytosis Chronic hyponatremia Congestive heart failure CHF (congestive heart failure) History of cardioversion Paroxysmal atrial fibrillation Stable angina History of prior cigarette smoking Postoperative atrial fibrillation Hyperlipidemia HTN (hypertension) COPD (chronic obstructive pulmonary disease) Ischemic cardiomyopathy CAD (coronary artery disease) Surgical History Status post glaucoma surgery H/O knee surgery Hx of CABG S/P CABG x 3 Family History Father CVD (cardiovascular disease) Mother CVD (cardiovascular disease) Social History Household Members: Spouse Housing: House Do you presently have visiting nurse or other home services: No Alcohol intake: never Comment: pt refused bed alarm Patient Tobacco Use Status: Former Tobacco user Quit Date: 2018 Years Smoked: 20 +/- service: No Current occupational status: retired Review of Systems Const All systems reviewed & are unremarkable except as noted in HPI and below Eyes Reports no additional complaints ENT Reports no additional complaints Card Reports chest pain with activity (IMPROVED SINCE HE IS ON NEW ANTI ANGINAL MED. RANEXA ), Reports irregular heart rhythm (HAS HAD ATRIAL FIBRILLATION WHICH IS NOW WELL CONTROLLED) and Denies leg edema Resp Reports as per HPI GI Reports no additional complaints Reports no additional complaints Musc Reports no additional complaints Skin/Breast Reports rash and Reports other (HAS CHRONIC PSORIASIS ) Neuro Reports no additional complaints Psych Reports depression (CONTROLLED WITH MED) Endo Reports no additional complaints Sukhi/Lymph Reports no additional complaints Aller/Immun Reports no additional complaints Physical Exam Vital Signs: Last Vital Signs Pulse 57 09/14/23 10:21 BP 112/60 09/14/23 10:21 Pulse Ox 99 09/14/23 10:21 Oxygen Delivery Method Room Air 09/14/23 10:21 BMI result Body Mass Index 26.4 Const General: comfortable, no acute distress, alert and awake Orientation/consciousness: patient oriented x3 HEENT Head: Yes normal to inspection General nose exam: No nasal polyps present and No nasal discharge present Face and sinus: Yes sinuses nontender Mouth: oropharynx normal Throat: Yes posterior oropharynx normal Eyes General: appearance normal, both eyes and all related structures Neck Neck: Yes normal visual inspection, Yes no lymphadenopathy, Yes trachea midline and Yes no JVD Thyroid: Thyroid normal Chest Chest palpation & inspection: normal inspection of the chest (HAS MID STERNAL SCAR WHICH IS WELL-HEALED), abnormal palpation of chest wall and no tenderness Resp Other: PERCUSSION NOTE IS RESONANT, BREATH SOUNDS ARE DISTANT ON BOTH SIDES WITH PROLONGED EXPIRATORY PHASE. NO WHEEZES RHONCHI OR CREPITATIONS ARE HEARD Cardio Palpation: normal PMI Rate: regular rate Rhythm: regular rhythm Heart sounds: no gallops and no murmurs GI Palpation (GI): Soft to palpation, nontender, No hepatosplenomegaly present and no masses Auscultation: normal bowel sounds Back/Spine/Pelvis Thoracic/Lumbar Spine: thoracic and lumbar spine normal to inspection Skin General skin exam: no rashes or lesions noted ( SCATTERED PATCHES OF PSORIATIC RASH ) Neuro General: patient oriented x3 and no focal motor deficits Cranial nerves: Yes CN's II-XII intact bilaterally Extrem General: Yes normal to inspection, Yes no clubbing, cyanosis or edema and Yes no calf tenderness Psych Appearance: well kempt Speech and movement: Normal speech and movement present Assessment & Plan Assessment & Plan (1) AHN (dyspnea on exertion): Comment: DYSPNEA ON EXERTION S DUE TO COMBINATION OF COPD AND CHRONIC CONGESTIVE HEART FAILURE. MUCH IMPROVED WITH THE USE OF ANORO ELLIPTA AND REMAINS STABLE. Code(s): R06.00 - Dyspnea, unspecified Category: Medical Plan: ADVISED TO CONTINUE USING ANORO ELLIPTA 1 INHALATION DAILY (2) COPD (chronic obstructive pulmonary disease): Comment: PATIENT WITH PAST HISTORY OF SMOKING FOR AT LEAST 20-25 YEARS. HE DOES HAVE CHRONIC OBSTRUCTIVE PULMONARY DISEASE, MODERATELY SEVERE. THERE WAS GOOD RESPONSE TO BRONCHODILATOR THERAPY, MUCH IMPROVED WITH THE USE OF ANORO ELLIPTA HE HAS HARDLY NEEDED TO USE ANY LEVALBUTEROL. Code(s): J44.9 - Chronic obstructive pulmonary disease, unspecified Category: Medical Plan: CONTINUE USING ANORO ELLIPTA 1 INHALATION DAILY. AND USE ALBUTEROL HFA ONLY P.R.N. (3) Abnormal radiologic density: Comment: LAST CT SCAN OF THE CHEST DID SHOW A 5 MM POLYP LIKE DENSITY IN THE DISTAL TRACHEA, . IT NEEDS TO BE FOLLOWED UP Code(s): R93.89 - Abnormal findings on diagnostic imaging of other specified body structures Category: Medical Plan: CT SCAN OF THE CHEST IS ORDERED, IF THIS DENSITY IS STILL PRESENT THEN HE WOULD NEED BRONCHOSCOPIC EXAMINATION. Orders: Orders CT chest wo IV con Today J44.9 - Chronic obstructive pulmonary disease, unspecified Coding Level of Care Code Est Pt Level 3 (78921) Diagnoses AHN (dyspnea on exertion) R06.00 COPD (chronic obstructive pulmonary disease) J44.9 Abnormal radiologic density R93.89
[2023-09-14 10:21] VITALS: BP 112/60; PULSE 57; O2SAT 99; BMI 26.4
== END 2023-09-14 10:42 | disposition home or self-care (01) ==
PROVIDERS: PCP Family Medicine; Visit Provider Internal Medicine
DX: R06.00 Dyspnea, unspecified (principal); J44.9 Chronic obstructive pulmonary disease, unspecified; R93.89 Abnormal findings on diagnostic imaging of other specified body structures
CPT/HCPCS: 99213

== ENCOUNTER → 2023-09-14 10:14 | Outpatient (BNVA) | payer MEDICARE, SELFPAY | PROVIDERS: Visit Provider Internal Medicine | DX: R06.00 Dyspnea, unspecified (principal); J44.9 Chronic obstructive pulmonary disease, unspecified; R93.89 Abnormal findings on diagnostic imaging of other specified body structures | CPT/HCPCS: 99212 ==

== ENCOUNTER 2023-10-20 07:34 | Outpatient (REF) | payer MEDICARE, SELFPAY ==
--- NOTE | ~2023-10-20 | CT_ITS ---
EXAMINATION: CT CHEST WITHOUT CONTRAST CLINICAL INFORMATION: COPD, unspecified. Follow-up from 03/23/2023 CT exam. COMPARISON: 03/23/2023 CT chest. TECHNIQUE: Multidetector volumetric CT imaging of the chest was done. Axial MIP volume rendering provided. Sagittal and coronal reformatted images were obtained. This CT examination was performed using dose optimization techniques as appropriate, variously including the following: *Automated exposure control *Adjustment of mA and/or kV according to patient size (this includes techniques or standardized protocols for targeted exams where dose is matched to indication/reason for exam; i.e. extremities or head) *Use of iterative reconstruction technique DLP: 184 mGy-cm FINDINGS: CLINICAL PRODUCT MANAGER: Median sternotomy. Mild hyperaeration. LUNGS: There is mild centrilobular emphysema present. -Mild biapical scarring. Unchanged. -Mild/minimal bronchiectasis with no bronchial wall thickening or significant filling defects. -Linear scarring or atelectasis in the lingular segment with mild volume loss, appears chronic. -No consolidations or evidence of pneumonitis. -No interstitial disease or groundglass opacities. No mosaic attenuation. -Stable 3 mm nodule right apex (series 9, image 27). -Stable 4 mm subpleural left lower lobe nodule (series 9, image 226). -Stable 5 mm left lower lobe nodule (series 9, image 164). -Focus of peripheral mucous plugging within a small bronchus left lower lobe peripherally (series 9, image 149), unchanged. -No new or suspicious nodules. MEDIASTINUM: -No definite thyroid abnormality on this noncontrast exam. -No mediastinal lymphadenopathy. -Prior median sternotomy. -Small bowel secretions in the trachea. No persistent tracheal nodule evident. -Esophagus normal but minimally patulous. Small type I hiatus hernia. -Heart size normal. Severe calcifications of the mitral and aortic annuli. Prior CABG with severe [place] coronary calcifications. -No pericardial effusion. -Aorta moderately calcified and uncoiled but nonaneurysmal. -Main pulmonary artery normal in size. PLEURA: There is no pleural effusion. No pleural mass or thickening. AXILLA/CHEST WALL: No lymphadenopathy. Poststernotomy. UPPER ABDOMEN: -Large gallstones layering dependently within a normal-appearing gallbladder. -Hyperdense cyst arising from the anterior left kidney without change, measuring 1.9 cm. -Left adrenal hyperplasia, unchanged. -Cyst in segment 2 of the liver measuring 1.9 cm. -Severe calcification of the abdominal aorta included in the imaging. Suspect left and possibly right renal artery stenosis. OSSEOUS STRUCTURES: -Osteopenia. -Degenerative changes of the thoracic spine. -Sternal hardware in place. No significant dehiscence. -No suspicious lytic or blastic bone abnormality. -Mild calcific tendinopathy of the right rotator cuff. CT/CT chest wo IV con IMPRESSION: 1. No significant change in the examination when compared with 03/23/2023. 2. Mild to moderate emphysema with minimal bronchiectasis. No active pulmonary disease. 3. Stable nodules measuring up to 5 mm. Optional one-year follow-up as per Fleischner criteria. 4. Cholelithiasis. 5. No interval change in the 1.9 cm hyperdense left renal cyst. 6. No persistent tracheal nodule. Fleischner guidelines were followed.
== END 2023-10-20 07:35 | disposition home or self-care (01) ==
LOC: HO.CT 07:34
PROVIDERS: PCP Family Medicine; Visit Provider Internal Medicine
DX: J44.9 Chronic obstructive pulmonary disease, unspecified (principal)
CPT/HCPCS: 71250

== ENCOUNTER → 2023-10-20 07:36 | Outpatient (BNV) | payer MEDICARE, SELFPAY | PROVIDERS: PCP Family Medicine; Visit Provider Radiology Diagnostic Radiology | DX: J44.9 Chronic obstructive pulmonary disease, unspecified (principal) | CPT/HCPCS: 71250 ==

== ENCOUNTER 2023-12-11 15:55 | Outpatient (AMB) | payer MEDICARE, SELFPAY ==
[2023-12-11 16:05] VITALS: BP 112/60; PULSE 68; BMI 25.7
--- NOTE | 2023-12-11 16:05 | A.OFFVIS_ITS ---
Vital Signs 12/11/23 16:05 Height 5 ft 7 in Weight 164 lb 0.383 oz BMI 25.7 BP 112/60 Blood Pressure Location Lt brachial Position Sitting Pulse 68 Intake Visit Reasons: overdue f/up Intake Note: F/U. Pt states that he feels great. Corral Boss Required: No Accompanied by: Self / Same As Patient Allergies latex [LATEX] Allergy (Mild, Verified 09/14/23 10:41) RASH nickel Allergy (Unknown, Verified 09/14/23 10:41) Rash ticagrelor [From Brilinta] Allergy (Verified 09/14/23 10:41) Shortness of Breath Medication List - Last Reconciled 12/11/23 by Orion Joshi MD amiodarone 200 mg PO DAILY apixaban (Eliquis) 5 mg PO BID 90 days atorvastatin 20 mg PO DAILY escitalopram oxalate 20 mg PO DAILY fluocinonide 0.05% 1 appl topical BID PRN furosemide 40 mg PO DAILY PRN 90 days MDD 2 tabs isosorbide mononitrate ER 60 mg PO DAILY levalbuterol tartrate 45 mcg/actuation 2 puffs inhalation Q4-6H PRN 30 days metoprolol succinate ER 100 mg See Protocol PO DAILY 90 days ranolazine ER 500 mg PO BID 90 days spironolactone 25 mg See Protocol PO DAILY umeclidinium-vilanterol 62.5-25 mcg/actuation (Anoro Ellipta) 1 ea inhalation DAILY valsartan 160 mg PO DAILY HPI Comments Details: 72-year-old gentleman here for follow-up. He has background history of bypass surgery. He previously complained of chest discomfort shortness of breath and had inferior T-wave changes. We discussed about cardiac catheterization and underwent cardiac catheterization from left radial approach. This showed patent MAR to LAD and patent vein graft with touchdown on OM as well as the RPDA. This was a long vein graft. In the retrograde limb of posterior descending artery there was tight stenosis. Given his symptom and inferior changes on ECG we decided to intervene on that. This was quite challenging to do from the left radial and after a lot of work we were unable to deliver balloons because the length of ballloon shafts was too short. We exchanged for short guide and tried it again but we were unsuccessful due to multiple complexities in the procedure. At this stage we decided to stop and bring him back later. He was seen in follow-up and was doing well. He was given Brilinta during the procedure and developed significant dyspnea afterwards. This was changed to Plavix and he has been tolerating that well. In May he was admitted to [facility] with AFib with RVR which was new diagnosis and congestive heart failure. He was diuresed and underwent cardioversion and was started on amiodarone. His aspirin was stopping was started on Eliquis and was discharged home with Eliquis and Plavix. He said post cardioversion he felt great and was walking without any significant dyspnea. His returning for follow-up today and has been feeling well. He is saying his breathing it as baseline. Interestingly he is back in atrial fibrillation but denying any significant symptoms currently.. He has been taking Eliquis regula rly. No bleeding concerns. Our plan was to perform outpatient cardioversion but he developed congestive heart failure and was admitted to [facility]. He underwent cardioversion on 07/21/2022. He has been on amiodarone since then. He is in sinus rhythm right now. He is saying his breathing is at baseline. He is saying his blood pressure after discharge was normal for a week and after that started slowly going up and was in 150s systolic as of last week. His blood pressure in the office in 160/79. He is taking medications regularly. No other concerns currently. 12/11/2023: He is here for follow-up. He has been doing well. Taking amiodarone. Continues to be in sinus rhythm. Denying chest pain or shortness of breath. He is also on Ranexa and QT interval is 510. Previous QT interval was 499. Taking apixaban 5 mg twice a day for anticoagulation. [facility] Medical History (Updated 12/11/23 @ 16:37 by Orion Joshi MD) Paroxysmal atrial fibrillation Abnormal radiologic density ILD (interstitial lung disease) Aortic stenosis Leukocytosis Chronic hyponatremia Congestive heart failure CHF (congestive heart failure) History of cardioversion Stable angina History of prior cigarette smoking Postoperative atrial fibrillation Hyperlipidemia HTN (hypertension) COPD (chronic obstructive pulmonary disease) Ischemic cardiomyopathy CAD (coronary artery disease) Surgical History Status post glaucoma surgery H/O knee surgery Hx of CABG S/P CABG x 3 Family History Father CVD (cardiovascular disease) Mother CVD (cardiovascular disease) Social History Household Members: Spouse Housing: House Do you presently have visiting nurse or other home services: No Alcohol intake: never Comment: pt refused bed alarm Patient Tobacco Use Status: Former Tobacco user Years Smoked: 20 +/- service: No Current occupational status: retired Review of Systems Const Denies chills, Denies fatigue, Denies fever(s), Denies weight gain and Denies weight loss ENT Denies dizziness Card Denies chest pain, Denies leg edema, Denies lightheadedness, Denies palpitations, Denies dyspnea on exertion, Denies orthopnea and Denies other Resp Denies cough and Denies dyspnea on exertion GI Denies hematochezia and Denies change in stool character Musc Denies abnormal gait, Denies muscle weakness, Denies numbness, Denies radiating pain into limb and Denies tingling Neuro Denies abnormal gait, Denies dizziness, Denies numbness and Denies tingling Endo Denies fatigue and Denies palpitations Physical Exam Vital Signs: Last Vital Signs Pulse 68 12/11/23 16:05 BP 112/60 12/11/23 16:05 BMI result Body Mass Index 25.7 GENERAL APPEARANCE: in no acute distress, pleasant. NECK: no carotid bruit, no jugular venous distention. SKIN: no suspicious lesions, warm and dry. HEART: no murmurs, regular rate and rhythm. LUNGS: clear to auscultation bilaterally. ABDOMEN: soft, nontender. EXTREMITIES: no edema. PERIPHERAL PULSES: equal. NEUROLOGIC: No gross deficits, AAO X 3 Office Procedures EKG Details: Sinus rhythm 68 beats per minute, right axis deviation, inferior and lateral T- wave inversions consider ischemia, inferior infarct, QTC 510 milliseconds. [id number], Complete Assessment & Plan Assessment & Plan (1) Hx of CABG: Code(s): Z95.1 - Presence of aortocoronary bypass graft Category: Medical (2) Ischemic cardiomyopathy: Code(s): I25.5 - Ischemic cardiomyopathy Category: Medical (3) HTN (hypertension): Comment: Blood pressure is mildly elevated Code(s): I10 - Essential (primary) hypertension Category: Medical (4) Therapeutic drug monitoring: Code(s): Z51.81 - Encounter for therapeutic drug level monitoring Category: Medical (5) Paroxysmal atrial fibrillation: Code(s): I48.0 - Paroxysmal atrial fibrillation Category: Medical Plan 73-year-old gentleman presenting for follow-up. He has known history of ischemic cardiomyopathy with previous bypass surgery. He has stable angina currently. He is on Ranexa and amiodarone and QT interval is 510. On anticoagulation for atrial fibrillation. Currently continues to be in sinus rhythm. Blood pressure is well controlled currently. Overall clinically stable. Being on amiodarone he needs monitoring and I am going to do a liver panel and TSH. He recently had CT of his chest and did not show any interstitial changes. I have advised him that he should have yearly eye exam. Follow-up with us in 4-6 months. Thank you for allowing me to participate in the care of your patient. Please feel free to contact me if you have any questions. Orders: Orders Complete Blood Count no Diff Today I50.9 - Heart failure, unspecified B Type Natriuretic Peptide Today I50.9 - Heart failure, unspecified Basic Metabolic Panel Today I50.9 - Heart failure, unspecified Liver Panel Today I50.9 - Heart failure, unspecified TSH reflex Free T4 Today I50.9 - Heart failure, unspecified Coding Level of Care Code Est Pt Level 4 (91000) Diagnoses Hx of CABG Z95.1 Ischemic cardiomyopathy I25.5 HTN (hypertension) I10 Therapeutic drug monitoring Z51.81 Paroxysmal atrial fibrillation I48.0 CPT Codes EKG - CPT: 93792-[id number], Complete ([id number])
== END 2023-12-11 16:30 | disposition home or self-care (01) ==
PROVIDERS: PCP Family Medicine; Visit Provider Internal Medicine Cardiovascular Disease
DX: Z95.1 Presence of aortocoronary bypass graft (principal); I25.5 Ischemic cardiomyopathy; I10 Essential (primary) hypertension; Z51.81 Encounter for therapeutic drug level monitoring; I48.0 Paroxysmal atrial fibrillation
CPT/HCPCS: 93010; 99214

== ENCOUNTER 2023-12-11 15:55 | Outpatient (REF) | payer MEDICARE, SELFPAY ==
[2023-12-11 17:01] LABS: Hemoglobin 12.6 g/dl (14.0-18.0); Mean Corpuscular Hemoglobin 33.3 pg (27.0-33.0); Mean Corpuscular Volume 95.2 fL (80.0-98.0); Platelet Count 291 X10*3/uL (160-400); Red Blood Count 3.78 X10*6/uL (4.60-5.80); White Blood Count 10.6 X10*3/uL (4.8-10.8)
[2023-12-11 17:17] LABS: B Type Natriuretic Peptide 112 pg/mL (<100)
[2023-12-11 17:37] LABS: Alanine Aminotransferase 24 U/L (0-40); Albumin Level 4.4 g/dL (3.5-5.0); Alkaline Phosphatase 57 U/L (39-117); Anion Gap 13 (12-20); Aspartate Amino Transferase 21 U/L (5-37); Bilirubin Direct 0.3 mg/dL (0.0-0.5); Bilirubin Total 0.7 mg/dL (0.0-1.0); Blood Urea Nitrogen 23 mg/dL (9-16); Calcium 9.7 mg/dL (8.4-10.2); Carbon Dioxide 27 mmol/L (22-29); Chloride 94 mmol/L (96-108); Estimated Glomerular Filt Rate > 60; Glucose Random 85 mg/dL (60-115); Potassium 4.8 mmol/L (3.3-5.1); Sodium 129 mmol/L (135-145)
[2023-12-11 17:47] LABS: TSH reflex Free T4 11.22 uIU/mL (0.32-4.0)
[2023-12-11 18:22] LABS: Free T4 (Free Thyroxine) 0.53 ng/dL (0.71-1.85)
== END 2023-12-11 15:56 | disposition home or self-care (01) ==
LOC: HO.LAB 15:55
PROVIDERS: PCP Family Medicine; Visit Provider Internal Medicine Cardiovascular Disease
DX: I25.5 Ischemic cardiomyopathy (principal); I11.0 Hypertensive heart disease with heart failure; I50.9 Heart failure, unspecified; I48.0 Paroxysmal atrial fibrillation; Z95.1 Presence of aortocoronary bypass graft; Z79.899 Other long term (current) drug therapy
CPT/HCPCS: 36415; 80048; 80076; 83880; 84439; 84443; 85027; 93005; 99212

== ENCOUNTER 2024-01-04 14:02 | Outpatient (AMB) | payer MEDICARE, SELFPAY ==
--- NOTE | 2024-01-04 14:11 | A.OFFVIS_ITS ---
Vital Signs 01/04/24 14:12 Height 5 ft 7 in Weight 163 lb 5.8 oz BMI 25.6 BP 104/62 Blood Pressure Location Rt brachial Position Sitting Pulse 44 L Pulse Source Pulse Oximeter Intake Visit Reasons: Hypothyroidism, unspecified/CONFIRMED Intake Note: New patient present today for Hypothyroidism. Police Chief Required: No Accompanied by: Self / Same As Patient Allergies latex [LATEX] Allergy (Mild, Verified 01/04/24 14:14) RASH nickel Allergy (Unknown, Verified 01/04/24 14:14) Rash ticagrelor [From Brilinta] Allergy (Verified 01/04/24 14:14) Shortness of Breath Medication List - Last Reconciled 01/04/24 by Alyson Caraballo MD amiodarone 200 mg PO DAILY apixaban (Eliquis) 5 mg PO BID 90 days atorvastatin 20 mg PO DAILY escitalopram oxalate 20 mg PO DAILY fluocinonide 0.05% 1 appl topical BID PRN furosemide 40 mg PO DAILY PRN 90 days MDD 2 tabs gabapentin mg PO isosorbide mononitrate ER 60 mg PO DAILY levalbuterol tartrate 45 mcg/actuation 2 puffs inhalation Q4-6H PRN 30 days metoprolol succinate ER 100 mg See Protocol PO DAILY 90 days ranolazine ER 500 mg PO BID 90 days spironolactone 25 mg See Protocol PO DAILY umeclidinium-vilanterol 62.5-25 mcg/actuation (Anoro Ellipta) 1 ea inhalation DAILY valsartan 160 mg PO DAILY HPI Comments Details: 73-year-old male coming in today for initial evaluation of hypothyroidism. Also noted to have resistant hypertension. Hypothyroidism Patient was diagnosed with atrial fibrillation in 2022 and subsequently started on amiodarone. He sees Dr. Joshi from our cardiology department and has been following with him also for his history of coronary artery disease with history of CABG. TFTs were checked as he is on amiodarone. Labs from December 2023 showed high TSH of 11.22 UiU per mL with low free T4 of 0.53 ng/dL. No prior history of thyroid disease. Not on any thyroid medications. Back in November of 2022 was also noted to have a mildly elevated TSH of 5.72 UU per mL with normal free T4. Endorses fatigue. No cold intolerance. Bowel movements are regular. Patient currently denies, hair loss, palpitation, anxiety, weight changes, mood changes, low energy, changes in appearance of eyes or vision changes, tremors, increased diaphoresis or dry skin. ? Patient denies any difficulty swallowing, pain on swallowing or voice changes or difficulty breathing. Patient denies any history of childhood neck radiation. Denies having ever used lithium, or biotin supplements. He is on amiodarone since early 2022. Denies exposure to contrast recently. Denies any recent preceding viral illness before the testing. Patient denies any family history of thyroid cancer or thyroid disease. Resistant hypertension Diagnosis of HTN:in 40s or 50s Was also diagnosed with atrial fibrillation on amiodarone in 2022 Also noted to have hypokalemia on multiple occasions previously with a potassium level of 3.2 from November 2022. Potassium supplements: not currenlty but has taken in the past . Paternaal grandfrather at 49 years of stroke Father stroke 58 years Paternal 1st cousin 36 years from [place] All sisater 5 of them have heart disease Medications: Valsartan 160 mg daily, spironolactone 25 mg daily, metoprolol extended release 100 mg daily, isosorbide mononitrate ER 60 mg daily, furosemide 40 mg daily DARLINE: not diagnosed Renal US with doppler 12/28 Normal right renal artery. Minimally elevated left renal artery proximal peak systolic velocity suggestive of less than 60% left renal artery stenosis. Review of systems Constitutional: no fevers, chills or weight loss HEENT: no changes in vision Cardiac: No chest pain, discomfort or palpitations. Pulmonary: No SOB GI:No abdominal pain, no nausea or vomiting, no anorexia, no blood in stool Physical exam General: sitting comfortably in no acute distress HEENT: normocephalic/atraumatic, EOM intact, moist oral mucosa Neck: supple, symmetrical, no thyromegaly , no dorsocervical or supraclavicular fat pads Cardiac: normal heart sounds Pulm: normal breath sounds B/L, no added breath sounds Abd: not distended, no tenderness Extremities: no edema, no signs of myxedema Neuro: AAO x3, Speech: normal, no facial droop, moving all 4 extremities Skin: Multiple ecchymosis noted, he is on Eliquis [facility] Medical History (Updated 01/04/24 @ 14:57 by Alyson Caraballo MD) Resistant hypertension Paroxysmal atrial fibrillation Abnormal radiologic density ILD (interstitial lung disease) Aortic stenosis Leukocytosis Chronic hyponatremia Congestive heart failure CHF (congestive heart failure) History of cardioversion Stable angina History of prior cigarette smoking Postoperative atrial fibrillation Hyperlipidemia HTN (hypertension) COPD (chronic obstructive pulmonary disease) Ischemic cardiomyopathy CAD (coronary artery disease) Surgical History Status post glaucoma surgery H/O knee surgery Hx of CABG S/P CABG x 3 Family History Father CVD (cardiovascular disease) Mother CVD (cardiovascular disease) Social History Household Members: Spouse Housing: House Do you presently have visiting nurse or other home services: No Alcohol intake: never Comment: pt refused bed alarm Patient Tobacco Use Status: Former Tobacco user Years Smoked: 20 +/- service: No Current occupational status: retired Physical Exam Vital Signs: BMI result Body Mass Index 25.6 Results Reviewed Results Reviewed: Laboratory Tests 05/25/22 11/09/22 12/02/22 11:01 10:22 07:51 Potassium 3.2 L TSH 1.63 5.72 H Free T4 0.87 12/11/23 16:46 Potassium TSH 11.22 H Free T4 0.53 L Assessment & Plan Assessment & Plan (1) Hypothyroidism: Code(s): E03.9 - Hypothyroidism, unspecified Category: Medical Qualifiers: Hypothyroidism type: unspecified Qualified Code(s): E03.9 - Hypothyroidism, unspecified Plan: Patient with new diagnosis of hypothyroidism with most recent blood work from December 2023 showing elevated TSH of 11.22 and low free T4 of 0.53. He does not have any significant symptoms except tiredness. He is notably on amiodarone. The common pattern observed in euthyroid patients with amiodarone is high free T4, high normal TSH, low normal T3 and high total T4. His thyroid function testing does not align with normal expected changes with amiodarone plus he has been on amiodarone for over 6 months now and expected changes from amiodarone treatment usually normalize after 18-24 weeks of treatment. 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 He does not have any preceding viral illnesses or contrast exposure to suggest hypothyroidism following subacute thyroiditis. Given that he is greater than 65 years old and has history of heart disease, I will be conservative with starting on the dose of levothyroxine. We will start him on low dose of 50 mcg daily. His weight based dosing would be closer to 100 mcg. Counseled patient about taking levothyroxine 1st thing in the morning, on an empty stomach, wait at least an hour before he has breakfast or coffee. Not to take with any other medications to avoid interference with absorption. Patient verbalized understanding and repeated these instructions. Plan: -start levothyroxine 50 mcg daily -repeat TSH and free T4 in 6 weeks, we will also check for TPO antibodies -will also check a total T3 level given he is on amiodarone which can also be interfering with his thyroid function (2) Resistant hypertension: Code(s): I1A.0 - Resistant hypertension Category: Medical Plan: Patient also noted to have hypertension, currently on 5 medications including a diuretic, meeting the definition of resistant hypertension. He is currently on valsartan 160 mg daily, spironolactone 25 mg daily, metoprolol 100 mg ER daily, isosorbide mononitrate ER 60 mg daily and Lasix 40 mg (2 tablets?) daily. He is also noted to have history of hypokalemia and previously required potassium supplementation, though not on it currently. He also has a history of atrial fibrillation. +there is family history of stroke and [place] at a young age. All of these are suggestive of primary hyperaldosteronism, the prevalence of primary hyperaldosteronism is 10-20% in secondary hypertension. It is a more prevalent condition in patients who have atrial fibrillation. Hence we will screen him for primary hyperaldosteronism. He is notably on spironolactone 25 mg daily, however this is a rather low dose so unlikely that it will interfere with the testing, so if he has a positive screen we do not need to stop the medication for testing. However if he has a negative screening, this could be interfering effect of spironolactone and then we will have to hold the medication for 6 weeks to repeat blood work and re screen him. Plan: -ordered aldosterone level, plasma renin activity, BMP -follow up in 8 weeks Plan I spent 45 minutes in reviewing the record, seeing the patient and documenting in the medical record. Orders: Orders Aldost/Renin 6 Weeks I1A.0 - Resistant hypertension Renin 6 Weeks I1A.0 - Resistant hypertension Aldosterone 6 Weeks I1A.0 - Resistant hypertension Thyroid Stimulating Hormone 6 Weeks E03.9 - Hypothyroidism, unspecified Free T4 (Free Thyroxine) 6 Weeks E03.9 - Hypothyroidism, unspecified Triiodothyronine T3 Total 6 Weeks E03.9 - Hypothyroidism, unspecified Thyroid Peroxidase Antibodies 6 Weeks E03.9 - Hypothyroidism, unspecified Basic Metabolic Panel 6 Weeks I1A.0 - Resistant hypertension Medications: New Synthroid (levothyroxine) Take 1 tablet on empty stomach first thing in the morning 50 mcg PO DAILY 30 tabs 4RF NS Patient Instructions: Start levothyroxine 50 mcg daily , first thing in the morning, empty stomach ,wait 1 hr prior to eating or drinking coffee Dont take this with other medications Do blood work in 6 weeks Follow up with me in 8 weeks Coding Level of Care Code New Pt Level 4 (82051) Diagnoses Hypothyroidism, unspecified type E03.9 Hypothyroidism type: unspecified Resistant hypertension I1A.0 Time Spent (min) 45
[2024-01-04 14:12] VITALS: BP 104/62; PULSE 44; BMI 25.6
== END 2024-01-04 14:55 | disposition home or self-care (01) ==
PROVIDERS: PCP Family Medicine; Visit Provider Student in an Organized Health Care Education/Training Program
DX: E03.9 Hypothyroidism, unspecified (principal); I1A.0 Resistant hypertension
CPT/HCPCS: 99204

== ENCOUNTER → 2024-01-04 14:02 | Outpatient (BNVA) | payer MEDICARE, SELFPAY | PROVIDERS: PCP Family Medicine; Visit Provider Student in an Organized Health Care Education/Training Program | DX: E03.9 Hypothyroidism, unspecified (principal); I1A.0 Resistant hypertension | CPT/HCPCS: 99202 ==

== ENCOUNTER 2024-02-26 10:35 | Outpatient (REF) | payer MEDICARE, SELFPAY ==
[2024-02-26 12:41] LABS: Anion Gap 12 (12-20); Blood Urea Nitrogen 13 mg/dL (9-16); Calcium 9.5 mg/dL (8.4-10.2); Carbon Dioxide 26 mmol/L (22-29); Chloride 95 mmol/L (96-108); Estimated Glomerular Filt Rate > 60; Glucose Random 88 mg/dL (60-115); Potassium 4.6 mmol/L (3.3-5.1); Sodium 128 mmol/L (135-145)
[2024-02-26 12:51] LABS: Free T4 (Free Thyroxine) 0.92 ng/dL (0.71-1.85); Thyroid Stimulating Hormone 3.51 uIU/mL (0.32-4.0)
[2024-02-27 10:38] LABS: Triiodothyronine T3 Total 70 ng/dL (76-181)
[2024-02-27 11:34] LABS: Thyroid Peroxidase Antibodies <1 IU/mL (<9)
[2024-03-01 10:48] LABS: Renin 1.03 ng/mL/h (0.25-5.82)
[2024-03-01 15:08] LABS: Aldosterone/Renin Ratio 10.1 Ratio (0.9-28.9); Plasma Renin Activity 0.89 ng/mL/h (0.25-5.82)
== END 2024-02-26 10:36 | disposition home or self-care (01) ==
LOC: HO.LAB 10:35
PROVIDERS: PCP Family Medicine; Visit Provider Student in an Organized Health Care Education/Training Program
DX: I1A.0 Resistant hypertension (principal); E03.9 Hypothyroidism, unspecified
CPT/HCPCS: 36415; 80048; 82088; 84244; 84439; 84443; 84480; 86376

== ENCOUNTER 2024-02-29 11:07 | Outpatient (AMB) | payer MEDICARE, SELFPAY ==
--- NOTE | 2024-02-29 11:09 | A.OFFVIS_ITS ---
Vital Signs 02/29/24 11:10 Height 5 ft 7 in Weight 162 lb 11.218 oz BMI 25.5 BP 124/72 Blood Pressure Location Lt brachial Position Sitting Pulse 59 Pulse Source Pulse Oximeter Intake Visit Reasons: Hypothyroidism, unspecified Intake Note: Patient present today for Hypothyroidism follow up visit. Dispatcher Maintenance Required: No Dispatcher Maintenance Services: Dispatcher Maintenance Offered & Declined Accompanied by: Self / Same As Patient Allergies latex [LATEX] Allergy (Mild, Verified 02/29/24 11:14) RASH nickel Allergy (Unknown, Verified 02/29/24 11:14) Rash ticagrelor [From Brilinta] Allergy (Verified 02/29/24 11:14) Shortness of Breath Medication List - Last Reconciled 02/29/24 by Alyson Caraballo MD amiodarone 200 mg PO DAILY apixaban (Eliquis) 5 mg PO BID 90 days atorvastatin 20 mg PO DAILY escitalopram oxalate 20 mg PO DAILY fluocinonide 0.05% 1 appl topical BID PRN furosemide 40 mg PO DAILY PRN 90 days MDD 2 tabs gabapentin mg PO isosorbide mononitrate ER 60 mg PO DAILY levalbuterol tartrate 45 mcg/actuation 2 puffs inhalation Q4-6H PRN 30 days metoprolol succinate ER 100 mg See Protocol PO DAILY 90 days ranolazine ER 500 mg PO BID 90 days spironolactone 25 mg See Protocol PO DAILY Synthroid (levothyroxine) 50 mcg PO DAILY NS umeclidinium-vilanterol 62.5-25 mcg/actuation (Anoro Ellipta) 1 ea inhalation DAILY valsartan 160 mg PO DAILY HPI Comments Details: 73-year-old male coming in today for follow up of hypothyroidism. Also noted to have resistant hypertension. Hypothyroidism HPI from prior visit Patient was diagnosed with atrial fibrillation in 2022 and subsequently started on amiodarone. He sees Dr. Joshi from our cardiology department and has been following with him also for his history of coronary artery disease with history of CABG. TFTs were checked as he is on amiodarone. Labs from December 2023 showed high TSH of 11.22 UiU per mL with low free T4 of 0.53 ng/dL. No prior history of thyroid disease. Not on any thyroid medications. Back in November of 2022 was also noted to have a mildly elevated TSH of 5.72 UU per mL with normal free T4. Denies exposure to contrast recently. Denies any recent preceding viral illness before the testing. Interval history Started on levothyroxine 50 mcg daily which she is taking appropriately with good adherence since 01/04/2024. Most recent labs from Laboratory Tests 02/26/24 11:02 TSH 3.51 Free T4 0.92 Total T3 70 L Endorses fatigue. Say somewhat improved. No cold intolerance. Bowel movements are regular. Patient currently denies, hair loss, palpitation, anxiety, weight changes, mood changes, low energy, changes in appearance of eyes or vision changes, tremors, increased diaphoresis or dry skin. ? Patient denies any difficulty swallowing, pain on swallowing or voice changes or difficulty breathing. Patient denies any history of childhood neck radiation. Denies having ever used lithium, or biotin supplements. He is on amiodarone since early 2022. Patient denies any family history of thyroid cancer or thyroid disease. Resistant hypertension HPI from prior visit Diagnosis of HTN:in 40s or 50s Was also diagnosed with atrial fibrillation on amiodarone in 2022 Also noted to have hypokalemia on multiple occasions previously with a potassium level of 3.2 from November 2022. Potassium supplements: not currenlty but has taken in the past . Paternaal grandfrather at 49 years of stroke Father stroke 58 years Paternal 1st cousin 36 years from [place] All sisater 5 of them have heart disease Medications: Valsartan 160 mg daily, spironolactone 25 mg daily, metoprolol extended release 100 mg daily, isosorbide mononitrate ER 60 mg daily, furosemide 40 mg daily DARLINE: not diagnosed Renal US with doppler 12/28 Normal right renal artery. Minimally elevated left renal artery proximal peak systolic velocity suggestive of less than 60% left renal artery stenosis. Interval history Labs in process for BMP, renin, aldosterone levels Review of systems Constitutional: no fevers, chills or weight loss HEENT: no changes in vision Cardiac: No chest pain, discomfort or palpitations. Pulmonary: No SOB GI:No abdominal pain, no nausea or vomiting, no anorexia, no blood in stool Physical exam General: sitting comfortably in no acute distress HEENT: normocephalic/atraumatic, moist oral mucosa Neck: supple, symmetrical, no thyromegaly , no dorsocervical or supraclavicular fat pads Cardiac: normal heart sounds Pulm: normal breath sounds B/L, no added breath sounds Abd: not distended, no tenderness Extremities: no edema, no signs of myxedema Neuro: AAO x3, Speech: normal, no facial droop, moving all 4 extremities Skin: Multiple ecchymosis noted, he is on Eliquis [facility] Medical History (Updated 01/04/24 @ 14:57 by Alyson Caraballo MD) Resistant hypertension Paroxysmal atrial fibrillation Abnormal radiologic density ILD (interstitial lung disease) Aortic stenosis Leukocytosis Chronic hyponatremia Congestive heart failure CHF (congestive heart failure) History of cardioversion Stable angina History of prior cigarette smoking Postoperative atrial fibrillation Hyperlipidemia HTN (hypertension) COPD (chronic obstructive pulmonary disease) Ischemic cardiomyopathy CAD (coronary artery disease) Surgical History Status post glaucoma surgery H/O knee surgery Hx of CABG S/P CABG x 3 Family History Father CVD (cardiovascular disease) Mother CVD (cardiovascular disease) Social History Household Members: Spouse Housing: House Do you presently have visiting nurse or other home services: No Alcohol intake: never Comment: pt refused bed alarm Patient Tobacco Use Status: Former Tobacco user Years Smoked: 20 +/- service: No Current occupational status: retired Physical Exam Vital Signs: Last Vital Signs Pulse 59 02/29/24 11:10 BP 124/72 02/29/24 11:10 BMI result Body Mass Index 25.5 Results Reviewed Results Reviewed: Laboratory Tests 05/25/22 11/09/22 12/02/22 11:01 10:22 07:51 Potassium 3.2 L TSH 1.63 5.72 H Free T4 0.87 Total T3 Thyroid Peroxidase Ab 12/11/23 02/26/24 16:46 11:02 Potassium TSH 11.22 H 3.51 Free T4 0.53 L 0.92 Total T3 70 L Thyroid Peroxidase Ab <1 Assessment & Plan Assessment & Plan (1) Hypothyroidism: Code(s): E03.9 - Hypothyroidism, unspecified Category: Medical Qualifiers: Hypothyroidism type: unspecified Qualified Code(s): E03.9 - Hypothyroidism, unspecified Plan: Patient with new diagnosis of hypothyroidism with blood work from December 2023 showing elevated TSH of 11.22 and low free T4 of 0.53. He is notably on amiodarone. The common pattern observed in euthyroid patients with amiodarone is high free T4, high normal TSH, low normal T3 and high total T4. His thyroid function testing does not align with normal expected changes with amiodarone plus he has been on amiodarone for over 6 months now and expected changes from amiodarone treatment usually normalize after 18-24 weeks of treatment. He does not have any preceding viral illnesses or contrast exposure to suggest hypothyroidism following subacute thyroiditis. Given that he is greater than 65 years old and has history of heart disease, I started on a low dose dose of levothyroxine. Started on 50 mcg of levothyroxine on 01/04/2024. . His weight based dosing would be closer to 100 mcg. He is taking it appropriately. Counseled patient again about taking levothyroxine 1st thing in the morning, on an empty stomach, wait at least an hour before he has breakfast or coffee. Not to take with any other medications to avoid interference with absorption. Patient verbalized understanding and repeated these instructions. Plan: -continue levothyroxine 50 mcg daily -repeat TSH and free T4 in 3 months -follow up in 3 months (2) Resistant hypertension: Code(s): I1A.0 - Resistant hypertension Category: Medical Plan: Patient also noted to have hypertension, currently on 5 medications including a diuretic, meeting the definition of resistant hypertension. He is currently on valsartan 160 mg daily, spironolactone 25 mg daily, metoprolol 100 mg ER daily, isosorbide mononitrate ER 60 mg daily and Lasix 40 mg (2 tablets?) daily. He is also noted to have history of hypokalemia and previously required potassium supplementation, though not on it currently. He also has a history of atrial fibrillation. +there is family history of stroke and [place] at a young age. All of these are suggestive of primary hyperaldosteronism, the prevalence of primary hyperaldosteronism is 10-20% in secondary hypertension. It is a more prevalent condition in patients who have atrial fibrillation. Hence we will screen him for primary hyperaldosteronism. He is notably on spironolactone 25 mg daily, however this is a rather low dose so unlikely that it will interfere with the testing, so if he has a positive screen we do not need to stop the medication for testing. However if he has a negative screening, this could be interfering effect of spironolactone and then we will have to hold the medication for 6 weeks to repeat blood work and re screen him. He had blood drawn on 02/26/2024 for aldosterone, plasma renin activity, results pending. Plan: -follow up on results aldosterone level, plasma renin activity, BMP Plan I spent 30 minutes in reviewing the record, seeing the patient and documenting in the medical record. Orders: Orders Free T4 (Free Thyroxine) 3 Months E03.9 - Hypothyroidism, unspecified Thyroid Stimulating Hormone 3 Months E03.9 - Hypothyroidism, unspecified Patient Instructions: Do blood work 2 weeks before your next appointment with me in 3 months Continue synthroid 50 mcg daily as it is For the rest of your blood work , that is still in process ,I will message on the portal with results Coding Level of Care Code Est Pt Level 4 (87427) Diagnoses Hypothyroidism, unspecified type E03.9 Hypothyroidism type: unspecified Resistant hypertension I1A.0 Time Spent (min) 30
[2024-02-29 11:10] VITALS: BP 124/72; PULSE 59; BMI 25.5
== END 2024-02-29 11:32 | disposition home or self-care (01) ==
PROVIDERS: PCP Family Medicine; Visit Provider Student in an Organized Health Care Education/Training Program
DX: E03.9 Hypothyroidism, unspecified (principal); I1A.0 Resistant hypertension
CPT/HCPCS: 99214

== ENCOUNTER → 2024-02-29 11:07 | Outpatient (BNVA) | payer MEDICARE, SELFPAY | PROVIDERS: PCP Family Medicine; Visit Provider Student in an Organized Health Care Education/Training Program | DX: E03.9 Hypothyroidism, unspecified (principal); I1A.0 Resistant hypertension | CPT/HCPCS: 99212 ==

== ENCOUNTER 2024-03-11 14:53 | Outpatient (AMB) | payer MEDICARE, SELFPAY ==
[2024-03-11 14:58] VITALS: BP 120/66; PULSE 67; BMI 25.8
--- NOTE | 2024-03-11 14:58 | A.OFFVIS_ITS ---
Vital Signs 03/11/24 14:58 Height 5 ft 7 in Weight 164 lb 7.437 oz BMI 25.8 BP 120/66 Blood Pressure Location Lt brachial Position Sitting Pulse 67 Intake Visit Reasons: 3 mth f/up Intake Note: 3mo f/u Email Operations Manager Required: No Accompanied by: Self / Same As Patient Allergies latex [LATEX] Allergy (Mild, Verified 02/29/24 11:14) RASH nickel Allergy (Unknown, Verified 02/29/24 11:14) Rash ticagrelor [From Brilinta] Allergy (Verified 02/29/24 11:14) Shortness of Breath Medication List - Last Reconciled 03/11/24 by Orion Joshi MD amiodarone 200 mg PO DAILY apixaban (Eliquis) 5 mg PO BID 90 days atorvastatin 20 mg PO DAILY escitalopram oxalate 20 mg PO DAILY fluocinonide 0.05% 1 appl topical BID PRN furosemide 40 mg PO DAILY PRN 90 days MDD 2 tabs gabapentin 300 mg PO ONCE isosorbide mononitrate ER 60 mg PO DAILY levalbuterol tartrate 45 mcg/actuation 2 puffs inhalation Q4-6H PRN 30 days metoprolol succinate ER 100 mg See Protocol PO DAILY 90 days ranolazine ER 500 mg PO BID 90 days Synthroid (levothyroxine) 50 mcg PO DAILY NS umeclidinium-vilanterol 62.5-25 mcg/actuation (Anoro Ellipta) 1 ea inhalation DAILY valsartan 160 mg PO DAILY HPI Comments Details: 73-year-old gentleman here for follow-up. He has background history of bypass surgery. He previously complained of chest discomfort shortness of breath and had inferior T-wave changes. We discussed about cardiac catheterization and underwent cardiac catheterization from left radial approach. This showed patent AMR to LAD and patent vein graft with touchdown on OM as well as the RPDA. This was a long vein graft. In the retrograde limb of posterior descending artery there was tight stenosis. Given his symptom and inferior changes on ECG we decided to intervene on that. This was quite challenging to do from the left radial and after a lot of work we were unable to deliver balloons because the length of ballloon shafts was too short. We exchanged for short guide and tried it again but we were unsuccessful due to multiple complexities in the procedure. At this stage we decided to stop and bring him back later. He was seen in follow-up and was doing well. He was given Brilinta during the procedure and developed significant dyspnea afterwards. This was changed to Plavix and he has been tolerating that well. In May he was admitted to [facility] with AFib with RVR which was new diagnosis and congestive heart failure. He was diuresed and underwent cardioversion and was started on amiodarone. His aspirin was stopping was started on Eliquis and was discharged home with Eliquis and Plavix. He said post cardioversion he felt great and was walking without any significant dyspnea. His returning for follow-up today and has been feeling well. He is saying his breathing it as baseline. Interestingly he is back in atrial fibrillation but denying any significant symptoms currently.. He has been taking Eliquis regularly. No bleeding concerns. Our plan was to perform outpatient cardioversion but he developed congestive heart failure and was admitted to [facility]. He underwent c ardioversion on 07/21/2022. He has been on amiodarone since then. He is in sinus rhythm right now. He is saying his breathing is at baseline. He is saying his blood pressure after discharge was normal for a week and after that started slowly going up and was in 150s systolic as of last week. His blood pressure in the office in 160/79. He is taking medications regularly. No other concerns currently. 12/11/2023: He is here for follow-up. He has been doing well. Taking amiodarone. Continues to be in sinus rhythm. Denying chest pain or shortness of breath. He is also on Ranexa and QT interval is 510. Previous QT interval was 499. Taking apixaban 5 mg twice a day for anticoagulation. 03/11/2024: He has been doing well. No chest pain or shortness of breath. No episodes of atrial fibrillation. Previous echocardiography has shown moderate aortic valve stenosis. He is taking medication regularly blood pressure is well controlled. He is currently off spironolactone because he is getting some endocrine workup. [facility] Medical History (Updated 01/04/24 @ 14:57 by Alyson Caraballo MD) Resistant hypertension Paroxysmal atrial fibrillation Abnormal radiologic density ILD (interstitial lung disease) Aortic stenosis Leukocytosis Chronic hyponatremia Congestive heart failure CHF (congestive heart failure) History of cardioversion Stable angina History of prior cigarette smoking Postoperative atrial fibrillation Hyperlipidemia HTN (hypertension) COPD (chronic obstructive pulmonary disease) Ischemic cardiomyopathy CAD (coronary artery disease) Surgical History Status post glaucoma surgery H/O knee surgery Hx of CABG S/P CABG x 3 Family History Father CVD (cardiovascular disease) Mother CVD (cardiovascular disease) Social History Household Members: Spouse Housing: House Do you presently have visiting nurse or other home services: No Alcohol intake: never Comment: pt refused bed alarm Patient Tobacco Use Status: Former Tobacco user Years Smoked: 20 +/- service: No Current occupational status: retired Review of Systems Const Denies chills, Denies fatigue, Denies fever(s), Denies weight gain and Denies weight loss ENT Denies dizziness Card Denies chest pain, Denies leg edema, Denies lightheadedness, Denies palpitations, Denies dyspnea on exertion, Denies orthopnea and Denies other Resp Denies cough and Denies dyspnea on exertion GI Denies hematochezia and Denies change in stool character Musc Denies abnormal gait, Denies muscle weakness, Denies numbness, Denies radiating pain into limb and Denies tingling Neuro Denies abnormal gait, Denies dizziness, Denies numbness and Denies tingling Endo Denies fatigue and Denies palpitations Physical Exam Vital Signs: Last Vital Signs Pulse 67 03/11/24 14:58 BP 120/66 03/11/24 14:58 BMI result Body Mass Index 25.8 GENERAL APPEARANCE: in no acute distress, pleasant. NECK: no carotid bruit, no jugular venous distention. SKIN: no suspicious lesions, warm and dry. HEART: Ejection systolic murmur with preserved 2nd heart sound, regular rate and rhythm. LUNGS: clear to auscultation bilaterally. ABDOMEN: soft, nontender. EXTREMITIES: no edema. PERIPHERAL PULSES: equal. NEUROLOGIC: No gross deficits, AAO X 3 Office Procedures EKG Details: Sinus rhythm 67 beats per minute, rightward axis, intraventricular conduction delay with QRS 124 milliseconds, prolonged QT interval 502 milliseconds. Can not rule out inferior infarct. [id number], Complete Assessment & Plan Assessment & Plan (1) Resistant hypertension: Code(s): I1A.0 - Resistant hypertension Category: Medical (2) Paroxysmal atrial fibrillation: Code(s): I48.0 - Paroxysmal atrial fibrillation Category: Medical (3) Aortic stenosis: Code(s): I35.0 - Nonrheumatic aortic (valve) stenosis Category: Medical Plan Pleasant 73 year gentleman who is here for follow-up. He has known history of coronary disease with previous bypass surgery. He also had paroxysmal atrial fibrillation which has been managed with amiodarone and apixaban at this stage. He continues to be in sinus rhythm. His QT interval is slightly prolonged at 502 milliseconds and he is on Ranexa along with amiodarone. His QT interval is stable though. Blood pressure is well controlled currently. He is going to be off spironolactone for workup for secondary hypertension. He has moderate aortic valve stenosis based on previous echocardiography more than a year ago. We will repeat echocardiogram. Follow-up in few months. Thank you for allowing me to participate in the care of your patient. Please feel free to contact me if you have any questions. Orders: Orders CA echo transthoracic complete Today I35.0 - Nonrheumatic aortic (valve) stenosis Coding Level of Care Code Est Pt Level 4 (39808) Diagnoses Resistant hypertension I1A.0 Paroxysmal atrial fibrillation I48.0 Aortic stenosis I35.0 CPT Codes EKG - CPT: [id number], Complete ([id number])
== END 2024-03-11 15:51 | disposition home or self-care (01) ==
LOC: HO.HCS 14:53
PROVIDERS: PCP Family Medicine; Visit Provider Internal Medicine Cardiovascular Disease
DX: I1A.0 Resistant hypertension (principal); I48.0 Paroxysmal atrial fibrillation; I35.0 Nonrheumatic aortic (valve) stenosis
CPT/HCPCS: 93010; 99214

== ENCOUNTER → 2024-03-11 14:53 | Outpatient (BNVA) | payer MEDICARE, SELFPAY | PROVIDERS: PCP Family Medicine; Visit Provider Internal Medicine Cardiovascular Disease | DX: I1A.0 Resistant hypertension (principal); I48.0 Paroxysmal atrial fibrillation; I35.0 Nonrheumatic aortic (valve) stenosis | CPT/HCPCS: 93005; 99212 ==

== ENCOUNTER 2024-03-20 11:06 | Outpatient (AMB) | payer MEDICARE, SELFPAY ==
[2024-03-20 11:16] VITALS: BP 120/60; PULSE 82; O2SAT 97; BMI 25.5
--- NOTE | 2024-03-20 11:16 | A.OFFVIS_ITS ---
Vital Signs 03/20/24 11:16 Height 5 ft 7 in Weight 163 lb 2.273 oz BMI 25.5 BP 120/60 Blood Pressure Location Lt brachial Position Sitting Pulse 82 Pulse Source Pulse Oximeter Pulse Oximetry (%) 97 Oxygen Delivery Method Room Air Intake Visit Reasons: COPD Intake Note: pt is here for follow up and states he is stable today and feeling good. 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 Allergies latex [LATEX] Allergy (Mild, Verified 03/20/24 11:48) RASH nickel Allergy (Unknown, Verified 03/20/24 11:48) Rash ticagrelor [From Brilinta] Allergy (Verified 03/20/24 11:48) Shortness of Breath Medication List - Last Reconciled 03/20/24 by Yovani Conti MD amiodarone 200 mg PO DAILY apixaban (Eliquis) 5 mg PO BID 90 days atorvastatin 20 mg PO DAILY escitalopram oxalate 20 mg PO DAILY fluocinonide 0.05% 1 appl topical BID PRN furosemide 40 mg PO DAILY PRN 90 days MDD 2 tabs gabapentin 300 mg PO ONCE isosorbide mononitrate ER 60 mg PO DAILY levalbuterol tartrate 45 mcg/actuation 2 puffs inhalation Q4-6H PRN 30 days metoprolol succinate ER 100 mg PO DAILY ranolazine ER 500 mg PO BID 90 days Synthroid (levothyroxine) 50 mcg PO DAILY NS umeclidinium-vilanterol 62.5-25 mcg/actuation (Anoro Ellipta) 1 ea inhalation DAILY valsartan 160 mg PO DAILY Do you need a note to return to daycare/school/sports/work: No HPI HPI COPD: Details: This 73 years old very pleasant gentleman is here for 6 months follow-up. Respiratory quintana he is feeling better and actually he claims that since he is using Anoro Ellipta his breathing is much improved. He has only minimal shortness of breath on walking up hill or climbing stairs. He denies any cough or wheezing. Ferdinand has past history of sporadic smoking during his adult life but he quit more than 6 years ago. He has history of paroxysmal atrial fibrillation and is on amiodarone for the rhythm control. There has been a question of minimal interstitial lung disease as well. [facility] Medical History Resistant hypertension Paroxysmal atrial fibrillation Abnormal radiologic density ILD (interstitial lung disease) Aortic stenosis Leukocytosis Chronic hyponatremia Congestive heart failure CHF (congestive heart failure) History of cardioversion Stable angina History of prior cigarette smoking Postoperative atrial fibrillation Hyperlipidemia HTN (hypertension) COPD (chronic obstructive pulmonary disease) Ischemic cardiomyopathy CAD (coronary artery disease) Surgical History Status post glaucoma surgery H/O knee surgery Hx of CABG S/P CABG x 3 Family History Father CVD (cardiovascular disease) Mother CVD (cardiovascular disease) Social History Household Members: Spouse Housing: House Do you presently have visiting nurse or other home services: No Alcohol intake: never Comment: pt refused bed alarm Patient Tobacco Use Status: Former Tobacco user Years Smoked: 20 +/- service: No Current occupational status: retired Review of Systems Const All systems reviewed & are unremarkable except as noted in HPI and below Eyes Reports no additional complaints ENT Reports no additional complaints Card Reports chest pain with activity (IMPROVED SINCE HE IS ON NEW ANTI ANGINAL MED. RANEXA ), Reports irregular heart rhythm (HAS HAD ATRIAL FIBRILLATION WHICH IS NOW WELL CONTROLLED) and Denies leg edema Resp Reports as per HPI GI Reports no additional complaints Reports no additional complaints Musc Reports no additional complaints Skin/Breast Reports rash and Reports other (HAS CHRONIC PSORIASIS ) Neuro Reports no additional complaints Psych Reports depression (CONTROLLED WITH MED) Endo Reports no additional complaints Sukhi/Lymph Reports no additional complaints Aller/Immun Reports no additional complaints Physical Exam Vital Signs: Last Vital Signs Pulse 82 03/20/24 11:16 BP 120/60 03/20/24 11:16 Pulse Ox 97 03/20/24 11:16 Oxygen Delivery Method Room Air 03/20/24 11:16 BMI result Body Mass Index 25.5 Const General: comfortable, no acute distress, alert and awake Orientation/consciousness: patient oriented x3 HEENT Head: Yes normal to inspection General nose exam: No nasal polyps present and No nasal discharge present Face and sinus: Yes sinuses nontender Mouth: oropharynx normal Throat: Yes posterior oropharynx normal Eyes General: appearance normal, both eyes and all related structures Neck Neck: Yes normal visual inspection, Yes no lymphadenopathy, Yes trachea midline and Yes no JVD Thyroid: Thyroid normal Chest Chest palpation & inspection: normal inspection of the chest (HAS MID STERNAL SCAR WHICH IS WELL-HEALED), normal palpation of entire chest wall and no tenderness Resp Other: PERCUSSION NOTE IS RESONANT, BREATH SOUNDS ARE DISTANT ON BOTH SIDES WITH PROLONGED EXPIRATORY PHASE. NO WHEEZES RHONCHI OR CREPITATIONS ARE HEARD Cardio Palpation: normal PMI Rate: regular rate Rhythm: regular rhythm Heart sounds: no gallops and no murmurs GI Palpation (GI): Soft to palpation, nontender, No hepatosplenomegaly present and no masses Auscultation: normal bowel sounds Back/Spine/Pelvis Thoracic/Lumbar Spine: thoracic and lumbar spine normal to inspection Skin General skin exam: no rashes or lesions noted ( SCATTERED PATCHES OF PSORIATIC RASH ) Neuro General: patient oriented x3 and no focal motor deficits Cranial nerves: Yes CN's II-XII intact bilaterally Extrem General: Yes normal to inspection, Yes no clubbing, cyanosis or edema and Yes no calf tenderness Psych Appearance: well kempt Speech and movement: Normal speech and movement present Results Reviewed Results Reviewed: CT SCAN OF CHEST 10/20/23 1. No significant change in the examination when compared with 03/23/2023. 2. Mild to moderate emphysema with minimal bronchiectasis. No active pulmonary disease. 3. Stable nodules measuring up to 5 mm. Optional one-year follow-up as per Fleischner criteria. 4. Cholelithiasis. 5. No interval change in the 1.9 cm hyperdense left renal cyst. 6. No persistent tracheal nodule. Fleischner guidelines were followed. Assessment & Plan Assessment & Plan (1) COPD (chronic obstructive pulmonary disease): Comment: PATIENT WITH PAST HISTORY OF SMOKING FOR AT LEAST 20-25 YEARS. HE DOES HAVE CHRONIC OBSTRUCTIVE PULMONARY DISEASE, MODERATELY SEVERE. THERE WAS GOOD RESPONSE TO BRONCHODILATOR THERAPY, MUCH IMPROVED WITH THE USE OF ANORO ELLIPTA HE HAS HARDLY NEEDED TO USE ANY LEVALBUTEROL. Code(s): J44.9 - Chronic obstructive pulmonary disease, unspecified Category: Medical Plan: ADVISED TO CONTINUE USING ANORO ELLIPTA 1 INHALATION DAILY LEVALBUTEROL-45 2 PUFFS Q 6 HOURS ONLY P.R.N. (2) AHN (dyspnea on exertion): Comment: DYSPNEA ON EXERTION S DUE TO COMBINATION OF COPD AND CHRONIC CONGESTIVE HEART FAILURE. MUCH IMPROVED WITH THE USE OF ANORO ELLIPTA AND REMAINS STABLE. Code(s): R06.00 - Dyspnea, unspecified Category: Medical Plan: CONTINUE THE SAME MEDS (3) ILD (interstitial lung disease): Comment: WITH HISTORY, OF SMOKING IN THE PAST , ABNORMAL CHEST X-RAY SHOWING INCREASED INTERSTITIAL MARKINGS, THERE IS POSSIBILITY OF SOME DEGREE OF PULMONARY FIBROSIS. HOWEVER CT SCAN DOES NOT SHOW EVIDENCE OF ANY INTERSTITIAL LUNG DISEASE Code(s): J84.9 - Interstitial pulmonary disease, unspecified Category: Medical Plan: EXPLAINED TO THE PATIENT, AND REASSURED Coding Level of Care Code Est Pt Level 3 (26914) Diagnoses COPD (chronic obstructive pulmonary disease) J44.9 AHN (dyspnea on exertion) R06.00 ILD (interstitial lung disease) J84.9
== END 2024-03-20 11:47 | disposition home or self-care (01) ==
PROVIDERS: PCP Family Medicine; Visit Provider Internal Medicine
DX: J44.9 Chronic obstructive pulmonary disease, unspecified (principal); R06.00 Dyspnea, unspecified; J84.9 Interstitial pulmonary disease, unspecified
CPT/HCPCS: 99213

== ENCOUNTER → 2024-03-20 11:06 | Outpatient (BNVA) | payer MEDICARE, SELFPAY | PROVIDERS: PCP Family Medicine; Visit Provider Internal Medicine | DX: J44.9 Chronic obstructive pulmonary disease, unspecified (principal); J84.9 Interstitial pulmonary disease, unspecified; R06.00 Dyspnea, unspecified | CPT/HCPCS: 99212 ==

== ENCOUNTER → 2024-03-25 13:03 | Outpatient (REF) | payer MEDICARE, SELFPAY ==
--- NOTE | 2024-03-25 13:05 | CA_ITS ---
Transthoracic Echocardiogram Patient (Last, First, Middle): Ferdinand Reed, Gender: Male Date of : 1950 Age: 73 Procedure Date: 03/25/2024 Procedure Type: Transthoracic Echocardiogram Location: OP Height: 170.18 cm Weight: 72.58 kg BSA: 1.84 m2 Heart Rate: bpm BP: 120 / 70 mmHg Destination Coordinator: VALENTINO Referring MD: Orion Joshi MD Home Management Supervisor: Orion Joshi MD Symptoms: I35.0 - Nonrheumatic aortic (valve) stenosis Study Quality: Adequate Conclusions: - Normal left ventricular size and systolic function. There is mildly increased left ventricular wall thickness. The visually estimated ejection fraction is between 55-60%. - The mid inferior segment is hypokinetic. - The basal inferior segment is akinetic. - Normal right ventricular cavity size. There is mildly decreased right ventricular systolic function. - The left atrium is severely dilated. - There is moderate aortic valve stenosis. The peak aortic velocity is 2.91 m/s. The mean gradient is 20 mmHg. The aortic valve area is 1.03 cm2. Findings Left Ventricle Normal left ventricular size and systolic function. There is mildly increased left ventricular wall thickness. The visually estimated ejection fraction is between 55-60%. There is evidence of regional wall motion abnormalities. There is paradoxical septal motion consistent with post-operative status. Diastolic function is indeterminate on the basis of available data. There is severe septal asymmetric hypertrophy. Wall Motion Rest Echo Findings The mid inferior segment is hypokinetic. The basal inferior segment is akinetic. Right Ventricle Normal right ventricular cavity size. There is mildly decreased right ventricular systolic function. Atria The left atrium is severely dilated. The right atrium is mildly dilated. Aortic Valve There is moderate calcification of the aortic valve. There is moderate aortic valve stenosis. The peak aortic velocity is 2.91 m/s. The mean gradient is 20 mmHg. The aortic valve area is 1.03 cm2. There is trace (trivial) aortic valve regurgitation. Mitral Valve There is severe mitral annular calcification. There is trace mitral valve regurgitation. There is no mitral valve stenosis. Pulmonic Valve The pulmonic valve is likely normal. Tricuspid Valve Normal tricuspid valve structure. There is no tricuspid valve regurgitation. Normal right atrial pressure. There is no evidence of pulmonary hypertension. Great Vessels There is mild dilatation of the sinuses of Valsalva measuring 3.90 cm. The visualized portions of the pulmonary artery and branches are normal. Venous The inferior vena cava is normal in size and collapses greater than 50% with inspiration. Pericardium/Pleural There is no evidence of pericardial effusion. Prior Study Comparison No significant change compared to prior study dated: 12/02/2022. Measurements 2D Linear Measurements IVSd: 1.52 0.6-0.9/0.6-1.0 cm LVIDd: 4.95 3.9-5.3/4.2-5.9 cm LVIDd Index: 2.69 2.4-3.2/2.2-3.1 cm/m2 LVIDs: 3.90 2.0-3.6 cm LVPWd: 1.17 0.7-1.1 cm LA Diam: 4.90 2.7-3.8/3.0-4.0 cm LAIDs Index: 2.66 1.5-2.3 cm/m2 LV Mass: 337.64 67-162/88-224 g LV Mass Index: 183.50 43-95/49-115 g/m2 LVOT Diam: 2.20 3.0+(-)1.3 cm 2D Systolic Function EF 4C: 56.20 >55% EF 2C: 62.70 >55% EF BiP: 60.30 >55% Mitral Valve MV VTI: 0.34 MV Pk Nathaniel: 1.25 MV Mn Nathaniel: 0.73 MV Pk Grad: 6.00 MV Mn Grad: 2.00 MV Pk E: 0.78 MV PK A: 1.19 MV Decel Time: 390.00 E/A: 0.70 E'Lateral: 7.51 E'Medial: 3.92 E/E' Med: 19.90 E/E' Lat: 10.40 PHT: 114.00 MVA PHT: 1.93 MVA Continuity: 2.[address] [place]: 2.00 Aortic Valve AoV Pk Nathaniel: 2.91 AoV Mn Nathaniel: 2.08 AoV VTI: 0.69 AoV Pk Grad: 34.00 Aov Mn Grad: 20.00 JEFF Cont.VTI: 1.03 LVOT LVOT Pk Nathaniel: 0.80 LVOT Mn Nathaniel: 0.58 LVOT VTI: 0.19 LVOT Pk Grad: 3.00 LVOT Mn Grad: 1.00 LVOT Diam: 2.20 LVOT Area: 3.80 Diastolic Function MV Pk E: 0.78 MV Pk A: 1.19 E/A: 0.70 E'Medial: 3.92 E/E' Med: 19.90 E' Laterial: 7.51 E/E' Lat: 10.40 Right Ventricle TAPSE (mm): 17.40 TVS' Nathaniel: 10.00 Tricuspid Valve TR Pk Nathaniel: 1.68 TR Pk Grad: 11.00 RA Press: 3.00 RVSP: 14.00 Great Vessels Aorta Sinus of Valsalva: 3.90 2.0-3.[address] [place]: 2.61 1.7-3.4 cm Ao Asc: 3.70 2.1-3.4 cm Updated in Other Vendor System with Status of Final Orion Joshi MD electronically signed on 03/25/2024 9:41:50 PM with status of Final
== END ==
LOC: HO.CARD 13:03
PROVIDERS: PCP Family Medicine; Visit Provider Internal Medicine Cardiovascular Disease
DX: I35.0 Nonrheumatic aortic (valve) stenosis (principal)
CPT/HCPCS: 93306

== ENCOUNTER → 2024-03-25 13:05 | Outpatient (BNV) | payer MEDICARE, SELFPAY | PROVIDERS: PCP Family Medicine; Visit Provider Internal Medicine Cardiovascular Disease | DX: I42.2 Other hypertrophic cardiomyopathy (principal); I35.2 Nonrheumatic aortic (valve) stenosis with insufficiency; I34.81 Nonrheumatic mitral (valve) annulus calcification | CPT/HCPCS: 93306 ==

== ENCOUNTER 2024-05-16 10:45 | Outpatient (REF) | payer MEDICARE, SELFPAY ==
[2024-05-16 14:05] LABS: Free T4 (Free Thyroxine) 1.04 ng/dL (0.71-1.85); Thyroid Stimulating Hormone 5.05 uIU/mL (0.32-4.0)
== END 2024-05-16 10:46 | disposition home or self-care (01) ==
LOC: HO.HMGCLDS 10:45
PROVIDERS: PCP Family Medicine; Visit Provider Student in an Organized Health Care Education/Training Program
DX: E03.9 Hypothyroidism, unspecified (principal)
CPT/HCPCS: 36415; 84439; 84443

== ENCOUNTER 2024-05-17 09:24 | Outpatient (REF) | payer MEDICARE, SELFPAY ==
[2024-05-17 11:12] LABS: Anion Gap 11 (12-20); Blood Urea Nitrogen 10 mg/dL (9-16); Calcium 9.5 mg/dL (8.4-10.2); Carbon Dioxide 28 mmol/L (22-29); Chloride 101 mmol/L (96-108); Estimated Glomerular Filt Rate > 60; Glucose Random 90 mg/dL (60-115); Potassium 4.1 mmol/L (3.3-5.1); Sodium 136 mmol/L (135-145)
[2024-05-25 08:59] LABS: Renin 0.26 ng/mL/h (0.25-5.82)
== END 2024-05-17 09:25 | disposition home or self-care (01) ==
LOC: HO.HMGCLDS 09:24
PROVIDERS: PCP Family Medicine; Visit Provider Student in an Organized Health Care Education/Training Program
DX: I1A.0 Resistant hypertension (principal)
CPT/HCPCS: 36415; 80048; 82088; 84244

== ENCOUNTER 2024-06-03 11:07 | Outpatient (AMB) | payer MEDICARE, SELFPAY ==
--- NOTE | 2024-06-03 11:22 | A.OFFVIS_ITS ---
Vital Signs 06/03/24 11:23 Height 5 ft 7 in Weight 157 lb 13.616 oz BMI 24.7 BP 142/60 H Blood Pressure Location Lt brachial Position Sitting Pulse 60 Pulse Source Pulse Oximeter Intake Visit Reasons: Hypothyroidism Intake Note: Patient present today for Hypothyroidism office visit. Classification Control Clerk Required: No Accompanied by: Self / Same As Patient Allergies latex [LATEX] Allergy (Mild, Verified 06/03/24 11:27) RASH nickel Allergy (Unknown, Verified 06/03/24 11:27) Rash ticagrelor [From Brilinta] Allergy (Verified 06/03/24 11:27) Shortness of Breath Medication List - Last Reconciled 06/03/24 by Alyson Caraballo MD amiodarone 200 mg PO DAILY apixaban (Eliquis) 5 mg PO BID apixaban (Eliquis) 5 mg PO BID 90 days atorvastatin 20 mg PO DAILY clopidogrel 75 mg PO DAILY fluocinonide 0.05% 1 appl topical BID PRN furosemide 40 mg PO DAILY PRN 90 days MDD 2 tabs isosorbide mononitrate ER 60 mg PO DAILY levalbuterol tartrate 45 mcg/actuation 2 puffs inhalation Q4-6H PRN 30 days levothyroxine 75 mcg PO DAILY lorazepam 1 mg PO DAILY PRN metoprolol succinate ER 100 mg PO DAILY ranolazine ER 500 mg PO BID 90 days spironolactone 25 mg PO DAILY umeclidinium-vilanterol 62.5-25 mcg/actuation (Anoro Ellipta) 1 ea inhalation DAILY valsartan 160 mg PO DAILY HPI Comments Details: 73-year-old male coming in today for follow up of hypothyroidism and resistant hypertension. Hypothyroidism HPI from prior visit Patient was diagnosed with atrial fibrillation in 2022 and subsequently started on amiodarone. He sees Dr. Joshi from our cardiology department and has been following with him also for his history of coronary artery disease with history of CABG. TFTs were checked as he is on amiodarone. Labs from December 2023 showed high TSH of 11.22 UiU per mL with low free T4 of 0.53 ng/dL. No prior history of thyroid disease. Not on any thyroid medications. Back in November of 2022 was also noted to have a mildly elevated TSH of 5.72 UU per mL with normal free T4. Denies exposure to contrast recently. Denies any recent preceding viral illness before the testing. Started on levothyroxine 50 mcg daily which taking appropriately with good adherence since 01/04/2024. Endorses fatigue. Say somewhat improved. No cold intolerance. Bowel movements are regular. Patient currently denies, hair loss, palpitation, anxiety, weight changes, mood changes, low energy, changes in appearance of eyes or vision changes, tremors, increased diaphoresis or dry skin. ? Patient denies any difficulty swallowing, pain on swallowing or voice changes or difficulty breathing. Patient denies any history of childhood neck radiation. Denies having ever used lithium, or biotin supplements. He is on amiodarone since early 2022. Patient denies any family history of thyroid cancer or thyroid disease. Interval history Repeat labs 05/16/2024 showed mildly elevated TSH of 5.05 with normal free T4 of 1.04. Levothyroxine increased to 75 mcg daily. Resistant hypertension HPI from prior visit Diagnosis of HTN:in 40s or 50s Was also diagnosed with atrial fibrillation on amiodarone in 2022 Also noted to have hypokalemia on multiple occasions previously with a potassium level of 3.2 from November 2022. Potassium supplements: not currenlty but has taken in the past . Paternaal grandfrather at 49 years of stroke Father stroke 58 years Paternal 1st cousin 36 years from [place] All sisater 5 of them have heart disease Medications: Valsartan 160 mg daily, spironolactone 25 mg daily, metoprolol extended release 100 mg daily, isosorbide mononitrate ER 60 mg daily, furosemide 40 mg daily DARLINE: not diagnosed Renal US with doppler 12/28 Normal right renal artery. Minimally elevated left renal artery proximal peak systolic velocity suggestive of less than 60% left renal artery stenosis. Interval history Labs repeat labs 05/17/2024 showed renin activity of 0.26, aldosterone 8, potassium 4.1. Patient was off spironolactone for 6 weeks prior to doing this blood work. Review of systems Constitutional: no fevers, chills or weight loss HEENT: no changes in vision Cardiac: No chest pain, discomfort or palpitations. Pulmonary: No SOB GI:No abdominal pain, no nausea or vomiting, no anorexia, no blood in stool Physical exam General: sitting comfortably in no acute distress HEENT: normocephalic/atraumatic, moist oral mucosa Neck: supple, symmetrical, no thyromegaly , no dorsocervical or supraclavicular fat pads Cardiac: normal heart sounds Pulm: normal breath sounds B/L, no added breath sounds Abd: not distended, no tenderness Extremities: no edema, no signs of myxedema Neuro: AAO x3, Speech: normal, no facial droop, moving all 4 extremities Skin: Multiple ecchymosis noted, he is on Eliquis Laboratory Tests 05/25/22 11/09/22 12/02/22 11:01 10:22 07:51 Sodium Potassium 3.2 L Creatinine Estimated GFR Renin Aldosterone TSH 1.63 5.72 H Free T4 0.87 Total T3 12/11/23 02/26/24 05/16/24 16:46 11:02 10:05 Sodium Potassium Creatinine Estimated GFR Renin Aldosterone TSH 11.22 H 3.51 5.05 H Free T4 0.53 L 0.92 1.04 Total T3 70 L 05/17/24 09:28 Sodium 136 Potassium 4.1 Creatinine 0.86 Estimated GFR > 60 Renin 0.26 Aldosterone 8 TSH Free T4 Total T3 Laboratory on spironolactone 02/26/24 11:02 Renin 1.03 Renin Activity 0.89 Aldosterone 9 Aldosterone/Renin Ratio 10.1 PFSH Medical History Resistant hypertension Paroxysmal atrial fibrillation Abnormal radiologic density ILD (interstitial lung disease) Aortic stenosis Leukocytosis Chronic hyponatremia Congestive heart failure CHF (congestive heart failure) History of cardioversion Stable angina History of prior cigarette smoking Postoperative atrial fibrillation Hyperlipidemia HTN (hypertension) COPD (chronic obstructive pulmonary disease) Ischemic cardiomyopathy CAD (coronary artery disease) Surgical History Status post glaucoma surgery H/O knee surgery Hx of CABG S/P CABG x 3 Family History Father CVD (cardiovascular disease) Mother CVD (cardiovascular disease) Social History Household Members: Spouse Housing: House Do you presently have visiting nurse or other home services: No Alcohol intake: never Comment: pt refused bed alarm Patient Tobacco Use Status: Former Tobacco user Years Smoked: 20 +/- service: No Current occupational status: retired Physical Exam Vital Signs: Last Vital Signs Pulse 60 06/03/24 11:23 BP 142/60 H 06/03/24 11:23 BMI result Body Mass Index 24.7 Assessment & Plan Assessment & Plan (1) Hypothyroidism: Code(s): E03.9 - Hypothyroidism, unspecified Category: Medical Qualifiers: Hypothyroidism type: unspecified Qualified Code(s): E03.9 - Hypothyroidism, unspecified Plan: Patient with new diagnosis of hypothyroidism with blood work from December 2023 showing elevated TSH of 11.22 and low free T4 of 0.53. He is notably on amiodarone. The common pattern observed in euthyroid patients with amiodarone is high free T4, high normal TSH, low normal T3 and high total T4. His thyroid function testing does not align with normal expected changes with amiodarone plus he has been on amiodarone for over 6 months now and expected changes from amiodarone treatment usually normalize after 18-24 weeks of treatment. He does not have any preceding viral illnesses or contrast exposure to suggest hypothyroidism following subacute thyroiditis. Given that he is greater than 65 years old and has history of heart disease, I started on a low dose dose of levothyroxine. Started on 50 mcg of levothyroxine on 01/04/2024. . His weight based dosing would be closer to 100 mcg. Repeat labs 05/16/2024 showed mildly elevated TSH of 5.05 with normal free T4 of 1.04. Levothyroxine increased to 75 mcg daily. Plan: -continue levothyroxine 75 mcg daily -repeat TSH and free T4 in 3 3 weeks which would be 6 weeks from dose change (2) Resistant hypertension: Code(s): I1A.0 - Resistant hypertension Category: Medical Plan: Patient also noted to have hypertension, currently on 5 medications including a diuretic, meeting the definition of resistant hypertension. He is currently on valsartan 160 mg daily, spironolactone 25 mg daily, metoprolol 100 mg ER daily, isosorbide mononitrate ER 60 mg daily and Lasix 40 mg (2 tablets?) daily. He is also noted to have history of hypokalemia and previously required potassium supplementation, though not on it currently. He also has a history of atrial fibrillation. +there is family history of stroke and [place] at a young age. All of these are suggestive of primary hyperaldosteronism, the prevalence of primary hyperaldosteronism is 10-20% in secondary hypertension. It is a more prevalent condition in patients who have atrial fibrillation. Hence we will screen him for primary hyperaldosteronism. He had blood drawn on 02/26/2024 while he was on spironolactone 25 mg daily which showed aldosterone of 9, however renin activity was ran twice and somehow had contradictory results with 1 being suppressed renin less than 1 another 1.09. We took him off spironolactone for 6 weeks and repeated testing which on 05/18/24 showed a suppressed renin of 0.26, aldosterone of 8. While he does not meet exact cutoff of aldosterone greater than 10 however given he is on valsartan and his renin is suppressed, this is still highly suspicious for primary hyperaldosteronism hence I will proceed with oral sodium loading confirmatory test. Plan: -ordered 24 hour urine sodium, 24 hour urine creatinine, 24 hour urine aldosterone, BMP with 3 days of sodium loading -follow up in 4 weeks to discuss results Plan I spent 30 minutes in reviewing the record, seeing the patient and documenting in the medical record. Orders: Orders Sodium, 24Hr Urine Group Today I1A.0 - Resistant hypertension Basic Metabolic Panel Today I1A.0 - Resistant hypertension Aldosterone, 24Hr Urine Today I1A.0 - Resistant hypertension Creatinine, 24 Hr Group Today I1A.0 - Resistant hypertension Patient Instructions: your blood work is suggestive of over secretion of aldosterone as we had suspected. I would like you to do confirmatory testing with a 24 hour urine collection and blood work done on the same day as a 24 hour urine collection is handed in. For the 24 hour urine test, you need to do oral sodium loading. Please drink a can of [employer] soup (with high sodium content) morning and evening for 3 days and on the morning of the third day start the 24 hour urine collection and on the 4 day as you go in to hand in the urine to the lab please also do blood work at the same time. Also continue eating your normal food in addition to the soup. Preferable with added salt to the food too. This is just for the purpose of testing. Instruction for 24 hour urine collection 24 hr urine collection instructions You have been asked to collect your urine for 24 hours to assess for aldosterone excretion. You must choose a 24 hour period of time when you will be home. The morning of the first day, DISCARD the FIRST morning void and then note the time. You will collect every single void from then on for 24 hours. For example, if you wake up at 6am and urinate, flush down that void. You will then collect every drop of urine all day and all night through 6am the following day. You will urinate one last time at 6am for the collection. The jug of urine must be kept in the refrigerator until you bring it to the lab. You would also need thyroid blood work repeated in 3 weeks Coding Level of Care Code Est Pt Level 4 (57763) Diagnoses Hypothyroidism, unspecified type E03.9 Hypothyroidism type: unspecified Resistant hypertension I1A.0 Time Spent (min) 30
[2024-06-03 11:23] VITALS: BP 142/60; PULSE 60; BMI 24.7
--- OUTSIDE RECORDS SUMMARY | 2024-06-03 16:03 | XMS_ITS | Clinical Summary ---
Author Organization [facility] Facility Address [address] [address] Care Team Providers Care Drop Hammer Pile Driver Operator Name Role Phone Reena Dickson Primary Care Provider Allergies Active Allergy Reactions Criticality Noted Date Comments Latex Other (see comments) 06/27/2022 Nickel Other (see comments) 06/27/2022 Medications amiodarone (PACERONE) 200 MG tablet 06/20/2022 Active amLODIPine (NORVASC) 10 MG tablet 05/17/2022 Active Eliquis 5 MG tablet 06/20/2022 Active atorvastatin (LIPITOR) 20 MG tablet 06/23/2022 Active carvedilol (COREG) 12.5 MG tablet Take 1 tablet by mouth in the morning and 1 tablet in the evening. Active clopidogrel (PLAVIX) 75 MG tablet 05/17/2022 Active Ergocalciferol 50 MCG (1999) capsule Take 1 capsule by mouth 1 (one) time per week Active escitalopram (LEXAPRO) 20 MG tablet 06/17/2022 Active furosemide (LASIX) 20 MG tablet 06/20/2022 Active gabapentin (NEURONTIN) 300 MG capsule 06/24/2022 Active hydrOXYzine (ATARAX) 10 MG tablet 05/17/2022 Active isosorbide mononitrate (IMDUR) 30 MG 24 hr tablet Take 1 tablet by mouth 1 (one) time each day 09/23/2019 Active lisinopril 10 MG tablet Take 10 mg by mouth 06/18/2020 Active LORazepam (ATIVAN) 1 MG tablet 06/17/2022 Active metoprolol succinate XL (TOPROL-XL) 100 MG 24 hr tablet 06/20/2022 Act erika omeprazole (PriLOSEC) [address] capsule Take 1 capsule by mouth 1 (one) time each day Active potassium chloride (KLOR-CON M20) 20 MEQ CR tablet Take 1 tablet by mouth 1 (one) time each day Active valsartan (DIOVAN) 80 MG tablet 06/20/2022 Active Immunizations Name Administration Dates Next Due Presley SARS-COV-2 08/21/2021,03/12/2021, 021,07/16/2020 Pneumococcal Conjugate 13-Valent 11/01/2016 Pneumococcal Polysaccharide 12/01/2017 Tdap 11/01/2016 Social History Tobacco Use Types Packs/Day Years Used Date Smoking Tobacco: Never Assessed Sex and Gender Information Value Date Recorded Sex Assigned at Not on file Legal Sex Male 4:54 PM EST Gender Identity Not on file Sexual Orientation Not on file Last Filed Vital Signs Vital Sign Reading Time Taken Comments Blood Pressure 102/80 06/27/2022 2:00 PM EST Pulse 84 06/27/2022 2:00 PM EST Temperature - - Respiratory Rate - - Oxygen Saturation 96% 06/27/2022 2:00 PM EST Inhaled Oxygen Concentration - - Weight 81.2 kg (179 lb) 06/27/2022 2:00 PM EST Height 174 cm (5' 8.5 ) 06/27/2022 2:00 PM EST Body Mass Index 26.82 06/27/2022 2:00 PM EST Plan of Treatment Health Maintenance Due Date Last Done Comments Colorectal Cancer Screening: Annual FOBT 1999 Colorectal Cancer Screening: Colonoscopy 1999 Colorectal Cancer Screening: Sigmoidoscopy 1999 Influenza Vaccine (#1) 2024 Pneumococcal Vaccine: 65+ Years Completed 12/01/2017, 11/01/2016 Hepatitis B Vaccine Aged Out No longe r eligible based on patient's age to complete this topic Insurance MEDICARE [facility] MEDICARE [facility] Care Teams Drop Hammer Pile Driver Operator Relationship Specialty Start Date End Date Reena Dickson [address] [place] [address] PCP - General 06/27/22
== END 2024-06-03 12:05 | disposition home or self-care (01) ==
LOC: HO.ENCR 11:07
PROVIDERS: PCP Family Medicine; Visit Provider Student in an Organized Health Care Education/Training Program
DX: E03.9 Hypothyroidism, unspecified (principal); I1A.0 Resistant hypertension
CPT/HCPCS: 99214

== ENCOUNTER → 2024-06-03 11:07 | Outpatient (BNVA) | payer MEDICARE, SELFPAY | PROVIDERS: PCP Family Medicine; Visit Provider Student in an Organized Health Care Education/Training Program | DX: E03.9 Hypothyroidism, unspecified (principal); I48.91 Unspecified atrial fibrillation; I1A.0 Resistant hypertension | CPT/HCPCS: 99212 ==

== ENCOUNTER 2024-06-07 12:08 | Outpatient (REF) | payer MEDICARE, SELFPAY ==
--- OUTSIDE RECORDS SUMMARY | 2024-06-07 12:40 | XMS_ITS | Clinical Summary ---
Author Organization [facility] Facility Address [address] [address] Care Team Providers Care Animator Name Role Phone Reean Dickson Primary Care Provider [phone] Allergies Active Allergy Reactions Criticality Noted Date [...] age to complete this topic Insurance MEDICARE [facility] MEDICARE [facility] Care Teams Animator Relationship Specialty Start Date End Date Reena Dickson [place] [address] PCP - General 06/27/22
[2024-06-07 12:51] LABS: Creatinine, mg/dL 28.97
[2024-06-07 13:54] LABS: Creatinine, 24Hr Urine 0.5 G/Day (1.0-2.0); Sodium 24 Hr Urine 83.5 mmol/Day (40-220); Total Volume 24 Hour Urine 1575 mL
[2024-06-20 01:08] LABS: Aldosterone, 24Hr Urine 1.8 mcg/24 h; Creatinine 24Hr Urine 0.47 g/24 h (0.50-2.15); Total Volume 1575 mL
== END 2024-06-07 12:09 | disposition home or self-care (01) ==
LOC: HO.LNP 12:08
PROVIDERS: Visit Provider Student in an Organized Health Care Education/Training Program
DX: I1A.0 Resistant hypertension (principal)
CPT/HCPCS: 82088; 84300

== ENCOUNTER 2024-07-16 11:30 | Outpatient (REF) | payer MEDICARE, SELFPAY ==
[2024-07-16 12:40] LABS: Creatinine, mg/dL 37.81
[2024-07-16 14:06] LABS: Creatinine, 24Hr Urine 0.2 G/Day (1.0-2.0); Sodium 24 Hr Urine 35.4 mmol/Day (40-220); Total Volume 24 Hour Urine 600 mL
--- OUTSIDE RECORDS SUMMARY | 2024-07-16 14:17 | XMS_ITS | Clinical Summary ---
Author Organization [facility] Facility Address [address] [address] Care Team Providers Care Drug Clerk Name Role Phone Reena Dickson Primary Care Provider [phone] Allergies Active Allergy Reactions Criticality Noted Date [...] [facility] MEDICARE [facility] Care Teams Drug Clerk Relationship Specialty Start Date End Date Reena Dickson [address] [place] [address] PCP - General 06/27/22
[2024-07-25 00:23] LABS: Aldosterone, 24Hr Urine 1.8 mcg/24 h; Creatinine 24Hr Urine 0.23 g/24 h (0.50-2.15); Total Volume 600 mL
== END 2024-07-16 11:31 | disposition home or self-care (01) ==
LOC: HO.LNP 11:30
PROVIDERS: Visit Provider Student in an Organized Health Care Education/Training Program
DX: I1A.0 Resistant hypertension (principal); E03.9 Hypothyroidism, unspecified
CPT/HCPCS: 82088; 84300

== ENCOUNTER 2024-07-17 10:04 | Outpatient (REF) | payer MEDICARE, SELFPAY ==
--- OUTSIDE RECORDS SUMMARY | 2024-07-17 11:27 | XMS_ITS | Clinical Summary ---
Author Organization [facility] Facility Address [address] [address] Care Team Providers Care Exhibit Technician Name Role Phone Reena Dickson Primary Care Provider [phone] Allergies Active Allergy Reactions Criticality Noted Date [...] age to complete this topic Insurance MEDICARE [facility] MEDICARE [facility] Care Teams Exhibit Technician Relationship Specialty Start Date End Date Reena Dickson [place] [address] PCP - General 06/27/22
[2024-07-17 14:06] LABS: Anion Gap 10 (12-20); Blood Urea Nitrogen 13 mg/dL (9-16); Calcium 9.3 mg/dL (8.4-10.2); Carbon Dioxide 27 mmol/L (22-29); Chloride 100 mmol/L (96-108); Estimated Glomerular Filt Rate > 60; Glucose Random 79 mg/dL (60-115); Potassium 4.5 mmol/L (3.3-5.1); Sodium 132 mmol/L (135-145)
[2024-07-17 14:22] LABS: Free T4 (Free Thyroxine) 1.21 ng/dL (0.71-1.85); Thyroid Stimulating Hormone 1.84 uIU/mL (0.32-4.0)
== END 2024-07-17 10:05 | disposition home or self-care (01) ==
LOC: HO.HMGCLDS 10:04
PROVIDERS: Visit Provider Student in an Organized Health Care Education/Training Program
DX: I1A.0 Resistant hypertension (principal); E03.9 Hypothyroidism, unspecified
CPT/HCPCS: 36415; 80048; 84439; 84443

== ENCOUNTER 2024-08-08 12:51 | Outpatient (AMB) | payer MEDICARE, SELFPAY ==
[2024-08-08 12:54] VITALS: BP 110/70; PULSE 57; O2SAT 97; BMI 25.2
--- NOTE | 2024-08-08 12:54 | A.OFFVIS_ITS ---
Vital Signs 08/08/24 12:54 Height 5 ft 7 in Weight 160 lb 14.999 oz BMI 25.2 BP 110/70 Blood Pressure Location Rt brachial Position Sitting Pulse 57 Pulse Source Pulse Oximeter Pulse Oximetry (%) 97 Oxygen Delivery Method Room Air Intake Visit Reasons: Hypothyroidism Intake Note: Patient present today for Hypothyroidism office visit. Wash Tub Machine Operator Required: No Accompanied by: Self / Same As Patient Allergies latex [LATEX] Allergy (Mild, Verified 08/08/24 12:55) RASH nickel Allergy (Unknown, Verified 08/08/24 12:55) Rash ticagrelor [From Brilinta] Allergy (Verified 08/08/24 12:55) Shortness of Breath Medication List - Last Reconciled 08/08/24 by Alyson Caraballo MD amiodarone 200 mg PO DAILY apixaban (Eliquis) 5 mg PO BID atorvastatin 20 mg PO DAILY clopidogrel 75 mg PO DAILY fluocinonide 0.05% 1 appl topical BID PRN furosemide 40 mg PO DAILY PRN isosorbide mononitrate ER 60 mg PO DAILY levalbuterol tartrate 45 mcg/actuation 2 puffs inhalation Q4-6H PRN 30 days levothyroxine 75 mcg PO DAILY lorazepam 1 mg PO DAILY PRN metoprolol succinate ER 100 mg PO DAILY ranolazine ER 500 mg PO BID 90 days spironolactone 25 mg PO DAILY umeclidinium-vilanterol 62.5-25 mcg/actuation (Anoro Ellipta) 1 ea inhalation DAILY valsartan 160 mg PO DAILY HPI Comments Details: 73-year-old male coming in today for follow up of hypothyroidism and resistant hypertension. Hypothyroidism HPI from prior visit Patient was diagnosed with atrial fibrillation in 2022 and subsequently started on amiodarone. He sees Dr. Joshi from our cardiology department and has been following with him also for his history of coronary artery disease with history of CABG. TFTs were checked as he is on amiodarone. Labs from December 2023 showed high TSH of 11.22 UiU per mL with low free T4 of 0.53 ng/dL. No prior history of thyroid disease. Not on any thyroid medications. Back in November of 2022 was also noted to have a mildly elevated TSH of 5.72 UU per mL with normal free T4. Denies exposure to contrast recently. Denies any recent preceding viral illness before the testing. Started on levothyroxine 50 mcg daily which taking appropriately with good adherence since 01/04/2024. Endorses fatigue. Say somewhat improved. No cold intolerance. Bowel movements are regular. Patient currently denies, hair loss, palpitation, anxiety, weight changes, mood changes, low energy, changes in appearance of eyes or vision changes, tremors, increased diaphoresis or dry skin. ? Patient denies any difficulty swallowing, pain on swallowing or voice changes or difficulty breathing. Patient denies any history of childhood neck radiation. Denies having ever used lithium, or biotin supplements. He is on amiodarone since early 2022. Patient denies any family history of thyroid cancer or thyroid disease. Repeat labs 05/16/2024 showed mildly elevated TSH of 5.05 with normal free T4 of 1.04. Levothyroxine increased to 75 mcg daily. Interval history Labs 07/17/2024 showed normal TSH of 1.84, normal free T4 1.21 Levothyroxine 75 mcg daily, good adminitration and adherence Resistant hypertension HPI from prior visit Diagnosis of HTN:in 40s or 50s Was also diagnosed with atrial fibrillation on amiodarone in 2022 Also noted to have hypokalemia on multiple occasions previously with a potassium level of 3.2 from November 2022. Potassium supplements: not currenlty but has taken in the past . 3 MIs s/p CABG triple bypass 2019 Paternaal grandfrather at 49 years of stroke Father stroke 58 years Paternal 1st cousin 36 years from [place] All sisater 5 of them have heart disease Medications: Valsartan 160 mg daily, spironolactone 25 mg daily, metoprolol extended release 100 mg daily, isosorbide mononitrate ER 60 mg daily, furosemide 40 mg daily DARLINE: not diagnosed Renal US with doppler 12/28 Normal right renal artery. Minimally elevated left renal artery proximal peak systolic velocity suggestive of less than 60% left renal artery stenosis. Labs repeat labs 05/17/2024 showed renin activity of 0.26, aldosterone 8, potassium 4.1. Patient was off spironolactone for 6 weeks prior to doing this blood work. Interval history 24 hour urine testing in May and July 2024 was invalid as both times sodium was less than 200 mEq in the sample, urine aldosterone level was low in that setting Normal blood pressure today. Physical exam General: sitting comfortably in no acute distress HEENT: normocephalic/atraumatic, moist oral mucosa Neck: supple, symmetrical, no thyromegaly , no dorsocervical or supraclavicular fat pads Cardiac: normal heart sounds Pulm: normal breath sounds B/L, no added breath sounds Abd: not distended, no tenderness Extremities: no edema, no signs of myxedema Neuro: AAO x3, Speech: normal, no facial droop, moving all 4 extremities Skin: Multiple ecchymosis noted, he is on Eliquis Laboratory Tests 05/25/22 11/09/22 12/02/22 11:01 10:22 07:51 Sodium Potassium 3.2 L Creatinine Estimated GFR Renin Aldosterone TSH 1.63 5.72 H Free T4 0.87 Total T3 12/11/23 02/26/24 05/16/24 16:46 11:02 10:05 Sodium Potassium Creatinine Estimated GFR Renin Aldosterone TSH 11.22 H 3.51 5.05 H Free T4 0.53 L 0.92 1.04 Total T3 70 L 05/17/24 09:28 Sodium 136 Potassium 4.1 Creatinine 0.86 Estimated GFR > 60 Renin 0.26 Aldosterone 8 TSH Free T4 Total T3 Laboratory on spironolactone 02/26/24 11:02 Renin 1.03 Renin Activity 0.89 Aldosterone 9 Aldosterone/Renin Ratio 10.1 Laboratory Tests 06/07/24 07/16/24 07/17/24 09:00 07:00 10:09 TSH 1.84 Free T4 1.21 Ur 24 Hour Volume 1575 600 Ur Creatinine mg/dL 28.97 37.81 Ur Creatinine 24 Hour 0.5 L 0.2 L Ur Sodium 24 Hour 83.5 35.4 L Ur Total Volume 1575 600 Ur Aldosterone 24 Hr 1.8 1.8 Urine Creatinine 0.47 L 0.23 L [facility] Medical History Resistant hypertension Paroxysmal atrial fibrillation Abnormal radiologic density ILD (interstitial lung disease) Aortic stenosis Leukocytosis Chronic hyponatremia Congestive heart failure CHF (congestive heart failure) History of cardioversion Stable angina History of prior cigarette smoking Postoperative atrial fibrillation Hyperlipidemia HTN (hypertension) COPD (chronic obstructive pulmonary disease) Ischemic cardiomyopathy CAD (coronary artery disease) Surgical History Status post glaucoma surgery H/O knee surgery Hx of CABG S/P CABG x 3 Family History Father CVD (cardiovascular disease) Mother CVD (cardiovascular disease) Social History Household Members: Spouse Housing: House Do you presently have visiting nurse or other home services: No Alcohol intake: never Comment: pt refused bed alarm Patient Tobacco Use Status: Former Tobacco user Years Smoked: 20 +/- service: No Current occupational status: retired Physical Exam Vital Signs: Last Vital Signs Pulse 57 08/08/24 12:54 BP 110/70 08/08/24 12:54 Pulse Ox 97 08/08/24 12:54 Oxygen Delivery Method Room Air 08/08/24 12:54 BMI result Body Mass Index 25.2 Assessment & Plan Assessment & Plan (1) Hypothyroidism: Code(s): E03.9 - Hypothyroidism, unspecified Category: Medical Qualifiers: Hypothyroidism type: unspecified Qualified Code(s): E03.9 - Hypothyroidism, unspecified Plan: Patient with new diagnosis of hypothyroidism with blood work from December 2023. Biochemically euthyroid on levothyroxine 75 mcg daily with most recent blood w ork from July 2024 showing normal TSH. Plan: -continue levothyroxine 75 mcg daily -repeat TSH and free T4 i in 6 months prior to next appointment (2) Resistant hypertension: Code(s): I1A.0 - Resistant hypertension Category: Medical Plan: Patient also noted to have hypertension, currently on 5 medications including a diuretic, meeting the definition of resistant hypertension. He is currently on valsartan 160 mg daily, spironolactone 25 mg daily, metoprolol 100 mg ER daily, isosorbide mononitrate ER 60 mg daily and Lasix 40 mg (2 tablets?) daily. He is also noted to have history of hypokalemia and previously required potassium supplementation, though not on it currently. He also has a history of atrial fibrillation. And personal history of [place] with triple bypass in 2019 +there is family history of stroke and [place] at a young age. All of these are suggestive of primary hyperaldosteronism, the prevalence of primary hyperaldosteronism is 10- 20% in secondary hypertension. It is a more prevalent condition in patients who have atrial fibrillation. He had blood drawn on 02/26/2024 while he was on spironolactone 25 mg daily which showed aldosterone of 9, however renin activity was ran twice and somehow had contradictory results with 1 being suppressed renin less than 1 another 1.09. We took him off spironolactone for 6 weeks and repeated testing which on 05/18/24 showed a suppressed renin of 0.26, aldosterone of 8. While he does not meet exact cutoff of aldosterone greater than 10 however given he is on valsartan and his renin is suppressed, this is still highly suspicious for primary hyperaldosteronism . We proceeded with oral salt loading test with measurement of 24 hour urine aldosterone, both times in May and July 2024 results were invalid because he could not salt load adequately. I discussed with the patient in detail today that at this time we do not have confirmatory testing to confirm diagnosis of primary hyperaldosteronism. Regardless he is already on spironolactone 25 mg daily and when he did have levels done in February 2024 of renin activity values on spironolactone, his plasma renin activity was at 1.09. Adequate mineralocorticoid receptor activity suppression targets renin greater than 1. At this time his blood pressure is also well-controlled. We will continue him on spironolactone 25 mg daily. I explained to him that if he has uncontrolled blood pressure, ideal management would be to go up on spironolactone as opposed to any of his other medications. The goal is not just to control blood pressure but also reduce his risk of heart attack and stroke. I also briefly discussed with him that if we were able to confirm he has primary hyperaldosteronism, and localized it to 1 of his adrenal glands, surgery is usually the 1st line management. He did tell me that he would not be opposed to surgery but would prefer medical management. Regardless as right now we do not have a confirmatory diagnosis, but a high suspicion would just continue him on spironolactone 25 mg daily. In older patients with a high- risk cardiovascular history, it is also hard to do saline suppression test. Plan: -ordered plasma renin activity, BMP to be done prior to appointment in 6 months -continue spironolactone 25 mg daily as well as other antihypertensive medications Plan I spent 30 minutes in reviewing the record, seeing the patient and documenting in the medical record. Orders: Orders Renin 6 Months I1A.0 - Resistant hypertension Thyroid Stimulating Hormone 6 Months E03.9 - Hypothyroidism, unspecified Free T4 (Free Thyroxine) 6 Months E03.9 - Hypothyroidism, unspecified Basic Metabolic Panel 6 Months I1A.0 - Resistant hypertension Medications: Refilled levothyroxine Take 1 tablet on empty stomach first thing in the morning 75 mcg PO DAILY 30 tabs 8RF Patient Instructions: Continue Levothyroxine 75 mcg daily Do thyroid blood work a week before your next appointment with me in 6 months Coding Level of Care Code Est Pt Level 4 (61516) Diagnoses Hypothyroidism, unspecified type E03.9 Hypothyroidism type: unspecified Resistant hypertension I1A.0 Time Spent (min) 30
--- OUTSIDE RECORDS SUMMARY | 2024-08-08 13:57 | XMS_ITS | Clinical Summary ---
Author Organization [facility] Facility Address [address] [place] [address] Care Team Providers Care Switchboard Operator Helper Name Role Phone Reena Dickson Primary Care Provider [phone] Allergies Active Allergy Reactions Criticality Noted Date [...] age to complete this topic Insurance MEDICARE [facility] MEDICARE [facility] Care Teams Switchboard Operator Helper Relationship Specialty Start Date End Date Reena Dickson [place] [address] PCP - General 06/27/22
== END 2024-08-08 13:36 | disposition home or self-care (01) ==
LOC: HO.ENCR 12:51
PROVIDERS: PCP Family Medicine; Visit Provider Student in an Organized Health Care Education/Training Program
DX: E03.9 Hypothyroidism, unspecified (principal); I1A.0 Resistant hypertension
CPT/HCPCS: 99214

== ENCOUNTER → 2024-08-08 12:51 | Outpatient (BNVA) | payer MEDICARE, SELFPAY | PROVIDERS: PCP Family Medicine; Visit Provider Student in an Organized Health Care Education/Training Program | DX: E03.9 Hypothyroidism, unspecified (principal); I1A.0 Resistant hypertension | CPT/HCPCS: 99212 ==

== ENCOUNTER 2024-09-18 13:56 | Outpatient (AMB) | payer MEDICARE, SELFPAY ==
--- OUTSIDE RECORDS SUMMARY | 2024-09-18 14:02 | XMS_ITS | Clinical Summary ---
Author Organization [facility] Facility Address [address] [address] Care Team Providers Care Banking Analyst Name Role Phone Reena Dickson Primary Care Provider [phone] Allergies Active Allergy Reactions Criticality Noted Date [...] (DIOVAN) 80 MG tablet 06/20/2022 Active Immunizations Immunization Administration Dates Next Due Giannaa SARS-COV-2 08/21/2021,03/12/2021, 021,07/16/2020 Pneumococcal Conjugate 13-Valent 11/01/2016 [...] Colorectal Cancer Screening: Sigmoidoscopy 1999 Influenza Vaccine (Season Ended) 2025 Pneumococcal Vaccine: 50+ Years Completed 12/01/2017, 11/01/2016 Pneumococcal Vaccine: Peds ( 0 to 5 Years) and At-Risk Patients (6 to 49 Years) Discontinued 12/01/2017, 11/01/2016 Hepatitis B Vaccine Aged Out No longe r eligible based on patient's age to complete this topic Insurance Medicare [facility] Medicare [facility] Care Teams Banking Analyst Relationship Specialty Start Date End Date Reena Dickson [facility] [address] [place], [place] [id number] [facility] - General 06/27/22
--- NOTE | 2024-09-18 14:19 | A.OFFVIS_ITS ---
Vital Signs 09/18/24 14:21 Height 5 ft 7 in Weight 161 lb 13.109 oz BMI 25.3 BP 124/62 Blood Pressure Location Lt brachial Position Sitting Pulse 52 Pulse Source Monitor Intake Visit Reasons: 6 mth f/up Intake Note: 6 mth f/up Solderer Barrel Ribs Required: No Accompanied by: Self / Same As Patient Allergies latex [LATEX] Allergy (Mild, Verified 08/08/24 12:55) RASH nickel Allergy (Unknown, Verified 08/08/24 12:55) Rash ticagrelor [From Brilinta] Allergy (Verified 08/08/24 12:55) Shortness of Breath Medication List - Last Reconciled 09/18/24 by Orion Joshi MD amiodarone 200 mg PO DAILY apixaban (Eliquis) 5 mg PO BID atorvastatin 20 mg PO DAILY clopidogrel 75 mg PO DAILY fluocinonide 0.05% 1 appl topical BID PRN furosemide 40 mg PO DAILY PRN isosorbide mononitrate ER 60 mg PO DAILY levalbuterol tartrate 45 mcg/actuation 2 puffs inhalation Q4-6H PRN 30 days levothyroxine 75 mcg PO DAILY lorazepam 1 mg PO DAILY PRN metoprolol succinate ER 100 mg PO DAILY ranolazine ER 500 mg PO BID 90 days spironolactone 25 mg PO DAILY umeclidinium-vilanterol 62.5-25 mcg/actuation (Anoro Ellipta) 1 ea PO DAILY valsartan 160 mg PO DAILY HPI Comments Details: 73-year-old gentleman here for follow-up. He has background history of bypass surgery. He previously complained of chest discomfort shortness of breath and had inferior T-wave changes. We discussed about cardiac catheterization and underwent cardiac catheterization from left radial approach. This showed patent MAR to LAD and patent vein graft with touchdown on OM as well as the RPDA. This was a long vein graft. In the retrograde limb of posterior descending artery there was tight stenosis. Given his symptom and inferior changes on ECG we decided to intervene on that. This was quite challenging to do from the left radial and after a lot of work we were unable to deliver balloons because the l ength of ballloon shafts was too short. We exchanged for short guide and tried it again but we were unsuccessful due to multiple complexities in the procedure. At this stage we decided to stop and bring him back later. He was seen in follow-up and was doing well. He was given Brilinta during the procedure and developed significant dyspnea afterwards. This was changed to Plavix and he has been tolerating that well. In May he was admitted to [facility] with AFib with RVR which was new diagnosis and congestive heart failure. He was diuresed and underwent cardioversion and was started on amiodarone. His aspirin was stopping was started on Eliquis and was discharged home with Eliquis and Plavix. He said post cardioversion he felt great and was walking without any significant dyspnea. His returning for follow-up today and has been feeling well. He is saying his breathing it as baseline. Interestingly he is back in atrial fibrillation but denying any significant symptoms currently.. He has been taking Eliquis regularly. No bleeding concerns. Our plan was to perform outpatient cardioversion but he developed congestive heart failure and was admitted to [facility]. He underwent cardioversion on 07/21/2022. He has been on amiodarone since then. He is in sinus rhythm right now. He is saying his breathing is at baseline. He is saying his blood pressure after discharge was normal for a week and after that started slowly going up and was in 150s systolic as of last week. His blood pressure in the office in 160/79. He is taking medications regularly. No other concerns currently. 12/11/2023: He is here for follow-up. He has been doing well. Taking amiodarone. Continues to be in sinus rhythm. Denying chest pain or shortness of breath. He is also on Ranexa and QT interval is 510. Previous QT interval was 499. Taking apixaban 5 mg twice a day for anticoagulation. 03/11/2024: He has been doing well. No chest pain or shortness of breath. No episodes of atrial fibrillation. Previous echocardiography has shown moderate aortic valve stenosis. He is taking medication regularly blood pressure is well controlled. He is currently off spironolactone because he is getting some endocrine workup. 09/18/2024: He is here for follow-up. He has had 2 episodes of dizziness early in the morning when he got up. He said he was little wobbly and then improved. These episodes were over the last month. No syncope. No chest discomfort shortness of breath. [facility] Medical History Resistant hypertension Paroxysmal atrial fibrillation Abnormal radiologic density ILD (interstitial lung disease) Aortic stenosis Leukocytosis Chronic hyponatremia Congestive heart failure CHF (congestive heart failure) History of cardioversion Stable angina History of prior cigarette smoking Postoperative atrial fibrillation Hyperlipidemia HTN (hypertension) COPD (chronic obstructive pulmonary disease) Ischemic cardiomyopathy CAD (coronary artery disease) Surgical History Status post glaucoma surgery H/O knee surgery Hx of CABG S/P CABG x 3 Family History Father CVD (cardiovascular disease) Mother CVD (cardiovascular disease) Social History Household Members: Spouse Housing: House Do you presently have visiting nurse or other home services: No Alcohol intake: never Comment: pt refused bed alarm Patient Tobacco Use Status: Former Tobacco user Years Smoked: 20 +/- service: No Current occupational status: retired Review of Systems Const Denies chills, Denies fatigue, Denies fever(s), Denies frequent falls, Denies weakness, Denies weight gain and Denies weight loss ENT Denies dizziness Card Denies chest pain, Denies leg edema, Denies lightheadedness, Denies palpitations, Denies dyspnea and Denies dyspnea on exertion Resp Denies cough, Denies dyspnea and Denies dyspnea on exertion GI Denies hematochezia Musc Denies abnormal gait, Denies muscle weakness, Denies numbness, Denies radiating pain into limb and Denies tingling Neuro Denies abnormal gait, Denies dizziness, Denies frequent falls, Denies numbness, Denies tingling and Denies weakness Endo Denies fatigue and Denies palpitations Physical Exam Vital Signs: Last Vital Signs Pulse 52 09/18/24 14:21 BP 124/62 09/18/24 14:21 BMI result Body Mass Index 25.3 GENERAL APPEARANCE: in no acute distress, pleasant. NECK: no carotid bruit, no jugular venous distention. SKIN: no suspicious lesions, warm and dry. HEART: Ejection systolic murmur with preserved 2nd heart sound, regular rate and rhythm. Bradycardic. LUNGS: clear to auscultation bilaterally. ABDOMEN: soft, nontender. EXTREMITIES: no edema. PERIPHERAL PULSES: equal. NEUROLOGIC: No gross deficits, AAO X 3 Office Procedures EKG Details: Sinus bradycardia 52 beats per minute, rightward axis, inferior Q-waves, inferior and lateral ST-T changes-consider ischemia, QTC 479 milliseconds. [id number], Complete Assessment & Plan Assessment & Plan (1) Resistant hypertension: Code(s): I1A.0 - Resistant hypertension Category: Medical (2) Paroxysmal atrial fibrillation: Code(s): I48.0 - Paroxysmal atrial fibrillation Category: Medical (3) Aortic stenosis: Code(s): I35.0 - Nonrheumatic aortic (valve) stenosis Category: Medical Plan Pleasant 74 year gentleman who is here for follow-up. He has known history of coronary disease with previous bypass surgery. He also had paroxysmal atrial fibrillation which has been managed with amiodarone and apixaban at this stage. He continues to be in sinus rhythm. He is on Ranexa along with amiodarone but QT interval is stable. He had some episodes of dizziness early in the morning and he is somewhat bradycardic. I have advised him to hydrate himself better and reassess this. If he has ongoing symptoms then Toprol XL can be decreased to 50 mg from 100 mg. Continue amiodarone as before for rhythm control strategy which has worked well for him. Moderate aortic valve stenosis by echocardiography. We will continue to monitor for now. Thank you for allowing me to participate in the care of your patient. Please feel free to contact me if you have any questions. Coding Level of Care Code Est Pt Level 4 (07542) Diagnoses Resistant hypertension I1A.0 Paroxysmal atrial fibrillation I48.0 Aortic stenosis I35.0 CPT Codes EKG - CPT: 48271-[id number], Complete ([id number])
[2024-09-18 14:21] VITALS: BP 124/62; PULSE 52; BMI 25.3
== END 2024-09-18 14:54 | disposition home or self-care (01) ==
LOC: HO.HCS 13:57
PROVIDERS: PCP Family Medicine; Visit Provider Internal Medicine Cardiovascular Disease
DX: I1A.0 Resistant hypertension (principal); I48.0 Paroxysmal atrial fibrillation; I35.0 Nonrheumatic aortic (valve) stenosis
CPT/HCPCS: 93010; 99214

== ENCOUNTER → 2024-09-18 13:56 | Outpatient (BNVA) | payer MEDICARE, SELFPAY | PROVIDERS: PCP Family Medicine; Visit Provider Internal Medicine Cardiovascular Disease | DX: I1A.0 Resistant hypertension (principal); I48.0 Paroxysmal atrial fibrillation; I35.0 Nonrheumatic aortic (valve) stenosis; R00.1 Bradycardia, unspecified; I45.4 Nonspecific intraventricular block; R94.31 Abnormal electrocardiogram [ECG] [EKG] | CPT/HCPCS: 93005; 99212 ==

== ENCOUNTER 2024-09-23 10:53 | Outpatient (AMB) | payer MEDICARE, SELFPAY ==
[2024-09-23 11:01] VITALS: BP 120/60; PULSE 57; O2SAT 97; BMI 25.0
--- NOTE | 2024-09-23 11:01 | MHC.OFFVIS ---
Vital Signs 09/23/24 11:01 Height 5 ft 7 in Weight 159 lb 13.362 oz BMI 25.0 BP 120/60 Blood Pressure Location Lt brachial Position Sitting Pulse 57 Pulse Source Pulse Oximeter Pulse Oximetry (%) 97 Oxygen Delivery Method Room Air Intake Visit Reasons: COPD Intake Note: pt is here for follow up Instrumentation Supervisor Required: No Allergies latex [LATEX] Allergy (Mild, Verified 09/23/24 11:23) RASH nickel Allergy (Unknown, Verified 09/23/24 11:23) Rash ticagrelor [From Brilinta] Allergy (Verified 09/23/24 11:23) Shortness of Breath Medication List - Last Reconciled 09/23/24 by Yovani Conti MD amiodarone 200 mg PO DAILY apixaban (Eliquis) 5 mg PO BID atorvastatin 20 mg PO DAILY clopidogrel 75 mg PO DAILY fluocinonide 0.05% 1 appl topical BID PRN furosemide 40 mg PO DAILY PRN isosorbide mononitrate ER 60 mg PO DAILY levalbuterol tartrate 45 mcg/actuation 2 puffs inhalation Q4-6H PRN 30 days levothyroxine 75 mcg PO DAILY lorazepam 1 mg PO DAILY PRN metoprolol succinate ER 100 mg PO DAILY ranolazine ER 500 mg PO BID 90 days spironolactone 25 mg PO DAILY umeclidinium-vilanterol 62.5-25 mcg/actuation (Anoro Ellipta) 1 ea PO DAILY valsartan 160 mg PO DAILY Do you need a note to return to daycare/school/sports/work: No HPI HPI COPD: Details: THIS 74 YEARS OLD GENTLEMAN IS HERE FOR 6 MONTHS FOLLOW-UP FOR HIS COPD. HAS REMAINED VERY STABLE WITHOUT ANY ACUTE EXACERBATIONS. USES ANORO ELLIPTA 1 INHALATION DAILY AND LEVALBUTEROL ONLY ONCE IN A WHILE. HE HAS MILD SHORTNESS OF BREATH ON WALKING FAST OR CLIMBING STAIRS AND ALSO OCCASIONAL BOUTS OF COUGH. [facility] Medical History Resistant hypertension Paroxysmal atrial fibrillation Abnormal radiologic density ILD (interstitial lung disease) Aortic stenosis Leukocytosis Chronic hyponatremia Congestive heart failure CHF (congestive heart failure) History of cardioversion Stable angina History of prior cigarette smoking Postoperative atrial fibrillation Hyperlipidemia HTN (hypertension) COPD (chronic obstructive pulmonary disease) Ischemic cardiomyopathy CAD (coronary artery disease) Surgical History Status post glaucoma surgery H/O knee surgery Hx of CABG S/P CABG x 3 Family History Father CVD (cardiovascular disease) Mother CVD (cardiovascular disease) Social History Household Members: Spouse Housing: House Do you presently have visiting nurse or other home services: No Alcohol intake: never Comment: pt refused bed alarm Patient Tobacco Use Status: Former Tobacco user Years Smoked: 20 +/- service: No Current occupational status: retired Review of Systems Const All systems reviewed & are unremarkable except as noted in HPI and below Eyes Reports no additional complaints ENT Reports no additional complaints Card Reports chest pain with activity (IMPROVED SINCE HE IS ON NEW ANTI ANGINAL MED. RANEXA ), Reports irregular heart rhythm (HAS HAD ATRIAL FIBRILLATION WHICH IS NOW WELL CONTROLLED) and Denies leg edema Resp Reports as per HPI GI Reports no additional complaints Reports no additional complaints Musc Reports no additional complaints Skin/Breast Reports rash and Reports other (HAS CHRONIC PSORIASIS ) Neuro Reports no additional complaints Psych Reports depression (CONTROLLED WITH MED) Endo Reports no additional complaints Sukhi/Lymph Reports no additional complaints Aller/Immun Reports no additional complaints Physical Exam Vital Signs: Last Vital Signs Pulse 57 09/23/24 11:01 BP 120/60 09/23/24 11:01 Pulse Ox 97 09/23/24 11:01 Oxygen Delivery Method Room Air 09/23/24 11:01 BMI result Body Mass Index 25.0 Const General: comfortable, no acute distress, alert and awake Orientation/consciousness: patient oriented x3 HEENT Head: Yes normal to inspection General nose exam: No nasal polyps present and No nasal discharge present Face and sinus: Yes sinuses nontender Mouth: oropharynx normal Throat: Yes posterior oropharynx normal Eyes General: appearance normal, both eyes and all related structures Neck Neck: Yes normal visual inspection, Yes no lymphadenopathy, Yes trachea midline and Yes no JVD Thyroid: Thyroid normal Chest Chest palpation & inspection: normal inspection of the chest (HAS MID STERNAL SCAR WHICH IS WELL-HEALED), normal palpation of entire chest wall and no tenderness Resp Other: PERCUSSION NOTE IS RESONANT, BREATH SOUNDS ARE DISTANT ON BOTH SIDES WITH PROLONGED EXPIRATORY PHASE. NO WHEEZES RHONCHI OR CREPITATIONS ARE HEARD Cardio Palpation: normal PMI Rate: regular rate Rhythm: regular rhythm Heart sounds: no gallops and no murmurs GI Palpation (GI): Soft to palpation, nontender, No hepatosplenomegaly present and no masses Auscultation: normal bowel sounds Back/Spine/Pelvis Thoracic/Lumbar Spine: thoracic and lumbar spine normal to inspection Skin General skin exam: no rashes or lesions noted ( SCATTERED PATCHES OF PSORIATIC RASH ) Neuro General: patient oriented x3 and no focal motor deficits Cranial nerves: Yes CN's II-XII intact bilaterally Extrem General: Yes normal to inspection, Yes no clubbing, cyanosis or edema and Yes no calf tenderness Psych Appearance: well kempt Speech and movement: Normal speech and movement present Assessment & Plan Assessment & Plan (1) COPD (chronic obstructive pulmonary disease): Comment: PATIENT WITH PAST HISTORY OF SMOKING FOR AT LEAST 20-25 YEARS. HE DOES HAVE CHRONIC OBSTRUCTIVE PULMONARY DISEASE, MODERATELY SEVERE. THERE HAS BEEN GOOD RESPONSE TO BRONCHODILATOR THERAPY, MUCH IMPROVED WITH THE USE OF ANORO ELLIPTA HE HAS HARDLY NEEDED TO USE ANY LEVALBUTEROL. Code(s): J44.9 - Chronic obstructive pulmonary disease, unspecified Category: Medical Plan: ADVISED TO CONTINUE USING ANORO ELLIPTA 1 INHALATION DAILY. AND LEVALBUTEROL 1 OR 2 PUFFS Q 4-6 HOURS ONLY P.R.N.. (2) AHN (dyspnea on exertion): Comment: DYSPNEA ON EXERTION IS DUE TO COMBINATION OF COPD AND CHRONIC CONGESTIVE HEART FAILURE. MUCH IMPROVED WITH THE USE OF ANORO ELLIPTA AND REMAINS STABLE. Code(s): R06.00 - Dyspnea, unspecified Category: Medical Plan: EXPLAINED ABOUT THE REASON FOR HIS MILD DYSPNEA ON EXERTION. ADVISED TO WALK GENTLY BUT DUE WALK EVERY DAY. KEEP ON USING ANORO ELLIPTA DAILY. DO DEEP BREATHING EXERCISES WHEN SITTING IN THE HOUSE. Coding Level of Care Code Est Pt Level 3 (49875) Diagnoses COPD (chronic obstructive pulmonary disease) J44.9 AHN (dyspnea on exertion) R06.00
--- OUTSIDE RECORDS SUMMARY | 2024-09-23 11:31 | XMS_ITS | Clinical Summary ---
Author Organization [facility] Facility Address [address] [address] Care Team Providers Care Lamination Technician Name Role Phone Reena Dickson Primary Care Provider [phone] Allergies Active Allergy Reactions Criticality Noted Date [...] age to complete this topic Insurance Medicare [facility] Medicare [facility] Care Teams Lamination Technician Relationship Specialty Start Date End Date Reena Dickson [facility] Darien Zayas [place], [place] [id number] [facility] - General 06/27/22
== END 2024-09-23 11:23 | disposition home or self-care (01) ==
LOC: HO.HPS 10:54
PROVIDERS: PCP Family Medicine; Visit Provider Internal Medicine
DX: J44.9 Chronic obstructive pulmonary disease, unspecified (principal); R06.00 Dyspnea, unspecified
CPT/HCPCS: 99213

== ENCOUNTER → 2024-09-23 10:53 | Outpatient (BNVA) | payer MEDICARE, SELFPAY | PROVIDERS: PCP Family Medicine; Visit Provider Internal Medicine | DX: J44.9 Chronic obstructive pulmonary disease, unspecified (principal); R06.00 Dyspnea, unspecified; Z87.891 Personal history of nicotine dependence | CPT/HCPCS: 99212 ==

== ENCOUNTER 2025-02-07 10:51 | Outpatient (AMB) | payer MEDICARE, SELFPAY ==
[2025-02-07 10:53] VITALS: BP 112/62; PULSE 58; O2SAT 99; BMI 26.6
--- NOTE | 2025-02-07 10:53 | A.OFFVIS_ITS ---
Vital Signs 02/07/25 10:53 Height 5 ft 7 in Weight 169 lb 15.622 oz BMI 26.6 BP 112/62 Blood Pressure Location Rt brachial Position Sitting Pulse 58 Pulse Source Pulse Oximeter Pulse Oximetry (%) 99 Oxygen Delivery Method Room Air Intake Visit Reasons: Hypothyroidism Intake Note: Patient present today for Hypothyroidism office visit. Allergies latex (LATEX) Allergy (Mild, Verified 02/07/25 10:56) RASH nickel Allergy (Unknown, Verified 02/07/25 10:56) Rash ticagrelor (From Brilinta) Allergy (Verified 02/07/25 10:56) Shortness of Breath Medication List - Last Reconciled 02/07/25 by Alyson Caraballo MD amiodarone 200 mg PO DAILY Anoro Ellipta 62.5-25 mcg/actuation (umeclidinium-vilanterol) 1 ea inhalation DAILY NS apixaban (Eliquis) 5 mg PO BID atorvastatin 20 mg PO DAILY clopidogrel 75 mg PO DAILY fluocinonide 0.05% 1 appl topical BID PRN furosemide 40 mg PO DAILY PRN isosorbide mononitrate ER 60 mg PO DAILY levalbuterol tartrate 45 mcg/actuation 2 puffs inhalation Q4-6H PRN 30 days levothyroxine 75 mcg PO DAILY lorazepam 1 mg PO DAILY PRN metoprolol succinate ER 100 mg PO DAILY ranolazine ER 500 mg PO BID 90 days spironolactone 25 mg PO DAILY valsartan 160 mg PO DAILY HPI Comments Details: 74-year-old male coming in today for follow up of hypothyroidism and resistant hypertension. Hypothyroidism HPI from prior visit Patient was diagnosed with atrial fibrillation in 2022 and subsequently started on amiodarone. He sees Dr. Joshi from our cardiology department and has been following with him also for his history of coronary artery disease with history of CABG. TFTs were checked as he is on amiodarone. Labs from December 2023 showed high TSH of 11.22 UiU per mL with low free T4 of 0.53 ng/dL. No prior history of thyroid disease. Not on any thyroid medications. Back in November of 2022 was also noted to have a mildly elevated TSH of 5.72 UU per mL with normal free T4. Denies exposure to contrast recently. Denies any recent preceding viral illness before the testing. Started on levothyroxine 50 mcg daily which taking appropriately with good adherence since 01/04/2024. Endorses fatigue. Say somewhat improved. No cold intolerance. Bowel movements are regular. Patient currently denies, hair loss, palpitation, anxiety, weight changes, mood changes, low energy, changes in appearance of eyes or vision changes, tremors, increased diaphoresis or dry skin. ? Patient denies any difficulty swallowing, pain on swallowing or voice changes or difficulty breathing. Patient denies any history of childhood neck radiation. Denies having ever used lithium, or biotin supplements. He is on amiodarone since early 2022. Patient denies any family history of thyroid cancer or thyroid disease. Repeat labs 05/16/2024 showed mildly elevated TSH of 5.05 with normal free T4 of 1.04. Levothyroxine increased to 75 mcg daily. Labs 07/17/2024 showed normal TSH of 1.84, normal free T4 1.21 Interval history Levothyroxine 75 mcg daily, good adminitration and adherence Forgot to do blood work prior to this appointment. Resistant hypertension HPI from prior visit Diagnosis of HTN:in 40s or 50s Was also diagnosed with atrial fibrillation on amiodarone in 2022 Also noted to have hypokalemia on multiple occasions previously with a potassium level of 3.2 from November 2022. Potassium supplements: not currenlty but has taken in the past . 3 MIs s/p CABG triple bypass 2018 Paternaal grandfrather at 49 years of stroke Father stroke 58 years Paternal 1st cousin 36 years from [place] All sisater 5 of them have heart disease Medications: Valsartan 160 mg daily, spironolactone 25 mg daily, metoprolol extended release 100 mg daily, isosorbide mononitrate ER 60 mg daily, furosemide 40 mg daily DARLINE: not diagnosed Renal US with doppler 12/28 Normal right renal artery. Minimally elevated left renal artery proximal peak systolic velocity suggestive of less than 60% left renal artery stenosis. Labs repeat labs 05/17/2024 showed renin activity of 0.26, aldosterone 8, potassium 4.1. Patient was off spironolactone for 6 weeks prior to doing this blood work. 24 hour urine testing in May and July 2024 was invalid as both times sodium was less than 200 mEq in the sample, urine aldosterone level was low in that setting Interval history Normal blood pressure today. Forgot to do blood work prior to this appointment Physical exam General: sitting comfortably in no acute distress HEENT: normocephalic/atraumatic, moist oral mucosa Neck: supple, symmetrical, no thyromegaly , no dorsocervical or supraclavicular fat pads Cardiac: normal heart sounds Pulm: normal breath sounds B/L, no added breath sounds Abd: not distended, no tenderness Extremities: no edema, no signs of myxedema Neuro: AAO x3, Speech: normal, no facial droop, moving all 4 extremities Skin: Multiple ecchymosis noted, he is on Eliquis Laboratory Tests 05/25/22 11/09/22 12/02/22 11:01 10:22 07:51 Sodium Potassium 3.2 L Creatinine Estimated GFR Renin Aldosterone TSH 1.63 5.72 H Free T4 0.87 Total T3 12/11/23 02/26/24 05/16/24 16:46 11:02 10:05 Sodium Potassium Creatinine Estimated GFR Renin Aldosterone TSH 11.22 H 3.51 5.05 H Free T4 0.53 L 0.92 1.04 Total T3 70 L 05/17/24 09:28 Sodium 136 Potassium 4.1 Creatinine 0.86 Estimated GFR > 60 Renin 0.26 Aldosterone 8 TSH Free T4 Total T3 Laboratory on spironolactone 02/26/24 11:02 Renin 1.03 Renin Activity 0.89 Aldosterone 9 Aldosterone/Renin Ratio 10.1 Laboratory Tests 06/07/24 07/16/24 07/17/24 09:00 07:00 10:09 TSH 1.84 Free T4 1.21 Ur 24 Hour Volume 1575 600 Ur Creatinine mg/dL 28.97 37.81 Ur Creatinine 24 Hour 0.5 L 0.2 L Ur Sodium 24 Hour 83.5 35.4 L Ur Total Volume 1575 600 Ur Aldosterone 24 Hr 1.8 1.8 Urine Creatinine 0.47 L 0.23 L [facility] Medical History Resistant hypertension Paroxysmal atrial fibrillation Abnormal radiologic density ILD (interstitial lung disease) Aortic stenosis Leukocytosis Chronic hyponatremia Congestive heart failure CHF (congestive heart failure) History of cardioversion Stable angina History of prior cigarette smoking Postoperative atrial fibrillation Hyperlipidemia HTN (hypertension) COPD (chronic obstructive pulmonary disease) Ischemic cardiomyopathy CAD (coronary artery disease) Surgical History Status post glaucoma surgery H/O knee surgery Hx of CABG S/P CABG x 3 Family History Father CVD (cardiovascular disease) Mother CVD (cardiovascular disease) Social History Household Members: Spouse Housing: House Do you presently have visiting nurse or other home services: No Alcohol intake: never Comment: pt refused bed alarm Patient Tobacco Use Status: Former Tobacco user Years Smoked: 20 +/- service: No Current occupational status: retired Physical Exam Vital Signs: BMI result Body Mass Index 26.6 Assessment & Plan Assessment & Plan (1) Hypothyroidism: Code(s): E03.9 - Hypothyroidism, unspecified Category: Medical Qualifiers: Hypothyroidism type: unspecified Qualified Code(s): E03.9 - Hypothyroidism, unspecified Plan: Patient with new diagnosis of hypothyroidism with blood work from December 2023. on levothyroxine 75 mcg forgot to do blood work prior to this appointment. Plan: -continue levothyroxine 75 mcg daily -repeat TSH and free T4 today, we will reach out if results are abnormal -will also need repeat blood work orders prior to next appointment in 8 months' (2) Resistant hypertension: Code(s): I1A.0 - Resistant hypertension Category: Medical Plan: Patient also noted to have hypertension, currently on 5 medications including a diuretic, meeting the definition of resistant hypertension. He is currently on valsartan 160 mg daily, spironolactone 25 mg daily, metoprolol 100 mg ER daily, isosorbide mononitrate ER 60 mg daily and Lasix 40 mg (2 tablets?) daily. He is also noted to have history of hypokalemia and previously required potassium supplementation, though not on it currently. He also has a history of atrial fibrillation. And personal history of NM with triple bypass in 2019 +there is family history of stroke and NM at a young age. All of these are suggestive of primary hyperaldosteronism, the prevalence of primary hyperaldosteronism is 10- 20% in secondary hypertension. It is a more prevalent condition in patients who have atrial fibrillation. He had blood drawn on 02/26/2024 while he was on spironolactone 25 mg daily which showed aldosterone of 9, however renin activity was ran twice and somehow had contradictory results with 1 being suppressed renin less than 1 another 1.09. We took him off spironolactone for 6 weeks and repeated testing which on 05/18/24 showed a suppressed renin of 0.26, aldosterone of 8. While he does not meet exact cutoff of aldosterone greater than 10 however given he is on valsarta n and his renin is suppressed, this is still highly suspicious for primary hyperaldosteronism . We proceeded with oral salt loading test with measurement of 24 hour urine aldosterone, both times in May and July 2024 results were invalid because he could not salt load adequately. Last visit I discussed with the patient in detail even though we could not perform the aldosterone suppression test, other labs were pretty suspicious of primary hyperaldosteronism. Regardless he is already on spironolactone 25 mg daily and when he did have levels done in February 2024 of renin activity values on spironolactone, his plasma renin activity was at 1.09. Adequate mineralocorticoid receptor activity suppression targets renin greater than 1. At this time his blood pressure is also well-controlled. We will continue him on spironolactone 25 mg daily. I explained to him that if he has uncontrolled blood pressure, ideal management would be to go up on spironolactone as opposed to any of his other medications. The goal is not just to control blood pressure but also reduce his risk of heart attack and stroke. I also briefly discussed with him that if we were able to confirm localized it to 1 of his adrenal glands, surgery is usually the 1st line management. He did tell me that he would not be opposed to surgery but would prefer medical management. He continues on spironolactone 25 mg daily. Blood pressure is within good control. I had asked him to repeat plasma renin and BMP prior to this appointment. He forgot to do blood work. Plan: -has orders for plasma renin activity, BMP to be done now, we will reach out if results are concerning. -continue spironolactone 25 mg daily as well as other antihypertensive medications Plan See above Coding Level of Care Code Est Pt Level 3 (54840) Diagnoses Hypothyroidism, unspecified type E03.9 Hypothyroidism type: unspecified Resistant hypertension I1A.0
--- OUTSIDE RECORDS SUMMARY | 2025-02-07 12:00 | XMS_ITS | Clinical Summary ---
Author Organization [facility] Facility Address [address] [address] Care Team Providers Care Chief Clerk Shelter Name Role Phone Reena Dickson Primary Care Provider [phone] Allergies Active Allergy Reactions Criticality Noted Date [...] Cancer Screening: Sigmoidoscopy 1999 Influenza Vaccine (#1) 2025 Pneumococcal Vaccine: 50+ Years Completed 12/01/2017, 11/01/2016 Pneumococcal Vaccine: Peds ( 0 to 5 Years) and At-Risk Patients (6 to 49 Years) Discontinued 12/01/2017, 11/01/2016 Hepatitis B Vaccine Aged Out No longe r eligible based on patient's age to complete this topic Insurance Medicare [facility] Medicare [facility] Care Teams Chief Clerk Shelter Relationship Specialty Start Date End Date Reena Dickson [facility] [address] [place], [place] [id number] [facility] - General 06/27/22
== END 2025-02-07 11:13 | disposition home or self-care (01) ==
LOC: HO.ENCR 10:51
PROVIDERS: PCP Family Medicine; Visit Provider Student in an Organized Health Care Education/Training Program
DX: E03.9 Hypothyroidism, unspecified (principal); I1A.0 Resistant hypertension
CPT/HCPCS: 99213

== ENCOUNTER → 2025-02-07 10:51 | Outpatient (BNVA) | payer MEDICARE, SELFPAY | PROVIDERS: PCP Family Medicine; Visit Provider Student in an Organized Health Care Education/Training Program | DX: E03.9 Hypothyroidism, unspecified (principal); I1A.0 Resistant hypertension | CPT/HCPCS: 99212 ==

== ENCOUNTER 2025-02-07 11:22 | Outpatient (REF) | payer MEDICARE, SELFPAY ==
[2025-02-07 14:31] LABS: Anion Gap 10 (12-20); Blood Urea Nitrogen 25 mg/dL (9-16); Calcium 9.9 mg/dL (8.4-10.2); Carbon Dioxide 27 mmol/L (22-29); Chloride 104 mmol/L (96-108); Estimated Glomerular Filt Rate > 60; Potassium 4.8 mmol/L (3.3-5.1); Sodium 136 mmol/L (135-145)
[2025-02-07 14:36] LABS: Free T4 (Free Thyroxine) 1.33 ng/dL (0.71-1.85); Thyroid Stimulating Hormone 1.82 uIU/mL (0.32-4.0)
== END 2025-02-07 11:23 | disposition home or self-care (01) ==
LOC: HO.10HDL 11:22
PROVIDERS: Visit Provider Student in an Organized Health Care Education/Training Program
DX: I1A.0 Resistant hypertension (principal); E03.9 Hypothyroidism, unspecified
CPT/HCPCS: 36415; 80048; 84244; 84439; 84443

== ENCOUNTER 2025-03-25 10:57 | Outpatient (AMB) | payer MEDICARE, SELFPAY ==
--- NOTE | 2025-03-25 11:05 | MHC.OFFVIS ---
Vital Signs 03/25/25 11:06 Height 5 ft 7 in Weight 178 lb 9.191 oz BMI 28.0 BP 120/50 L Blood Pressure Location Lt brachial Position Sitting Pulse 60 Pulse Source Pulse Oximeter Pulse Oximetry (%) 99 Oxygen Delivery Method Room Air Intake Visit Reasons: COPD Intake Note: pt is here for follow up and states his breathing is not bad, over one hundred yards, he must stop and catch his breath, it use to be 10 -20 yards. Elementary Science Teacher Required: No Glass Science Engineer: Glass Science Engineer offered & declined Allergies latex (LATEX) Allergy (Mild, Verified 03/25/25 11:21) RASH nickel Allergy (Unknown, Verified 03/25/25 11:21) Rash ticagrelor (From Brilinta) Allergy (Verified 03/25/25 11:21) Shortness of Breath Medication List - Last Reconciled 03/25/25 by Yovani Conti MD amiodarone 200 mg PO DAILY Anoro Ellipta 62.5-25 mcg/actuation (umeclidinium-vilanterol) 1 ea inhalation DAILY NS apixaban (Eliquis) 5 mg PO BID atorvastatin 20 mg PO DAILY fluocinonide 0.05% 1 appl topical BID PRN furosemide 40 mg PO DAILY PRN isosorbide mononitrate ER 60 mg PO DAILY levalbuterol tartrate 45 mcg/actuation 2 puffs inhalation Q4-6H PRN 30 days levothyroxine 75 mcg PO DAILY lorazepam 1 mg PO DAILY PRN metoprolol succinate ER 100 mg PO DAILY ranolazine ER 500 mg PO BID 90 days spironolactone 25 mg PO DAILY valsartan 160 mg PO DAILY Do you need a note to return to daycare/school/sports/work: No HPI HPI COPD: Details: MR. DAWN , 74 YEARS OLD GENTLEMAN IS HERE FOR FOLLOW-UP AFTER 6 MONTHS, FOR HIS COPD. HE SAY IS THAT HIS BREATHING IS ACTUALLY SOMEWHAT IMPROVED FROM BEFORE AND THAT IS DUE TO ADDITION OF NEW ANTI ANGINAL AGENT RANOLAZINE HE, 500 MG B.I.D..+ ISOSORBIDE ER 600 MG DAILY, WHILE HE USED TO STOP AFTER WALKING ABOUT 10-20 YD NOW HE CAN WALK UP TO 100 YD BEFORE HE HAS TO STOP AND CATCH UP HIS BREATH. HE DENIES ANY ATTACKS. OF WHEEZING OR COUGH HE DOES USE ANORO ELLIPTA ONCE A DAY AND LEVALBUTEROL ONLY ONCE IN A WHILE. HE QUIT SMOKING LONG TIME AGO. [facility] Medical History Resistant hypertension Paroxysmal atrial fibrillation Abnormal radiologic density ILD (interstitial lung disease) Aortic stenosis Leukocytosis Chronic hyponatremia Congestive heart failure CHF (congestive heart failure) History of cardioversion Stable angina History of prior cigarette smoking Postoperative atrial fibrillation Hyperlipidemia HTN (hypertension) COPD (chronic obstructive pulmonary disease) Ischemic cardiomyopathy CAD (coronary artery disease) Surgical History Status post glaucoma surgery H/O knee surgery Hx of CABG S/P CABG x 3 Family History (Reviewed 03/25/25 @ 11: by Yovani Conti MD) Father CVD (cardiovascular disease) Mother CVD (cardiovascular disease) Social History Household Members: Spouse Housing: House Do you presently have visiting nurse or other home services: No Alcohol intake: never Comment: pt refused bed alarm Patient Tobacco Use Status: Former Tobacco user Years Smoked: 20 +/- service: No Current occupational status: retired Review of Systems Const All systems reviewed & are unremarkable except as noted in HPI and below Eyes Reports no additional complaints ENT Reports no additional complaints Card Reports chest pain with activity (IMPROVED SINCE HE IS ON NEW ANTI ANGINAL MED. RANEXA ), Reports irregular heart rhythm (HAS HAD ATRIAL FIBRILLATION WHICH IS NOW WELL CONTROLLED) and Denies leg edema Resp Reports as per HPI GI Reports no additional complaints Reports no additional complaints Musc Reports no additional complaints Skin/Breast Reports rash and Reports other (HAS CHRONIC PSORIASIS ) Neuro Reports no additional complaints Psych Reports depression (CONTROLLED WITH MED) Endo Reports no additional complaints Sukhi/Lymph Reports no additional complaints Aller/Immun Reports no additional complaints Physical Exam Vital Signs: Last Vital Signs Pulse 60 03/25/25 11:06 BP 120/50 L 03/25/25 11:06 Pulse Ox 99 03/25/25 11:06 Oxygen Delivery Method Room Air 03/25/25 11:06 BMI result Body Mass Index 28.0 Const General: comfortable, no acute distress, alert and awake Orientation/consciousness: patient oriented x3 HEENT Head: Yes normal to inspection General nose exam: No nasal polyps present and No nasal discharge present Face and sinus: Yes sinuses nontender Mouth: oropharynx normal Throat: Yes posterior oropharynx normal Eyes General: appearance normal, both eyes and all related structures Neck Neck: Yes normal visual inspection, Yes no lymphadenopathy, Yes trachea midline and Yes no JVD Thyroid: Thyroid normal Chest Chest palpation & inspection: normal inspection of the chest (HAS MID STERNAL SCAR WHICH IS WELL-HEALED), normal palpation of entire chest wall and no tenderness Resp Other: PERCUSSION NOTE IS RESONANT, BREATH SOUNDS ARE DISTANT ON BOTH SIDES WITH PROLONGED EXPIRATORY PHASE. NO WHEEZES RHONCHI OR CREPITATIONS ARE HEARD Cardio Palpation: normal PMI Rate: regular rate Rhythm: regular rhythm Heart sounds: no gallops and no murmurs GI Palpation (GI): Soft to palpation, nontender, No hepatosplenomegaly present and no masses Auscultation: normal bowel sounds Back/Spine/Pelvis Thoracic/Lumbar Spine: thoracic and lumbar spine normal to inspection Skin General skin exam: no rashes or lesions noted ( SCATTERED PATCHES OF PSORIATIC RASH ) Neuro General: patient oriented x3 and no focal motor deficits Cranial nerves: Yes CN's II-XII intact bilaterally Extrem General: Yes normal to inspection, Yes no clubbing, cyanosis or edema and Yes no calf tenderness Psych Appearance: well kempt Speech and movement: Normal speech and movement present Office Procedures Spirometry Testing Spirometry Comments: SPIROMETRY DONE 19304- Spirometry Results Reviewed Results Reviewed: SPIROMETRY : 12/08/22 03/25/25 FVC 72 % 105 FEV1 51 % 54 % FFFFEF 25-75 27 % 18 % Assessment & Plan Assessment & Plan (1) COPD (chronic obstructive pulmonary disease): Comment: PATIENT WITH PAST HISTORY OF SMOKING FOR AT LEAST 20-25 YEARS. HE DOES HAVE CHRONIC OBSTRUCTIVE PULMONARY DISEASE, MODERATELY SEVERE. THERE HAS BEEN GOOD RESPONSE TO BRONCHODILATOR THERAPY, MUCH IMPROVED WITH THE USE OF ANORO ELLIPTA HE HAS HARDLY NEEDED TO USE ANY LEVALBUTEROL. Code(s): J44.9 - Chronic obstructive pulmonary disease, unspecified Category: Medical Plan: ADVISED TO CONTINUE USING ANORO ELLIPTA 1 INHALATION DAILY. AND LEVALBUTEROL-451 OR 2 PUFFS Q.6 HOURS PRN. Orders: Orders AMB Spirometry Testing Today Shabana Bah, RT J44.9 - Chronic obstructive pulmonary disease, unspecified Medications: Refilled levalbuterol tartrate 45 mcg/actuation 2 puffs inhalation Q4-6H PRN 15 grams 3RF SHORTNESS OF BREATH/ CARDIAC DISEASE 30 days Yovani Conti MD Coding Level of Care Code Est Pt Level 3 (52213) Diagnoses COPD (chronic obstructive pulmonary disease) J44.9 CPT Codes Spirometry - CPT: 76746- Spirometry ([id number])
[2025-03-25 11:06] VITALS: BP 120/50; PULSE 60; O2SAT 99; BMI 28.0
== END 2025-03-25 11:52 | disposition home or self-care (01) ==
PROVIDERS: PCP Family Medicine; Visit Provider Internal Medicine
DX: J44.9 Chronic obstructive pulmonary disease, unspecified (principal)
CPT/HCPCS: 94010; 99213

== ENCOUNTER → 2025-03-25 10:57 | Outpatient (BNVA) | payer MEDICARE, SELFPAY | PROVIDERS: PCP Family Medicine; Visit Provider Internal Medicine | DX: J44.9 Chronic obstructive pulmonary disease, unspecified (principal); J84.9 Interstitial pulmonary disease, unspecified | CPT/HCPCS: 94010; 99212 ==

== ENCOUNTER 2025-03-26 14:53 | Outpatient (AMB) | payer MEDICARE, SELFPAY ==
--- NOTE | 2025-03-26 14:57 | A.OFFVIS_ITS ---
Vital Signs 03/26/25 14:58 Height 5 ft 7 in Weight 180 lb 5.41 oz BMI 28.2 BP 122/60 Blood Pressure Location Lt brachial Position Sitting Pulse 54 Pulse Source Monitor Intake Visit Reasons: (rsx 2) 4 mth fu Disability Insurance Hearing Officer Required: No Accompanied by: Self / Same As Patient Allergies latex (LATEX) Allergy (Mild, Verified 03/26/25 15:04) RASH nickel Allergy (Unknown, Verified 03/26/25 15:04) Rash ticagrelor (From Brilinta) Allergy (Verified 03/26/25 15:04) Shortness of Breath Medication List - Last Reconciled 03/26/25 by Ish Gutiérrez NP amiodarone 200 mg PO DAILY Anoro Ellipta 62.5-25 mcg/actuation (umeclidinium-vilanterol) 1 ea inhalation DAILY NS apixaban (Eliquis) 5 mg PO BID atorvastatin 20 mg PO DAILY fluocinonide 0.05% 1 appl topical BID PRN furosemide 40 mg PO DAILY PRN isosorbide mononitrate ER 60 mg PO DAILY levalbuterol tartrate 45 mcg/actuation 2 puffs inhalation Q4-6H PRN 30 days levothyroxine 75 mcg PO DAILY lorazepam 1 mg PO DAILY PRN metoprolol succinate ER 100 mg PO DAILY ranolazine ER 500 mg PO BID 90 days spironolactone 25 mg PO DAILY valsartan 160 mg PO DAILY HPI Comments Details: This is a 74-year-old male patient coming in for a follow-up visit. Patient with a history of hypertension, hyperlipidemia, paroxysmal AFib, coronary artery disease status post CABG, and aortic stenosis. Previously patient has been reporting some dizziness however today patient is reporting feeling well overall without any cardiac symptoms of exertional chest pain, shortness of breath, palpitations, dizziness, orthopnea, PND, leg edema, presyncope or syncope. Patient is reporting compliance with all his medications. [facility] Medical History CAD (coronary artery disease) Resistant hypertension Paroxysmal atrial fibrillation Abnormal radiologic density ILD (interstitial lung disease) Aortic stenosis Leukocytosis Chronic hyponatremia Congestive heart failure CHF (congestive heart failure) History of cardioversion Stable angina History of prior cigarette smoking Postoperative atrial fibrillation Hyperlipidemia HTN (hypertension) COPD (chronic obstructive pulmonary disease) Ischemic cardiomyopathy Surgical History Status post glaucoma surgery H/O knee surgery Hx of CABG S/P CABG x 3 Family History Father CVD (cardiovascular disease) Mother CVD (cardiovascular disease) Social History Household Members: Spouse Housing: House Do you presently have visiting nurse or other home services: No Alcohol intake: never Comment: pt refused bed alarm Patient Tobacco Use Status: Former Tobacco user Years Smoked: 20 +/- service: No Current occupational status: retired Review of Systems Const Denies daytime sleepiness, Denies difficulty sleeping, Denies snoring, Denies stops breathing during sleep and Denies weakness Card Denies chest pain, Denies rapid heart rate, Denies irregular heart rhythm, Denies claudication, Denies leg edema, Denies lightheadedness, Denies palpitations, Reports dyspnea, Reports dyspnea on exertion, Denies orthopnea, Denies paroxysmal nocturnal dyspnea and Denies slow heart rate Resp Denies cough, Reports dyspnea, Reports dyspnea on exertion and Denies snoring GI Reports no additional complaints, Denies hematochezia, Denies change in stool character and Denies dyspepsia Musc Denies abnormal gait, Denies muscle weakness and Denies numbness Neuro Denies abnormal gait, Denies numbness and Denies weakness Endo Denies palpitations Physical Exam Vital Signs: Last Vital Signs Pulse 54 03/26/25 14:58 BP 122/60 03/26/25 14:58 BMI result Body Mass Index 28.2 Const General: cooperative, healthy appearing, comfortable and no acute distress Orientation/consciousness: patient oriented x3 HEENT Head: Yes normal to inspection Neck Neck: Yes normal visual inspection, Yes trachea midline and Yes supple Chest Chest palpation & inspection: normal inspection of the chest Resp Effort & Inspection: normal respiratory effort Auscultation: clear to auscultation bilaterally, no crackles, no rales, no rhonchi and no wheezes Cardio Jugular venous distension: no JVD Palpation: normal PMI Rate: bradycardic Rhythm: regular rhythm Heart sounds: S1 normal heart sound present, S2 normal heart sound present, no click, no gallops, Murmur heart sound present systolic and no rubs Peripheral pulses: Peripheral pulses 2+ throughout GI Inspection: Yes normal to inspection Palpation (GI): Soft to palpation Auscultation: normal bowel sounds Skin General skin exam: no rashes or lesions noted Neuro General: patient oriented x3 Extrem General: Yes normal to inspection, No no pedal edema and No calf tenderness Psych Appearance: grossly normal Mental Status: mental status grossly normal Speech and movement: Normal speech and movement present Office Procedures EKG Details: EKG today shows sinus bradycardia with a first-degree AV block, rate 54 beats pe r minute, STT wave abnormality inferolaterally, [place]. [id number], Complete Assessment & Plan Assessment & Plan (1) CAD (coronary artery disease): Comment: As above Code(s): I25.10 - Atherosclerotic heart disease of [place] coronary artery without angina pectoris Category: Medical Plan: History of coronary artery disease status post CABG. Underwent another cardiac catheterization in June of 2010 that showed patent grafts and severe blockage in the PDA. Was tried to stent however it was unsuccessful. Later patient has been asymptomatic and therefore plan was to medically manage him. Continue statin, isosorbide, Lasix, metoprolol, spironolactone, valsartan, and Ranexa therapy. Continue Eliquis therapy. Clinically stable and without any cardiac symptoms. Advised to seek ER care in case of exertional chest pain not resolved with rest. (2) Hx of CABG: Code(s): Z95.1 - Presence of aortocoronary bypass graft Category: Surgical Plan: As above. (3) Paroxysmal atrial fibrillation: Code(s): I48.0 - Paroxysmal atrial fibrillation Category: Medical Plan: History of paroxysmal AFib. Was suppressed on amiodarone therapy. Continue the same for rhythm control. Continue Eliquis for full anticoagulation. No reported signs of bleeding or falls. Recent kidney function is stable. (4) Aortic stenosis: Code(s): I35.0 - Nonrheumatic aortic (valve) stenosis Category: Medical Plan: 03/25/2024-echo study showed a normal LV systolic function with the ejection fraction between 55-60%, mildly increased LV wall thickness, hypokinetic mid inferior segment, akinetic basal inferior segment, severely dilated left atrium, moderate aortic stenosis with mean gradient at 20 mmHg. Clinically stable and euvolemic. Cardinal signs of is reviewed with the patient. We will repeat an echo prior to his next visit to monitor this. (5) HTN (hypertension): Comment: Blood pressure is mildly elevated Code(s): I10 - Essential (primary) hypertension Category: Medical Plan: Blood pressure today is well-controlled. Continue current regimen with a blood pressure goal less than 130/80. Advised monitoring blood pressures at home. Advised on heart healthy diet, regular exercise, med compliance, and aggressive management of vascular risk factors. Follow up in 6 months. In the interim, patient will call the office with any concerns or change in symptoms. This note was generated using voice recognition software. While every effort has been made to ensure accuracy and proper ropewalk rope maker, there may be occasional errors that could affect the content or meaning of the described symptoms. Orders: Orders AMB EKG-In Office Today I48.0 - Paroxysmal atrial fibrillation CA echo transthoracic complete 5 Months I35.0 - Nonrheumatic aortic (valve) stenosis Coding Level of Care Code Est Pt Level 4 (49955) Complex EM visit Add On G2211 Diagnoses CAD (coronary artery disease) I25.10 Hx of CABG Z95.1 Paroxysmal atrial fibrillation I48.0 Aortic stenosis I35.0 HTN (hypertension) I10 CPT Codes EKG - CPT: [id number], Complete ([id number]) Time Spent (min) 33 Comment Time spent in reviewing the chart, test results, assessment, counseling and documentation.
[2025-03-26 14:58] VITALS: BP 122/60; PULSE 54; BMI 28.2
--- OUTSIDE RECORDS SUMMARY | 2025-03-27 03:26 | XMS_ITS | Clinical Summary ---
Author Organization [facility] Facility Address [address] [address] Care Team Providers Care Horse Groomer Name Role Phone Reena Dickson Primary Care Provider [phone] Allergies Active Allergy Reactions Criticality Noted Date [...] age to complete this topic Insurance Medicare [facility] Medicare [facility] Care Teams Horse Groomer Relationship Specialty Start Date End Date Reena Dickson [facility] [address] Zayas [place], [place] [id number] [facility] - General 06/27/22
== END 2025-03-26 15:28 | disposition home or self-care (01) ==
LOC: HO.HCS 14:54
PROVIDERS: PCP Family Medicine
DX: I25.10 Atherosclerotic heart disease of native coronary artery without angina pectoris (principal); Z95.1 Presence of aortocoronary bypass graft; I48.0 Paroxysmal atrial fibrillation; I35.0 Nonrheumatic aortic (valve) stenosis; I10 Essential (primary) hypertension
CPT/HCPCS: 93010; 99214; G2211

== ENCOUNTER → 2025-03-26 14:53 | Outpatient (BNVA) | payer MEDICARE, SELFPAY | PROVIDERS: PCP Family Medicine | DX: I48.0 Paroxysmal atrial fibrillation (principal); I10 Essential (primary) hypertension; I25.10 Atherosclerotic heart disease of native coronary artery without angina pectoris; I35.0 Nonrheumatic aortic (valve) stenosis; Z95.1 Presence of aortocoronary bypass graft; Z87.891 Personal history of nicotine dependence; Z79.01 Long term (current) use of anticoagulants | CPT/HCPCS: 93005; 99212 ==